=== PATIENT | female | born 1940 | race Caucasian/White ===

== ENCOUNTER → 2016-09-28 07:20 | Outpatient (CLI) | payer MEDICARE, SELFPAY ==
--- NOTE | 2016-09-28 08:20 | RAD_ITS ---
STUDY: X-RAY CHEST REASON FOR EXAM: Female, 76 years old. Cough. TECHNIQUE: PA and lateral views of the chest. COMPARISON: None. FINDINGS: All prominent interstitial markings are present with no evidence of focal airspace disease. There is no demonstrated pleural abnormality. Normal size heart. Normal mediastinum and asia. Normal visualized pulmonary arteries. There is atherosclerotic calcification of the aortic arch with tortuosity. There are diffuse degenerative changes of the visualized thoracic spine. Normal visualized ribs, clavicles, and shoulders. There is no demonstrated abnormality of the visualized soft tissue structures of the upper abdomen. RAD/Chest PA and Lateral IMPRESSION: No prominent interstitial markings with no evidence of focal airspace disease. Electronically Signed: Willy Mandel DO at 20:06 EDT Tel [phone], Service support ,
[2016-09-28 09:47] LABS: Hematocrit 39.2 % (37-47); Hemoglobin 12.4 g/dl (12.0-15.0); Mean Corp Hgb Conc 31.6 g/gl (32-36); Mean Corpuscular Hgb 29.7 pg (27.0-32.0); Mean Platelet Vol. 10.2 fl (6.2-12.0); Platelet Count 232 K/mm3 (150-450); RBC Distribution Width CV 13.6 % (11.6-14.6); RBC Distribution Width SD 46.4 fl (35.1-43.9); Red Blood Count 4.17 M/mm3 (4.2-5.4); White Blood Count 6.4 K/mm3 (4.4-11.0)
[2016-09-28 09:52] LABS: Scan Indicated on CBC? Y/N NO
[2016-09-28 10:00] LABS: Erythrocyte Sedimentation Rate 31 mm/hr (0-30)
[2016-09-28 10:14] LABS: ALB/GLOB Ratio 1.1 RATIO (0.9-2.4); AST(SGOT) 14 U/L (15-37); Alanine Aminotransfer ALT/SGPT 19 U/L (12-78); Albumin, Serum 3.6 g/dL (3.4-5.0); Alkaline Phosphatase 72 U/L (45-117); Anion Gap 7 (5-15); BUN 16 mg/dL (7-18); BUN/Creat Ratio 17.6 RATIO (10-20); Calcium,Total 8.8 mg/dL (8.5-10.1); Chloride 108 mmol/L (98-107); Creatinine, Serum 0.91 mg/dL (0.55-1.02); EST Glomerular Filtration Rate 64 mL/min (>60); Est Glom Filt Rate - Afr Amer 77 mL/min (>60); Globulin 3.4 g/dL (2.3-3.5); Glucose 88 mg/dL (70-110); Sodium Level 143 mmol/L (136-145); Thyroid Stim Hormone (TSH) 4.59 uIU/mL (0.358-3.74)
[2016-09-28 11:56] LABS: Vitamin D,25 Hydroxy 36.8 ng/mL
== END | disposition home or self-care (01) ==
PROVIDERS: Family Provider Family Medicine; PCP Family Medicine; Visit Provider Family Medicine
DX: Z00.00 Encounter for general adult medical examination without abnormal findings (principal); R05 Cough
CPT/HCPCS: 36415; 71020; 80053; 82306; 84443; 85027; 85652

== ENCOUNTER → 2018-02-08 08:07 | Outpatient (CLI) | payer MEDICARE, SELFPAY ==
[2018-02-08 10:33] LABS: Erythrocyte Sedimentation Rate 10 mm/hr (0-30)
[2018-02-08 10:35] LABS: Hematocrit 40.3 % (37-47); Hemoglobin 13.2 g/dl (12.0-15.0); Mean Corp Hgb Conc 32.8 g/gl (32-36); Mean Corpuscular Volume 91.6 fL (81-99); Mean Platelet Vol. 10.2 fl (6.2-12.0); Platelet Count 239 K/mm3 (150-450); RBC Distribution Width SD 43.6 fl (35.1-43.9); White Blood Count 6.5 K/mm3 (4.4-11.0)
[2018-02-08 10:41] LABS: Scan Indicated on CBC? Y/N NO
[2018-02-08 10:59] LABS: ALB/GLOB Ratio 0.9 RATIO (0.9-2.4); AST(SGOT) 15 U/L (15-37); Alanine Aminotransfer ALT/SGPT 21 U/L (13-56); Albumin, Serum 3.5 g/dL (3.2-5.0); Alkaline Phosphatase 72 U/L (45-117); Anion Gap 8 (5-15); BUN 16 mg/dL (7-18); BUN/Creat Ratio 19.7 RATIO (10-20); Calcium,Total 9.2 mg/dL (8.5-10.1); Chloride 107 mmol/L (98-107); Cholesterol 228 mg/dL (200); Creatinine, Serum 0.81 mg/dL (0.55-1.02); EST Glomerular Filtration Rate 72 mL/min (>60); Est Glom Filt Rate - Afr Amer 88 mL/min (>60); Globulin 3.9 g/dL (2.2-4.2); Glucose 82 mg/dL (74-106); High Density Lipoprotein 75 mg/dL; Potassium 4.1 mmol/L (3.5-5.1); Protein, Total 7.4 g/dL (6.4-8.2); Sodium Level 141 mmol/L (136-145); Thyroid Stim Hormone (TSH) 2.08 uIU/mL (0.358-3.74); Triglycerides 56 mg/dL; Very Low Density Lipoprotein 11 mg/dL (5-40)
== END ==
PROVIDERS: Family Provider Family Medicine; PCP Family Medicine; Visit Provider Family Medicine
DX: Z00.00 Encounter for general adult medical examination without abnormal findings (principal); M81.0 Age-related osteoporosis without current pathological fracture; E78.00 Pure hypercholesterolemia, unspecified
CPT/HCPCS: 36415; 80053; 80061; 82306; 84443; 85027; 85652

== ENCOUNTER → 2018-04-23 11:52 | Outpatient (CLI) | payer MEDICARE, SELFPAY ==
--- NOTE | 2018-04-23 12:16 | BI_ITS ---
MAMMOGRAPHY - BILATERAL SCREENING REASON FOR EXAM: Female, 78 years old. Routine annual screening examination. PERTINENT HISTORY: Non-contributory. TECHNIQUE: Digital bilateral breast avis (3D mammographic acquisition) in the CC and MLO projections. 2-D mediolateral oblique (MLO) and craniocaudad (CC) views of both breasts were obtained. CAD: Full Field Digital Mammography with Computer Added Detection was performed. COMPARISON: Comparison is made with prior study dated October 14, 2016 and September 28, 2015. FINDINGS: Breast Composition: The breasts are heterogeneously dense, which may obscure small masses. There are no dominant masses or suspicious calcifications. No other significant abnormalities are identified. There has been no significant change since the prior study. BI/SCREENING MAMM (CAD), BILAT IMPRESSION: Stable bilateral screening mammogram. Yearly follow-up mammogram recommended. (A) ASSESSMENT CATEGORY: BIRADS Category 1: Negative. A letter regarding these results will be sent to the patient by the facility within 30 days. Approximately 10% of breast cancers are not detected by mammography. A normal mammogram should not delay biopsy of a clinically suspicious abnormality. [id number] Electronically Signed: Peterson Aquino MD at 14:57 EST Tel [phone], Service support ,
--- OUTSIDE RECORDS SUMMARY | 2018-06-16 18:11 | XMS RPT_ITS ---
:1940 Author Organization [facility] Care Team Providers Name Role Phone Kendell Granger Attending Unavailable Kendell Granger Referring Unavailable Kendell Granger Primary Care Unavailable Lou Rodriguez Attending Unavailable Lou Rodriguez Referring Unavailable Kendell Granger Primary Care Unavailable PROBLEMS PROBLEMS No Problem Records FoundPROCEDURES PROCEDURES No Procedure Records FoundRESULTS RESULTS SCREENING MAMM (CAD), Observed: 04/23/2018 Status: F Source: [place] 12:16 PM [facility] REPOSITORY [facility] Imaging Services [address] [place] [id number] SCREENING MAMM (CAD), BILAT MR#: [id number] Acct: [id number] Name: ELIDIA DREW Rep #: [id number] : 1940 F 78 From: Peterson Aquino MD PCP: Kendell Granger MD Status: REG CLI Study: SCREENING MAMM (CAD), BILAT Date of Exam: 04/23/18 Exam# [id number] Ordering Dr: Lou Rodriguez MD MAMMOGRAPHY - BILATERAL SCREENING REASON FOR EXAM: Female, 78 years old. Routine annual screening examination. PERTINENT HISTORY: Non-contributory. TECHNIQUE: Digital bilateral breast avis (3D mammographic acquisition) in the CC and MLO projections. 2-D mediolateral oblique (MLO) and craniocaudad (CC) views of both breasts were obtained. CAD: Full Field Digital Mammography with Computer Added Detection was performed. COMPARISON: Comparison is made with prior study dated October 14, 2016 and September 28, 2015. FINDINGS: Breast Composition: The breasts are heterogeneously dense, which may obscure small masses. There are no dominant masses or suspicious calcifications. No other significant abnormalities are identified. There has been no significant change since the prior study. BI/SCREENING MAMM (CAD), BILAT IMPRESSION: Stable bilateral screening mammogram. Yearly follow-up mammogram recommended. (A) ASSESSMENT CATEGORY: BIRADS Category 1: Negative. A letter regarding these results will be sent to the patient by the facility within 30 days. Approximately 10% of breast cancers are not detected by mammography. A normal mammogram should not delay biopsy of a clinically suspicious abnormality. [id number] Electronically Signed: Peterson Aquino MD at 14:57 EST Tel [phone], Service support , CC: Lou Rodriguez MD; Kendell Granger MD Clinical Lab Assistant: Signed ERYTHROCYTE SED RATE Collected: 02/08/2018 Status: F Source: [place] 8:16 AM [facility] REPOSITORY Order Comment: Order Date: 01/08/18 Order Info: [id number] - CBC Order Info: [id number] - SED TYPE CODE TESTS RESULT OUT OF RANGE REFERENCE UNITS LAB L102.0000 0-30 mm/hr Normal SED RATE 10 Performed By: #### L101.9900, L100.0500, L500.4050 #### [facility] [address] [place], [address] CBC-COMPLETE BLOOD CNT Collected: 02/08/2018 Status: F Source: [place] NO DIFF 8:16 AM [facility] REPOSITORY Order Comment: Order Date: 01/08/18 Order Info: [id number] - CBC Order Info: 16274-3 - SED TYPE CODE TESTS RESULT OUT OF RANGE REFERENCE UNITS LAB L100.1000 4.4-11.0 K/mm3 Normal WBC 6.5 LAB L100.1200 4.2-5.4 M/mm3 Normal RBC 4.40 LAB L100.1300 12.0-15.0 g/dl Normal HGB 13.2 LAB L100.1400 37-47 % Normal HCT 40.3 LAB L100.1500 81-99 fL Normal MCV 91.6 LAB L100.1600 27.0-32.0 pg Normal MCH 30.0 LAB L100.1700 32-36 g/gl Normal MCHC 32.8 LAB L100.1810 11.6-14.6 % Normal RDW CV 13.0 LAB L100.1820 35.1-43.9 fl Normal RDW SD 43.6 LAB L100.1900 150-450 K/mm3 Normal PLT 239 LAB L100.2000 6.2-12.0 fl Normal MPV 10.2 Performed By: #### L101.9900, L100.0500, L500.4050 #### [facility] [address] [place], [place], [address] COMPREHENSIVE METABOLIC Collected: 02/08/2018 Status: F Source: [place] PROFIL 8:16 AM [facility] REPOSITORY Order Comment: Order Date: 11/21/17 Order Info: [id number] - BMP Order Date: 01/08/18 Order Info: [id number] - CMP Order Info: [id number] - LIPID Order Info: 3016-3 - TSH TYPE CODE TESTS RESULT OUT OF RANGE REFERENCE UNITS LAB L501.0100 74-106 mg/dL Normal GLU 82 Result Comment: Please note revised GLUCOSE reference range effective 2017. LAB L501.1000 7-18 mg/dL Normal BUN 16 LAB L501.1100 0.55-1.02 mg/dL Normal CREAT,SERUM 0.81 Result Comment: The validity of the calculated GFR AND GFRAA in patients over 70 years has not been determined. Clinical correlation is essential. LAB L501.1110 >60 mL/min Normal EST GFR 72 Result Comment: Non- GFR Calc LAB L501.1115 >60 mL/min Normal EST GFR - AA 88 Result Comment: GFR Calc LAB L501.1300 10-20 RATIO Normal BUN/CRE 19.7 LAB L501.1500 6.4-8.2 g/dL T Normal PROT 7.4 LAB L501.1800 3.2-5.0 g/dL Normal ALB 3.5 LAB L501.1950 2.2-4.2 g/dL Normal GLOB 3.9 LAB L501.2000 0.9-2.4 RATIO Normal A/G 0.9 LAB L501.2200 8.5-10.1 mg/dL CA Normal 9.2 LAB L501.4100 15-37 U/L Normal AST 15 LAB L501.4305 45-117 U/L Normal ALK P 72 LAB L501.4405 13-56 U/L Normal ALT 21 LAB L501.4600 0.20-1.00 mg/dL T Normal BILI 0.50 LAB L501.5300 136-145 mmol/L NA Normal 141 LAB L501.5600 3.5-5.1 mmol/L K Normal 4.1 LAB L501.5900 98-107 mmol/L CL Normal 107 LAB L501.6100 21.0-32.0 mmol/L Normal CO2 26.0 LAB L501.6200 5-15 Normal GAP 8 Performed By: #### L101.9900, L100.0500, L500.4050 #### [facility] [address] [place], [place], [address] VITAMIN D,25 HYDROXY Collected: 02/08/2018 Status: F Source: [place] 8:16 AM [facility] REPOSITORY Order Comment: Order Date: 01/08/18 Order Info: [id number] - VITD25 TYPE CODE TESTS RESULT OUT OF REFERENCE UNITS RANGE LAB L506.1000 29.95-100.01 ng/mL Low Vitamin D 25.0 25-OH Result Comment: Vitamin D 25(OH) Status Range Deficiency <20 ng/mL (50nmol/L) Insuffciency 20 - 30 ng/mL (50 - 75 nmol/L) Sufficiency 30 - 100 ng/mL (75 - 250 nmol/L) Toxicity >100 ng/mL (>250 nmol/L) Performed By: #### L506.1000 #### [facility] [address] [place], [place], [id number] LIPID PROFILE Collected: 02/08/2018 Status: F Source: [place] 8:16 AM [facility] REPOSITORY Order Comment: Order Date: 11/21/17 Order Info: [id number] - BMP Order Date: 01/08/18 Order Info: [id number] - CMP Order Info: [id number] - LIPID Order Info: 3016-3 - TSH TYPE CODE TESTS RESULT OUT OF RANGE REFERENCE UNITS LAB L501.4900 200 mg/dL High CHOL 228 Result Comment: <200 mg/dL Desirable 200-240 mg/dL Borderline >240 mg/dL High Risk LAB L501.5000 mg/dL Normal TRIG 56 Result Comment: The drugs N-Acetylcysteine and Metamizole may falsely depress this assay. Serum Triglycerides Reference Interval Normal <150 mg/dL Borderline high 150 - 199 mg/dL High 200 - 499 mg/dL Very High > or = 500 mg/dL LAB L501.6400 mg/dL Normal HDL 75 Result Comment: The drugs N-Acetylcysteine and Metamizole may falsely depress this assay. Reference Range HDL <40 mg/dL Low HDL Cholesterol HDL >or= 60 mg/dL High HDL Cholesterol LAB L501.6500 0-130 mg/dL High LDL 142 LAB L501.6600 5-40 mg/dL Normal VLDL 11 Performed By: #### L500.4100, L501.9520 #### [facility] [address] [place], [address] THYROID STIM HORMONE Collected: 02/08/2018 Status: F Source: [place] (TSH) 8:16 AM [facility] REPOSITORY Order Comment: Order Date: 11/21/17 Order Info: [id number] - BMP Order Date: 01/08/18 Order Info: [id number] - CMP Order Info: [id number] - LIPID Order Info: 3016-3 - TSH TYPE CODE TESTS RESULT OUT OF RANGE REFERENCE UNITS LAB L501.9520 0.358-3.74 uIU/mL Normal TSH 2.08 Performed By: #### L500.4100, L501.9520 #### [facility] [address] [place], [address] ALLERGIES ALLERGIES DATE TYPE / CODE NAME / CODE REACTION SEVERITY SOURCE 02/15/2017 Drug Penicillins/ Rash Unknown [facility] Allergy/4160 [id number](R Hospital 21327(SNOMED XNORM) Repository CT) 02/15/2017 Drug latex/N80127 Rash Unknown [facility] Allergy/4160 8921(RXNORM) Hospital 40645(SNOMED Repository CT) ENCOUNTERS ENCOUNTERS ADMIT/DISCHARGE ACCOUNT ADMITTING ENCOUNTER LOCATION SOURCE NUMBER CLASS 04/23/2018 [id number] Ambulatory [place] [facility] 5 [facility] ing:OPBI Repository 02/08/2018 [id number] Ambulatory [place] [facility] 3 [facility] ing:MTLAB Repository PAYERS PAYERS ENCOUNTER GUARANTOR PAYER SUBSCRIBER SOURCE 04/23/2018 MJ Mccain Primary ELIDIA Jose SteelMaria Luisa [id number] Insurance:ANTHEM DEFFENBAUGHDOB: Community [employer] [employer] [place]icy [id number]: Repository [address]Xfb: 330 [id number] [phone] () Date:[id number] [address]VP: 04/23/2018 Secondary NOT GIVENUNK Maria [place]isa Insurance:SELF PAY [facility] Number: Effective Repository Date:2018-03-12 02/08/2018 Mj Mccain Primary ELIDIAALBIN Glass [id number] Insurance:ANTHEM DEFFENBAUGHDOB: Community [place]icy [id number] Number: Repository [id number]: 330 [id number] [phone] () Date:[id number] [address]YK: 02/08/2018 Secondary NOT GIVENUNK Maria Luisa Insurance:SELF PAY [facility] Number: Effective Repository Date:2018-02-08
== END ==
PROVIDERS: Family Provider Family Medicine; PCP Family Medicine; Referring Provider Obstetrics & Gynecology; Visit Provider Obstetrics & Gynecology
DX: Z12.31 Encounter for screening mammogram for malignant neoplasm of breast (principal)
CPT/HCPCS: 77063; 77067

== ENCOUNTER → 2018-09-25 10:57 | Outpatient (CLI) | payer MEDICARE, SELFPAY ==
--- NOTE | 2018-09-25 11:02 | BD_ITS ---
STUDY: DUAL ENERGY X-RAY ABSORPTIOMETRY / DXA REASON FOR EXAM: Female, 78 years old. The patient is postmenopausal. Loss of height. TECHNIQUE: Bone Mineral Density (BMD) measurements of lumbar spine and bilateral hips were obtained. COMPARISON: Comparison is made with prior study dated March 09, 2016. FINDINGS: Lumbar Spine (L1-L4): g/cm2 (0.710) / T-score (-3.8) / Z-score (-2.0) Findings are suggestive of osteoporosis with a high fracture risk. Left Femur Total: g/cm2 (0.665) / T-score (-2.7) / Z-score (-0.8) Left Femoral Neck: g/cm2 (0.628) / T-score (-2.9) / Z-score (-0.9) Right Femur Total: g/cm2 (0.714) / T-score (-2.3) / Z-score (-0.4) Right Femoral Neck: g/cm2 (0.673) / T-score (-2.6) / Z-score (-0.5) The T-Scores on the most recent prior examination were: Lumbar Spine (L1-L4): There has been worsening of bone density since the previous examination. Left Femur Total: which represents a worsening of 3.5%. Right Femur Total: which represents a worsening of 2.6%. BD/Dexa Bone Density Study IMPRESSION: The patient is considered osteoporotic as outlined below according to World Real Organization (WHO) criteria with a high fracture risk. There has been worsening of bone density since the previous examination. Reference Information: The T-score is the number of standard deviations above or below the standard which is normal for young adults at their peak bone mineral density. The World Health Organization (WHO) interprets the T-scores as follows: Above -1 Normal bone density Between -1 and -2.5 Osteopenia Equal to / or below -2.5 Osteoporosis As a practical clinical guideline, osteopenia may be graded as follows: Mild -1 through -1.5 Moderate -1.6 through -2.0 Severe -2.1 through -2.4 The Z-score is the number of standard deviations above or below age-matched controls. A Z-score of less than -1.5 would be considered abnormal. References: 1. NIH Osteoporosis and Related Bone Diseases http://www.osteo.org 2. International Society for Clinical Densitometry http://www.iscd.org 3. National Osteoporosis Foundation http://www.nof.org Electronically Signed: Peterson Aquino, at 13:32 EDT , Service support ,
== END ==
PROVIDERS: Family Provider Family Medicine; PCP Family Medicine; Referring Provider Family Medicine; Visit Provider Family Medicine
DX: M81.0 Age-related osteoporosis without current pathological fracture (principal)
CPT/HCPCS: 77080

== ENCOUNTER → 2019-01-23 08:01 | Outpatient (CLI) | payer MEDICARE, SELFPAY ==
[2017-02-21 10:02] VITALS: BMI 26.0
[2019-01-23 10:19] LABS: Absolute Lymphocyte Count 1.77 X10^3/uL (0.83-4.51); Absolute Neutrophil Count 3.2 X10^3/uL (2.0-7.7); Basophil# 0.06 X10^3/uL; Eosinophil# 0.21 X10^3/uL; Eosinophils% 3.7 % (0-5); Hemoglobin 12.9 g/dL (12.0-15.0); Lymphocyte # 1.77 X10^3/ul (4.0); Lymphocyte % 30.8 % (19-41); Mean Corp Hgb Conc 32.3 g/dL (32-36); Mean Corpuscular Hgb 30.2 pg (27.0-32.0); Mean Corpuscular Volume 93.7 fL (81-99); Mean Platelet Vol. 10.5 fl (6.2-12.0); Monocyte% 8.7 % (0-10); NRBC Flagged by Analyzer 0 % (0-5); Neutrophil # 3.19 X10^3/uL (2.7-7.7); Neutrophil % 55.5 % (47-70); Platelet Count 220 K/mm3 (150-450); RBC Distribution Width CV 12.8 % (11.6-14.6); RBC Distribution Width SD 43.8 fl (35.1-43.9); Red Blood Count 4.27 M/mm3 (4.2-5.4); White Blood Count 5.8 K/mm3 (4.4-11.0)
[2019-01-23 10:52] LABS: Vitamin D,25 Hydroxy 47.8 ng/mL (29.95-100.01)
[2019-01-23 10:58] LABS: Anion Gap 7 (5-15); BUN 16 mg/dL (7-18); BUN/Creat Ratio 17.6 RATIO (10-20); Chloride 109 mmol/L (98-107); Cholesterol 198 mg/dL (200); Creatinine, Serum 0.91 mg/dL (0.55-1.02); EST Glomerular Filtration Rate 64 mL/min (>60); Est Glom Filt Rate - Afr Amer 77 mL/min (>60); Glucose 86 mg/dL (74-106); High Density Lipoprotein 77 mg/dL; Potassium 4.1 mmol/L (3.5-5.1); Sodium Level 143 mmol/L (136-145); Thyroid Stim Hormone (TSH) 2.93 uIU/mL (0.358-3.74); Triglycerides 45 mg/dL; Very Low Density Lipoprotein 9 mg/dL (5-40)
== END ==
PROVIDERS: Family Provider Family Medicine; PCP Family Medicine; Referring Provider Family Medicine; Visit Provider Family Medicine
DX: Z00.00 Encounter for general adult medical examination without abnormal findings (principal); E78.00 Pure hypercholesterolemia, unspecified; R79.89 Other specified abnormal findings of blood chemistry; M19.90 Unspecified osteoarthritis, unspecified site
CPT/HCPCS: 36415; 80048; 80061; 82306; 84443; 85025

== ENCOUNTER → 2019-02-27 12:15 | Outpatient (CLI) | payer MEDICARE, SELFPAY ==
[2017-02-21 10:02] VITALS: BMI 26.0
[2019-02-27 14:20] LABS: Magnesium 2.5 mg/dL (1.6-2.6)
== END ==
PROVIDERS: Family Provider Family Medicine; PCP Family Medicine; Referring Provider Family Medicine; Visit Provider Family Medicine
DX: I49.8 Other specified cardiac arrhythmias (principal)
CPT/HCPCS: 36415; 83735

== ENCOUNTER → 2019-03-29 13:13 | Outpatient (CLI) | payer MEDICARE, SELFPAY ==
[2019-03-27 08:43] VITALS: BMI 28.1
--- NOTE | 2019-03-29 13:14 | STE_ITS ---
Reason For Study: Arrhythmia Stress Results Protocol: Tulio Protocol Maximum Predicted HR: 141 bpm Target HR: 120 bpm % Maximum Predicted HR: 94 % DurationHeart Rate Stage (mm:ss) (bpm) BP Comment Baseline 69 134/82No Chest Pain Tulio Protocol Stage I 3:00 122 150/78No Chest Pain Tulio Protocol Stage II 3:00 133 160/74No Chest Pain; Mild Dyspnea Recovery 78 118/80No Chest Pain Stress Duration: 6:00 mm:ss Maximum Stress HR: 133 bpm METS: 7 Baseline Echocardiogram Findings Stress Echo Wall motion Data Resting WM Intermediate WM Stress WM Interpretation Summary Stress protocol: Resting EKG demonstrates normal sinus rhythm with a rate of 72 bpm and occasional premature atrial complexes. The patient exercised according to regular Tulio protocol for total duration of 6 minutes completing stage II of the Tulio protocol the maximum heart rate attained was 139 bpm which was 98% of maximum predicted heart rate the maximum workload was 7.3 metabolic equivalents. Patient maintained sinus rhythm throughout the recording with premature atrial complexes noted. These were asymptomatic. At rest there were no ST or T wave changes noted suggest ischemia at peak exercise upsloping ST changes only were noted with no meet the criteria for ischemia. No clinical angina was noted the test was terminated due to leg fatigue. Resting blood pressure was 134/82 with a peak blood pressure 160/74 mmHg. Stress echocardiogram. Stress echocardiographic results were performed. Resting echocardiogram demonstrated preserved ejection fraction of 55 to 60% with peak ejection fraction estimated to be 65 to 70%. No wall motion abnormalities were noted. Conclusion: Exercise stress echocardiogram with no EKG or echocardiographic findings at a high workload for age. No significant arrhythmias noted except for occasional premature atrial complexes. Excellent functional capacity. Ordering Physician: Castillo Cueva Referring Physician: Kendell Whatley Performed By: Melissa Zhu, ANH
== END ==
PROVIDERS: Family Provider Family Medicine; PCP Family Medicine; Referring Provider Internal Medicine Cardiovascular Disease; Visit Provider Internal Medicine Cardiovascular Disease
DX: I49.1 Atrial premature depolarization (principal); R94.31 Abnormal electrocardiogram [ECG] [EKG]
CPT/HCPCS: 93017; 93350

== ENCOUNTER 2019-04-29 18:03 | Emergency (ER) | payer MEDICARE, SELFPAY ==
[2019-03-27 08:43] VITALS: BMI 28.1
[2019-04-29 18:05] VITALS: BP 168/95; PULSE 75; RESP 16; TEMP 36.2; O2SAT 99; BMI 27.1
--- NOTE | 2019-04-29 18:50 | CT_ITS ---
STUDY: CT ABDOMEN AND PELVIS WITH CONTRAST REASON FOR EXAM: Female, 79 years old. Right-sided abdominal pain RADIATION DOSAGE (If Supplied By Facility): CTDIvol = ( 15.19 ) mGy, DLP = ( 778.83 ) mGycm TECHNIQUE: Transaxial images were obtained from the dome of the diaphragm to the symphysis pubis with oral contrast. 100ml-[id number] / oral was administered. Sagittal and coronal images were reconstructed. Individualized dose optimization techniques were used for this CT. COMPARISON: None. FINDINGS: The visualized lung bases are unremarkable. The visualized portions of the heart are within normal limits. Normal liver. Normal gallbladder and extrahepatic biliary system. Normal spleen. Normal pancreas. Normal bilateral adrenal glands. Right extrarenal pelvis, otherwise unremarkable right kidney. Normal left kidney. Questionable wall thickening of the gastric fundus. Normal small intestine. There are multiple colonic diverticula consistent with diverticulosis. Prominent fecal retention throughout the colon. There is non-visualization of the appendix. There is diffuse atherosclerotic calcification of the abdominal aorta, without a demonstrated aneurysm. Normal inferior vena cava. Normal retroperitoneum. Normal urinary bladder. There is atrophy of the uterus. There is a small umbilical hernia containing fat. There are diffuse degenerative changes of the visualized lumbar spine. CT/Abdomen/Pelvis WITH Contrast IMPRESSION: 1. Prominent fecal retention throughout the colon with diverticulosis. No acute diverticulitis 2. Evidence of small bowel obstruction 3. Nonvisualized appendix have a common no secondary signs of acute appendicitis Electronically Signed: Tesfaye Mcintyre DO at 21:17 EST Tel , Service support ,
[2019-04-29 19:07] LABS: Bacteria 0 SEEN /hpf (None Seen); Mucous, Urine 0 SEEN /hpf (<or=2+); Red Blood Cells-Urine 0 SEEN /hpf (0-5); Squamous Epithelial Cells - UA 0 SEEN /hpf (5-10)
[2019-04-29 19:08] LABS: Color, Urine Yellow (Yellow); Glucose, Dipstick Normal (Normal); Ketone-Dipstick 5 mg/dl (Negative); Leukocyte Esterase-Dipstick Negative /ul (Negative); Nitrite-Dipstick Negative (Negative); Occult Blood-Urine 10 /ul (Negative); Protein-Dipstick Negative (Negative); Urine Bilirubin Dipstick Negative (Negative); Urine Clarity Clear (Clear); Urine Urobilinogen Normal (Normal)
[2019-04-29 19:14] LABS: White Blood Cells 0-5 SEEN /hpf (0-5)
[2019-04-29 19:22] LABS: Absolute Lymphocyte Count 1.99 X10^3/uL (0.83-4.51); Absolute Neutrophil Count 4.3 X10^3/uL (2.0-7.7); Basophil# 0.05 X10^3/uL; Basophil% 0.7 % (0-1); Eosinophil# 0.07 X10^3/uL; Hematocrit 40.5 % (37-47); Hemoglobin 13.1 g/dL (12.0-15.0); Lymphocyte # 1.99 X10^3/ul (4.0); Lymphocyte % 28.4 % (19-41); Mean Corp Hgb Conc 32.3 g/dL (32-36); Mean Corpuscular Hgb 29.9 pg (27.0-32.0); Mean Corpuscular Volume 92.5 fL (81-99); Monocyte# 0.56 X10^3/uL; NRBC Flagged by Analyzer 0 % (0-5); Neutrophil # 4.31 X10^3/uL (2.7-7.7); Neutrophil % 61.5 % (47-70); Platelet Count 234 K/mm3 (150-450); RBC Distribution Width CV 12.7 % (11.6-14.6); RBC Distribution Width SD 43.6 fl (35.1-43.9); Red Blood Count 4.38 M/mm3 (4.2-5.4)
[2019-04-29 19:26] VITALS: BP 158/77; PULSE 77; RESP 16; O2SAT 99
[2019-04-29] MEDS: 0.9% Normal Saline 1,000 ML 1000 ML IV (19:36)
[2019-04-29 19:58] LABS: ALB/GLOB Ratio 1.1 RATIO (0.9-2.4); AST(SGOT) 18 U/L (15-37); Alanine Aminotransfer ALT/SGPT 20 U/L (13-56); Alkaline Phosphatase 72 U/L (45-117); Anion Gap 7 (5-15); BUN 16 mg/dL (7-18); Calcium,Total 9.1 mg/dL (8.5-10.1); Chloride 106 mmol/L (98-107); EST Glomerular Filtration Rate 57 mL/min (>60); Est Glom Filt Rate - Afr Amer 69 mL/min (>60); Estimated Creatinine Clearance 34.42 ml/min; Globulin 3.7 g/dL (2.2-4.2); Glucose 97 mg/dL (74-106); Lipase 381 U/L (73-393); Potassium 3.7 mmol/L (3.5-5.1); Protein, Total 7.7 g/dL (6.4-8.2); Sodium Level 138 mmol/L (136-145)
[2019-04-29 21:10] VITALS: RESP 16
[2019-04-29 21:24] VITALS: BP 142/84; PULSE 100; RESP 16; O2SAT 97
--- NOTE | 2019-04-29 21:27 | ED.DCSUM_ITS ---
- ER Visit Summary Date of Service: 04/29/19 Chief Complaint: Abdominal pain History of Present Illness: The patient is a [address] Barr. She reports that she has right lower abdominal pain that began 2 days ago. Some aching pain is 5 out of 10 when she walks or moves. She has no pain at rest. She denies any associated nausea, vomiting, or diarrhea. Her last bowel was today. No melena hematochezia. No dysuria frequency. Physical Examination: Vitals: Stable. Afebrile. General: Well-nourished and well-developed. Head: Normocephalic atraumatic. Neck: Supple, no lymphadenopathy. No JVD. Nontender. Cardiovascular: Regular rate and rhythm. No murmurs. Respiratory: No respiratory distress. Clear to auscultation bilaterally. Abdominal: Soft, minimal right lower quadrant tenderness to palpation, nondistended, normal bowel sounds. No guarding, rebound, or peritoneal signs. Back: Nontender. Extremities: Nontender, no edema. Skin: Normal color, no rash. Neurologic: Alert and oriented ?3. Cranial nerves II through XII are intact. Normal strength and sensation. Psych: Normal affect. Test Results: CBC is normal. Chem-7 is normal. LFTs and lipase are normal. UA is negative. Appendix was not visualized. There was no secondary signs of appendicitis. There is no bowel obstruction. She does have fecal retention. Emergency Department Course and Treatment: Patient refused pain or nausea medications. She is resting comfortably. Treatment Plan: Patient will be discharged instructions follow-up her primary care physician 1 to 2 days if not improving. Return to the emergency department for any worsening symptoms. Disposition: To home in improved and stable condition. Impression: 1. Abdominal pain, uncertain cause. This note was generated with [employer] software. It may contain incorrect words, spelling, and punctuation that were not noted in review of the chart prior to signing ED Disposition - Plan for ED Patient: Disposition: Home or Assisted Living Instructions: ABDOMINAL PAIN, Unknown Cause, (Female) Referrals: Kendell Whatley MD [Primary Care Provider] - 1-2 Days if not improving
[2019-04-29 21:45] VITALS: BP 131/79; PULSE 78; RESP 16; O2SAT 97
== END 2019-04-29 21:46 | disposition home or self-care (01) ==
LOC: ED 18:57
PROVIDERS: Emergency Provider Emergency Medicine; Family Provider Family Medicine; PCP Family Medicine
DX: R10.31 Right lower quadrant pain (principal)
CPT/HCPCS: 74177; 80053; 81001; 83690; 85025; 96360; 99283; J7030; Q9967; A4216

== ENCOUNTER → 2019-05-21 12:17 | Outpatient (CLI) | payer MEDICARE, SELFPAY ==
[2019-03-27 08:43] VITALS: BMI 28.1
[2019-04-29 18:05] VITALS: BMI 27.1
--- NOTE | 2019-05-21 12:19 | BI_ITS ---
MAMMOGRAPHY - BILATERAL SCREENING 3-D TOMOSYNTHESIS REASON FOR EXAM: Female, 79 years old. no fam hx -- hx of bilat aspirations several yrs ago PERTINENT HISTORY: No significant family history. TECHNIQUE: 2-D mammograms and 3-D Tomosynthesis of the breast (s) were performed. CAD was performed. COMPARISON: April 23, 2018. FINDINGS: The breast composition is composed of scattered fibroglandular density. Scattered benign calcifications are seen. No dense spiculated masses or suspicious microcalcifications are identified. No architectural distortion is identified. There is no skin thickening or retraction. There are typically benign-appearing calcifications bilaterally. There has been no significant change since the prior study. BI/SCREEN MAMM (CAD) W/IZZY BILAT IMPRESSION: No mammographic signs of malignancy. Routine yearly mammograms recommended. ASSESSMENT CATEGORY: BIRADS Category 2: Benign. A letter regarding these results will be sent to the patient by the facility within 30 days. FOLLOW UP RECOMMENDATION: Yearly follow up mammogram recommended. (A) Approximately 10% of breast cancers are not detected by mammography. A normal mammogram should not delay biopsy of a clinically suspicious abnormality. Electronically Signed: Bipin Davis MD at 9:15 EST , Service support ,
== END ==
PROVIDERS: Family Provider Family Medicine; PCP Family Medicine; Referring Provider Family Medicine; Visit Provider Family Medicine
DX: Z12.31 Encounter for screening mammogram for malignant neoplasm of breast (principal)
CPT/HCPCS: 77063; 77067

== ENCOUNTER → 2020-05-21 12:31 | Outpatient (CLI) | payer MEDICARE, SELFPAY ==
[2020-05-21 12:47] LABS: Bacteria 0 SEEN /hpf (None Seen); Mucous, Urine 0 SEEN /hpf (<or=2+); Red Blood Cells-Urine 0 SEEN /hpf (0-5); White Blood Cells 0 SEEN /hpf (0-5)
[2020-05-21 15:11] LABS: Color, Urine Yellow (Yellow); Glucose, Dipstick Normal (Normal); Ketone-Dipstick Negative (Negative); Leukocyte Esterase-Dipstick Negative /ul (Negative); Nitrite-Dipstick Negative (Negative); Occult Blood-Urine Negative /ul (Negative); Protein-Dipstick Negative (Negative); Urine Bilirubin Dipstick Negative (Negative); Urine Clarity Sl. Cloudy (Clear); Urine Urobilinogen Normal (Normal)
[2020-05-21 15:17] LABS: Absolute Lymphocyte Count 1.54 X10^3/uL (0.83-4.51); Absolute Neutrophil Count 4.5 X10^3/uL (2.0-7.7); Basophil# 0.06 X10^3/uL; Basophil% 0.9 % (0-1); Eosinophils% 2.9 % (0-5); Hematocrit 38.2 % (37-47); Hemoglobin 11.9 g/dL (12.0-15.0); Lymphocyte # 1.54 X10^3/ul (4.0); Mean Corp Hgb Conc 31.2 g/dL (32-36); Mean Corpuscular Hgb 30.1 pg (27.0-32.0); Mean Corpuscular Volume 96.5 fL (81-99); Mean Platelet Vol. 9.6 fl (6.2-12.0); Monocyte# 0.68 X10^3/uL; Monocyte% 9.7 % (0-10); NRBC Flagged by Analyzer 0 % (0-5); Neutrophil # 4.49 X10^3/uL (2.7-7.7); Neutrophil % 64.2 % (47-70); Platelet Count 343 K/mm3 (150-450); RBC Distribution Width CV 12.8 % (11.6-14.6); RBC Distribution Width SD 45.3 fl (35.1-43.9); Red Blood Count 3.96 M/mm3 (4.2-5.4)
[2020-05-21 15:22] LABS: Squamous Epithelial Cells - UA 10-25 SEEN /hpf (5-10)
[2020-05-21 15:36] LABS: AST(SGOT) 19 U/L (15-37); Alanine Aminotransfer ALT/SGPT 31 U/L (13-56); Albumin, Serum 3.7 g/dL (3.2-5.0); Alkaline Phosphatase 83 U/L (45-117); Anion Gap 5 (5-15); BUN 22 mg/dL (7-18); BUN/Creat Ratio 25.4 RATIO (10-20); Calcium,Total 9.1 mg/dL (8.5-10.1); Chloride 103 mmol/L (98-107); Creatinine, Serum 0.86 mg/dL (0.55-1.02); EST Glomerular Filtration Rate 67 mL/min (>60); Est Glom Filt Rate - Afr Amer 81 mL/min (>60); Globulin 3.8 g/dL (2.2-4.2); Glucose 74 mg/dL (74-106); Magnesium 2.3 mg/dL (1.6-2.6); Potassium 3.6 mmol/L (3.5-5.1); Protein, Total 7.5 g/dL (6.4-8.2); Sodium Level 138 mmol/L (136-145); Thyroid Stim Hormone (TSH) 1.52 uIU/mL (0.358-3.74)
== END ==
PROVIDERS: PCP Family Medicine; Referring Provider Family Medicine; Visit Provider Family Medicine
DX: R03.0 Elevated blood-pressure reading, without diagnosis of hypertension (principal)
CPT/HCPCS: 36415; 80053; 81001; 83735; 84443; 85025

== ENCOUNTER → 2020-05-28 13:29 | Outpatient (CLI) | payer MEDICARE, SELFPAY ==
--- NOTE | 2020-05-28 13:31 | VDLE_ITS ---
Reason For Study: Edema Procedure LEFT This is a venous duplex using B-mode, color GSV is normal. flow and spectral Doppler. CFV is compressible, spontaneous, phasic, Exam performed in department. competent, and demonstrates normal A preliminary report was called and/or faxed augmentation. to [facility]. FV is compressible, spontaneous, phasic, competent and demonstrates normal augmentation. POP V is compressible, spontaneous, phasic, competent and demonstrates normal augmentation. T/P Trunk is compressible. PTV is compressible. LT PerV is compressible. Interpretation Summary Deep veins of the left lower extremity are patent and compressible segmentally. There is no evidence of left lower extremity deep vein thrombosis. Valvular competence appears intact within the proximal deep venous system on the left . The left great saphenous vein appears patent and compressible segmentally. Ordering Physician: Kendell Whatley Referring Physician: Kendell Whatley Performed By: Farzaneh Jaffe RVT
== END ==
PROVIDERS: PCP Family Medicine; Referring Provider Family Medicine; Visit Provider Family Medicine
DX: R60.0 Localized edema (principal)
CPT/HCPCS: 93971

== ENCOUNTER 2020-06-18 16:19 | Outpatient (RCR) | payer MEDICARE, SELFPAY | END 2020-06-18 23:59 | LOC: IMMUN 16:19 | PROVIDERS: PCP Family Medicine; Visit Provider Family Medicine | DX: Z23 Encounter for immunization (principal) | CPT/HCPCS: 0011A; 0012A; 91301 ==

== ENCOUNTER → 2020-07-23 14:58 | Outpatient (CLI) | payer MEDICARE, SELFPAY ==
[2020-07-23 17:55] LABS: ALB/GLOB Ratio 0.9 RATIO (0.9-2.4); AST(SGOT) 18 U/L (15-37); Alanine Aminotransfer ALT/SGPT 23 U/L (13-56); Albumin, Serum 3.6 g/dL (3.2-5.0); Alkaline Phosphatase 76 U/L (45-117); Anion Gap 6 (5-15); BUN 24 mg/dL (7-18); BUN/Creat Ratio 22.2 RATIO (10-20); Calcium,Total 9.1 mg/dL (8.5-10.1); Chloride 104 mmol/L (98-107); Creatinine, Serum 1.08 mg/dL (0.55-1.02); EST Glomerular Filtration Rate 52 mL/min (>60); Est Glom Filt Rate - Afr Amer 63 mL/min (>60); Ferritin 141 ng/mL (8-252); Globulin 3.8 g/dL (2.2-4.2); Glucose 141 mg/dL (74-106); Magnesium 2.3 mg/dL (1.6-2.6); Potassium 3.9 mmol/L (3.5-5.1); Protein, Total 7.4 g/dL (6.4-8.2); Sodium Level 139 mmol/L (136-145)
[2020-07-24 08:58] LABS: Hemoglobin A1c 5.3 % (3.8-5.6)
== END ==
PROVIDERS: PCP Family Medicine; Referring Provider Family Medicine; Visit Provider Family Medicine
DX: R25.2 Cramp and spasm (principal); R73.09 Other abnormal glucose
CPT/HCPCS: 36415; 80053; 82728; 83036; 83735

== ENCOUNTER → 2020-07-31 13:35 | Outpatient (CLI) | payer MEDICARE, SELFPAY ==
[2020-07-31 15:02] LABS: Anion Gap 6 (5-15); BUN 21 mg/dL (7-18); BUN/Creat Ratio 23.5 RATIO (10-20); Calcium,Total 8.7 mg/dL (8.5-10.1); Chloride 103 mmol/L (98-107); Creatinine, Serum 0.89 mg/dL (0.55-1.02); EST Glomerular Filtration Rate 65 mL/min (>60); Est Glom Filt Rate - Afr Amer 78 mL/min (>60); Glucose 167 mg/dL (74-106); Potassium 3.7 mmol/L (3.5-5.1); Sodium Level 137 mmol/L (136-145)
[2020-07-31 15:10] LABS: Hemoglobin A1c 5.4 % (3.8-5.6)
== END ==
PROVIDERS: PCP Family Medicine; Referring Provider Family Medicine; Visit Provider Family Medicine
DX: R73.09 Other abnormal glucose (principal); N28.9 Disorder of kidney and ureter, unspecified
CPT/HCPCS: 36415; 80048; 83036

== ENCOUNTER → 2020-11-04 10:36 | Outpatient (CLI) | payer MEDICARE, SELFPAY ==
--- NOTE | 2020-11-04 10:57 | BI_ITS ---
MAMMOGRAPHY - BILATERAL SCREENING REASON FOR EXAM: Female, 80 years old. Routine annual screening examination. PERTINENT HISTORY: Non-contributory. History of prior bilateral breast aspirations. TECHNIQUE: Digital bilateral breast izzy (3D mammographic acquisition) in the CC and MLO projections. 2-D mediolateral oblique (MLO) and craniocaudad (CC) views of both breasts were obtained. CAD: Full Field Digital Mammography with Computer Added Detection was performed. COMPARISON: Comparison is made with prior study dated 05/21/2019 and 04/23/2018. FINDINGS: Breast Composition: The breasts are heterogeneously dense, which may obscure small masses. There are no dominant masses or suspicious calcifications. No other significant abnormalities are identified. There has been no significant change since the prior study. BI/SCRN MAMM (CAD)W/IZZY BILAT IMPRESSION: Stable bilateral screening mammogram. Yearly follow-up mammogram recommended. (A) ASSESSMENT CATEGORY: BIRADS Category 1: Negative. A letter regarding these results will be sent to the patient by the facility within 30 days. Approximately 10% of breast cancers are not detected by mammography. A normal mammogram should not delay biopsy of a clinically suspicious abnormality. [id number] Electronically Signed: Peterson Aquino MD at 12:02 EDT , Service support ,
== END ==
PROVIDERS: PCP Family Medicine; Referring Provider Family Medicine; Visit Provider Family Medicine
DX: Z12.31 Encounter for screening mammogram for malignant neoplasm of breast (principal)
CPT/HCPCS: 77063; 77067

== ENCOUNTER → 2020-11-10 15:02 | Outpatient (CLI) | payer MEDICARE, SELFPAY ==
[2020-11-10 18:15] LABS: AST(SGOT) 20 U/L (15-37); Alanine Aminotransfer ALT/SGPT 24 U/L (13-56); Albumin, Serum 3.6 g/dL (3.2-5.0); Alkaline Phosphatase 73 U/L (45-117); Anion Gap 5 (5-15); BUN 20 mg/dL (7-18); BUN/Creat Ratio 18.5 RATIO (10-20); Chloride 106 mmol/L (98-107); Creatinine, Serum 1.08 mg/dL (0.55-1.02); EST Glomerular Filtration Rate 52 mL/min (>60); Est Glom Filt Rate - Afr Amer 63 mL/min (>60); Globulin 3.5 g/dL (2.2-4.2); Glucose 102 mg/dL (74-106); Potassium 4.2 mmol/L (3.5-5.1); Protein, Total 7.1 g/dL (6.4-8.2); Sodium Level 139 mmol/L (136-145)
[2020-11-10 18:16] LABS: Vitamin D,25 Hydroxy 48.2 ng/mL
== END ==
PROVIDERS: PCP Family Medicine; Referring Provider Family Medicine; Visit Provider Family Medicine
DX: M81.0 Age-related osteoporosis without current pathological fracture (principal)
CPT/HCPCS: 36415; 80053; 82306

== ENCOUNTER → 2020-11-24 16:56 | Outpatient (CLI) | payer MEDICARE, SELFPAY ==
--- NOTE | 2020-11-24 17:00 | RAD_ITS ---
STUDY: X-RAY - LEFT KNEE REASON FOR EXAM: Left knee pain. TECHNIQUE: 4 view(s) of the knee. COMPARISON: Radiographs 03/05/2015. FINDINGS: There is osteopenia. Normal visualized distal femur. Normal visualized proximal tibia and fibula. Normal proximal tibiofibular articulation. There is mild joint space narrowing of the medial femorotibial compartment similar to the prior study. There is interval development of [id number] joint space narrowing of the lateral femorotibial compartment. Normal patellofemoral articulation. The soft tissue structures are unremarkable. 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 Electronically Signed: Seb Godoy MD at 14:58 EDT Tel , Service support ,
--- NOTE | 2020-11-24 17:00 | RAD_ITS ---
STUDY: X-RAY - RIGHT KNEE REASON FOR EXAM: Right knee pain. TECHNIQUE: 4 view(s) of the knee. COMPARISON: Radiographs 02/16/2016. FINDINGS: There is osteopenia. Normal visualized distal femur. Normal visualized proximal tibia and fibula. Normal proximal tibiofibular articulation. There is mild joint space narrowing of the medial femorotibial compartment similar to the prior study. Normal lateral femorotibial compartment. Normal patellofemoral articulation. The soft tissue structures are unremarkable. RAD/Knee 4 or More Views IMPRESSION: Mild arthrosis of the medial femorotibial compartment. Electronically Signed: Seb Godoy MD at 15:00 EDT Tel , Service support ,
[2020-11-24 18:27] LABS: Anion Gap 7 (5-15); BUN 18 mg/dL (7-18); BUN/Creat Ratio 22.1 RATIO (10-20); Calcium,Total 9.1 mg/dL (8.5-10.1); Chloride 102 mmol/L (98-107); Creatinine, Serum 0.81 mg/dL (0.55-1.02); EST Glomerular Filtration Rate 72 mL/min (>60); Est Glom Filt Rate - Afr Amer 87 mL/min (>60); Glucose 85 mg/dL (74-106); Potassium 4.1 mmol/L (3.5-5.1); Sodium Level 138 mmol/L (136-145)
== END ==
PROVIDERS: PCP Family Medicine; Referring Provider Family Medicine; Visit Provider Family Medicine
DX: M25.561 Pain in right knee (principal); M25.562 Pain in left knee; R94.4 Abnormal results of kidney function studies
CPT/HCPCS: 36415; 73564; 80048

== ENCOUNTER → 2021-04-05 12:32 | Outpatient (CLI) | payer MEDICARE, SELFPAY ==
--- NOTE | 2021-04-05 12:37 | RAD_ITS ---
EXAM: XR CHEST, 2 VIEWS : 1940 CLINICAL INDICATION: RIGHT SHOULDER PAIN TECHNIQUE: Frontal and lateral views of the chest. This report was created using [employer] report generation technology. COMPARISON: 09/28/2016 FINDINGS: LUNGS AND PLEURAL SPACES: Unremarkable. No consolidation or edema. No pneumothorax. No effusion. HEART: Unremarkable. Cardiac silhouette not enlarged. MEDIASTINUM: Central airways and mediastinal contour are unremarkable. BONES/JOINTS: Unremarkable. SOFT TISSUES: Unremarkable. RAD/Chest PA and Lateral IMPRESSION: No radiographic evidence of acute cardiopulmonary disease. at 0306 Reported and signed by: Milan Oreilly MD Electronically Signed: Milan Oreilly MD at 3:05 EST Tel , Service support ,
[2021-04-05 14:55] LABS: Absolute Lymphocyte Count 2.36 X10^3/uL (0.83-4.51); Absolute Neutrophil Count 4.3 X10^3/uL (2.0-7.7); Basophil# 0.07 X10^3/uL; Basophil% 0.9 % (0-1); Eosinophil# 0.07 X10^3/uL; Eosinophils% 0.9 % (0-5); Hematocrit 39.1 % (37-47); Hemoglobin 12.6 g/dL (12.0-15.0); Lymphocyte # 2.36 X10^3/ul (0.83-4.51); Lymphocyte % 31.8 % (19-41); Mean Corp Hgb Conc 32.2 g/dL (32-36); Mean Corpuscular Hgb 30.3 pg (27.0-32.0); Mean Platelet Vol. 9.7 fl (6.2-12.0); Monocyte# 0.57 X10^3/uL; Monocyte% 7.7 % (0-10); NRBC Flagged by Analyzer 0 % (0-5); Neutrophil # 4.33 X10^3/uL (2.7-7.7); Neutrophil % 58.3 % (47-70); Platelet Count 297 K/mm3 (150-450); RBC Distribution Width CV 12.2 % (11.6-14.6); RBC Distribution Width SD 42.6 fl (35.1-43.9); Red Blood Count 4.16 M/mm3 (4.2-5.4); White Blood Count 7.4 K/mm3 (4.4-11.0)
[2021-04-05 15:12] LABS: Erythrocyte Sedimentation Rate 17 mm/hr (0-30)
[2021-04-05 15:20] LABS: AST(SGOT) 17 U/L (15-37); Alanine Aminotransfer ALT/SGPT 21 U/L (13-56); Albumin, Serum 3.9 g/dL (3.2-5.0); Alkaline Phosphatase 76 U/L (45-117); Anion Gap 8 (5-15); BUN 17 mg/dL (7-18); BUN/Creat Ratio 18.9 RATIO (10-20); CRP < 2.90 mg/L (0.0-3.0); Calcium,Total 9.3 mg/dL (8.5-10.1); Chloride 103 mmol/L (98-107); EST Glomerular Filtration Rate 64 mL/min (>60); Est Glom Filt Rate - Afr Amer 77 mL/min (>60); Globulin 3.8 g/dL (2.2-4.2); Glucose 89 mg/dL (74-106); Potassium 3.3 mmol/L (3.5-5.1); Protein, Total 7.7 g/dL (6.4-8.2); Sodium Level 138 mmol/L (136-145)
== END ==
PROVIDERS: PCP Family Medicine; Referring Provider Family Medicine; Visit Provider Family Medicine
DX: M25.511 Pain in right shoulder (principal)
CPT/HCPCS: 36415; 71046; 80053; 85025; 85652; 86140

== ENCOUNTER → 2021-04-09 10:24 | Outpatient (CLI) | payer MEDICARE, SELFPAY ==
--- NOTE | 2021-04-09 10:26 | US_ITS ---
STUDY: ABDOMINAL ULTRASOUND - RIGHT UPPER QUADRANT REASON FOR VISIT: Female, 81 years old R shoulder pain and abdominal pain, possible biliary dz; RUQ ultr TECHNIQUE: Ultrasound evaluation of the right upper quadrant was performed with real-time and static roland-scale imaging. TECHNICAL QUALITY: Adequate. COMPARISON: None. FINDINGS: Liver: The liver measures 12.4 cm cm. There is normal echogenicity of the liver. The bile ducts are within normal limits. There is hepatic color flow. The direction of portal flow is hepatopetal. There is no demonstrated mass lesion. Gallbladder: Normal distended gallbladder. The gallbladder wall measures 2.0 mm. There is a negative sonographic Lewis''s sign. There is no pericholecystic fluid. There are no gallstones. Common Bile Duct (C.B.D.): The common bile duct measures 2.3 mm. Pancreas: Normal size of the head, body and tail of the pancreas. There is increased echogenicity of the pancreas. There is no demonstrated pancreatic mass or cyst. Right Kidney: Normal size of the right kidney. The right kidney measures 9.5 cm x 4.26 x 3.5 cm. Normal renal cortex. The right cortex measures 1.1 cm. There is no demonstrated renal mass or cyst. There is no right hydronephrosis. US/Abdomen Limited IMPRESSION: Normal right upper quadrant ultrasound examination. Electronically Signed: Peterson Aquino MD at 14:07 EST , Service support ,
== END ==
PROVIDERS: PCP Family Medicine; Referring Provider Family Medicine; Visit Provider Family Medicine
DX: M25.511 Pain in right shoulder (principal)
CPT/HCPCS: 76705

== ENCOUNTER → 2021-04-28 14:25 | Outpatient (CLI) | payer MEDICARE, SELFPAY ==
[2021-04-28 18:17] LABS: AST(SGOT) 19 U/L (15-37); Alanine Aminotransfer ALT/SGPT 23 U/L (13-56); Albumin, Serum 3.6 g/dL (3.2-5.0); Alkaline Phosphatase 73 U/L (45-117); Anion Gap 9 (5-15); BUN 21 mg/dL (7-18); BUN/Creat Ratio 23.6 RATIO (10-20); Chloride 104 mmol/L (98-107); Creatinine, Serum 0.89 mg/dL (0.55-1.02); EST Glomerular Filtration Rate 65 mL/min (>60); Est Glom Filt Rate - Afr Amer 78 mL/min (>60); Globulin 3.6 g/dL (2.2-4.2); Glucose 89 mg/dL (74-106); Protein, Total 7.2 g/dL (6.4-8.2); Sodium Level 139 mmol/L (136-145)
== END ==
PROVIDERS: PCP Family Medicine; Referring Provider Family Medicine; Visit Provider Family Medicine
DX: N28.9 Disorder of kidney and ureter, unspecified (principal)
CPT/HCPCS: 36415; 80053

== ENCOUNTER → 2021-05-04 16:35 | Outpatient (CLI) | payer MEDICARE, SELFPAY ==
[2021-05-04 18:14] LABS: Potassium 3.6 mmol/L (3.5-5.1)
== END ==
PROVIDERS: PCP Family Medicine; Visit Provider Family Medicine
DX: E87.6 Hypokalemia (principal)
CPT/HCPCS: 36415; 84132

== ENCOUNTER 2021-05-13 11:16 | Outpatient (CLI) | payer MEDICARE, SELFPAY ==
[2021-05-13 15:24] LABS: Potassium 4.1 mmol/L (3.5-5.1)
== END 2021-05-13 23:59 | disposition home or self-care (01) ==
LOC: MFPLAB 11:17
PROVIDERS: PCP Family Medicine; Referring Provider Family Medicine; Visit Provider Family Medicine
DX: Z00.00 Encounter for general adult medical examination without abnormal findings (principal)
CPT/HCPCS: 36415; 84132

== ENCOUNTER 2021-07-12 15:08 | Outpatient (CLI) | payer MEDICARE, SELFPAY | END 2021-07-12 23:59 | disposition home or self-care (01) | LOC: LABSPEC 15:11 | PROVIDERS: PCP Family Medicine; Visit Provider Family Medicine | DX: N39.0 Urinary tract infection, site not specified (principal) | CPT/HCPCS: 87086; 87088 ==

== ENCOUNTER → 2021-11-04 | Outpatient (CLI) | payer MEDICARE, SELFPAY ==
--- NOTE | 2021-11-04 10:43 | BI_ITS ---
MAMMOGRAPHY - BILATERAL SCREENING REASON FOR EXAM: Female, 81 years old. Routine annual screening examination. PERTINENT HISTORY: Non-contributory. TECHNIQUE: Digital bilateral breast izzy (3D mammographic acquisition) in the CC and MLO projections. 2-D mediolateral oblique (MLO) and craniocaudad (CC) views of both breasts were obtained. CAD: Full Field Digital Mammography with Computer Added Detection was performed. COMPARISON: Comparison is made with prior study dated 11/04/2020 and 05/21/2008 FINDINGS: Breast Composition: The breasts are heterogeneously dense, which may obscure small masses. There are no dominant masses or suspicious calcifications. Stable bilateral secretory calcification. No other significant abnormalities are identified. There has been no significant change since the prior study. BI/SCRN MAMM (CAD)W/IZZY BILAT IMPRESSION: Stable bilateral screening mammogram. Yearly follow-up mammogram recommended. (A) ASSESSMENT CATEGORY: BIRADS Category 2: Benign. A letter regarding these results will be sent to the patient by the facility within 30 days. Approximately 10% of breast cancers are not detected by mammography. A normal mammogram should not delay biopsy of a clinically suspicious abnormality. [id number] Electronically Signed: Peterson Aquino MD at 12:27 EDT ,
== END | disposition home or self-care (01) ==
LOC: OPBI 10:41
PROVIDERS: PCP Family Medicine; Visit Provider Family Medicine
DX: Z12.31 Encounter for screening mammogram for malignant neoplasm of breast (principal)
CPT/HCPCS: 77063; 77067

== ENCOUNTER → 2021-11-06 | Outpatient (CLI) | payer MEDICARE, SELFPAY ==
[2021-11-06 10:02] LABS: Hemoglobin A1c 5.4 % (3.8-5.6)
[2021-11-06 10:07] LABS: ALB/GLOB Ratio 1.1 RATIO (0.9-2.4); AST(SGOT) 19 U/L (15-37); Alanine Aminotransfer ALT/SGPT 18 U/L (13-56); Albumin, Serum 3.7 g/dL (3.2-5.0); Alkaline Phosphatase 70 U/L (45-117); Anion Gap 6 (5-15); BUN 20 mg/dL (7-18); BUN/Creat Ratio 22.6 RATIO (10-20); Calcium,Total 9.2 mg/dL (8.5-10.1); Chloride 108 mmol/L (98-107); Creatinine, Serum 0.88 mg/dL (0.55-1.02); EST Glomerular Filtration Rate 65 mL/min (>60); Est Glom Filt Rate - Afr Amer 79 mL/min (>60); Globulin 3.4 g/dL (2.2-4.2); Glucose 89 mg/dL (74-106); Potassium 3.6 mmol/L (3.5-5.1); Protein, Total 7.1 g/dL (6.4-8.2); Sodium Level 141 mmol/L (136-145)
[2021-11-08 08:31] LABS: Vitamin B12 674 pg/mL (211-911)
== END | disposition home or self-care (01) ==
LOC: LAB 08:26
PROVIDERS: PCP Family Medicine; Referring Provider Family Medicine; Visit Provider Family Medicine
DX: G62.9 Polyneuropathy, unspecified (principal)
CPT/HCPCS: 36415; 80053; 82607; 83036; 84425

== ENCOUNTER → 2022-01-03 | Outpatient (CLI) | payer MEDICARE, SELFPAY ==
--- NOTE | 2022-01-03 10:48 | NEURO_ITS ---
NCS and/or EMG Patient Report Ordering Doctor: Félix Stevenson DATE OF SERVICE: 01/03/22 Indication: Bilateral toe soreness and intermittent numbness. Evaluate for tarsal tunnel syndrome. Findings: Nerve conduction studies were performed in the right and left lower extremities. The right peroneal motor study recording the extensor digitorum brevis showed a normal amplitude, normal distal latency and normal conduction velocity. No conduction block or focal slowing was present across the fibular neck. The right tibial motor study recording the abductor hallucis brevis showed a normal amplitude, normal distal latency and normal conduction velocity. The right sural sensory response showed a normal amplitude and conduction velocity. The right superficial peroneal sensory response was absent. The right medial planter mixed response was absent. The right lateral planter mixed response was absent. The left peroneal motor study recording the extensor digitorum brevis showed a normal amplitude, normal distal latency and normal conduction velocity. No conduction block or focal slowing was present across the fibular neck. The left tibial motor study recording the abductor hallucis brevis showed a normal amplitude, normal distal latency and normal conduction velocity. The left sural sensory response showed a normal amplitude and conduction velocity. The left superficial peroneal sensory response was absent. The left medial planter mixed response was absent. The left lateral planter mixed respo nse was absent. Needle EMG of the left lower extremity muscles was performed. No denervation was present in any muscle. Motor unit morphology, activation, and recruitment patterns were normal. Impression: This is an indeterminant study. Absent sensory responses, as seen in this case, are not uncommon in the octogenarian population (normal values only go up to age 60). Thus, there is no definitive electrophysiologic evidence of peripheral neuropathy or distal tibial neuropathy across either tarsal tunnel. If tibial nerve entrapment remains strongly suspected, a neuromuscular ultrasound of the medial ankle could be considered. Rodrigue Ch D.O. Multi Select Codes Neurology Neurology Interp Codes: 65685-94 Musc test done w/n test comp (interp) and 34733-89 Nrv cndj test 11-12 studies (interp)
== END | disposition home or self-care (01) ==
LOC: PSN 08:43
PROVIDERS: PCP Family Medicine; Referring Provider Podiatrist; Visit Provider Podiatrist
DX: G57.50 Tarsal tunnel syndrome, unspecified lower limb (principal); R20.0 Anesthesia of skin
CPT/HCPCS: 95886; 95912

== ENCOUNTER → 2022-02-03 | Outpatient (CLI) | payer MEDICARE, SELFPAY ==
--- NOTE | 2022-02-03 10:35 | BD_ITS ---
STUDY: DUAL ENERGY X-RAY ABSORPTIOMETRY / DXA REASON FOR EXAM: Female, 81 years old. Z780. Patient is postmenopausal. TECHNIQUE: Bone Mineral Density (BMD) measurements of lumbar spine and bilateral hips were obtained. COMPARISON: Comparison is made with prior study dated 09/25/2018. FINDINGS: Lumbar Spine (L1-L4): g/cm2 (0.753) / T-score (-3.0) / Z-score (-0.1) Findings are suggestive of osteoporosis with a high fracture risk. Left Femur Total: g/cm2 (0.593) / T-score (-2.9) / Z-score (-0.7) Left Femoral Neck: g/cm2 (0.496) / T-score (-3.2) / Z-score (-0.8) Right Femur Total: g/cm2 (0.593) / T-score (-2.9) / Z-score (-0.7) Right Femoral Neck: g/cm2 (0.508) / T-score (-3.1) / Z-score (-0.7) The T-Scores on the most recent prior examination were: Lumbar Spine (L1-L4): There has been improvement of bone density since the previous examination. Left Femur Total: which represents a worsening of 2.6%. Right Femur Total: which represents a worsening of 9.6%. BD/Dexa Bone Density Study IMPRESSION: The patient is considered osteoporotic as outlined below according to World Real Organization (WHO) criteria with a high fracture risk. There has been worsening of bone density since the previous examination. Reference Information: The T-score is the number of standard deviations above or below the standard which is normal for young adults at their peak bone mineral density. The World Health Organization (WHO) interprets the T-scores as follows: Above -1 Normal bone density Between -1 and -2.5 Osteopenia Equal to / or below -2.5 Osteoporosis As a practical clinical guideline, osteopenia may be graded as follows: Mild -1 through -1.5 Moderate -1.6 through -2.0 Severe -2.1 through -2.4 The Z-score is the number of standard deviations above or below age-matched controls. A Z-score of less than -1.5 would be considered abnormal. References: 1. NIH Osteoporosis and Related Bone Diseases www osteo.org 2. International Society for Clinical Densitometry www iscd.org 3. National Osteoporosis Foundation www nof.org Electronically Signed: Peterson Aquino MD at 9:32 EDT ,
== END | disposition home or self-care (01) ==
LOC: OPBD 10:28
PROVIDERS: PCP Family Medicine; Referring Provider Family Medicine; Visit Provider Family Medicine
DX: M81.0 Age-related osteoporosis without current pathological fracture (principal); M85.80 Other specified disorders of bone density and structure, unspecified site; Z78.0 Asymptomatic menopausal state
CPT/HCPCS: 77080

== ENCOUNTER 2022-03-08 05:35 | Day surgery (SDC) | payer MEDICARE, SELFPAY ==
--- NOTE | 2022-03-08 06:17 | HP.PCM_ITS ---
History and Physical Date of Admission: 03/08/22 Visit Reasons:?COLONOSCOPY Chief Complaint: Colonoscopy Continuous Improvement Director Required: No Is patient in pain?: No Allergies Penicillins [PCN] Allergy (Verified 02/17/22 08:48) Rashadhesive Adverse Reaction (Verified 02/17/22 08:48) unknownalendronate sodium Adverse Reaction (Verified 02/17/22 08:48) GI Upsetciprofloxacin [From Cipro] Adverse Reaction (Verified 02/17/22 08:48) blurred visionlatex Adverse Reaction (Verified 02/17/22 09:15) rashrisedronate sodium [From Actonel] Adverse Reaction (Verified 02/17/22 08:48) GI Upsetsulfamethoxazole [From Septra] Adverse Reaction (Verified 02/17/22 08:48) GI Upsettrimethoprim [From Septra] Adverse Reaction (Verified 02/17/22 08:48) GI Upsetvenlafaxine [From Effexor] Adverse Reaction (Verified 02/17/22 08:48) Unknown Medications amlodipine 2.5 mg tablet 5 mg PO DAILY 02/17/22 [History Confirmed 02/17/22] PFSH Medical History?(Updated 02/17/22 @ 09:[address] Christophe Lees MD) Cataracts, both eyes Hemorrhoids Surgical History?(Updated 02/17/22 @ 08:45 by Britany Monday) History of cataract surgery History of open reduction and internal fixation (ORIF) procedure History of tonsillectomy Family History? Brother CAD (coronary artery disease) ?? ? stents, PPM HypertensionFather Heart diseaseBrother HypertensionMother Colon cancer Social History?(Updated 02/17/22 @ 08:46 by Britany Monday) Smoking Status:? Never smoker alcohol intake:? never substance use type:? does not use caffeine:? Yes Type: coffee HPI HPI HPI: 81-year-old female was being referred by Dr Kendell Whatley for surgical consultation regarding a colonoscopy and written compromise surgical consult recommendations will return to him.? The patient has a family history of colon cancer in her mother who at age 61 from this..? Her previous colonoscopy was done 2017.? That was performed per myself February 21, 2017 and a diminutive sessile polyp of the splenic flexure identified with sigmoid diverticulosis.? Hemorrhoids noted.? Pathology was consistent with a tubular adenoma.? It is of note that Dr. Levar Lewis gastroenterology had performed a previous colonoscopy January 17, 2012.? Moderately tortuous colon identified.? No polyps at that time. She is remained in good health.? She states her mother of colon cancer at age 61 but did not look after herself well.? The patient denies bright red blood per rectum or melena.? No abdominal pain.? No change in weight.? She will soon be 82 years of age.? She does have ongoing concern however about the possible occurrence of colon cancer. ROS General General: No weight change, appetite, fatigue, colon cancer, breast cancer or weakness HEENT HEENT: No difficulty swallowing, eye injury, eye surgery, swollen glands or hoarseness Endo Endocrine: No thyroid disease, diabetes mellitus, thyroid cancer, Hair loss, heat intolerance or cold intolerance Skin Skin: No rash or changing moles Musc Musculoskeletal: Yes arthritis; No back problems, rheumatoid arthritis, gout or joint pain Cardio Cardiovascular: No murmur, pacemaker, heart disease, atrial fibrillation, high blood pressure, heart attack, heart stent, palpitations, shortness of breat with exertion or chest pain Psych Psychiatric: No depression, anxiety or hearing voices Resp Respiratory: No shortness of breath, No sleep apnea, No cough, No COPD, No asthma, No emphysema and No wheezing Gastro Gastrointestinal: No abdominal pain, No nausea or vomiting, No diarrhea, Yes constipation, No blood in stool, No acid reflux, Yes hemorrhoids, No ulcers, No gallbladder problem and No black,tarry stools Perico Hematologic: No blood thinners, No blood disorders, No bleeding, No anemia and No blood clots Neuro Neurologic: No system reviewed and no additional complaints, except as documented, No as per HPI, No abnormal gait, No abnormal hearing, No abnormal movements, No abnormal speech, No behavioral changes, No burning sensations, No confusion, No convulsions, No disequilibrium, No dizziness, No localized weakness, No frequent falls, No headache(s), No lack of coordination, No loss of vision, No memory loss, No numbness, No other visual disturbances, No radicular pain, No restless legs, No sensory deficit, No syncope, Yes tingling (toes), No tremor(s), No weakness and No other Exam Const General: cooperative and healthy appearing [facility] Head: normal to inspection Eyes General: appearance normal, both eyes and all related structures Neck Neck: normal visual inspection Chest Chest palpation & inspection: normal inspection of the chest Resp Effort & Inspection: normal respiratory effort Auscultation: clear to auscultation bilaterally Cardio Rate: regular rate Rhythm: regular rhythm GI Palpation: soft and no hepatosplenomegaly Musc Cervical Spine: normal cervical lordosis Skin General: no rashes or lesions noted Neuro General: patient alert, patient awake and patient oriented x3 Extrem General: no calf tenderness Other: Minimal left lower extremity swelling Psych Appearance: grossly normal Assessment and Plan Assessment and Plan (1) Personal history of colonic polyps: ?Status:?Acute (2) Family history of colon cancer in mother: ?Status:?Acute ? ? ? Orders: Orders Colonoscopy Today ? ? Plan 81-year-old female with a personal history of colon polyps and a family history of colon cancer in her mother who of that at age 61.? The patient presents for surveillance colonoscopy.? Previous exam was February 2017 with a tubular adenoma removed from the splenic flexure at that time.? She has had an opportunity to ask and have questions answered.? Anticipate proceeding with monitored anesthesia care.? We will schedule procedure at her discretion. Copy: Dr Kendell Lees M.D., F.A.C.S. I have re-examined the patient. There are no clinical changes since date of exam. hCristophe Lees M.D., F.A.C.S.
[2022-03-08 06:41] VITALS: BP 150/70; PULSE 76; RESP 16; TEMP 37.1; O2SAT 100; BMI 25.9
[2022-03-08] MEDS: Lactated Ringers 1,000 ML 15 ML IV (06:45)
--- NOTE | 2022-03-08 07:00 | COLBX_PTH ---
PATIENT: ELIDIA DREW LOC: EN U#:[id number] AGE/SX: 82/F ROOM: RE03/08/[address]: Dr. Christophe Lees MD : 1940 BED: DIS: 03/08/2022 SPEC #: [id number] RECD: 03/08/22 10:32 STATUS: TOMASZ HURST #: [id number] ALLAN: 03/08/22 07:[address]: Christophe Lees DEPT: SURGICAL PATHOLOGY RECD BY: Chacha Moore ENTERED: 03/08/22 12:16 SP TYPE: COLON BX OTHR DR: Dr. Kendell Whatley MD Tissues: A - Ascending colon B - Transverse colon Procedures: Surgery Specimen Level IV HEADER OPERATION: Colonoscopy (MAC) PRE-OP DIAGNOSIS: History of colonic polyps TISSUE SUBMITTED: A ? Proximal ascending colon polyp, B ? Mid transverse colon polyp MICROSCOPIC DIAGNOSIS A. Proximal ascending colon polyp, biopsy: Fragments of tubular adenoma. B. Mid transverse colon polyp, biopsy: Tubular adenoma. NITHIN:crystal 03/09/2022 MICROSCOPIC DESCRIPTION Slides are reviewed. GROSS DESCRIPTION A - Received in fixative is one container labeled with the patient's name and designated proximal ascending colon polyp. The specimen consists of multiple irregular fragments of light pate soft tissue that in aggregate measure 1 x 0.4 x 0.1 cm. The specimen is totally submitted in one cassette. B - Received in fixative is one container labeled with the patient's name and designated mid transverse colon polyp. The specimen consists of one irregular fragment of light pate soft tissue that measures 0.5 x 0.5 x 0.1 cm. The specimen is totally submitted in one cassette. / NITHIN:crystal 03/08/2022 TC:1 [facility]: [id number] x2
[2022-03-08 07:27] VITALS: BP 133/76; BP 150/70; PULSE 75; RESP 16; TEMP 36.6; O2SAT 98
--- NOTE | 2022-03-08 07:28 | OP.COLON_ITS ---
Patient Name: Maggie Stephens Procedure Date: 03/08/2022 6:50 AM Date of : 1940 Age: 82 Procedure: Colonoscopy Indications: High risk colon cancer surveillance: Personal history of colonic polyps Providers: Christophe Lees MD Medicines: See the Anesthesia note for documentation of the administered medications Patient Profile: Last Colonoscopy: February 2017. Complications: No immediate complications. Procedure: Pre-Anesthesia Assessment: - Prior to the procedure, a History and Physical was performed, and patient medications and allergies were reviewed. The patient's tolerance of previous anesthesia was also reviewed. The risks and benefits of the procedure and the sedation options and risks were discussed with the patient. All questions were answered, and informed consent was obtained. Prior Anticoagulants: The patient has taken no previous anticoagulant or antiplatelet agents. ASA Grade Assessment: II - A patient with mild systemic disease. After reviewing the risks and benefits, the patient was deemed in satisfactory condition to undergo the procedure. After I obtained informed consent, the scope was passed under direct vision. Throughout the procedure, the patient's blood pressure, pulse, and oxygen saturations were monitored continuously. The Colonoscope was introduced through the anus and advanced to the cecum, identified by appendiceal orifice and ileocecal valve. The colonoscopy was technically difficult and complex due to poor endoscopic visualization and a tortuous colon. Successful completion of the procedure was aided by using manual pressure. The patient tolerated the procedure well. The quality of the bowel preparation was fair. Scope In: 6:56:43 AM Scope Withdrawal Time 0 hours 9 minutes 7 seconds Scope Out: 7:21:05 AM Total Procedure Duration Time 0 hours 24 minutes 22 seconds Findings: The digital rectal exam findings include internal hemorrhoids that prolapse with straining, but require manual replacement into the anal canal (Grade III). A 32 mm polyp was found in the proximal ascending colon. The polyp was sessile. Biopsies were taken with a cold forceps for histology. A 3 mm polyp was found in the mid transverse colon. The polyp was sessile. The polyp was removed with a cold biopsy forceps. Resection and retrieval were complete. A few diverticula were found in the entire colon. Impression: - Preparation of the colon was fair. - Internal hemorrhoids that prolapse with straining, but require manual replacement into the anal canal (Grade III) found on digital rectal exam. - One 32 mm polyp in the proximal ascending colon. Biopsied. - One 3 mm polyp in the mid transverse colon, removed with a cold biopsy forceps. Resected and retrieved. - Diverticulosis in the entire examined colon. Recommendation: - Discharge patient to home. - Resume previous diet. - Continue present medications. - Return to my office in 1 week to discuss possible laparoscopic right colectomy for large polyp. - Repeat colonoscopy in 3 years for surveillance. Procedure Code(s): --- Professional --- 73294, Colonoscopy, flexible; with biopsy, single or multiple Diagnosis Code(s): --- Professional --- Z86.010, Personal history of colonic polyps K64.2, Third degree hemorrhoids D12.2, Benign neoplasm of ascending colon D12.3, Benign neoplasm of transverse colon (hepatic flexure or splenic flexure) K57.30, Diverticulosis of large intestine without perforation or abscess without bleeding CPT copyright 2017 [employer]. All rights reserved. The codes documented in this report are preliminary and upon awning maker review may be revised to meet current compliance requirements. Christophe Lees MD 03/08/2022 7:27:18 AM This report has been signed electronically. Number of Addenda: 0 Note Initiated On: 03/08/2022 6:50 AM
--- NOTE | 2022-03-08 07:29 | OP.CCLET_ITS ---
03/08/2022 Kendell Whatley [address] [place] [address] Re : Colonoscopy procedure for Maggie Stephens Dear Dr. Whatley This procedure was performed on Tuesday, March 08, 2022. My impressions and recommendations are as follows: Impressions : - Preparation of the colon was fair. - Internal hemorrhoids that prolapse with straining, but require manual replacement into the anal canal (Grade III) found on digital rectal exam. - One 32 mm polyp in the proximal ascending colon. Biopsied. - One 3 mm polyp in the mid transverse colon, removed with a cold biopsy forceps. Resected and retrieved. - Diverticulosis in the entire examined colon. Recommendations : - Discharge patient to home. - Resume previous diet. - Continue present medications. - Return to my office in 1 week to discuss possible laparoscopic right colectomy for large polyp. - Repeat colonoscopy in 3 years for surveillance. My findings are described in the full procedure note, which is enclosed. If I can be of further assistance, please feel free to contact me at Doctor phone number(s): Work: . Sincerely, Christophe Lees MD 03/08/2022 7:27:18 AM This report has been signed electronically.
[2022-03-08 07:30] VITALS: BP 136/71; BP 150/70; PULSE 78; RESP 16; O2SAT 99
[2022-03-08 07:35] VITALS: BP 135/72; BP 150/70; PULSE 79; RESP 16; O2SAT 95
[2022-03-08 07:40] VITALS: BP 141/84; BP 150/70; PULSE 86; RESP 16; O2SAT 99
[2022-03-08 07:44] VITALS: BP 133/93; BP 150/70; PULSE 87; RESP 16; TEMP 36.5; O2SAT 98
== END 2022-03-08 08:17 | disposition home or self-care (01) ==
LOC: EN 05:35 → AC 05:37
PROVIDERS: PCP Family Medicine; Referring Provider Family Medicine; Visit Provider Surgery
PROC: 0DJD8ZZ Inspection of Lower Intestinal Tract, Via Natural or Artificial Opening Endoscopic (ICD-10-PCS; CPT 45378; principal; 2022-03-08 06:55)
DX: D12.3 Benign neoplasm of transverse colon (principal); D12.2 Benign neoplasm of ascending colon; K64.2 Third degree hemorrhoids; K57.30 Diverticulosis of large intestine without perforation or abscess without bleeding; I10 Essential (primary) hypertension; F41.9 Anxiety disorder, unspecified; F32.A Depression, unspecified; H26.9 Unspecified cataract; M19.90 Unspecified osteoarthritis, unspecified site; Z78.0 Asymptomatic menopausal state; Z86.010 Personal history of colon polyps; Z80.0 Family history of malignant neoplasm of digestive organs; Z79.899 Other long term (current) drug therapy
CPT/HCPCS: 45380; 88305; J7120; J2405

== ENCOUNTER → 2022-05-24 | Outpatient (CLI) | payer MEDICARE, SELFPAY ==
[2022-05-24 14:10] LABS: Bacteria 0 SEEN /hpf (None Seen); Mucous, Urine 0 SEEN /hpf (<or=2+); Red Blood Cells-Urine 0 SEEN /hpf (0-5)
[2022-05-24 18:03] LABS: Absolute Lymphocyte Count 1.85 X10^3/uL (0.83-4.51); Absolute Neutrophil Count 3.3 X10^3/uL (2.0-7.7); Basophil# 0.07 X10^3/uL; Basophil% 1.2 % (0-1); Eosinophil# 0.12 X10^3/uL; Hematocrit 39.5 % (37-47); Hemoglobin 12.9 g/dL (12.0-15.0); Lymphocyte # 1.85 X10^3/ul (0.83-4.51); Lymphocyte % 31.6 % (19-41); Mean Corp Hgb Conc 32.7 g/dL (32-36); Mean Corpuscular Hgb 31.1 pg (27.0-32.0); Mean Corpuscular Volume 95.2 fL (81-99); Mean Platelet Vol. 10.4 fl (6.2-12.0); Monocyte# 0.55 X10^3/uL; Monocyte% 9.4 % (0-10); NRBC Flagged by Analyzer 0 % (0-5); Neutrophil # 3.26 X10^3/uL (2.7-7.7); Neutrophil % 55.6 % (47-70); Platelet Count 248 K/mm3 (150-450); RBC Distribution Width CV 13.2 % (11.6-14.6); RBC Distribution Width SD 46.1 fl (35.1-43.9); Red Blood Count 4.15 M/mm3 (4.2-5.4); White Blood Count 5.9 K/mm3 (4.4-11.0)
[2022-05-24 18:07] LABS: Color, Urine Yellow (Yellow); Glucose, Dipstick Normal (Normal); Ketone-Dipstick Negative (Negative); Leukocyte Esterase-Dipstick 25 /ul (Negative); Nitrite-Dipstick Negative (Negative); Occult Blood-Urine Negative /ul (Negative); Protein-Dipstick 15 mg/dl (Negative); Specific Gravity, Urine 1.015 (1.002-1.030); Urine Bilirubin Dipstick Negative (Negative); Urine Clarity Sl. Cloudy (Clear); Urine Urobilinogen Normal (Normal)
[2022-05-24 18:33] LABS: ALB/GLOB Ratio 1.2 RATIO (0.9-2.4); AST(SGOT) 20 U/L (15-37); Alanine Aminotransfer ALT/SGPT 24 U/L (13-56); Albumin, Serum 3.8 g/dL (3.2-5.0); Alkaline Phosphatase 72 U/L (45-117); Anion Gap 7 (5-15); BUN 24 mg/dL (7-18); BUN/Creat Ratio 26.3 RATIO (10-20); Chloride 104 mmol/L (98-107); Cholesterol 245 mg/dL (200); Creatinine, Serum 0.91 mg/dL (0.55-1.02); EST Glomerular Filtration Rate 63 mL/min (>60); Est Glom Filt Rate - Afr Amer 76 mL/min (>60); Globulin 3.1 g/dL (2.2-4.2); Glucose 98 mg/dL (74-106); High Density Lipoprotein 93 mg/dL; Potassium 4.1 mmol/L (3.5-5.1); Protein, Total 6.9 g/dL (6.4-8.2); Sodium Level 139 mmol/L (136-145); Thyroid Stim Hormone (TSH) 1.84 uIU/mL (0.358-3.74); Triglycerides 79 mg/dL; Very Low Density Lipoprotein 16 mg/dL (5-40)
[2022-05-24 18:49] LABS: Squamous Epithelial Cells - UA 0-5 SEEN /hpf (5-10); White Blood Cells 0-5 SEEN /hpf (0-5)
== END | disposition home or self-care (01) ==
LOC: MTLAB 14:05
PROVIDERS: PCP Family Medicine; Referring Provider Family Medicine; Visit Provider Family Medicine
DX: I10 Essential (primary) hypertension (principal); M81.0 Age-related osteoporosis without current pathological fracture
CPT/HCPCS: 36415; 80053; 80061; 81001; 82306; 84443; 85025

== ENCOUNTER → 2022-06-24 | Outpatient (CLI) | payer MEDICARE, SELFPAY ==
--- NOTE | 2022-06-24 13:13 | CT_ITS ---
STUDY: CT ABDOMEN AND PELVIS WITH CONTRAST REASON FOR EXAM: Female, 82 years old. Intermittent right lower quadrant pain since February 2022. RADIATION DOSAGE (If Supplied By Facility): CTDIvol = ( 15.81 ) mGy, DLP = ( 630.23 ) mGycm TECHNIQUE: Transaxial images were obtained from the dome of the diaphragm to the symphysis pubis with oral contrast. Oral and amp; IV Readi-CAT and amp; 100mL Isovue-300 was administered. Sagittal and coronal images were reconstructed. Individualized dose optimization techniques were used for this CT. COMPARISON: Comparison is made with prior examination dated 04/29/2019. FINDINGS: The visualized lung bases are unremarkable. Coronary artery calcification. Normal liver. Normal gallbladder and extrahepatic biliary system. Normal spleen. Normal pancreas. Normal bilateral adrenal glands. Normal right kidney. Normal left kidney. Normal visualized stomach. Normal small intestine. A moderate amount of fecal material is seen in the colon. Scattered sigmoid diverticula. There is non-visualization of the appendix. There is diffuse atherosclerotic calcification of the abdominal aorta, without a demonstrated aneurysm. Normal inferior vena cava. Normal retroperitoneum. Normal urinary bladder. Normal abdominal wall. There are degenerative changes of the visualized lumbar spine. Grade 1 anterolisthesis of L3 on L4 and L4. CT/Abdomen/Pelvis WITH Contrast IMPRESSION: Moderate amount of fecal material is seen in the colon. Scattered sigmoid diverticula. Electronically Signed: Peterson Aquino MD at 14:59 EST ,
== END | disposition home or self-care (01) ==
PROVIDERS: PCP Family Medicine; Referring Provider Surgery; Visit Provider Surgery
DX: R10.31 Right lower quadrant pain (principal)
CPT/HCPCS: 74177; Q9967

== ENCOUNTER → 2022-08-15 | Outpatient (CLI) | payer MEDICARE, SELFPAY ==
[2022-08-15 13:06] VITALS: BP 147/69; PULSE 65; RESP 15; TEMP 36.1; O2SAT 100; BMI 26.2
[2022-08-15] MEDS: DENOSUMAB 60 MG/ML SC (13:09)
== END | disposition home or self-care (01) ==
LOC: MEDOUTP 12:23
PROVIDERS: PCP Family Medicine; Referring Provider Internal Medicine Endocrinology, Diabetes & Metabolism; Visit Provider Internal Medicine Endocrinology, Diabetes & Metabolism
DX: M81.0 Age-related osteoporosis without current pathological fracture (principal)
CPT/HCPCS: 96372; J0897

== ENCOUNTER → 2022-08-26 | Outpatient (CLI) | payer MEDICARE, SELFPAY ==
[2022-08-26 14:28] LABS: Bacteria 0 SEEN /hpf (None Seen); Mucous, Urine 0 SEEN /hpf (<or=2+); Red Blood Cells-Urine 0 SEEN /hpf (0-5); Squamous Epithelial Cells - UA 0 SEEN /hpf (5-10); White Blood Cells 0 SEEN /hpf (0-5)
[2022-08-26 16:37] LABS: Absolute Neutrophil Count 4.3 X10^3/uL (2.0-7.7); Basophil# 0.02 X10^3/uL; Basophil% 0.3 % (0-1); Eosinophil# 0.11 X10^3/uL; Eosinophils% 1.7 % (0-5); Hematocrit 39.8 % (37-47); Hemoglobin 12.8 g/dL (12.0-15.0); Lymphocyte % 23.3 % (19-41); Mean Corp Hgb Conc 32.2 g/dL (32-36); Mean Corpuscular Hgb 30.6 pg (27.0-32.0); Mean Corpuscular Volume 95.2 fL (81-99); Mean Platelet Vol. 10.5 fl (6.2-12.0); Monocyte# 0.52 X10^3/uL; Monocyte% 8.1 % (0-10); NRBC Flagged by Analyzer 0 % (0-5); Neutrophil # 4.27 X10^3/uL (2.7-7.7); Neutrophil % 66.4 % (47-70); Platelet Count 223 K/mm3 (150-450); RBC Distribution Width CV 13.4 % (11.6-14.6); RBC Distribution Width SD 47.3 fl (35.1-43.9); Red Blood Count 4.18 M/mm3 (4.2-5.4); White Blood Count 6.4 K/mm3 (4.4-11.0)
[2022-08-26 17:01] LABS: ALB/GLOB Ratio 1.2 RATIO (0.9-2.4); AST(SGOT) 19 U/L (15-37); Alanine Aminotransfer ALT/SGPT 20 U/L (13-56); Albumin, Serum 3.8 g/dL (3.2-5.0); Alkaline Phosphatase 75 U/L (45-117); Anion Gap 5 (5-15); BUN 23 mg/dL (7-18); BUN/Creat Ratio 30.2 RATIO (10-20); Calcium,Total 8.8 mg/dL (8.5-10.1); Chloride 107 mmol/L (98-107); Cholesterol 228 mg/dL (200); Creatinine, Serum 0.76 mg/dL (0.55-1.02); EST Glomerular Filtration Rate 77 mL/min (>60); Est Glom Filt Rate - Afr Amer 93 mL/min (>60); Globulin 3.2 g/dL (2.2-4.2); Glucose 85 mg/dL (74-106); High Density Lipoprotein 82 mg/dL; Potassium 4.2 mmol/L (3.5-5.1); Sodium Level 139 mmol/L (136-145); Triglycerides 66 mg/dL; Very Low Density Lipoprotein 13 mg/dL (5-40)
[2022-08-26 17:03] LABS: Vitamin D,25 Hydroxy 57.6 ng/mL
[2022-08-26 17:58] LABS: Color, Urine Yellow (Yellow); Glucose, Dipstick Normal (Normal); Ketone-Dipstick Negative (Negative); Leukocyte Esterase-Dipstick Negative /ul (Negative); Nitrite-Dipstick Negative (Negative); Occult Blood-Urine Negative /ul (Negative); Protein-Dipstick Negative (Negative); Urine Bilirubin Dipstick Negative (Negative); Urine Clarity Clear (Clear); Urine Urobilinogen Normal (Normal)
== END | disposition home or self-care (01) ==
LOC: MFPLAB 14:22
PROVIDERS: PCP Family Medicine; Referring Provider Family Medicine; Visit Provider Family Medicine
DX: I10 Essential (primary) hypertension (principal); M81.0 Age-related osteoporosis without current pathological fracture
CPT/HCPCS: 36415; 80053; 80061; 81001; 82306; 85025

== ENCOUNTER → 2022-09-01 | Outpatient (CLI) | payer MEDICARE, SELFPAY | END | disposition home or self-care (01) | LOC: LABSPEC 15:16 | PROVIDERS: PCP Family Medicine; Visit Provider Family Medicine | DX: N39.0 Urinary tract infection, site not specified (principal) | CPT/HCPCS: 87086; 87088 ==

== ENCOUNTER → 2022-11-01 | Outpatient (CLI) | payer MEDICARE, SELFPAY ==
[2022-11-01 09:37] LABS: Bacteria 0 SEEN /hpf (None Seen); Mucous, Urine 0 SEEN /hpf (<or=2+); Red Blood Cells-Urine 0 SEEN /hpf (0-5); Squamous Epithelial Cells - UA 0 SEEN /hpf (5-10); White Blood Cells 0 SEEN /hpf (0-5)
[2022-11-01 12:20] LABS: Absolute Lymphocyte Count 1.62 X10^3/uL (0.83-4.51); Basophil# 0.08 X10^3/uL; Basophil% 1.5 % (0-1); Color, Urine Yellow (Yellow); Eosinophil# 0.13 X10^3/uL; Eosinophils% 2.4 % (0-5); Glucose, Dipstick Normal (Normal); Hematocrit 39.6 % (37-47); Hemoglobin 12.4 g/dL (12.0-15.0); Ketone-Dipstick Negative (Negative); Leukocyte Esterase-Dipstick Negative /ul (Negative); Lymphocyte # 1.62 X10^3/ul (0.83-4.51); Lymphocyte % 30.1 % (19-41); Mean Corp Hgb Conc 31.3 g/dL (32-36); Mean Corpuscular Hgb 30.1 pg (27.0-32.0); Mean Corpuscular Volume 96.1 fL (81-99); Mean Platelet Vol. 10.4 fl (6.2-12.0); Monocyte# 0.54 X10^3/uL; NRBC Flagged by Analyzer 0 % (0-5); Neutrophil % 55.8 % (47-70); Nitrite-Dipstick Negative (Negative); Occult Blood-Urine 10 /ul (Negative); Platelet Count 278 K/mm3 (150-450); Protein-Dipstick Negative (Negative); RBC Distribution Width CV 13.2 % (11.6-14.6); RBC Distribution Width SD 47.5 fl (35.1-43.9); Red Blood Count 4.12 M/mm3 (4.2-5.4); Urine Bilirubin Dipstick Negative (Negative); Urine Clarity Clear (Clear); Urine Urobilinogen Normal (Normal); White Blood Count 5.4 K/mm3 (4.4-11.0)
[2022-11-01 12:46] LABS: Vitamin D,25 Hydroxy 58.6 ng/mL
[2022-11-01 12:49] LABS: ALB/GLOB Ratio 1.2 RATIO (0.9-2.4); AST(SGOT) 22 U/L (15-37); Alanine Aminotransfer ALT/SGPT 18 U/L (13-56); Albumin, Serum 3.7 g/dL (3.2-5.0); Alkaline Phosphatase 44 U/L (45-117); Anion Gap 6 (5-15); BUN 21 mg/dL (7-18); BUN/Creat Ratio 25.2 RATIO (10-20); Calcium,Total 8.9 mg/dL (8.5-10.1); Chloride 110 mmol/L (98-107); Creatinine, Serum 0.83 mg/dL (0.55-1.02); EST Glomerular Filtration Rate 69 mL/min (>60); Est Glom Filt Rate - Afr Amer 84 mL/min (>60); Globulin 3.2 g/dL (2.2-4.2); Glucose 70 mg/dL (74-106); Potassium 4.1 mmol/L (3.5-5.1); Protein, Total 6.9 g/dL (6.4-8.2); Sodium Level 141 mmol/L (136-145); Thyroid Stim Hormone (TSH) 1.96 uIU/mL (0.358-3.74)
== END | disposition home or self-care (01) ==
LOC: MFPLAB 09:31
PROVIDERS: PCP Family Medicine; Visit Provider Family Medicine
DX: I10 Essential (primary) hypertension (principal); M81.0 Age-related osteoporosis without current pathological fracture
CPT/HCPCS: 36415; 80053; 81001; 82306; 84443; 85025

== ENCOUNTER → 2022-11-08 | Outpatient (CLI) | payer MEDICARE, SELFPAY ==
--- NOTE | 2022-11-08 13:34 | BI_ITS ---
MAMMOGRAPHY - BILATERAL SCREENING REASON FOR EXAM: Female, 82 years old. Routine annual screening examination. PERTINENT HISTORY: Non-contributory. TECHNIQUE: Digital bilateral breast izzy (3D mammographic acquisition) in the CC and MLO projections. 2-D mediolateral oblique (MLO) and craniocaudad (CC) views of both breasts were obtained. CAD: Full Field Digital Mammography with Computer Added Detection was performed. COMPARISON: Mammogram from 11/04/2021, 11/04/2020. FINDINGS: Breast Composition: The breasts are heterogeneously dense, which may obscure small masses. There are no dominant masses or suspicious calcifications. No other significant abnormalities are identified. There has been no significant change since the prior study. BI/SCRN MAMM (CAD)W/IZZY BILAT IMPRESSION: Stable bilateral screening mammogram. Yearly follow-up mammogram recommended. (A) ASSESSMENT CATEGORY: BIRADS Category 1: Negative. A letter regarding these results will be sent to the patient by the facility within 30 days. Approximately 10% of breast cancers are not detected by mammography. A normal mammogram should not delay biopsy of a clinically suspicious abnormality. Electronically Signed: Carlton Rivera DO at 10:49 EDT ,
== END | disposition home or self-care (01) ==
PROVIDERS: PCP Family Medicine; Referring Provider Family Medicine; Visit Provider Family Medicine
DX: Z12.31 Encounter for screening mammogram for malignant neoplasm of breast (principal)
CPT/HCPCS: 77063; 77067

== ENCOUNTER 2023-02-13 12:20 | Outpatient (CLI) | payer MEDICARE, SELFPAY ==
[2023-02-13 12:37] VITALS: BP 173/59; PULSE 65; RESP 16; TEMP 36.3
[2023-02-13] MEDS: DENOSUMAB 60 MG/ML SC (12:41)
== END 2023-02-13 12:21 | disposition home or self-care (01) ==
LOC: MEDOUTP 12:21
PROVIDERS: PCP Family Medicine; Referring Provider Internal Medicine Endocrinology, Diabetes & Metabolism; Visit Provider Internal Medicine Endocrinology, Diabetes & Metabolism
DX: M81.0 Age-related osteoporosis without current pathological fracture (principal)
CPT/HCPCS: 96372; J0897

== ENCOUNTER 2023-05-30 05:23 | Day surgery (SDC) | payer MEDICARE, SELFPAY ==
--- OUTSIDE RECORDS SUMMARY | 2023-05-30 05:25 | XMS RPT_ITS | CCD ---
Author Name Unknown Address [id number] [place] [address] Organization [facility] Care Team Providers Care Flatware Maker Name Role Phone Bev Lees MD Unavailable Barbra Martin Unavailable Unavailable Ivelisse CID, Louie Marks Unavailable Emi Jo Primary Care Provider [phone] JAMAAL PIRES Attending Unavailable EMI JO Primary Care EMI Samaniego Referring Unavailable EMI JO Primary Care JOSE Ward Attending Unavailable EMI JO Primary [facility] EMI Rob Primary [facility] BEV Campa Referring Unavailable MEI CONSTANTINO Attending Unavailable Emi Jo MD Primary Care Provider Allergies Allergy Classification Reported Allergen(s) Allergy Type Date of Onset Reaction(s) Facility (8 sources) Latex; Translations: [LATEX] drug allergy 0 rash [facility] Work Phone: (2 sources) Penicillins (Antibiotic) drug allergy 7 rash [facility] Work Phone: (1 source) Adhesive Tape; Translations: [TAPE] allergy to substance 0 [facility] Work Phone: (1 source) Penicillin G Drug Allergy 0 [facility] Work Phone: (6 sources) Penicillins; Translations: [PENICILLINS] Propensity to adverse reactions 7 [facility] Work Phone: Medications Completed/Discontinued Medications Medication Drug Class(es) Dates Sig (Normalized) Sig (Original) ACETAMINOPHEN TABS (1 source) Start: 05-11-2020 TYLENOL TABS as directed as needed ACETAMINOPHEN TABS [id number] Sasha Russo CAR INSPECTOR amLODIPine 5 mg oral tablet (5 sources) Dihydropyridine Calcium Channel [place] Start: 03-28-2022 take 1 tablet by mouth once daily at bedtime amLODIPine (NORVASC) 5 mg tablet Take 5 mg by mouth daily at bedtime. 0 03/28/2022 Active Problems Active Problems Problem Classification Problem Date Documented Date Episodic/Chronic Diverticulosis and diverticulitis (2 sources) Diverticulitis of colon; Translations: [Diverticulitis of intestine, part unspecified, without perforation or abscess without bleeding] Onset: 01-30-2017 01-30-2017 Chronic Essential hypertension (1 source) Hypertensive disorder; Translations: [Essential (primary) hypertension] Onset: 10-13-2022 10-13-2022 Chronic Fracture of upper limb (1 source) Closed fracture of upper end of humerus; Translations: [Unspecified fracture of upper end of left humerus, initial encounter for closed fracture] Onset: 05-11-2020 05-11-2020 Episodic Hemorrhoids (10 sources) Internal hemorrhoids; Translations: [Other hemorrhoids] Onset: 10-20-2009 10-20-2009 Episodic Other and unspecified benign neoplasm (8 sources) History of polyp of colon; Translations: [Personal history of colonic polyps] Episodic Other and unspecified benign neoplasm (1 source) Adenomatous polyp of colon ; Translations: [Benign neoplasm of ascending colon] Episodic Residual codes; unclassified (6 sources) Family history of malignant neoplasm of gastrointestinal tract; Translations: [Family history of malignant neoplasm of digestive organs] Episodic Past or Other Problems Problem Classification Problem Date Documented Da te Episodic/Chronic Gastrointestinal hemorrhage (5 sources) Hemorrhage of rectum and anus; Translations: [Hemorrhage of anus and rectum] Onset: 10-20-2009 10-20-2009 Episodic Other and unspecified benign neoplasm (7 sources) Benign neoplasm of colon; Translations: [Benign neoplasm of colon, unspecified] Onset: 12-20-2006 01-30-2017 Episodic Other and unspecified benign neoplasm (1 source) Benign neoplasm of ascending colon; Translations: [Benign neoplasm of ascending colon] Onset: 12-20-2006 Episodic Other and unspecified benign neoplasm (1 source) Personal history of colonic polyps; Translations: [Personal history of colonic polyps] Onset: 10-20-2009 Episodic Other gastrointestinal disorders (2 sources) Constipation; Translations: [Constipation, unspecified] Onset: 01-30-2017 01-30-2017 Episodic Unclassified (2 sources) Family history of cancer of colon; Translations: [Family history of malignant neoplasm of digestive organs] Onset: 01-30-2017 01-30-2017 Episodic Unclassified (1 source) Problem Results Test Name Value Interpretation Reference Range Facil ity Vital Signs Date Time Vital Sign Value Performing Clinician Facility 04-26-2022 16:44-0500 Body height 152.4 cm Jamaal Pires MD Work Phone: [facility] 04-26-2022 16:44-0500 Body temperature 97.59 [degF] Jamaal Pires MD Work Phone: [facility] 04-26-2022 16:44-0500 Body weight 60.78 kg Jamaal Pires MD Work Phone: [facility] 04-26-2022 16:44-0500 Diastolic blood pressure 70 mm[Hg] Jamaal Pires MD Work Phone: [facility] 04-26-2022 16:44-0500 Heart rate 78 /min Jamaal Pires MD Work Phone: [facility] 04-26-2022 16:44-0500 SaO2% (BldA) [Mass fraction] 98 % Jamaal Pires MD Work Phone: [facility] 04-26-2022 16:44-0500 Systolic blood pressure 130 mm[Hg] Jamaal Pires MD Work Phone: [facility] 01-30-2017 09:42-0400 BMI (Body Mass Index) 26.3 kg/m2 Bev Lees MD [facility] Work Phone: 01-30-2017 09:42-0400 Body Temperature 97.9 [degF] Bev Lees MD [facility] Work Phone: 01-30-2017 09:42-0400 BP Diastolic 85 mm[Hg] Bev Lees MD [facility] Work Phone: 01-30-2017 09:42-0400 BP Systolic 157 mm[Hg] Bev Lees MD [facility] Work Phone: 01-30-2017 09:42-0400 Height 157.48 cm Bev Lees MD [facility] Work Phone: 01-30-2017 09:42-0400 Pulse (Heart Rate) 61 /min Bev Lees MD [facility] Work Phone: 01-30-2017 09:42-0400 Respiratory Rate 20 /min Bev Lees MD [facility] Work Phone: 01-30-2017 09:42-0400 Weight 65.23 kg Bev Lees MD [facility] Work Phone: NEGATED: Highlighted [id number] 11:30-0500 BMI (Body Mass Index) 26.55 kg/m2 Kobi Dove CAR INSPECTOR [facility] Work Phone: NEGATED: Highlighted [id number] 11:30-0500 Body weight 63.5 kg Kobi oDve CAR INSPECTOR [facility] Work Phone: NEGATED: Highlighted [id number] 11:30-0500 Body weight 64 kg Kobi Dove CAR INSPECTOR [facility] [place] [facility] Work Phone: NEGATED: Highlighted [id number] 11:30-0500 Height 154.94 cm Kobi Dove CAR INSPECTOR [facility] Work Phone: NEGATED: Highlighted [id number] 11:30-0500 Height 155 cm Kobi Dove CAR INSPECTOR [facility] Work Phone: Encounters Encounter Date Encounter Type Care Provider Facility Start: 11-12-2022 End: 11-12-2022 ambulatory EMI JO Facility:[facility] Start: 10-13-2022 End: 10-13-2022 ambulatory EMI CONSTANTINO Facility:[facility] Start: 10-10-2022 Telephone encounter Emi Constantino MD Work Phone: Gastroenterology Procedures Date Procedure Procedure Detail Performing Clinician Start: 05-11-2020 End: 05-11-2020 Blood pressure screening not performed - reason not given Louie Oviedo MD Work Phone: Start: 05-11-2020 End: 05-11-2020 BMI outside of normal parameters - no follow-up plan/reason not given Louie Oviedo MD Work Phone: Start: 05-11-2020 End: 05-11-2020 Doc fx & test/txmnt for op Louie Oviedo MD Work Phone: Start: 05-11-2020 End: 05-11-2020 Documentation of current medications Louie Oviedo MD Work Phone: Start: 05-11-2020 End: 05-11-2020 Pain assessment documented as positive - follow-up documented Louie Oviedo MD Work Phone: Start: 05-11-2020 End: 05-11-2020 Tobacco non-user Louie Mcnamara Work Phone: NEGATED: Highlighted rowStart: 05-11-2020 End: 05-11-2020 Documentation of current medications Kobi Dove LPN Plan of Treatment Date Care Activity Detail Author Start: 01-20-2023 Influenza vaccination Influenza Vaccine (#1) [facility] Start: 07-19-2022 Covid-19 Vaccine (7 - Moderna series) Covid-19 Vaccine (7 - Moderna series) [facility] Start: 05-22-2022 ADVANCE DIRECTIVE DISCUSSION ADVANCE DIRECTIVE DISCUSSION [facility] Start: 05-22-2022 DEPRESSION ASSESSMENT DEPRESSION ASSESSMENT [facility] Start: 05-22-2021 ADVANCE DIRECTIVE DISCUSSION ADVANCE DIRECTIVE DISCUSSION [facility] Start: 05-22-2021 DEPRESSION ASSESSMENT DEPRESSION ASSESSMENT [facility] Start: 05-11-2020 End: 05-11-2020 Appointment Appointment [facility] Work Phone: Start: 01-30-2017 End: 01-30-2017 Colonoscopy flx dx w/collj spec when pfrmd Colonoscopy [facility] Work Phone: Start: 01-30-2017 End: 01-30-2017 Appointment Appointment [facility] Work Phone: Start: 01-30-2017 End: 01-30-2017 Diagnostic colonoscopy Colonoscopy [facility] Work Phone: Start: 2005 BONE DENSITY BONE DENSITY [facility] Start: 2005 Bone Density Screening Bone Density Screening [facility] Start: 2005 Pneumococcal Vaccine: 65+ (1 - PCV) Pneumococcal Vaccine: 65+ (1 - PCV) [facility] Start: 2005 PNEUMOCOCCAL: 65+ (1 - PCV) PNEUMOCOCCAL: 65+ (1 - PCV) [facility] Start: 1990 SHINGRIX VACCINE (1 of 2) SHINGRIX VACCINE (1 of 2) [facility] Start: 1985 DIABETES SCREEN DIABETES SCREEN [facility] Start: 1985 Diabetes Screening Diabetes Screening [facility] Start: 1959 Urine microalbumin profile [facility] End: 08-09-2023 Colonoscopy COLONOSCOPY (THERAPEUTIC) Endoscopy Routine Personal history of colonic polyps 1 Occurrences starting 08/08/2022 until 08/09/2023 [facility] Work Phone: Immunizations Immunization Date Immunization Notes Care Provider Nirav cisneros 03-16-2022 influenza virus vacc ine, unspecified formulation Emi Constantino MD Work Phone: [facility] Payers Date Payer Category Payer Unknown [employer]M [employer] S AND BLUE SHIELD [employer] HMO [id number] 2018-Present [phone] [address] [place] [address] HMO [id number] 2018 Unknown [id number] Social History Date Type Detail Facility Start: 05-11-2020 End: 05-11-2020 Assertion Unknown if ever smoked [facility] Work Phone: Tobacco smoking stat us NHIS Never smoked tobacco [facility] Work Phone: Start: 04-26-2022 End: 08-08-2022 Alcohol intake Current drinker of alcohol (finding) [facility] Start: 1940 Sex Assigned At Not on file C [facility] Start: 06-04-2022 End: 10-13-2022 History of Social function [facility] Start: 06-04-2022 End: 10-13-2022 Tobacco use panel [facility] National Score (1-10 0), lower number is lower risk 67 [facility] Clinical Notes 04-26-2022 to 11-12-2022 Patient InstructionsTelephone Encounter - Emi Constantino MD - 10/11/2022 4:17 PM EDTTelephone Encounter - Margarita Bro - 10/10/2022 9:59 AM EDTPatient Instructions Note Date & Type Note Facility 11-12-2022 Note HNO ID: [id number] Author: SKYLAR Gorman Service: ? Author Type: Physician Research Advisor Type: Progress Notes Filed: 11/12/2022 1:02 PM Note Text: This note was created using NoteWriter. Subjective Maggie Stephens is a 82 year old female. HPI 82-year-old female presents for UTI symptoms. Patient has had dysuria, frequency for the past few days. She last had a UTI several months ago. No vomiting. No back pain or abdominal pain. No fevers. She recently had blood work completed that was normal. No history of CKD. No other complaints. PAST MEDICAL HISTORY Diagnosis Date Benign neoplasm of colon Constipation Diverticulosis of colon (without mention of hemorrhage) Family history of malignant neoplasm of gastrointestinal tract Internal hemorrhoids without mention of complication PAST SURGICAL HISTORY Procedure Laterality Date COLONOSCOPY FLX DX W/COLLJ SPEC WHEN PFRMD 04/05/2000 Colonoscopy COLONOSCOPY FLX DX W/COLLJ SPEC WHEN PFRMD 01/09/2007 Colonoscopy COLONOSCOPY FLX DX W/COLLJ SPEC WHEN PFRMD 01/17/2012 repeat 5 years COLONOSCOPY SCREENING 03/08/2022 PAST SURGICAL HISTORY OF broken wrist SIGMOIDOSCOPY FLX DX W/COLLJ SPEC BR/WA IF PFRMD 11/02/2009 Sigmoidoscopy, flexible TONSILLECTOMY PRIMARY/SECONDARY Tonsillectomy ALLERGIES Latex and Penicillins MEDICATIONS vit C,P-Tg-oiyge-lutein-zeaxan (PRESERVISION AREDS-2) 250-90-40-1 mg amLODIPine (NORVASC) 5 mg tablet Take 5 mg by mouth daily at bedtime. Cholecalciferol, Vitamin D3, 1,000 unit cap Take 1 capsule by mouth once daily. therapeutic multivitamin ORAL Tab Take one(1) tablet daily. nitrofurantoin monohydrate and macrocrystal (MACROBID) 100 mg capsule Take 1 capsule by mouth twice daily for 5 days. aspirin, enteric coated (ECOTRIN LOW STRENGTH) 81 mg EC tablet Take 1 tablet by mouth once daily. as needed (Patient not taking: Reported on 04/26/2022) Ascorbic Acid (VITAMIN C) 1,000 mg ORAL Tab Take one(1) tablet daily. FAMILY HISTORY Problem Relation Age of Onset Colon Cancer Mother Heart Father Social History Tobacco Use Smoking status: Never Vaping Use Vaping Use: Never used Substance Use Topics Alcohol use: Yes Comment: OCC Drug use: Never Review of Systems Constitutional: Negative for chills and fever. HENT: Negative for congestion, ear pain and sore throat. Respiratory: Negative for cough and shortness of breath. Cardiovascular: Negative for chest pain. Gastrointestinal: Negative for diarrhea and vomiting. Genitourinary: Positive for dysuria, frequency and urgency. Negative for flank pain, hematuria and vaginal discharge. Objective BP 130/80 Pulse 66 Temp 36.4 ?C (97.5 ?F) Resp 16 Wt 59.4 kg (131 lb) SpO2 98% BMI 25.58 kg/m? Physical Exam Vitals and nursing note reviewed. Constitutional: General: She is not in acute distress. Appearance: Normal appearance. She is not toxic-appearing. Cardiovascular: Rate and Rhythm: Normal rate and regular rhythm. Pulmonary: Effort: Pulmonary effort is normal. Breath sounds: Normal breath sounds. Abdominal: General: Abdomen is flat. Palpations: Abdomen is soft. Tenderness: There is no abdominal tenderness. There is no right CVA tenderness or left CVA tenderness. Skin: General: Skin is warm and dry. Neurological: Mental Status: She is alert. Assessment and Plan ASSESSMENT/PLAN: 1. Painful urination - ICD9: 788.1, ICD10: R30.9 - UA positive for olvin esterase and hematuria - Send urine for culture - Begin treatment with Macrobid 100 mg BID for 5 days-tolerated this in August. -Labs from 11/01/2022 revealed GFR 84, normal creatinine. - Patient education for prevention given - UA DIP, URINE (POC) - URINE CULTURE Diagnosis and treatment plan were discussed and questions were answered to the patient's satisfaction. Pt acknowledged understanding of concepts and follow up plan. Specific signs and symptoms that would indicate the need for higher level of care were discussed in detail warranting prompt ER evaluation. SKYLAR Gorman [facility] 10-11-2022 Instructions mEi Constantino MD - 10/11/2022 4:17 PM EDT Images from the original note were not included. Bowel Preparation Instructions for: Golytely, Nulytely, Trilyte or Colyte (polyethylene glycol 3350 and electrolytes) IF YOU DO NOT FOLLOW THESE DIRECTIONS, YOUR COLONOSCOPY WILL BE CANCELLED. Hawkins Instructions: Your bowel must be empty so that your doctor can clearly view your colon. Follow all of the instructions in this handout EXACTLY as they are written. Do NOT eat any solid food the ENTIRE day before your colonoscopy. Drink only clear liquids. Buy your bowel preparation at least 5 days before your colonoscopy. TRANSPORTATION on the Day of Your Exam A responsible person MUST be present with you at Check In prior to your colonoscopy and REMAIN in the endoscopy area until you are discharged. You are NOT ALLOWED to drive, take a taxi or bus, or leave the Endoscopy Center ALONE. If you do not have a responsible refrigerated company driver (family member or friend) with you to take you home, your exam cannot be done with sedation and will be cancelled. Please bring a list of all of your current medications, including any Over-the Counter medications with you. Medications If you take insulin, diabetic medications or blood thinners such as Coumadin (warfarin), Plavix (clopidogrel), Ticlid (ticlopidine hydrochloride), Agrylin (anagrelide), Xarelto (Rivaroxaban), Pradaxa (Dabigatran), Eliquis (Apixaban), and Effient (Prasugrel). You MUST call the doctors who orders those medicines for instructions on altering the dosage before your colonoscopy. All other medications should be taken the day of the exam with a sip of water including ASPIRIN. Five (5) Days Before Your Colonoscopy Do NOT take medicines that stop diarrhea - such as Imodium, Kaopectate, or Pepto Bismol. Do NOT take fiber supplements - such as Metamucil, Citrucel, or Perdiem. Do NOT take products that contain iron - such as multi-vitamins (the label lists what is in the products). Do NOT take Vitamin E. Buy the prescription bowel preparation solution at your local pharmacy or drugstore pharmacy. 1 04/2019 Bowel Preparation Instructions for: Golytely, Nulytely, Trilyte or Colyte (polyethylene glycol 3350 and electrolytes) Three (3) Days Before Your Colonoscopy Do NOT eat high-fiber foods - such as popcorn, beans, seeds (flax, sunflower, quinoa), multigrain bread, nuts, salad/vegetables, or fresh and dried fruit. One (1) Day Before Your Colonoscopy Only drink clear liquids the ENTIRE DAY before your colonoscopy. Do NOT eat any solid foods. Drink at least 8 ounces of clear liquids every hour after waking up. The clear liquids you can drink include: Clear Liquid (NO RED LIQUIDS) DO NOT DRINK Gatorade, Pedialyte or Powerade Clear broth or bouillon Coffee or tea (no milk or non-dairy creamer) Carbonated and non-carbonated soft drinks Montrell-Aid or other fruit flavored drinks Strained fruit juices (no pulp) Jell-O, popsicles, hard candy Water Alcohol Milk or non-dairy creamers Noodles or vegetables in soup Juice with pulp Liquid you cannot see through Do not use tobacco/vaping products The bowel preparation solution will be consumed in two parts. Mix the solution the evening before your colonoscopy and refrigerate before drinking. You may add the flavor pack that came with the bowel preparation. Do NOT add ice, sugar or any other flavorings to the solution. Part 1 At 6:00 PM - Evening before your colonoscopy Drink an 8-oz glass of bowel preparation every 10 minutes for a total of 8 glasses. You may continue to drink clear liquids until midnight. Part 2 On the day of your colonoscopy you may drink clear liquids up to (three) 3 hours before your procedure. 4 1/2 hours before your colonoscopy Drink an 8-oz glass of bowel preparation every 10 minutes for a total of 8 glasses. Fifteen (15) minutes later, drink an 8-oz glass of clear liquids every 15 minutes for a total of 2 glasses. You may continue to drink clear liquids up to (three) 3 hours before your exam. 2 04/2019 Bowel Preparation Instructions for: Miralax-Gatorade Preparations IF YOU DO NOT FOLLOW THESE DIRECTIONS, YOUR COLONOSCOPY WILL BE CANCELLED. [place] Instructions: Your bowel must be empty so that your doctor can clearly view your colon. Follow all of the instructions in this handout EXACTLY as they are written. Do NOT eat any solid food the ENTIRE day before your colonoscopy. Buy your bowel preparation at least 5 days before your colonoscopy. Four (4) Dulcolax laxative tablets containing 5mg of bisacodyl each (NOT Dulcolax stool softener) One (1) 8.3oz. bottle Miralax (238 grams) or generic equivalent 2 x 32oz. Bottles of Gatorade (NOT RED) Diabetic Patients: Use G2 (Gatorade 2) TRANSPORTATION on the Day of Your Exam A responsible adult MUST be present with you at Check In prior to your colonoscopy and REMAIN in the endoscopy area until you are discharged. You are NOT ALLOWED to drive, take a taxi or bus, or leave the Endoscopy Center ALONE. If you do not have a responsible refrigerated company driver (family member or friend) with you to take you home, your exam cannot be done with sedation and will be cancelled. Please bring a list of all of your current medications, including any Aocc-ymz-Qunopzw medications with you. Medications If you take insulin, diabetic medications or blood thinners such as Coumadin (warfarin), Plavix (clopidogrel), Ticlid (ticlopidine hydrochloride), Agrylin (anagrelide), Xarelto (Rivaroxaban), Pradaxa (Dabigatran), Eliquis (Apixaban), and Effient (Prasugrel). You MUST call the doctors who orders those medicines for instructions on altering the dosage before your colonoscopy. All other medications should be taken the day of the exam with a sip of water including ASPIRIN. Five (5) Days Before Your Colonoscopy Do NOT take medicines that stop diarrhea - such as Imodium, Kaopectate, or Pepto Bismol. Do NOT take fiber supplements - such as Metamucil, Citrucel, or Perdiem. Do NOT take products that contain iron - such as multi-vitamins (the label lists what is in the products). Three (3) Days Before Your Colonoscopy Do NOT eat high-fiber foods - such as popcorn, beans, seeds (flax, sunflower, quinoa), multigrain bread, nuts, salad/vegetables, or fresh and dried fruit. 1 Bowel Preparation Instructions for: Miralax-Gatorade Preparations One (1) Day Before Your Colonoscopy Only drink clear liquids the ENTIRE DAY before your colonoscopy. Do NOT eat any solid foods. Drink at least 8 ounces of clear liquids every hour after waking up. The clear liquids you can drink include: Clear Liquid (NO RED LIQUIDS) DO NOT DRINK Gatorade, Pedialyte or Powerade Clear broth or bouillon Coffee or tea (no milk or non-dairy creamer) Carbonated and non-carbonated soft drinks Montrell-Aid or other fruit flavored drinks Strained fruit juices (no pulp) Jell-O, popsicles, hard candy Water Alcohol Milk or non-dairy creamers Noodles or vegetables in soup Juice with pulp Liquid you cannot see through Do not use tobacco/vaping products Mix 1/2 of Miralax bottle (119 grams) in each 32 ounces of Gatorade bottle until dissolved. Keep cool in the refrigerator. DO NOT ADD ICE. The bowel preparation solution will be consumed in two parts. Part 1 5:00 PM - Evening before your colonoscopy Take 4 Dulcolax tablets. 6 PM - Evening before your colonoscopy Drink 32 oz. of the mixed solution. Drink an 8 oz. glass of bowel preparation every 15 minutes for a total of 4 glasses. Fifteen (15) minutes later, drink an 8 oz. glass of of clear liquids every 15 minutes for a total of 2 glasses. You may continue to drink clear liquids till midnight. Part 2 On the day of your colonoscopy you may drink clear liquids up to (three) 3 hours prior to procedure. 4 1/2 hours before your colonoscopy Take another 32 oz. bottle of mixed solution. Drink an 8 oz. glass of bowel prep every 15 minutes for a total of 4 glasses. Fifteen (15) minutes later, drink an 8 oz. glass of clear liquids every 15 minutes for a total of 2 glasses. You may continue to drink clear liquids up to (three) 3 hours before your exam. 2 04/2019 documented in this encounter [facility] 10-11-2022 Miscellaneous Notes called in prescription for Golytely prep Pt called in for her prep I see that nothing was ordered and gave her instructions for the over the counter prep. She mentioned that she was sick afterwards on her last procedure and Dr. Constantino said she can do a different prep. She would like a call to discuss. Please review and advise Margarita Bro Salvager Helper documented in this encounter [facility] 09-11-2022 Note HNO ID: [id number] Author: Dara Yarbrough APRN.EGG PROCESSOR Service: ? Author Type: Nurse Practitioner Type: Progress Notes Filed: 09/11/2022 2:46 PM Note Text: CC: Patient presents with: Rash: Bilateral legs, ankle region, redness, burning and itching, edema HPI Maggie Stephens is a 82 year old female who presents today for above. Patient reports edema and rash to bilateral lower legs x 3 days, L > R. Rash is red and itchy, uncomfortable but no pain. Ever had a rash like this before: No. Changes in soaps or detergents: No. New medications or foods: No. Exposure to others with rash: No. Environmental exposures: No Environmental/seasonal allergies: No Fever, chills, fatigue, joint pain/swelling: No. Treatments: nothing so far History of skin problems such as psoriasis, eczema, hives: YES, eczema. Edema is chronic however it is a little worse than usual. Denies calf pain or swelling. Denies chest pain, SOB, palpitations, weight gain, orthopnea, PND. Denies history of CHF. REVIEW OF SYSTEMS See HPI PAST MEDICAL HISTORY Diagnosis Date Benign neoplasm of colon Constipation Diverticulosis of colon (without mention of hemorrhage) Family history of malignant neoplasm of gastrointestinal tract Internal hemorrhoids without mention of complication PAST SURGICAL HISTORY Procedure Laterality Date COLONOSCOPY FLX DX W/COLLJ SPEC WHEN PFRMD 04/05/2000 Colonoscopy COLONOSCOPY FLX DX W/COLLJ SPEC WHEN PFRMD 01/09/2007 Colonoscopy COLONOSCOPY FLX DX W/COLLJ SPEC WHEN PFRMD 01/17/2012 repeat 5 years COLONOSCOPY SCREENING 03/08/2022 PAST SURGICAL HISTORY OF broken wrist SIGMOIDOSCOPY FLX DX W/COLLJ SPEC BR/WA IF PFRMD 11/02/2009 Sigmoidoscopy, flexible TONSILLECTOMY PRIMARY/SECONDARY Tonsillectomy ALLERGIES Latex and Penicillins MEDICATIONS amLODIPine (NORVASC) 5 mg tablet Take 5 mg by mouth daily at bedtime. Cholecalciferol, Vitamin D3, 1,000 unit cap Take 1 capsule by mouth once daily. therapeutic multivitamin ORAL Tab Take one(1) tablet daily. aspirin, enteric coated (ECOTRIN LOW STRENGTH) 81 mg EC tablet Take 1 tablet by mouth once daily. as needed (Patient not taking: Reported on 04/26/2022) Ascorbic Acid (VITAMIN C) 1,000 mg ORAL Tab Take one(1) tablet daily. FAMILY HISTORY Problem Relation Age of Onset Colon Cancer Mother Heart Father Social History Tobacco Use Smoking status: Never Vaping Use Vaping Use: Never used Substance Use Topics Alcohol use: Yes Comment: OCC Drug use: Never PHYSICAL EXAM BP 132/84 Pulse 70 Temp 36.7 ?C (98 ?F) Resp 16 SpO2 96% General Appearance: well appearing, in no acute distress, alert Lungs: Lungs clear to auscultation. No wheezing, rhonchi, rales. Heart: RRR without murmur, gallop, or rubs. No ectopy Lower Extremities: Good capillary refill. , Pulses: 2+, No cords. No calf tenderness. Trace pitting edema bilateral lower legs, L > R ASSESSMENT/PLAN: 1. Rash and nonspecific skin eruption - ICD9: 782.1, ICD10: R21 (primary diagnosis) Differentials include contact/irritant dermatitis, venous stasis dermatitis, cellulitis - start treatment with triamcinolone, see orders - given prescription for Doxycycline, to start on Monday if rash is not improving - notify PCP on Monday if rash is persisting or worsening - skin care discussed, see patient instructions 2. Bilateral lower extremity edema - ICD9: 782.3, ICD10: R60.0 Chronic edema, slightly worse. No alarm symptoms or exam findings. Plan as above Prescription instructions reviewed with patient as applicable. Potential red flag symptoms discussed with the patient. Reviewed appropriate action plan to take if red flag symptoms occur. Patient agreeable to treatment plan. Dara Yarbrough, CORIN.EGG PROCESSOR [facility] 08-08-2022 Note HNO ID: [id number] Author: Emi Constantino MD Service: ? Author Type: Physician Type: Progress Notes Filed: 08/15/2022 4:48 PM Note Text: VIRTUAL VISIT PROGRESS NOTE This is a virtual visit using Smart Device Media video visit. It required patient-provider interaction for the medical decision making as documented below. I have communicated my name and active licensure. The patient's identity and physical location were verified at the time of this visit. Either the patient or their legal patient care representative has been informed of the risks and benefits of -- and alternatives to -- treatment through a remote evaluation and consents to proceed with the evaluation remotely. Maggie Stephens is a 82-year-old female who is being seen for evaluation of a colonic polyp. Underwent a colonoscopy on March 08 2022 This revealed a granular lateral spreading polyp in the ascending colon. This measured 32 mm in size. 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 Past medical history: Premature atrial contractions, diverticulitis, hypertension, osteoporosis, constipation, tarsal tunnel syndrome, Past surgical history: History of cataract surgery, history open reduction and internal fixation procedure, history tonsillectomy, Medications: Norvasc, vitamin D3, aspirin 81 mg, multivitamin, vitamin C Allergies: Latex, penicillin, tape adhesives, alendronate, ciprofloxacin, sulfamethoxazole, venlafaxine Family medical history: Hypertension, heart disease, colon cancer in mother, Social history no history of alcohol tobacco or substance abuse Presently Doing well. Discussion of colon polyp removal Did not do well on Golytely bowel preparation, vomiting afterwards. Tolerated anesthesia well with previous colonoscopy HISTORY REVIEWED (electronic chart updated): PAST MEDICAL HISTORY Diagnosis Date Benign neoplasm of colon Constipation Diverticulosis of colon (without mention of hemorrhage) Family history of malignant neoplasm of gastrointestinal tract Internal hemorrhoids without mention of complication PAST SURGICAL HISTORY Procedure Laterality Date COLONOSCOPY FLX DX W/COLLJ SPEC WHEN PFRMD 04/05/2000 Colonoscopy COLONOSCOPY FLX DX W/COLLJ SPEC WHEN PFRMD 01/09/2007 Colonoscopy COLONOSCOPY FLX DX W/COLLJ SPEC WHEN PFRMD 01/17/2012 repeat 5 years COLONOSCOPY SCREENING 03/08/2022 PAST SURGICAL HISTORY OF broken wrist SIGMOIDOSCOPY FLX DX W/COLLJ SPEC BR/WA IF PFRMD 11/02/2009 Sigmoidoscopy, flexible TONSILLECTOMY PRIMARY/SECONDARY Tonsillectomy FAMILY HISTORY Problem Relation Age of Onset Colon Cancer Mother Heart Father Social History Tobacco Use Smoking status: Never Vaping Use Vaping Use: Never used Substance Use Topics Alcohol use: Yes Comment: OCC Drug use: Never Current Outpatient Medications Medication Sig amLODIPine (NORVASC) 5 mg tablet Take 5 mg by mouth daily at bedtime. Cholecalciferol, Vitamin D3, 1,000 unit cap Take 1 capsule by mouth once daily. aspirin, enteric coated (ECOTRIN LOW STRENGTH) 81 mg EC tablet Take 1 tablet by mouth once daily. as needed (Patient not taking: Reported on 04/26/2022) therapeutic multivitamin ORAL Tab Take one(1) tablet daily. Ascorbic Acid (VITAMIN C) 1,000 mg ORAL Tab Take one(1) tablet daily. No current facility-administered medications for this visit. ALLERGIES Allergen Reactions Latex Penicillins REVIEW OF SYSTEMS: GENERAL: feeling well without fatigue, no recent change in weight ASSESSMENT: No diagnosis found. PLAN: 82-year-old female with a history of a granular lateral spreading polyp in the ascending colon. Colonoscopic photographs consistent with an LST. Exact margins are not clear on the photographs but it is described as being 32 mm in size. We have discussed the various options for approaching this. Given the photographs I do not see any high risk features such as ulceration or depression in the polyp. I would consider a piecemeal EMR approach. The patient was carefully counseled however that there may be high risk findings seen during an upcoming colonoscopy which may relegate this for another type of therapy such as ESD or surgery. There are no Patient Instructions on file for this visit. I spent a total of 27 minutes on the date of the service which included preparing to see the patient and [id number] patient care Answers submitted by the patient for this visit: Review of Systems Gastroenterology (Submitted on 08/03/2022) Fever: No Chills: No Night Sweats: No Unitentional Weight Change: No A Cough: No Difficulty Breathing: No Chest Pain: No Belly pain: No A feeling of fullness or have belly pain after eating: No Food getting stuck in your throat or chest after eating: No Nausea - that is, a feeling like you could vomit: No Regurgitation - that is, food or liquid coming back up into your throat or mouth without vomiting, or feel burning behind your breast bone: (more content not included)... [facility] 08-08-2022 Instructions Shireen Chandler LPN - 08/08/2022 3:54 PM EDT Images from the original note were not included. Bowel Preparation Instructions for: Miralax-Gatorade Preparations IF YOU DO NOT FOLLOW THESE DIRECTIONS, YOUR COLONOSCOPY WILL BE CANCELLED. [place] Instructions: Your bowel must be empty so that your doctor can clearly view your colon. Follow all of the instructions in this handout EXACTLY as they are written. Do NOT eat any solid food the ENTIRE day before your colonoscopy. Buy your bowel preparation at least 5 days before your colonoscopy. Four (4) Dulcolax laxative tablets containing 5mg of bisacodyl each (NOT Dulcolax stool softener) One (1) 8.3oz. bottle Miralax (238 grams) or generic equivalent 2 x 32oz. Bottles of Gatorade (NOT RED) Diabetic Patients: Use G2 (Gatorade 2) TRANSPORTATION on the Day of Your Exam A responsible adult MUST be present with you at Check In prior to your colonoscopy and REMAIN in the endoscopy area until you are discharged. You are NOT ALLOWED to drive, take a taxi or bus, or leave the Endoscopy Center ALONE. If you do not have a responsible refrigerated company driver (family member or friend) with you to take you home, your exam cannot be done with sedation and will be cancelled. Please bring a list of all of your current medications, including any [id number] medications with you. Medications If you take insulin, diabetic medications or blood thinners such as Coumadin (warfarin), Plavix (clopidogrel), Ticlid (ticlopidine hydrochloride), Agrylin (anagrelide), Xarelto (Rivaroxaban), Pradaxa (Dabigatran), Eliquis (Apixaban), and Effient (Prasugrel). You MUST call the doctors who orders those medicines for instructions on altering the dosage before your colonoscopy. All other medications should be taken the day of the exam with a sip of water including ASPIRIN. Five (5) Days Before Your Colonoscopy Do NOT take medicines that stop diarrhea - such as Imodium, Kaopectate, or Pepto Bismol. Do NOT take fiber supplements - such as Metamucil, Citrucel, or Perdiem. Do NOT take products that contain iron - such as multi-vitamins (the label lists what is in the products). Three (3) Days Before Your Colonoscopy Do NOT eat high-fiber foods - such as popcorn, beans, seeds (flax, sunflower, quinoa), multigrain bread, nuts, salad/vegetables, or fresh and dried fruit. 1 Bowel Preparation Instructions for: Miralax-Gatorade Preparations One (1) Day Before Your Colonoscopy Only drink clear liquids the ENTIRE DAY before your colonoscopy. Do NOT eat any solid foods. Drink at least 8 ounces of clear liquids every hour after waking up. The clear liquids you can drink include: Clear Liquid (NO RED LIQUIDS) DO NOT DRINK Gatorade, Pedialyte or Powerade Clear broth or bouillon Coffee or tea (no milk or non-dairy creamer) Carbonated and non-carbonated soft drinks Montrell-Aid or other fruit flavored drinks Strained fruit juices (no pulp) Jell-O, popsicles, hard candy Water Alcohol Milk or non-dairy creamers Noodles or vegetables in soup Juice with pulp Liquid you cannot see through Do not use tobacco/vaping products Mix 1/2 of Miralax bottle (119 grams) in each 32 ounces of Gatorade bottle until dissolved. Keep cool in the refrigerator. DO NOT ADD ICE. The bowel preparation solution will be consumed in two parts. Part 1 5:00 PM - Evening before your colonoscopy Take 4 Dulcolax tablets. 6 PM - Evening before your colonoscopy Drink 32 oz. of the mixed solution. Drink an 8 oz. glass of bowel preparation every 15 minutes for a total of 4 glasses. Fifteen (15) minutes later, drink an 8 oz. glass of of clear liquids every 15 minutes for a total of 2 glasses. You may continue to drink clear liquids till midnight. Part 2 On the day of your colonoscopy you may drink clear liquids up to (three) 3 hours prior to procedure. 4 1/2 hours before your colonoscopy Take another 32 oz. bottle of mixed solution. Drink an 8 oz. glass of bowel prep every 15 minutes for a total of 4 glasses. Fifteen (15) minutes later, drink an 8 oz. glass of clear liquids every 15 minutes for a total of 2 glasses. You may continue to drink clear liquids up to (three) 3 hours before your exam. 2 04/2019 documented in this encounter [facility] 08-08-2022 History of Presen t illness Narrative VIRTUAL VISIT PROGRESS NOTE This is a virtual visit using Smart Device Media video visit. It required patient-provider interaction for the medical decision making as documented below. Maggie Stephens is a 82-year-old female who is being seen for evaluation of a colonic polyp. Underwent a colonoscopy on March 08 2022 This revealed a granular lateral spreading polyp in the ascending colon. This measured 32 mm in size. 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 Past medical history: Premature atrial contractions, diverticulitis, hypertension, osteoporosis, constipation, tarsal tunnel syndrome, Past surgical history: History of cataract surgery, history open reduction and internal fixation procedure, history tonsillectomy, Medications: Norvasc, vitamin D3, aspirin 81 mg, multivitamin, vitamin C Allergies: Latex, penicillin, tape adhesives, alendronate, ciprofloxacin, sulfamethoxazole, venlafaxine Family medical history: Hypertension, heart disease, colon cancer in mother, Social history no history of alcohol tobacco or substance abuse Presently Doing well. Discussion of colon polyp removal Did not do well on Golytely bowel preparation, vomiting afterwards. Tolerated anesthesia well with previous colonoscopy HISTORY REVIEWED (electronic chart updated): PAST MEDICAL HISTORY Diagnosis Date Benign neoplasm of colon Constipation Diverticulosis of colon (without mention of hemorrhage) Family history of malignant neoplasm of gastrointestinal tract Internal hemorrhoids without mention of complication PAST SURGICAL HISTORY Procedure Laterality Date COLONOSCOPY FLX DX W/COLLJ SPEC WHEN PFRMD 04/05/2000 Colonoscopy COLONOSCOPY FLX DX W/COLLJ SPEC WHEN PFRMD 01/09/2007 Colonoscopy COLONOSCOPY FLX DX W/COLLJ SPEC WHEN PFRMD 01/17/2012 repeat 5 years COLONOSCOPY SCREENING 03/08/2022 PAST SURGICAL HISTORY OF broken wrist SIGMOIDOSCOPY FLX DX W/COLLJ SPEC BR/WA IF PFRMD 11/02/2009 Sigmoidoscopy, flexible TONSILLECTOMY PRIMARY/SECONDARY <AGE 12 Tonsillectomy FAMILY HISTORY Problem Relation Age of Onset Colon Cancer Mother Heart Father Social History Tobacco Use Smoking status: Never Vaping Use Vaping Use: Never used Substance Use Topics Alcohol use: Yes Comment: OCC Drug use: Never Current Outpatient Medications Medication Sig amLODIPine (NORVASC) 5 mg tablet Take 5 mg by mouth daily at bedtime. Cholecalciferol, Vitamin D3, 1,000 unit cap Take 1 capsule by mouth once daily. aspirin, enteric coated (ECOTRIN LOW STRENGTH) 81 mg EC tablet Take 1 tablet by mouth once daily. as needed (Patient not taking: Reported on 04/26/2022) therapeutic multivitamin ORAL Tab Take one(1) tablet daily. Ascorbic Acid (VITAMIN C) 1,000 mg ORAL Tab Take one(1) tablet daily. No current facility-administered medications for this visit. ALLERGIES Allergen Reactions Latex Penicillins REVIEW OF SYSTEMS: GENERAL: feeling well without fatigue, no recent change in weight ASSESSMENT: No diagnosis found. PLAN: 82-year-old female with a history of a granular lateral spreading polyp in the ascending colon. Colonoscopic photographs consistent with an LST. Exact margins are not clear on the photographs but it is described as being 32 mm in size. We have discussed the various options for approaching this. Given the photographs I do not see any high risk features such as ulceration or depression in the polyp. I would consider a piecemeal EMR approach. The patient was carefully counseled however that there may be high risk findings seen during an upcoming colonoscopy which may relegate this for another type of therapy such as ESD or surgery. There are no Patient Instructions on file for this visit. I spent a total of 27 minutes on the date of the service which included preparing to see the patient and [id number] patient care Answers submitted by the patient for this visit: Review of Systems Gastroenterology (Submitted on 08/03/2022) Fever: No Chills: No Night Sweats: No Unitentional Weight Change: No A Cough: No Difficulty Breathing: No Chest Pain: No Belly pain: No A feeling of fullness or have belly pain after eating: No Food getting stuck in your throat or chest after eating: No Nausea - that is, a feeling like you could vomit: No Regurgitation - that is, food or liquid coming back up into your throat or mouth without vomiting, or feel burning behind your breast bone: No Loss of appetite: No To throw up or vomit: No Blood in your stools: No Black tarry stools: No Loose or watery stools: No The feeling like you need to empty your bowels right away - that is, feel as if you would have an accident: No Bowel incontinence - that is, have an accident because you cannot make it to the bathroom in time: No Problems with straining while having bowel movements , hard or lumpy stools, or feel unfinished (that you have not passed all your stool): Yes Pain in rectum or anus during bowel movements: No Problems with jaundice - that is, yellow discoloration of your skin or eyes, now or in the past: No Problems with having to flush the toilet more than two times due to oily stool, or see stool floating with oil: No documented in this encounter [facility] 07-26-2022 Miscellaneous Notes Received a referral for polyps requesting an appointment LIZBETH. Uploaded under scanned doc with today's date. Please review and advise Margarita Bro Salvager Helper documented in this encounter [facility] 05-06-2022 Miscellaneous Notes Spoke with Lou. We have not heard from Dr. Gomez's office, but I do see where Dr. Pires forwarded her chart to Dr. Gomez for review. Liudmila Burnett RN Patient called requesting addition information if someone from general surgery called. Please advise. Daphnie Desir LPN documented in this encounter [facility] 04-26-2022 Note HNO ID: [id number] Author: Jamaal Pires MD Service: ? Author Type: Physician Type: Progress Notes Filed: 04/26/2022 7:13 PM Note Text: HISTORY AND PHYSICAL Maggie Stephens 1940 REFERRING PHYSICIAN: CHIEF COMPLAINT: Consult (2nd opinion on colonic polyps) HPI: The patient is a 82 year old female with a a finding of colon polyps. Patient had a family history of colon cancer with her mother. She was referred to Dr. Bev Lees for colonoscopy due to a family history and personal history of colon polyps on April 08, 2022. At that time he needed the colon prep was somewhat fair. He noted a 32 mm sessile polyp in the ascending colon that he felt he could not resect and a smaller 3 mm polyp in the mid transverse colon. Both sites returned as tubular adenomas. Patient followed up with Dr. Lees on March 15, 2022. He recommended laparoscopic right hemicolectomy. The patient was uncertain whether she wanted to undergo surgical resection. She was somewhat uncertain how the surgical procedure would progress. She presented for a second opinion for other options. PAST MEDICAL HISTORY Diagnosis Date Benign neoplasm of colon Constipation Diverticulosis of colon (without mention of hemorrhage) Family history of malignant neoplasm of gastrointestinal tract Internal hemorrhoids without mention of complication PAST SURGICAL HISTORY Procedure Laterality Date COLONOSCOPY FLX DX W/COLLJ SPEC WHEN PFRMD 04/05/2000 Colonoscopy COLONOSCOPY FLX DX W/COLLJ SPEC WHEN PFRMD 01/09/2007 Colonoscopy COLONOSCOPY FLX DX W/COLLJ SPEC WHEN PFRMD 01/17/2012 repeat 5 years COLONOSCOPY SCREENING 03/08/2022 PAST SURGICAL HISTORY OF broken wrist SIGMOIDOSCOPY FLX DX W/COLLJ SPEC BR/WA IF PFRMD 11/02/2009 Sigmoidoscopy, flexible TONSILLECTOMY PRIMARY/SECONDARY Tonsillectomy Current Outpatient Medications Medication Sig amLODIPine (NORVASC) 5 mg tablet Take 5 mg by mouth daily at bedtime. Cholecalciferol, Vitamin D3, 1,000 unit cap Take 1 capsule by mouth once daily. therapeutic multivitamin ORAL Tab Take one(1) tablet daily. Ascorbic Acid (VITAMIN C) 1,000 mg ORAL Tab Take one(1) tablet daily. aspirin, enteric coated (ECOTRIN LOW STRENGTH) 81 mg EC tablet Take 1 tablet by mouth once daily. as needed (Patient not taking: Reported on 04/26/2022) No current facility-administered medications for this visit. ALLERGIES: Latex and Penicillins PERSONAL HISTORY: Social History Tobacco Use Smoking status: Never Vaping Use Vaping Use: Never used Substance Use Topics Alcohol use: Yes Comment: OCC Drug use: Never FAMILY HISTORY: FAMILY HISTORY Problem Relation Age of Onset Colon Cancer Mother Heart Father REVIEW OF SYMPTOMS: The review of systems data was entered by the nurse and reviewed by ak Nursing Notes: Ivory Reese RN 04/26/2022 4:47 PM Signed REVIEW OF SYSTEMS: General: The patient denies fatigue, denies weight loss, denies weight gain, denies feeling hot, and denies feelings of cold. Eyes: The patient denies glaucoma, denies eye injury/surgery, does not wear glasses or contacts. Ear/Nose/Throat: The patient denies allergies, denies hayfever, denies ear infections, and denies bloody noses. Cardiovascular: The patient denies chest pain, denies heart disease, NOTES high blood pressure,denies cardiac stent, denies prior heart attack, denies irregular heart beat, denies high cholesterol, denies poor circulation, denies heart failure, other cardiac issues, denies claudication, denies cold feet, denies peripheral arterial stent. Respiratory: The patient denies tuberculosis, denies pneumonia, denies frequent cough, denies pulmonary embolism, denies shortness of breath, and denies coughing up blood. Gastrointestinal: The patient denies difficulty swallowing, denies acid reflux, denies ulcers, denies vomiting, denies jaundice/hepatitis, denies gallbladder problems, denies black or tarry stools, NOTES hemorrhoids, denies bleeding from rectum, denies diverticulitis, NOTES constipation, denies diarrhea, denies loss of stool control, and denies hernias. Kidney/Bladder: The patient denies kidney stones, denies urine infections, and denies bloody urine. Skin: The patient denies a history of skin cancer, denies bleeding/changing moles, and denies a history of skin rash. Neurologic: The patient denies a history of epilepsy/convulsions, denies headaches, denies head/spinal injuries, and denies stroke/TIA. Psychiatric: The patient denies psychiatric medications, denies depression, and denies voices, denies substance abuse. Endocrine: The patient denies thyroid disorders, denies diabetes, and denies hormonal problems. Hematologic: The patient denies a history of bruising, denies bleeding, and denies anemia, denies blood clots. Infections: The patient denies a history of measles and mumps, denies rheumatic fever, and denies sexually (more content not included)... [facility] 04-26-2022 History of Presen t illness Narrative HISTORY AND PHYSICAL Maggie Stephens 1940 REFERRING PHYSICIAN: CHIEF COMPLAINT: Consult (2nd opinion on colonic polyps) HPI: The patient is a 82 year old female with a a finding of colon polyps. Patient had a family history of colon cancer with her mother. She was referred to Dr. Bev Lees for colonoscopy due to a family history and personal history of colon polyps on April 08, 2022. At that time he needed the colon prep was somewhat fair. He noted a 32 mm sessile polyp in the ascending colon that he felt he could not resect and a smaller 3 mm polyp in the mid transverse colon. Both sites returned as tubular adenomas. Patient followed up with Dr. Lees on March 15, 2022. He recommended laparoscopic right hemicolectomy. The patient was uncertain whether she wanted to undergo surgical resection. She was somewhat uncertain how the surgical procedure would progress. She presented for a second opinion for other options. PAST MEDICAL HISTORY Diagnosis Date Benign neoplasm of colon Constipation Diverticulosis of colon (without mention of hemorrhage) Family history of malignant neoplasm of gastrointestinal tract Internal hemorrhoids without mention of complication PAST SURGICAL HISTORY Procedure Laterality Date COLONOSCOPY FLX DX W/COLLJ SPEC WHEN PFRMD 04/05/2000 Colonoscopy COLONOSCOPY FLX DX W/COLLJ SPEC WHEN PFRMD 01/09/2007 Colonoscopy COLONOSCOPY FLX DX W/COLLJ SPEC WHEN PFRMD 01/17/2012 repeat 5 years COLONOSCOPY SCREENING 03/08/2022 PAST SURGICAL HISTORY OF broken wrist SIGMOIDOSCOPY FLX DX W/COLLJ SPEC BR/WA IF PFRMD 11/02/2009 Sigmoidoscopy, flexible TONSILLECTOMY PRIMARY/SECONDARY <AGE 12 Tonsillectomy Current Outpatient Medications Medication Sig amLODIPine (NORVASC) 5 mg tablet Take 5 mg by mouth daily at bedtime. Cholecalciferol, Vitamin D3, 1,000 unit cap Take 1 capsule by mouth once daily. therapeutic multivitamin ORAL Tab Take one(1) tablet daily. Ascorbic Acid (VITAMIN C) 1,000 mg ORAL Tab Take one(1) tablet daily. aspirin, enteric coated (ECOTRIN LOW STRENGTH) 81 mg EC tablet Take 1 tablet by mouth once daily. as needed (Patient not taking: Reported on 04/26/2022) No current facility-administered medications for this visit. ALLERGIES: Latex and Penicillins PERSONAL HISTORY: Social History Tobacco Use Smoking status: Never Vaping Use Vaping Use: Never used Substance Use Topics Alcohol use: Yes Comment: OCC Drug use: Never FAMILY HISTORY: FAMILY HISTORY Problem Relation Age of Onset Colon Cancer Mother Heart Father REVIEW OF SYMPTOMS: The review of systems data was entered by the nurse and reviewed by ak Nursing Notes: Ivory Reese RN 04/26/2022 4:47 PM Signed REVIEW OF SYSTEMS: General: The patient denies fatigue, denies weight loss, denies weight gain, denies feeling hot, and denies feelings of cold. Eyes: The patient denies glaucoma, denies eye injury/surgery, does not wear glasses or contacts. Ear/Nose/Throat: The patient denies allergies, denies hayfever, denies ear infections, and denies bloody noses. Cardiovascular: The patient denies chest pain, denies heart disease, NOTES high blood pressure,denies cardiac stent, denies prior heart attack, denies irregular heart beat, denies high cholesterol, denies poor circulation, denies heart failure, other cardiac issues, denies claudication, denies cold feet, denies peripheral arterial stent. Respiratory: The patient denies tuberculosis, denies pneumonia, denies frequent cough, denies pulmonary embolism, denies shortness of breath, and denies coughing up blood. Gastrointestinal: The patient denies difficulty swallowing, denies acid reflux, denies ulcers, denies vomiting, denies jaundice/hepatitis, denies gallbladder problems, denies black or tarry stools, NOTES hemorrhoids, denies bleeding from rectum, denies diverticulitis, NOTES constipation, denies diarrhea, denies loss of stool control, and denies hernias. Kidney/Bladder: The patient denies kidney stones, denies urine infections, and denies bloody urine. Skin: The patient denies a history of skin cancer, denies bleeding/changing moles, and denies a history of skin rash. Neurologic: The patient denies a history of epilepsy/convulsions, denies headaches, denies head/spinal injuries, and denies stroke/TIA. Psychiatric: The patient denies psychiatric medications, denies depression, and denies voices, denies substance abuse. Endocrine: The patient denies thyroid disorders, denies diabetes, and denies hormonal problems. Hematologic: The patient denies a history of bruising, denies bleeding, and denies anemia, denies blood clots. Infections: The patient denies a history of measles and mumps, denies rheumatic fever, and denies sexually transmitted diseases. Musculoskeletal: The patient denies back pain/injury, denies back problems, denies sciatica, denies knee/foot trouble, denies arthritis, or denies gout. When was patient's last Mammogram screening? 2021 Last Colonoscopy: 03/08/2022 Ivory Reese RN PHYSICAL EXAMINATION: General: The patient is 82 year old female, well nourished, well hydrated in no acute distress. The patient is oriented to time, place, and person. VITALS: Blood pressure 130/70, pulse 78, temperature 36.4 C (97.6 F), height 152.4 cm (5'), weight 60.8 kg (134 lb), SpO2 98 %. HEENT: Normal cephalic, ataumatic, pupils are equally round, sclera are anicteric, mucous membranes are moist, oropharynx is clear. Neck has no masses, asymmetry or lymphadenopathy. Thyroid is unremarkable. Respiratory: Clear to auscultation and percussion. Normal respiratory excursion and pattern. Cardiac: Examination is regular rate and rhythm. Abdominal exam: Soft, nontender, with no palpable masses. No hepatosplenomegaly. No palpable hernias. Rectal exam: exam deferred Extremities: no clubbing, cyanosis or edema. No adenopathy. Other: LABORATORY VALUES: As Noted RADIOLOGIC STUDIES: As Noted Just from the ultrasound were reviewed. There appears to be a sessile polyp in the cecum as noted from Dr. Lees's report. Assessment IMPRESSION: Cecal sessile adenomatous polyp PLAN: Discussed with the patient that I know Dr. Lees and felt he had standing clinical judgment and surgical skills. The patient was reluctant to consider laparoscopic resection I felt endoscopic mucosal resection was an option for this patient. I have asked that the images be scanned into the [facility] system and will forward this note to Dr. Gomez see if he feels endoscopic mucosal resection would be an option. Diagnoses: (Z86.010) Personal history of colonic polyps (primary encounter diagnosis) (Z80.0) Family history of malignant neoplasm of gastrointestinal tract Return to Clinic: The patient is instructed to follow-up with me after review of images by Dr. Gomez. Jamaal Pires MD documented in this encounter [facility] 04-26-2022 Nurse Note REVIEW OF SYSTEMS: General: The patient denies fatigue, denies weight loss, denies weight gain, denies feeling hot, and denies feelings of cold. Eyes: The patient denies glaucoma, denies eye injury/surgery, does not wear glasses or contacts. Ear/Nose/Throat: The patient denies allergies, denies hayfever, denies ear infections, and denies bloody noses. Cardiovascular: The patient denies chest pain, denies heart disease, NOTES high blood pressure,denies cardiac stent, denies prior heart attack, denies irregular heart beat, denies high cholesterol, denies poor circulation, denies heart failure, other cardiac issues, denies claudication, denies cold feet, denies peripheral arterial stent. Respiratory: The patient denies tuberculosis, denies pneumonia, denies frequent cough, denies pulmonary embolism, denies shortness of breath, and denies coughing up blood. Gastrointestinal: The patient denies difficulty swallowing, denies acid reflux, denies ulcers, denies vomiting, denies jaundice/hepatitis, denies gallbladder problems, denies black or tarry stools, NOTES hemorrhoids, denies bleeding from rectum, denies diverticulitis, NOTES constipation, denies diarrhea, denies loss of stool control, and denies hernias. Kidney/Bladder: The patient denies kidney stones, denies urine infections, and denies bloody urine. Skin: The patient denies a history of skin cancer, denies bleeding/changing moles, and denies a history of skin rash. Neurologic: The patient denies a history of epilepsy/convulsions, denies headaches, denies head/spinal injuries, and denies stroke/TIA. Psychiatric: The patient denies psychiatric medications, denies depression, and denies voices, denies substance abuse. Endocrine: The patient denies thyroid disorders, denies diabetes, and denies hormonal problems. Hematologic: The patient denies a history of bruising, denies bleeding, and denies anemia, denies blood clots. Infections: The patient denies a history of measles and mumps, denies rheumatic fever, and denies sexually transmitted diseases. Musculoskeletal: The patient denies back pain/injury, denies back problems, denies sciatica, denies knee/foot trouble, denies arthritis, or denies gout. When was patient's last Mammogram screening? 2021 Last Colonoscopy: 03/08/2022 Ivory Reese RN documented in this encounter [facility] Personal history of colonic polyps- Primary Adenomatous polyp of ascending colon [facility]* Diagnosis History of colon polyps- Primary Personal history of colonic polyps [facility] Outpatient Procedure (Routine) - Pending Review Specialty Diagnoses / Procedures Referred By Ava carbajal Referred To Contact [facility] Diagnoses Personal history of colonic polyps Procedures COLONOSCOPY (THERAPEUTIC) COLSC FLX W/RMVL OF TUMOR POLYP [facility] T[facility] Emi Constantino MD [address] [place] [address] [facility] [address] [place] [id number] Referral ID Status Reason Start Date Expiration Date Visits Requested Visits Authorized [id number] Pending Review Auto-Generat ed Referral 08/08/2022 08/09/2023 1 1 [facility] Chief Complaint Chief Complaint Description Start Date left shoulder pain Preliminary chief co mplaint data, not yet signed by the author as of Advance Directives There may be information available, but it has not been provided by the sender. No Advanced Directives Records Found Assessments There may be information available, but it has not been provided by the sender. Review of System There may be information available, but it has not been provided by the sender. Family History There may be information available, but it has not been provided by the sender.No Family History Records Found History of Present Illness There may be information available, but it has not been provided by the sender. Summary Purpose Additional Source Comments Reason for Visit (unrecogniz ed section and content) Reason Comments Consult 2nd opinion on colon ic polyps Reason Comments Patient Question Reason Comments Consult Reason Comments Colon Polyps Reason Comments Patient Question Prep Medication Problem Source Comments (unrecognize d section and content) In the event this informatio n is protected by the Federal Confidentiality of Alcohol and Drug Abuse Patient Records regulations: The Federal rules restrict any use of the information to criminally investigate or prosecute any alcohol or drug abuse patient.[facility] event this information is protected by the Federal Confidentiality of Alcohol and Drug Abuse Patient Records regulations: The Federal rules restrict any use of the information to criminally investigate or prosecute any alcohol or drug abuse patient.[facility] the event this information is protected by the Federal Confidentiality of Alcohol and Drug Abuse Patient Records regulations: The Federal rules restrict any use of the information to criminally investigate or prosecute any alcohol or drug abuse patient.[facility] the event this information is protected by the Federal Confidentiality of Alcohol and Drug Abuse Patient Records regulations: The Federal rules restrict any use of the information to criminally investigate or prosecute any alcohol or drug abuse patient.[facility] the event this information is protected by the Federal Confidentiality of Alcohol and Drug Abuse Patient Records regulations: The Federal rules restrict any use of the information to criminally investigate or prosecute any alcohol or drug abuse patient.[facility] Care Teams (unrecognized sec tion and content) Flatware Maker Relationship Specialty Start Date End Date Emi Jo [address] [facility] [address] [place] [address] PCP - General Family Medicine 04/26/22 Flatware Maker Relationship Specialty Start Date End Date Emi Jo [address] [facility] [address] [place], [place] [id number] PCP - General Family Medicine 04/26/22 Flatware Maker Relationship Specialty Start Date End Date Emi Jo [address] [facility] [address] [place], [place] [id number] PCP - General Family Medicine 04/26/22 Flatware Maker Relationship Specialty Start Date End Date Emi Jo MD [address] [facility] [address] [place] [address] PCP - General Family Medicine 04/26/22 INFORMATION SOURCE (unrecogn ized section and content) FOR RECORDS PERTAINING TO PATIENTS WHO ARE OR HAVE BEEN ENROLLED IN A CHEMICAL DEPENDENCY/SUBSTANCEABUSE PROGRAM, SOME INFORMATION MAY BE OMITTED. This clinical summary was aggregated from multiple sources. Caution should be exercised in using it in the provision of clinical care. This summary normalizes information from multiple sources, and as a consequence, information in this document may materially change the coding, format and clinical context of patient data. In addition, data may be omitted in some cases. CLINICAL DECISIONS SHOULD BE BASED ON THE PRIMARY CLINICAL RECORDS. [facility]. provides no warranty or guarantee of the accuracy or completeness of information in this document.
--- NOTE | 2023-05-30 05:36 | PCM.HP.BLA ---
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 Is patient in pain?: No Allergies Penicillins [PCN] Allergy (Verified 04/20/23 13:09) Rashadhesive Adverse Reaction (Verified 04/20/23 13:09) unknownalendronate sodium Adverse Reaction (Verified 04/20/23 13:09) GI Upsetciprofloxacin [From Cipro] Adverse Reaction (Verified 04/20/23 13:09) blurred visionlatex Adverse Reaction (Verified 04/20/23 13:09) rashrisedronate sodium [From Actonel] Adverse Reaction (Verified 04/20/23 13:09) GI Upsetsulfamethoxazole [From Septra] Adverse Reaction (Verified 04/20/23 13:09) GI Upsettrimethoprim [From Septra] Adverse Reaction (Verified 04/20/23 13:09) GI Upsetvenlafaxine [From Effexor] Adverse Reaction (Verified 04/20/23 13:09) Unknown Medications cholecalciferol (vitamin D3) 50 mcg (2,000 unit) capsule (Vitamin D3) 50 mcg PO DAILY 03/07/22 [History Confirmed 04/20/23] vit C 250 mg-vit E 90 mg-zinc 40 mg-copper 1 [id number] capsule (PreserVision AREDS-2) 1 tab PO BID 03/07/22 [History Confirmed 04/20/23] Prolia 60 mg/mL subcutaneous syringe (denosumab) 60 mg subcut [id number] #1 mL 06/07/22 [Rx Confirmed 04/20/23] multivitamin (Daily Multi-Vitamin tablet) 1 tab PO DAILY 06/07/22 [History Confirmed 04/20/23] PFSH Medical History Alcohol use Anxiety Arthritis Back pain Cardiology follow-up encounter Cataracts, both eyes Depression Hemorrhoids History of edema History of stress test Hypertension Leg cramps Non-smoker Post-menopausal Shortness of breath on exertion Wears glasses Wears hearing aid Surgical History History of cataract surgery History of open reduction and internal fixation (ORIF) procedure History of tonsillectomy Hx of colonoscopy Family History Brother CAD (coronary artery disease) stents, PPM HypertensionFather Heart diseaseBrother HypertensionMother Colon cancer Social History Smoking Status: Never smoker alcohol intake: current alcohol intake frequency: a few times a week Alcohol type: wine substance use type: does not use caffeine: Yes Type: coffee what type of physical activity do you participate in: bicycling HPI HPI HPI: 83-year-old female. I have most recently seen her in November 10, 2022. This is in regards to an adenomatous polyp of the ascending colon. Previous colonoscopy was March 08, 2022. My extensive previous notes reflect the following. 82-year-old female. I have sent had several office appointments with her. This has been in regards to a adenomatous polyp of the ascending colon. I have spent a significant mount of office time in consultation and discussion. I had performed a colonoscopy for not March 08, 2022. She had a proximal ascending colon polyp that was sessile and broad at greater than 3 cm and I could not remove it. I sampled it. I did remove a mid transverse colon tubular adenoma. After several discussion she did allow me to refer her to Dr. Kendell Constantino at [facility] gastroenterology. I received a very kind note from him on October 18, 2022. He performed a colonoscopy on her and assessed and identified the polyp in the ascending colon. An attempt was made to remove the polyp but it exhibited a nonlifting sign and despite multiple attempts and various techniques of the center the polyp could not be removed. The resected specimens revealed tubular adenoma with no evidence of dysplasia. At this point he does not feel that it is malignant. He does not feel that it can be endoscopically resected. He feels the definitive treatment will require surgical resection. It is of note however that neither upon my biopsies nor upon his partial piecemeal resection was any dysplasia or malignancy identified Since her previous visit she says she has not had any acute health changes. No bright red blood per rectum or melena. No abdominal pain. She does present again today with her . No history of DVT My previous notes reflect the following 82-year-old female returns status post colonoscopy that I performed for her on March 08, 2022 because of a personal history of colon polyps and a family history of colon cancer in her mother.? At the time of the colonoscopy preparation the colon was felt to be only fair.? There were internal hemorrhoids noted.? There was felt to be at least a 32 mm diameter sessile polyp in the ascending colon.? I could not colonoscopically resect this.? Biopsies were obtained.? There was a 3 mm polyp in the mid transverse colon that was removed.? Diverticulosis noted of the sigmoid colon.? Fortunately pathology of both polyps were tubular adenomas.? The patient however has a family history of colon cancer in her mother. The patient has a family history of colon cancer in her mother who at age 61 from this..? Her previous colonoscopy was done 2016.? That was performed per myself February 21, 2017 and a diminutive sessile polyp of the splenic flexure identified with sigmoid diverticulosis.? Hemorrhoids noted.? Pathology was consistent with a tubular adenoma.? It is of note that Dr. Levar Lewis gastroenterology had performed a previous colonoscopy January 17, 2012.? Moderately tortuous colon identified.? No polyps at that time At her previous appointment of March 15, 2022 we discussed the following ?We discussed the findings of the resected tubular adenoma of the transverse colon and the large flat seemingly benign polyp of the proximal ascending colon.? The patient enjoys good health for an 82-year-old.? Because of her good health and family history I propose for her a laparoscopic right hemicolectomy with a bilateral transverses abdominis plane block.? In detail I discussed the technique, benefit, risk, alternatives.? We would utilize an enhanced recovery protocol.? I would anticipate that she should have a good course with this.? She has significant bowel laxity which would facilitate the surgical procedure Today was a 30-minute [id number] consultation with the patient and her and her daughter.? The patient states that she did seek a second opinion with Dr. Jamaal Katz.? According to the patient he suggested an option at [facility].? She does not want to go to [place]. She admits that she is also struggling with osteopenia and recommendations to start medication which she is now not in favor of To complicate her presentation she recently has had worsening constipation and right lower quadrant flank pain..? She has been placed on one half capful of MiraLAX daily in hopes that this might represent constipation It is of additional note that the patient had laboratory on May 24, 2022.? White blood cell count 5.9 with a hemoglobin 12.9 and hematocrit 39.5 the plate count 248,000.? BUN was 24 and creatinine 0.91.? Liver function test normal.? Cholesterol elevated to 245 with triglyceride of 79.? LDL was elevated at 136.? TSH normal at 1.84 82-year-old female who is enjoying a good quality of life presents to discuss the findings of her colonoscopy identifying a adenomatous polyp of the ascending colon that could not be completely resected endoscopically by Dr. Constantino at [facility]. Today's discussion was regarding treatment options. From Dr. Moran's note he made the impression that she would be recommended to have a laparoscopic right colectomy for complete removal. The patient however has been struggling over all of these interviews with the concept of really not wanting to have the surgical intervention if at all possible. We then discussed other treatment options. There is no laboratory or convenient screening intact Trey that will allow me to decipher whether this area is or becomes malignant. We could offer the patient a follow-up colonoscopy at 1 year but I have asked her to consider how that would change her thought process. I am assuming that if the polyp remained benign at that time that she would not proceed with resection which would be in line with her current thinking. If however that the polyp were to demonstrate malignancy at 1 year then she offered that she might consider resection. I did caution the patient and family members that that type of approach is not what we usually take because in the interim of converting to a malignancy this area could then additionally spread to lymph nodes or further therefore compromising potential surgical options and treatment. I explained that I did not want to be at the bottom of benign thinning with 2 outs and be asked to hit a grand slam homerun. We further discussed the fact that her health currently is stable and that we could manage her conditions and keep the operative risk as low as possible. We discussed that if she were to present emergently that our ability to control risk factors becomes limited. She is aware that this standard of care would suggest that we proceed with a right colectomy. I am aware however that she is a G2 and is not desiring surgery at this time. Then 1 would question do we repeat a colonoscopy at 1 year for surveillance or do we cease any further colonoscopies knowing that the lesion cannot be removed endoscopically and that the patient would be preferring no surgical intervention for removal. These are additional thoughts that the patient will need to consider. We did discuss that I would want her to consider hypothetical situations in the future if the polyp was benign at 1 year versus if the polyp was malignant at 1 year how she would want to proceed. If she would then want to proceed with resection perhaps it would be wiser to do that sooner and electively. She has had an opportunity ask and have questions answered. At this point we have tentatively set up a return visit at 1 year for a colonoscopy. ROS General General: No weight change, appetite, fatigue, colon cancer, breast cancer or weakness HEENT HEENT: No difficulty swallowing, eye injury, eye surgery, swollen glands or hoarseness Endo Endocrine: No thyroid disease, diabetes mellitus, thyroid cancer, Hair loss, heat intolerance or cold intolerance Skin Skin: No rash or changing moles Breast Breast: No left breast lump, right breast lump, nipple discharge, breast pain, abnormal mammogram, abnormal US or breast enlargement Musc Musculoskeletal: No back problems, arthritis, rheumatoid arthritis, gout or joint pain Cardio Cardiovascular: Yes high blood pressure; No murmur, pacemaker, heart disease, atrial fibrillation, heart attack, heart stent, palpitations, shortness of breat with exertion or chest pain Psych Psychiatric: No depression, anxiety or hearing voices Resp Respiratory: No shortness of breath, No sleep apnea, No cough, No COPD, No asthma, No emphysema and No wheezing Gastro Gastrointestinal: No abdominal pain, No nausea or vomiting, No diarrhea, No constipation, No blood in stool, No acid reflux, No hemorrhoids, No ulcers, No gallbladder problem and No black,tarry stools Perico Hematologic: No blood thinners, No blood disorders, No bleeding, No anemia and No blood clots Neuro Neurologic: No system reviewed and no additional complaints, except as documented, No as per HPI, No abnormal gait, No abnormal hearing, No abnormal movements, No abnormal speech, No behavioral changes, No burning sensations, No confusion, No convulsions, No disequilibrium, No dizziness, No localized weakness, No frequent falls, No headache(s), No lack of coordination, No loss of vision, No memory loss, No numbness, No other visual disturbances, No radicular pain, No restless legs, No sensory deficit, No syncope, No tingling, No tremor(s), No weakness and No other Exam Const General: cooperative, healthy appearing, comfortable and no acute distress Nutritional Appearance: average body habitus Other: Mildly hard of hearing. Patient forgot her hearing aids today. HENNV Head: normal to inspection Eyes General: appearance normal, both eyes and all related structures Resp Effort & Inspection: normal respiratory effort Auscultation: clear to auscultation bilaterally Cardio Rate: regular rate Rhythm: regular rhythm GI Palpation: soft and no hepatosplenomegaly Musc Cervical Spine: normal cervical lordosis Skin General: no rashes or lesions noted Neuro General: patient alert and patient awake Extrem Other: Mild nonpitting swelling bilateral extremities Psych Appearance: grossly normal Assessment and Plan Assessment and Plan (1) Adenomatous colon polyp: Status: Acute Qualifiers: Colon location: ascending Qualified Code(s): D12.2 - Benign neoplasm of ascending colon Plan: As noted in my review above I recommended the patient a surveillance colonoscopy for the ascending colon polyp that could not be resected. She is aware that generous sampling of this in an attempt to help decipher whether there is been any conversion to malignancy will be pursued. She is aware that it is not anticipated that a resection will be possible as this could not be performed at [facility]. She has had an opportunity to ask and have questions answered. We will schedule procedure at her discretion. I appreciate the ongoing opportunity of assisting with her surgical care. Copy: Dr Kendell Lees M.D., F.A.C.S I have examined the patient and the H&P has been reviewed. There are no clinical changes since date of exam. Christophe Lees M.D., F.A.C.S.
[2023-05-30] MEDS: Lactated Ringers 1,000 ML 15 ML IV (05:55)
[2023-05-30 05:56] VITALS: BP 95/68; PULSE 82; RESP 18; TEMP 36.6; O2SAT 100; BMI 25.4
--- NOTE | 2023-05-30 06:30 | COLBX_PTH ---
PATHOLOGY RESULTS PATIENT: ELIDIA DREW LOC: EN U#:[id number] AGE/SX: 83/F ROOM: RE05/30/[address]: Dr. Christophe Lees MD : 1940 BED: DIS: 05/30/2023 SPEC #: [id number] RECD: 05/30/23 11:43 STATUS: TOMASZ HURST #: [id number] ALLAN: 05/30/23 06:[address]: Christophe Lees DEPT: SURGICAL PATHOLOGY RECD BY: Shireen Smith ENTERED: 05/30/23 11:43 SP TYPE: COLON BX OTHR DR: Dr. Kendell Whatley MD Tissues: Cecum, NOS Ascending colon Sigmoid colon biopsy Procedures: Surgery Specimen Level IV HEADER OPERATION: Colonoscopy with polypectomy and biopsy PRE-OP DIAGNOSIS: Adenomatous colon polyp TISSUE SUBMITTED: A - Cecal polyp, B - Proximal ascending polyp biopsy, C - Proximal sigmoid polyp MICROSCOPIC DIAGNOSIS A. Cecal polyp, polypectomy: Fragments of tubular adenoma. B. Proximal ascending colon polyp, biopsy: Fragments of tubular adenoma. C. Proximal sigmoid polyp, polypectomy: Tubular adenoma. NITHIN:crystal 05/31/2023 MICROSCOPIC DESCRIPTION Slides are reviewed. GROSS DESCRIPTION A - Received in fixative is one container labeled with the patient's name and designated cecal polyp. The specimen consists of multiple irregular fragments of light pate soft tissue that in aggregate measure 0.5 x 0.5 x 0.1 cm. The specimen is totally submitted in one cassette. B - Received in fixative is one container labeled with the patient's name and designated proximal ascending polyp biopsy. The specimen consists of multiple irregular fragments of light pate soft tissue that in aggregate measure 2.0 x 0.5 x 0.1 cm. The specimen is totally submitted in one cassette. C - Received in fixative is one container labeled with the patient's name and designated proximal sigmoid polyp. The specimen consists of one irregular fragment of light pate soft tissue that measures 0.4 x 0.4 x 0.1 cm. The specimen is totally submitted in one cassette. / NITHIN:crystal 05/30/2023 TC:1 CPT: 54986 x3
[2023-05-30] MEDS: 0.9% Saline Lock 10 ML Syringe IV ×2 (07:01→07:07)
[2023-05-30 07:16] VITALS: BP 120/99; BP 95/68; PULSE 77; RESP 16; O2SAT 100
--- NOTE | 2023-05-30 07:18 | OP.CCLET_ITS ---
05/30/2023 Kendell Whatley [address] [place] [address] Re : Colonoscopy procedure for Maggie Stephens Dear Dr. Whatley This procedure was performed on Tuesday, May 30, 2023. My impressions and recommendations are as follows: Impressions : - Hemorrhoids found on perianal exam. - One 6 mm polyp in the cecum, removed using injection-lift and a hot snare. Resected and retrieved. - One 20 mm polyp in the proximal ascending colon. Biopsied. - One 7 mm polyp in the proximal sigmoid colon, removed with a hot snare. Resected and retrieved. - Diverticulosis in the sigmoid colon. Recommendations : - Discharge patient to home. - Resume previous diet. - Continue present medications. - Repeat colonoscopy date to be determined after pending pathology results are reviewed for surveillance. - Telephone my office for pathology results in 1 week. A new cecal polyp and proximal sigmoid polyp were fully resected The proximal ascending colon polyp was biopsied with cold forceps and remains in place. Multiple recommendations been made to the patient recommending a laparoscopic right colectomy for which she declines Very very difficult colonoscopy secondary to tortuosity My findings are described in the full procedure note, which is enclosed. If I can be of further assistance, please feel free to contact me at Doctor phone number(s): Work: . Sincerely, Christophe Lees MD 05/30/2023 7:17:33 AM This report has been signed electronically.
--- NOTE | 2023-05-30 07:18 | OP.COLON_ITS ---
Patient Name: Maggie Stephens Procedure Date: 05/30/2023 6:17 AM Date of : 1940 Age: 83 Procedure: Colonoscopy Indications: High risk colon cancer surveillance: Personal history of colonic polyps Providers: Christophe Lees MD Medicines: See the Anesthesia note for documentation of the administered medications Patient Profile: Last Colonoscopy: 1 year ago. Complications: No immediate complications. Procedure: Pre-Anesthesia Assessment: - Prior to the procedure, a History and Physical was performed, and patient medications and allergies were reviewed. The patient's tolerance of previous anesthesia was also reviewed. The risks and benefits of the procedure and the sedation options and risks were discussed with the patient. All questions were answered, and informed consent was obtained. Prior Anticoagulants: The patient has taken no anticoagulant or antiplatelet agents. ASA Grade Assessment: II - A patient with mild systemic disease. After reviewing the risks and benefits, the patient was deemed in satisfactory condition to undergo the procedure. After I obtained informed consent, the scope was passed under direct vision. Throughout the procedure, the patient's blood pressure, pulse, and oxygen saturations were monitored continuously. The adult colonoscope was introduced through the anus and advanced to the terminal ileum. The colonoscopy was technically difficult and complex due to a tortuous colon. Successful completion of the procedure was aided by changing the patient to a supine position and using manual pressure. The patient tolerated the procedure well. The quality of the bowel preparation was good. The terminal ileum, the ileocecal valve and the appendiceal orifice were photographed. Scope In: 6:33:05 AM Scope Withdrawal Time 0 hours 16 minutes 0 seconds Scope Out: 7:11:04 AM Total Procedure Duration Time 0 hours 37 minutes 59 seconds Findings: Hemorrhoids were found on perianal exam. A 6 mm polyp was found in the cecum. The polyp was sessile. The polyp was removed with a saline injection-lift technique using a hot snare. Resection and retrieval were complete. A 20 mm polyp was found in the proximal ascending colon. The polyp was sessile. Biopsies were taken with a cold forceps for histology. A 7 mm polyp was found in the proximal sigmoid colon. The polyp was sessile. The polyp was removed with a hot snare. Resection and retrieval were complete. Multiple diverticula were found in the sigmoid colon. Impression: - Hemorrhoids found on perianal exam. - One 6 mm polyp in the cecum, removed using injection-lift and a hot snare. Resected and retrieved. - One 20 mm polyp in the proximal ascending colon. Biopsied. - One 7 mm polyp in the proximal sigmoid colon, removed with a hot snare. Resected and retrieved. - Diverticulosis in the sigmoid colon. Recommendation: - Discharge patient to home. - Resume previous diet. - Continue present medications. - Repeat colonoscopy date to be determined after pending pathology results are reviewed for surveillance. - Telephone my office for pathology results in 1 week. A new cecal polyp and proximal sigmoid polyp were fully resected The proximal ascending colon polyp was biopsied with cold forceps and remains in place. Multiple recommendations been made to the patient recommending a laparoscopic right colectomy for which she declines Very very difficult colonoscopy secondary to tortuosity Procedure Code(s): --- Professional --- 52803, Colonoscopy, flexible; with removal of tumor(s), polyp(s), or other lesion(s) by snare technique 50698, 59, Colonoscopy, flexible; with biopsy, single or multiple 68222, Colonoscopy, flexible; with directed submucosal injection(s), any substance Diagnosis Code(s): --- Professional --- Z86.010, Personal history of colonic polyps K64.9, Unspecified hemorrhoids D12.0, Benign neoplasm of cecum D12.2, Benign neoplasm of ascending colon D12.5, Benign neoplasm of sigmoid colon K57.30, Diverticulosis of large intestine without perforation or abscess without bleeding CPT copyright 2021 [employer]. All rights reserved. The codes documented in this report are preliminary and upon rivet hammer machine operator review may be revised to meet current compliance requirements. Christophe Lees MD 05/30/2023 7:17:33 AM This report has been signed electronically. Number of Addenda: 0 Note Initiated On: 05/30/2023 6:17 AM
[2023-05-30 07:20] VITALS: BP 144/69; BP 95/68; PULSE 72; RESP 16; O2SAT 100
[2023-05-30 07:27] VITALS: BP 145/69; BP 95/68; PULSE 74; RESP 16; TEMP 36.8; O2SAT 100
[2023-05-30 09:21] VITALS: BP 128/72; BP 133/58; BP 136/73; PULSE 79; PULSE 80; PULSE 84
[2023-05-30 09:30] VITALS: BP 95/68
== END 2023-05-30 09:57 | disposition home or self-care (01) ==
LOC: EN 05:23 → AC 05:25
PROVIDERS: PCP Family Medicine; Referring Provider Family Medicine; Visit Provider Surgery
PROC: 0DJD8ZZ Inspection of Lower Intestinal Tract, Via Natural or Artificial Opening Endoscopic (ICD-10-PCS; CPT 45378; principal; 2023-05-30 06:25)
DX: D12.2 Benign neoplasm of ascending colon (principal); K57.30 Diverticulosis of large intestine without perforation or abscess without bleeding; I10 Essential (primary) hypertension; Z86.010 Personal history of colon polyps; Z80.0 Family history of malignant neoplasm of digestive organs; K64.4 Residual hemorrhoidal skin tags; D12.0 Benign neoplasm of cecum; D12.5 Benign neoplasm of sigmoid colon
CPT/HCPCS: 45385; 45380; 45381; 88305; J7120; A4216; J2405

== ENCOUNTER → 2023-05-31 | Outpatient (CLI) | payer MEDICARE, SELFPAY ==
--- OUTSIDE RECORDS SUMMARY | 2023-05-31 16:19 | XMS RPT_ITS | CCD ---
Author Name Unknown Address [address] [place] [address] Organization [facility] Care Team Providers Care Causticiser Name Role Phone Bev Lees MD Unavailable Barbra Martin Unavailable Unavailable Ivelisse CID, Louie Marks Unavailable [phone] Emi Jo Primary Care Provider JAMAAL PIRES Attending Unavailable EMI JO Primary Care EMI Samaniego Referring Unavailable EMI JO Primary Care JOSE Ward Attending Unavailable EMI JO Primary [facility] EMI Rob Primary [facility] BEV Campa Referring Unavailable EMI CONSTANTINO Attending Unavailable Emi Jo MD Primary Care Provider Allergies Allergy Classification Reported Allergen(s) Allergy Type Date of Onset Reaction(s) Facility (8 sources) Latex; Translations: [LATEX] drug allergy 0 rash [facility] Work Phone: (2 sources) Penicillins (Antibiotic) drug allergy 7 rash [facility] Work Phone: (1 source) Adhesive Tape; Translations: [TAPE] allergy to substance 0 [facility] Work Phone: (1 source) Penicillin G Drug Allergy 0 [facility] Work Phone: (6 sources) Penicillins; Translations: [PENICILLINS] Propensity to adverse reactions 7 [facility] Work Phone: Medications Completed/Discontinued Medications Medication Drug Class(es) Dates Sig (Normalized) Sig (Original) ACETAMINOPHEN TABS (1 source) Start: 05-11-2020 TYLENOL TABS as directed as needed ACETAMINOPHEN TABS [id number] Sasha Russo SENIOR ACCOUNT EXECUTIVE amLODIPine 5 mg oral tablet (5 sources) [...] 152.4 cm Jamaal Pires MD Work Phone: [facility] 04-26-2022 16:44-0500 Body temperature 97.59 [degF] Jamaal Pires MD Work Phone: [facility] 04-26-2022 16:44-0500 Body weight 60.78 kg Jamaal Pires MD Work Phone: [facility] 04-26-2022 16:44-0500 Diastolic blood pressure 70 mm[Hg] Jamaal Pires MD Work Phone: [facility] 04-26-2022 16:44-0500 Heart rate 78 /min Jamaal Pires MD Work Phone: [facility] 04-26-2022 16:44-0500 SaO2% (BldA) [Mass fraction] 98 % Jamaal Pires MD Work Phone: [facility] 04-26-2022 16:44-0500 Systolic blood pressure 130 mm[Hg] Jamaal Pires MD Work Phone: [facility] 01-30-2017 09:42-0400 BMI (Body Mass Index) 26.3 kg/m2 Bev Lees MD [facility] Work Phone: 01-30-2017 09:42-0400 Body Temperature 97.9 [degF] Bev Lees MD [facility] Work Phone: 01-30-2017 09:42-0400 BP Diastolic 85 mm[Hg] Bev Lees MD [facility] Work Phone: 01-30-2017 09:42-0400 BP Systolic 157 mm[Hg] Bev Lees MD [facility] Work Phone: 01-30-2017 09:42-0400 Height 157.48 cm Bev Lees MD [facility] Work Phone: 01-30-2017 09:42-0400 Pulse (Heart Rate) 61 /min Bev Lees MD [facility] Work Phone: 01-30-2017 09:42-0400 Respiratory Rate 20 /min Bev Lees MD [facility] Work Phone: 01-30-2017 09:42-0400 Weight 65.23 kg Bev Lees MD [facility] Work Phone: NEGATED: Highlighted [id number] 11:30-0500 BMI (Body Mass Index) 26.55 kg/m2 Kobi Dove SENIOR ACCOUNT EXECUTIVE [facility] Work Phone: NEGATED: Highlighted [id number] 11:30-0500 Body weight 63.5 kg Kobi Dove SENIOR ACCOUNT EXECUTIVE [facility] Work Phone: NEGATED: Highlighted [id number] 11:30-0500 Body weight 64 kg Kobi Dove SENIOR ACCOUNT EXECUTIVE [facility] Work Phone: NEGATED: Highlighted [id number] 11:30-0500 Height 154.94 cm Kobi Dove SENIOR ACCOUNT EXECUTIVE [facility] Work Phone: NEGATED: Highlighted [id number] 11:30-0500 Height 155 cm Kobi Dove SENIOR ACCOUNT EXECUTIVE [facility] Work Phone: Encounters Encounter Date Encounter Type Care Provider Facility Start: 11-12-2022 End: 11-12-2022 ambulatory EMI JO Facility:[facility] Start: 10-13-2022 End: 10-13-2022 ambulatory EMI CONSTANTINO Facility:[facility] Start: 10-10-2022 Telephone encounter Emi Constantino [...] Start: 01-20-2023 Influenza vaccination Influenza Vaccine (#1) [facility] Start: 07-19-2022 Covid-19 Vaccine (7 - Moderna series) Covid-19 Vaccine (7 - Moderna series) [facility] Start: 05-22-2022 ADVANCE DIRECTIVE DISCUSSION ADVANCE DIRECTIVE DISCUSSION [facility] Start: 05-22-2022 DEPRESSION ASSESSMENT DEPRESSION ASSESSMENT [facility] Start: 05-22-2021 ADVANCE DIRECTIVE DISCUSSION ADVANCE DIRECTIVE DISCUSSION [facility] Start: 05-22-2021 DEPRESSION ASSESSMENT DEPRESSION ASSESSMENT [facility] Start: 05-11-2020 End: 05-11-2020 Appointment Appointment [facility] Work Phone: Start: 01-30-2017 End: 01-30-2017 Colonoscopy flx dx w/collj spec when pfrmd Colonoscopy [facility] Work Phone: Start: 01-30-2017 End: 01-30-2017 Appointment Appointment [facility] Work Phone: Start: 01-30-2017 End: 01-30-2017 Diagnostic colonoscopy Colonoscopy [facility] [employer] Work Phone: Start: [address] BONE D[address] [facility] Start: 2005 Bone Density Screening Bone Density Screening [facility] Start: 2005 Pneumococcal Vaccine: 65+ (1 - PCV) Pneumococcal Vaccine: 65+ (1 - PCV) [facility] Start: 2005 PNEUMOCOCCAL: 65+ (1 - PCV) PNEUMOCOCCAL: 65+ (1 - PCV) [facility] Start: 1990 SHINGRIX VACCINE (1 of 2) SHINGRIX VACCINE (1 of 2) [facility] Start: 1985 DIABETES SCREEN DIABETES SCREEN [facility] Start: 1985 Diabetes Screening Diabetes Screening [facility] Start: [address] [facility] End: 08-09-2023 Colonoscopy COLONOSCOPY (THERAPEUTIC) Endoscopy Routine Personal history of colonic polyps 1 Occurrences starting 08/08/2022 until 08/09/2023 [facility] Work Phone: Immunizations Immunization Date Immunization Notes Care Provider Nirav cisneros 03-16-2022 influenza virus vacc ine, unspecified formulation Emi Constantino MD Work Phone: [facility] Payers Date Payer Category Payer Unknown ANTHEM BLUE CROS S AND BLUE SHIELD ANTHEM MEDIBLUE HMO [id number] 2018-Present [phone] [address] [place] [address] HMO [id number] 2018 Unknown [id number] Social History Date Type Detail Facility Start: 05-11-2020 End: 05-11-2020 Assertion Unknown if ever smoked [facility] Work Phone: Tobacco smoking stat us NHIS Never smoked tobacco [facility] Work Phone: Start: 04-26-2022 End: 08-08-2022 Alcohol intake Current drinker of alcohol (finding) [facility] Start: 1940 Sex Assigned At Not on file [facility] Start: 06-04-2022 End: 10-13-2022 History of Social function [facility] Start: 06-04-2022 End: 10-13-[address] [facility] National Score (1-10 0), lower number is lower risk [address] [facility] Clinical Notes 04-26-2022 to 11-12-2022 Patient InstructionsTelephone Encounter - Emi Constantino MD - 10/11/2022 4:17 PM EDTTelephone Encounter - Margarita Bro - 10/10/2022 9:59 AM EDTPatient Instructions Note Date & Type Note Facility 11-12-2022 Note HNO ID: [id number] Author: SKYLAR Gorman Service: ? Author Type: Physician Trial Attorney Type: Progress Notes Filed: 11/12/2022 1:02 PM [...] Tonsillectomy ALLERGIES Latex and Penicillins MEDICATIONS vit C,W-Gi-lkbts-lutein-zeaxan (PRESERVISION AREDS-2) 250-90-40-1 mg amLODIPine (NORVASC) 5 [...] detail warranting prompt ER evaluation. SKYLAR Gorman [facility] 10-11-2022 Instructions Emi Constantino MD - 10/11/2022 4:17 PM EDT [...] If you do not have a responsible bulk tank driver (family member or friend) with you [...] If you do not have a responsible bulk tank driver (family member or friend) with you to take you home, your exam cannot be done with sedation and will be cancelled. Please bring a list of all of your current medications, including any Iwag-ktf-Omjbfvp medications with you. Medications If you take [...] exam. 2 04/2019 documented in this encounter [facility] 10-11-2022 Miscellaneous Notes called in prescription for [...] discuss. Please review and advise Margarita Bro Audiometric Technician documented in this encounter [facility] 09-11-2022 Note HNO ID: [id number] Author: Dara Yarbrough APRN.LEARNING SUPPORT SPECIALIST Service: ? Author Type: Nurse Practitioner Type: [...] Patient agreeable to treatment plan. Dara Yarbrough, CORIN.LEARNING SUPPORT SPECIALIST [facility] 08-08-2022 Note HNO ID: [id number] Author: Emi Constantino MD Service: ? Author Type: Physician Type: Progress Notes Filed: 08/15/2022 4:48 PM Note Text: VIRTUAL VISIT PROGRESS NOTE This is a virtual visit using [employer] video visit. It required patient-provider interaction for the medical decision making as documented below. I have communicated my name and active licensure. The patient's identity and physical location were verified at the time of this visit. Either the patient or their legal tax representative has been informed of the risks [...] included preparing to see the patient and nfrr-bo-ufmj patient care Answers submitted by the patient [...] your breast bone: (more content not included)... [facility] 08-08-2022 Instructions Shireen Chandler LPN - 08/08/2022 [...] If you do not have a responsible bulk tank driver (family member or friend) with you to take you home, your exam cannot be done with sedation and will be cancelled. Please bring a list of all of your current medications, including any Lefg-uyc-Mzzjiup medications with you. Medications If you take [...] exam. 2 04/2019 documented in this encounter [facility] 08-08-2022 History of Presen t illness Narrative VIRTUAL VISIT PROGRESS NOTE This is a virtual visit using [employer] video visit. It required patient-provider interaction for [...] included preparing to see the patient and mevs-pw-uaol patient care Answers submitted by the patient [...] with oil: No documented in this encounter [facility] 07-26-2022 Miscellaneous Notes Received a referral for polyps requesting an appointment LIZBETH. Uploaded under scanned doc with today's date. Please review and advise Margarita Bro Audiometric Technician documented in this encounter [facility] 05-06-2022 Miscellaneous Notes Spoke with Lou. We have not heard from Dr. Gomez's office, but I do see where Dr. Pires forwarded her chart to Dr. Gomez for review. Liudmila Burnett RN Patient called requesting addition information if someone from general surgery called. Please advise. Daphnie Desir LPN documented in this encounter [facility] 04-26-2022 Note HNO ID: [id number] Author: Jamaal Pires MD Service: ? Author [...] entered by the nurse and reviewed by co Nursing Notes: Ivory Reese RN 04/26/2022 4:47 [...] and denies sexually (more content not included)... [facility] 04-26-2022 History of Presen t illness Narrative [...] entered by the nurse and reviewed by co Nursing Notes: Ivory Reese RN 04/26/2022 4:47 [...] that the images be scanned into the [facility] system and will forward this note [...] Jamaal Pires MD documented in this encounter [facility] 04-26-2022 Nurse Note REVIEW OF SYSTEMS: General: [...] Ivory Reese RN documented in this encounter [facility] documented in [facility]* Diagnosis Personal history of colonic polyps- Primary Adenomatous polyp of ascending colon [facility] Diagnosis History of colon polyps- Primary Personal history of colonic polyps [facility] for [facility] (narrative)* Outpatient Procedure (Routine) - Pending Review Specialty Diagnoses / Procedures Referred By Ava carbajal Referred To Contact [facility] Diagnoses Personal history of colonic polyps Procedures COLONOSCOPY (THERAPEUTIC) COLSC FLX W/RMVL OF TUMOR POLYP LESION SNARE TQ Emi Constantino MD [address] [place] [address] [facility] [address] [place] [id number] Referral ID Status Reason Start Date Expiration Date Visits Requested Visits Authorized [id number] Pending Review Auto-Generat ed Referral 08/08/2022 08/09/[address] [facility] Chief Complaint Chief Complaint Description Start Date [...] or prosecute any alcohol or drug abuse patient.[facility] the event this information is protected by the Federal Confidentiality of Alcohol and Drug Abuse Patient Records regulations: The Federal rules restrict any use of the information to criminally investigate or prosecute any alcohol or drug abuse patient.[facility] the event this information is protected by the Federal Confidentiality of Alcohol and Drug Abuse Patient Records regulations: The Federal rules restrict any use of the information to criminally investigate or prosecute any alcohol or drug abuse patient.[facility] the event this information is protected by the Federal Confidentiality of Alcohol and Drug Abuse Patient Records regulations: The Federal rules restrict any use of the information to criminally investigate or prosecute any alcohol or drug abuse patient.[facility] the event this information is protected by the Federal Confidentiality of Alcohol and Drug Abuse Patient Records regulations: The Federal rules restrict any use of the information to criminally investigate or prosecute any alcohol or drug abuse patient.[facility] Care Teams (unrecognized sec tion and content) Causticiser Relationship Specialty Start Date End Date Emi Jo [address] [facility] [address] [place] [address] PCP - General Family Medicine 04/26/22 Causticiser Relationship Specialty Start Date End Date Emi Jo [address] [facility] [address] [place], [place] [address] PCP - General Family Medicine 04/26/22 Causticiser Relationship Specialty Start Date End Date Emi Jo [address] [facility] [address] [place], [place] [id number] PCP - General Family Medicine 04/26/22 Causticiser Relationship Specialty Start Date End Date Emi Jo MD [address] [facility] [address] [place] [address] PCP - General Family Medicine 04/26/22 INFORMATION [...] BE BASED ON THE PRIMARY CLINICAL RECORDS. [facility]. provides no warranty or guarantee of the accuracy or completeness of information in this document.
[2023-05-31 17:41] LABS: Absolute Lymphocyte Count 2.14 X10^3/uL (0.83-4.51); Absolute Neutrophil Count 5.5 X10^3/uL (2.0-7.7); Basophil# 0.04 X10^3/uL; Basophil% 0.5 % (0-1); Eosinophils% 1.2 % (0-5); Hematocrit 37.5 % (37-47); Hemoglobin 11.8 g/dL (12.0-15.0); Lymphocyte # 2.14 X10^3/ul (0.83-4.51); Lymphocyte % 25.5 % (19-41); Mean Corp Hgb Conc 31.5 g/dL (32-36); Mean Corpuscular Hgb 30.1 pg (27.0-32.0); Mean Corpuscular Volume 95.7 fL (81-99); Mean Platelet Vol. 10.5 fl (6.2-12.0); Monocyte# 0.56 X10^3/uL; Monocyte% 6.7 % (0-10); NRBC Flagged by Analyzer 0 % (0-5); Neutrophil # 5.54 X10^3/uL (2.7-7.7); Neutrophil % 65.9 % (47-70); Platelet Count 223 K/mm3 (150-450); RBC Distribution Width CV 13.2 % (11.6-14.6); RBC Distribution Width SD 46.1 fl (35.1-43.9); Red Blood Count 3.92 M/mm3 (4.2-5.4); White Blood Count 8.4 K/mm3 (4.4-11.0)
[2023-05-31 18:01] LABS: Vitamin D,25 Hydroxy 63.4 ng/mL
[2023-05-31 18:37] LABS: ALB/GLOB Ratio 1.1 RATIO (0.9-2.4); AST(SGOT) 28 U/L (15-37); Alanine Aminotransfer ALT/SGPT 24 U/L (13-56); Albumin, Serum 3.5 g/dL (3.2-5.0); Alkaline Phosphatase 42 U/L (45-117); Anion Gap 8 (5-15); BUN 28 mg/dL (7-18); BUN/Creat Ratio 27.5 RATIO (10-20); Calcium,Total 8.3 mg/dL (8.5-10.1); Chloride 108 mmol/L (98-107); Cholesterol 199 mg/dL (200); Creatinine, Serum 1.02 mg/dL (0.55-1.02); EST Glomerular Filtration Rate 55 mL/min (>60); Est Glom Filt Rate - Afr Amer 67 mL/min (>60); Globulin 3.2 g/dL (2.2-4.2); Glucose 169 mg/dL (74-106); High Density Lipoprotein 80 mg/dL; Magnesium 2.3 mg/dL (1.6-2.6); Potassium 3.7 mmol/L (3.5-5.1); Protein, Total 6.7 g/dL (6.4-8.2); Sodium Level 140 mmol/L (136-145); Thyroid Stim Hormone (TSH) 1.25 uIU/mL (0.358-3.74); Triglycerides 79 mg/dL; Very Low Density Lipoprotein 16 mg/dL (5-40)
[2023-06-06 12:48] LABS: Hemoglobin A1c 5.2 % (3.8-5.6)
== END | disposition home or self-care (01) ==
LOC: MFPLAB 15:59
PROVIDERS: PCP Family Medicine; Visit Provider Family Medicine
DX: I10 Essential (primary) hypertension (principal); M81.0 Age-related osteoporosis without current pathological fracture
CPT/HCPCS: 36415; 80053; 80061; 81001; 82306; 83036; 83735; 84443; 85025

== ENCOUNTER → 2023-07-26 | Outpatient (CLI) | payer MEDICARE, SELFPAY ==
--- NOTE | 2023-07-26 14:54 | RAD_ITS ---
INDICATION: cervicalgia EXAMINATION/TECHNIQUE: X-RAY - XR Spine Cervical 2 or 3 Views COMPARISON: Prior study dated: 10/04/2004 FINDINGS: VERTEBRAE: Preserved vertebral body height. No fracture. There appears to be 3 mm anterolisthesis of C7 over T1. Straightening of the cervical lordosis. No significant facet arthropathy. DISCS: Severe disc space narrowing of C4-C5, C5-C6 and C6-C7. Endplate spondylosis at multiple levels. NECK SOFT TISSUES: No prevertebral soft tissue widening. LUNG APICES: Clear. RAD/Cerv Spine 2 or 3 Views IMPRESSION: Advanced multilevel degenerative changes of the cervical spine.. Electronically Signed: Wei Shaw MD at 12:09 EST ,
[2023-07-26 18:42] LABS: Vitamin B12 564 pg/mL (211-911)
== END | disposition home or self-care (01) ==
PROVIDERS: PCP Family Medicine; Referring Provider Family Medicine; Visit Provider Family Medicine
DX: R41.3 Other amnesia (principal); M54.2 Cervicalgia
CPT/HCPCS: 36415; 72040; 82607

== ENCOUNTER → 2023-11-30 | Outpatient (CLI) | payer MEDICARE, SELFPAY ==
--- NOTE | 2023-11-30 12:43 | BI_ITS ---
MAMMOGRAPHY - BILATERAL SCREENING REASON FOR EXAM: Female, 83 years old. Routine annual screening examination. PERTINENT HISTORY: Non-contributory. History of prior bilateral breast aspirations. TECHNIQUE: Digital bilateral breast izzy (3D mammographic acquisition) in the CC and MLO projections. 2-D mediolateral oblique (MLO) and craniocaudad (CC) views of both breasts were obtained. CAD: Full Field Digital Mammography with Computer Added Detection was performed. COMPARISON: Comparison is made with prior study dated November 08, 2022 and November 04, 2021. FINDINGS: Breast Composition: The breasts are heterogeneously dense, which may obscure small masses. There are no dominant masses or suspicious calcifications. Stable bilateral secretory calcifications. No other significant abnormalities are identified. There has been no significant change since the prior study. BI/SCRN MAMM (CAD)W/IZZY BILAT IMPRESSION: Stable bilateral screening mammogram. Yearly follow-up mammogram recommended. (A) ASSESSMENT CATEGORY: BIRADS Category 2: Benign. A letter regarding these results will be sent to the patient by the facility within 30 days. Approximately 10% of breast cancers are not detected by mammography. A normal mammogram should not delay biopsy of a clinically suspicious abnormality. [id number] Electronically Signed: Peterson Aquino MD at 8:24 EDT ,
[2023-11-30 14:07] LABS: Bacteria 0 SEEN /hpf (None Seen); Mucous, Urine 0 SEEN /hpf (<or=2+); Red Blood Cells-Urine 0 SEEN /hpf (0-5); Squamous Epithelial Cells - UA 0 SEEN /hpf (5-10); White Blood Cells 0 SEEN /hpf (0-5)
[2023-11-30 17:47] LABS: Absolute Lymphocyte Count 1.91 X10^3/uL (0.83-4.51); Absolute Neutrophil Count 4.3 X10^3/uL (2.0-7.7); Basophil# 0.06 X10^3/uL; Basophil% 0.9 % (0-1); Eosinophil# 0.11 X10^3/uL; Eosinophils% 1.6 % (0-5); Hematocrit 37.4 % (37-47); Hemoglobin 11.9 g/dL (12.0-15.0); Lymphocyte # 1.91 X10^3/ul (0.83-4.51); Lymphocyte % 27.8 % (19-41); Mean Corp Hgb Conc 31.8 g/dL (32-36); Mean Corpuscular Hgb 30.5 pg (27.0-32.0); Mean Corpuscular Volume 95.9 fL (81-99); Mean Platelet Vol. 10.5 fl (6.2-12.0); Monocyte# 0.52 X10^3/uL; Monocyte% 7.6 % (0-10); NRBC Flagged by Analyzer 0 % (0-5); Neutrophil # 4.25 X10^3/uL (2.7-7.7); Neutrophil % 61.8 % (47-70); Platelet Count 226 K/mm3 (150-450); RBC Distribution Width CV 13.2 % (11.6-14.6); RBC Distribution Width SD 46.7 fl (35.1-43.9); White Blood Count 6.9 K/mm3 (4.4-11.0)
[2023-11-30 17:50] LABS: Color, Urine Yellow (Yellow); Glucose, Dipstick Normal (Normal); Ketone-Dipstick Negative (Negative); Leukocyte Esterase-Dipstick Negative /ul (Negative); Nitrite-Dipstick Negative (Negative); Occult Blood-Urine 10 /ul (Negative); Protein-Dipstick Negative (Negative); Specific Gravity, Urine 1.015 (1.002-1.030); Urine Bilirubin Dipstick Negative (Negative); Urine Clarity Clear (Clear); Urine Urobilinogen Normal (Normal)
[2023-11-30 17:59] LABS: ALB/GLOB Ratio 1.1 RATIO (0.9-2.4); AST(SGOT) 20 U/L (15-37); Alanine Aminotransfer ALT/SGPT 17 U/L (13-56); Albumin, Serum 3.7 g/dL (3.2-5.0); Alkaline Phosphatase 44 U/L (45-117); Anion Gap 5 (5-15); BUN 24 mg/dL (7-18); BUN/Creat Ratio 26.8 RATIO (10-20); Calcium,Total 9.4 mg/dL (8.5-10.1); Chloride 107 mmol/L (98-107); Cholesterol 214 mg/dL (200); EST Glomerular Filtration Rate 64 mL/min (>60); Est Glom Filt Rate - Afr Amer 77 mL/min (>60); Globulin 3.3 g/dL (2.2-4.2); Glucose 95 mg/dL (74-106); High Density Lipoprotein 83 mg/dL; Magnesium 2.4 mg/dL (1.6-2.6); Potassium 4.3 mmol/L (3.5-5.1); Sodium Level 139 mmol/L (136-145); Thyroid Stim Hormone (TSH) 1.51 uIU/mL (0.358-3.74); Triglycerides 82 mg/dL; Very Low Density Lipoprotein 16 mg/dL (5-40)
== END | disposition home or self-care (01) ==
LOC: OPBI 12:42
PROVIDERS: PCP Family Medicine; Referring Provider Family Medicine; Visit Provider Family Medicine
DX: Z12.31 Encounter for screening mammogram for malignant neoplasm of breast (principal); I10 Essential (primary) hypertension
CPT/HCPCS: 36415; 77063; 77067; 80053; 80061; 81001; 83735; 84443; 85025

== ENCOUNTER 2024-02-02 10:11 | Emergency (ER) | payer MEDICARE, SELFPAY ==
[2024-02-02 10:12] VITALS: BP 140/99; PULSE 88; RESP 18; TEMP 36.6; O2SAT 99; BMI 26.6
[2024-02-02] MEDS: Ondansetron 4 MG/2 ML Vial IV (10:33)
[2024-02-02] MEDS: Morphine 4 MG/ML Syringe 3 MG IV (10:33)
--- NOTE | 2024-02-02 10:50 | RAD_ITS ---
STUDY: X-RAY - LEFT WRIST REASON FOR EXAM: Female, 83 years old. Injury/Pain TECHNIQUE: 3 view(s) of the wrist were obtained. COMPARISON: None. FINDINGS: There is a comminuted fracture of the distal radial metaphysis with extension to the articular surface. Avulsion fracture of the ulnar styloid. Normal radiocarpal articulation. Normal distal radioulnar articulation. Normal carpal bones. Normal carpal articulations. There is degenerative arthrosis of the carpometacarpal articulation of the thumb. Normal second through fifth carpometacarpal articulations. Normal visualized metacarpal bones. Soft tissue swelling. RAD/Wrist min 3 Views IMPRESSION: There is a nondisplaced comminuted fracture of the distal radial metaphysis with extension to the articular surface. Soft tissue swelling. Electronically Signed: Peterson Aquino MD at 11:02 EDT ,
[2024-02-02] MEDS: morphine 8 MG/ML Syringe 4 MG IV (11:29)
[2024-02-02 12:11] VITALS: BP 166/87; PULSE 90; RESP 16; O2SAT 98
[2024-02-02] MEDS: Lidocaine 1% (20 ml mdv) 20 ML Vial 10 ML INFILT (12:47)
[2024-02-02 14:09] VITALS: BP 156/84; TEMP 36.7
--- NOTE | 2024-02-02 14:36 | RAD_ITS ---
STUDY: X-RAY - LEFT WRIST REASON FOR EXAM: Female, 83 years old. REDUCTION TECHNIQUE: 4 fluoroscopic guided view(s) of the wrist were obtained during reduction of radial fracture COMPARISON: None. FINDINGS: Fluoroscopic guided reduction of distal radial fracture is noted with fracture fragments in near-anatomic alignment and position. 0.04 seconds of fluoroscopic time were utilized during the study RAD/Wrist 2 Views IMPRESSION: Fluoroscopic guided reduction of distal radial fracture. Electronically Signed: Ariel Gurrola MD at 18:44 EDT ,
[2024-02-02 16:00] VITALS: BP 166/82; PULSE 90; RESP 18; O2SAT 98
--- NOTE | 2024-02-02 16:51 | ED.VIS.FALL ---
HPI HPI - Fall History of Present Illness Chief Complaint: Fall Detail of Chief Complaint: Patient tripped at a . She landed onto her outstretched left upper Informant: patient Occured/Mechanism Occurred: Hours Mechanism/Context: Yes same level fall and Yes trip Narrative: Patient walking into [employer] tripped on a crack. She sustained injury to her wrist and nose. She denies loss of conscious. She does not believe she hit her head. She is on no antithrombotic or anticoagulant. Usually ambulates: Without assistance Pain/Injury Location: Nose and left wrist Worsened by: Movement Relieved by: Nothing Associated Symptoms Associated Symptoms: Negative for Parasthesias, Weakness, Loss of function, Inability to ambulate, Loss of consciousness or Amnesia Narrative Narrative: Patient walking into [employer] for a . Tripped. She landed on outstretched arm. She did hit her nose. She denies difficulty breathing from her nose. She denies blood from inside of the nose. Denies dental trauma. Denies neck pain. She denies paresthesia, anesthesia medics. She denies cardiac respiratory symptoms. She denies GI symptoms. Nuys black or maroon stool. Prior similar symptoms: No Recent Illness/Hospitalization: No PFSH PFSH Medical History Osteoporosis Wears hearing aid Wears glasses Post-menopausal Depression Anxiety Alcohol use Arthritis Back pain Non-smoker Shortness of breath on exertion Leg cramps History of edema History of stress test Cardiology follow-up encounter Hypertension Hemorrhoids Cataracts, both eyes Home Medications ?Medication ?Instructions ?Recorded ?Last Taken ?Type cholecalciferol (vitamin D3) 50 50 mcg PO DAILY 03/07/22 03/07/22 History mcg (2,000 unit) capsule (Vitamin D3) vit C 250 mg-vit E 90 mg-zinc 40 1 tab PO BID 03/07/22 03/07/22 History mg-copper 1 [id number] capsule (PreserVision AREDS-2) multivitamin (Daily Multi-Vitamin 1 tab PO DAILY 06/07/22 Unknown History tablet) Prolia 60 mg/mL subcutaneous 60 mg subcut [id number] #1 mL 07/28/23 Unknown Rx syringe (denosumab) oxycodone-acetaminophen 5 mg-325 1 tab PO Q6H PRN PRN pain 5 days 02/02/24 Unknown Rx mg tablet #20 TABLETS Allergy/AdvReac Type Severity Reaction Status Date / Time Penicillins (PCN) Allergy Rash Verified 02/02/24 10:12 adhesive AdvReac unknown Verified 02/02/24 10:12 alendronate sodium AdvReac GI Upset Verified 02/02/24 10:12 ciprofloxacin (From Cipro) AdvReac blurred Verified 02/02/24 10:12 vision latex AdvReac rash Verified 02/02/24 10:12 risedronate sodium (From AdvReac GI Upset Verified 02/02/24 10:12 Actonel) sulfamethoxazole (From AdvReac GI Upset Verified 02/02/24 10:12 Septra) trimethoprim (From Septra) AdvReac GI Upset Verified 02/02/24 10:12 venlafaxine (From Effexor) AdvReac Unknown Verified 02/02/24 10:12 Family History Brother CAD (coronary artery disease) stents, PPM Hypertension Father Heart disease Brother Hypertension Mother Colon cancer Surgical History Hx of colonoscopy History of tonsillectomy History of open reduction and internal fixation (ORIF) procedure History of cataract surgery Social History Smoking Status: Never smoker alcohol intake: current alcohol intake frequency: a few times a week Alcohol type: wine substance use type: does not use caffeine: Yes Type: coffee what type of physical activity do you participate in: bicycling ROS ROS ED Constitutional Constitutional ED: Denies chills, fever(s) or subjective Eyes Eyes: Denies blurry vision, change in vision or diplopia ENT ENT ED: Denies ear pain, rhinorrhea or sore throat Cardiovascular Cardiovascular: Denies chest pain, palpitations or racing heartbeat Respiratory/Chest Respiratory/Chest: Denies cough, dyspnea or dyspnea on exertion Gastrointestinal Gastrointestinal: Denies abdominal pain, nausea or vomiting Genitourinary Genitourinary ED: Denies dysuria, hematuria or urinary frequency Musculoskeletal Musculoskeletal: Denies arthralgias, back pain, myalgias or neck pain Integumentary Reports Abrasions; Denies abscess or rash Neurologic Neurologic: Denies headache(s) or paresthesias Hematologic/Lymphatic Hematologic/Lymphatic: Denies easy bleeding or easy bruising EXAM Physical Exam Const Vital Signs: 02/02/24 10:12 02/02/24 10:42 02/02/24 12:11 Temperature 97.8 F Temperature Source Temporal Pulse Rate 88 90 Respiratory Rate 18 16 Respiratory Effort Normal Blood Pressure 140/99 H 166/87 H Blood Pressure Mean 112 113 Pulse Ox 99 98 Oxygen Delivery Method Room Air Room Air 02/02/24 14:09 02/02/24 16:00 02/02/24 18:00 Temperature 98.0 F Temperature Source Oral Pulse Rate 90 82 Respiratory Rate 18 18 Respiratory Effort Blood Pressure 156/84 H 166/82 H 135/74 H Blood Pressure Mean 108 110 94 Pulse Ox 98 99 Oxygen Delivery Method Room Air Room Air Positive well nourished and well developed General Appearance ED: well developed and NAD HEENT Reports normocephalic, TM's clear and TM's normal bilaterally HEENT Narrative: There is no septal deviation or hematoma. There is no epistaxis noted. There is an abrasion on the dorsal surface of the nose. There is no tenderness to palpation of the nose. trauma and contusion Contusion Size: Above the left brow. No palp depression. There is no clinical findings of Tympanic Membrane ED: Yes TM's clear Eyes PERRL and EOMs intact bilaterally Eyes Narrative: There is no subconjunctival hemorrhage. There is no nystagmus. Neck full ROM, no lymphadenopathy and supple Neck Narrative: There is no posterior midline pain. She has full active range of motion. Chest Wall inspection of chest normal and palpation of chest normal Resp normal respiratory effort, no retractions and clear to auscultation bilaterally Cardio regular rate, regular rhythm, S1 normal heart sound, S2 normal heart sound and no murmurs GI non-tender, non-distended and no masses Palpation: soft Back/Spine no CVA tenderness Extremity Extremity Narrative: Obvious deformity to the left wrist. Neuro oriented x3 and CN's II-XII intact bilaterally Neuro Narrative: There is no clonus or Babinski sign noted. Bibiana Coma Scale: document GCS findings Spontaneous Obeys Commands Oriented 15 Sensorium / Orientation: other Motor Exam: strength 5/5 throughout Psych mental status grossly normal and thought process normal Skin Skin Narrative: Documented under the HEENT portion of the medical record. MDM MDM MDM Narrative Medical decision making narrative: Per the [place] CT head rule imaging of the head is not indicated or warranted. Per Nexus criteria C-spine was cleared. Will obtain x-ray to delineate the extent of injury to her left wrist. Since there is no pain ovation of the nose, septal deviation hematoma imaging of the nose was not obtained. Postreduction films reveal anatomical reduction. There is loss of volar tilt. 3 views were obtained. Our hand surgeon Dr. Mendes recommended transfer for/follow-up with [facility] hand. Will speak to the [facility] hand physician. Will have images transfer to their facility for review. Radiography Chest X-Ray - ED: Read by ED Physician (Three-view x-ray of the left wrist reveals a distal transverse comminuted intra-articular fracture with shortening and volar apex angulation.) Diagnostic Testing: Clinical Impression(s) from Imaging Studies Wrist X-Ray 02/02/24 10:50 IMPRESSION: There is a nondisplaced comminuted fracture of the distal radial metaphysis with extension to the articular surface. Soft tissue swelling. Electronically Signed: Peterson Aquino MD at 11:02 EDT , Wrist X-Ray 02/02/24 14:36 IMPRESSION: Fluoroscopic guided reduction of distal radial fracture. Electronically Signed: Ariel Gurrola MD at 18:44 EDT , Wrist X-Ray 02/02/24 18:58 IMPRESSION: Status post reduction and casting of distal radial fracture. Electronically Signed: Ariel Gurrola MD at 19:20 EDT , Management Discussion w/another healthcare provider: Director Of Retail Analytics (Spoke to Dr. Leland Sarabia [place] hand surgeon. He asked for the patient to call on Monday and will be seen first part of next week.) Procedures Other Procedures Procedure(s): 1. Use of C arm to determine where the fracture was to perform a hematoma block. 2. Patient was placed in finger traps and weights were added every 10 minutes. 3. Film was taken after manipulation while still in finger traps. Patient has good length. Alignment appears anatomical. Patient was placed in sugar-tong plaster splint that was fabricated and molded by hi. Will obtain formal post-reduction films. Since Dr. Mendes recommended referral to [facility] hand will contact them once the post-reduction films have been obtained. Discharge Plan Triage Chief Complaint: Fall ED Provider: Yogesh Loza Dx/Rx/DC Orders Clinical Impression: Intra-articular fracture of distal end of left radius with volar angulation, Essential hypertension, Closed nondisplaced fracture of ulnar styloid with routine healing, Contusion of nose, subsequent encounter, Facial contusion, Injury due to fall Instructions: ED Forearm Fracture with Reduction Prescriptions: New oxycodone-acetaminophen 5-325 mg tablet 1 tab PO Q6H PRN PRN (Reason: pain) 5 Days Qty: 20 0RF No Action multivitamin [Daily Multi-Vitamin] Tablet 1 tab PO DAILY cholecalciferol (vitamin D3) [Vitamin D3] 50 mcg (2,000 unit) Capsule 50 mcg PO DAILY PreserVision AREDS-2 250-90-40-1 mg Capsule 1 tab PO BID Prolia 60 mg/mL syringe 60 mg subcut [id number] Qty: 1 1RF Primary Care Provider: Kendell Whatley Referrals: Kendell Whatley MD [Primary Care Provider] - Juwan Sarabia MD [Non-Staff] - 3-5 Days Activity Restrictions/Additional Instructions: 1. Apply ice 6-10 times a day 2. Elevate wrist above your nose 3. Take pain medicine as prescribed 4. If you develop numbness or loss of sensation in your fingers return Print Language: Niuean Disposition Disposition: Home, Self Care
[2024-02-02 18:00] VITALS: BP 135/74; PULSE 82; RESP 18; O2SAT 99
--- NOTE | 2024-02-02 18:58 | RAD_ITS ---
STUDY: X-RAY - LEFT WRIST REASON FOR EXAM: Female, 83 years old. Postreduction TECHNIQUE: 3 view(s) of the wrist were obtained. COMPARISON: None. FINDINGS: Status post reduction and casting of distal radial fracture with fracture fragments in anatomic alignment and position RAD/Wrist min 3 Views IMPRESSION: Status post reduction and casting of distal radial fracture. Electronically Signed: Ariel Gurrola MD at 19:20 EDT ,
[2024-02-02 20:00] VITALS: BP 124/75; PULSE 87; RESP 16; TEMP 36.9; O2SAT 97
== END 2024-02-02 20:32 | disposition home or self-care (01) ==
PROVIDERS: Emergency Provider Emergency Medicine; PCP Family Medicine; Visit Provider Emergency Medicine
DX: S00.83XA Contusion of other part of head, initial encounter (principal); I10 Essential (primary) hypertension; S00.33XA Contusion of nose, initial encounter; S00.31XA Abrasion of nose, initial encounter; S52.355A Nondisplaced comminuted fracture of shaft of radius, left arm, initial encounter for closed fracture; S52.572A Other intraarticular fracture of lower end of left radius, initial encounter for closed fracture; S52.615A Nondisplaced fracture of left ulna styloid process, initial encounter for closed fracture; W01.0XXA Fall on same level from slipping, tripping and stumbling without subsequent striking against object, initial encounter
CPT/HCPCS: 25605; 73100; 73110; 76000; 96374; 96375; 96376; 99283; A4216; J2405

== ENCOUNTER 2024-04-29 15:00 | Outpatient (RCR) | payer MEDICARE, SELFPAY ==
--- NOTE | 2024-03-25 17:42 | HP.OTEVAL ---
Patient's Visit Information Visit Information Visit Information: ELIDIA DREW is a 84 year old F, referred to Occupational Therapy by Dr. Juwan Sarabia MD, with a diagnosis of left distal radius untra-articular fx. Date of Evaluation: 03/25/24 Occupational Therapist: Gretchen Pena, VIPUL/[place], CHT Subjective Subjective: This 84 year old female was seen for OT eval with dx of a left wrist fx- intra-articular fx of left distal radius. pt suffered fall on 02/02/24. Had ORIF on 02/07/24 pt arrives 6 weeks and 5 days s/p. pt has a comfort cool wrist and thumb brace on- states she is in it when she is out of her home. pt states she likes to cook and would like to return to it as soon as possible. pt is frustrated as not being able to use her left hand has sig. limited her with ADLs and IADL tasks. Pt would like to return to a PLOF. ADLs Comments: pt lives with who is helping her with all tasks. pt enjoys cooking and baking - would like to return to doing before the holidays Pain left wrist: Current Pain Intensity: 1 Pain Intensity Range: 1 and 2 ROM Forearm: right WFL left supination 55 pronation 65 Wrist: right 55/35 past hx of fx with ORIF 30/20 ROM Comments: pt demo with slight limited left composite fist 1.5 away Strength Aircraft Stress Analyst: right 40# left NT Lateral Pinch: right 10# left NT Tripod Pinch: right 10# left NT Sensation Sensation Comments: slight tingling at times Quick DASH-Disab of Arm,Shoulder& Hand Quick DASH Score: 65.9075 Goals Goal:Daily scar massage when approriate: Yes Goal:ROM equal to unaffected hand: Yes Goal:Aircraft Stress Analyst/Pinch strength at least 75% of unaffected hand: Yes Comment: will not initiate until dr. carney or 8 weeks s/p Goal:Full use of affected hand in daily activities including work: Yes Rehabilitation General Assessment: pt arrives 6 weeks and 5 days s/p from a ORIF left distal radius intra- articular fx. pt demo with a decrease in left wrist ROM and limited tight composite fist increasing need of assistance with ADLS. Pt would benefit from further skilled OT services 1-2x week for 6-8 weeks to return pt to her PLOF. Today therapist ed. pt on scar mobilization, edema control, active ROM of elbow, forearm and wrist- therapist ed. pt on slow soft motion and holding end range for 3-5 sec. with each ec. pt demo understanding and agree to POC. Rehabilitation Potential: Good Anticipated Interventions Anticipated Interventions: A/AAROM/PROM, Strengthening, Edema Control, Scar Care, Triggerpoint Release, Modalities, Orthoses, Joint Protection/Energy Conservation, Ergonomic Education, Education re assistive Equipment, Education re Diagnosis, Caregiver Training and Home Program Visit Plan Frequency: 1-2x /Week Duration: 4-6 Weeks General Plan: AROM of digits to get composite fist edema cont. minerva. MEM wrist AROM forearm AROM will work on ROM for next two weeks as she is just getting started with her ROM - once pts swelling and ROM improve will initiate light estimator printing plate making strength unless otherwise instructed by Dr. ARNOLD Passive forced ROM to wrist or forearm TEXT: Thank you for the opportunity to evaluate your patient. For Medicare and Medicare HMO plans, please review the plan of care and approve it. It will need to be FAXED BACK to us at [phone] for Medicare purposes. Please let me know if there are questions or concerns regarding this plan of care. Physician Signature: Date:
--- NOTE | 2024-04-29 15:23 | OTREVAL_ITS ---
Re-Evaluation Intro: Dr. Juwan Sarabia MD, It has been my pleasure to treat ELIDIA DREW over the last 8 visits for left distal radius untra-articular fx. Please see the progress note below for an update on the occupational therapy plan of care! Subjective Subjective: pt arrives to session: pt arrives 11 weeks and 4 days out from ORIF of left distal radius fx. pt states she is doing more and will tell if she does a little to much. pt states she his having tingling in the tips of her thumb- IF- MF and RF. Objective Objective/Function: left RD 15* left UD 30* left wrist ROM 55/45* left thumb MP 50* left thumb IP 40* pt demo the ability to form a composite fist- some OA deformities causing some more stiffness at times but pt consistently getting PIP flexion of 90* pt can perform opposition to LF DPC pt demo with a increase in left speech language pathology assistant strength to 15# right is 40# left lateral pinch strength 6# pt demo with MP hyper ext due to OA deformity of left CMC pt is making great gains with her ROM and strength - pt is performing her ADLs and IADLs at VAMSHI level. Plan Plan Visits in this POC: pt to return to dr for re-eval Plan: pt to work on her strength and use with ADLs - nerve glide for median nerve. Goals Goals Patient Goals: Regain Mobility, Regain Strength, Decrease Pain, Use Hand/Wrist/Arm Normally Again and Resume Former Household Responsibilities (Cooking,Cleaning,Yard, etc.) Goal:Daily scar massage when approriate: Yes Goal:ROM equal to unaffected hand: Yes Goal:Videographer/Pinch strength at least 75% of unaffected hand: Yes Goal:Full use of affected hand in daily activities including work: Yes Anticipated Interventions Anticipated Interventions Anticipated Interventions: A/AAROM/PROM, Strengthening, Edema Control, Scar Care, Triggerpoint Release, Modalities, Orthoses, Joint Protection/Energy Conservation, Ergonomic Education, Education re assistive Equipment, Education re Diagnosis, Caregiver Training and Home Program Re-Evaluation Ending Re-evaluation ending: Please do not hesitate to contact me at [phone] by phone or if you have questions or concerns regarding this new plan of care! Sincerely, Gretchen Pena, OTR/L, CHT
--- NOTE | 2024-07-30 08:51 | HP.OT.NRP ---
Patient Information Patient Information: ELIDIA DREW was seen in my office for initial evaluation on 03/25/24. The following Plan of Care was established for this patient: POC Established Initial Frequency: 1-2x /Week Initial Duration: 4-6 Weeks Plan: pt to work on her strength and use with ADLs - nerve glide for median nerve. Anticipated Interventions Anticipated Interventions: A/AAROM/PROM, Strengthening, Edema Control, Scar Care, Triggerpoint Release, Modalities, Orthoses, Joint Protection/Energy Conservation, Ergonomic Education, Education re assistive Equipment, Education re Diagnosis, Caregiver Training and Home Program Last Seen Last Seen: This patient was last seen in our office 04/29/24. Pertinent comments regarding their Occupational therapy will appear below: pt progressed well in OT. She has been cleared by and at this time is D/C. At this point I will be discontinuing this patient from occupational therapy. I would be happy to see this patient again in the future if found appropriate by the physician. Thank you! Gretchen Pena, OTR/L, CHT
== END 2024-04-29 19:00 | disposition home or self-care (01) ==
LOC: OT 15:00
PROVIDERS: PCP Family Medicine; Referring Provider Orthopaedic Surgery; Visit Provider Orthopaedic Surgery
DX: S52.572D Other intraarticular fracture of lower end of left radius, subsequent encounter for closed fracture with routine healing (principal)
CPT/HCPCS: 97110; 97140; 97166; 97530

== ENCOUNTER → 2024-05-16 | Outpatient (CLI) | payer MEDICARE, SELFPAY | END | disposition home or self-care (01) | LOC: LABSPEC 11:26 | PROVIDERS: PCP Family Medicine; Referring Provider Family Medicine; Visit Provider Family Medicine | DX: N39.0 Urinary tract infection, site not specified (principal) | CPT/HCPCS: 87086; 87088 ==

== ENCOUNTER → 2024-06-25 | Outpatient (CLI) | payer MEDICARE, SELFPAY ==
[2024-06-25 17:51] LABS: Absolute Lymphocyte Count 2.03 X10^3/uL (0.83-4.51); Absolute Neutrophil Count 3.8 X10^3/uL (2.0-7.7); Basophil# 0.05 X10^3/uL; Basophil% 0.8 % (0-1); Eosinophil# 0.15 X10^3/uL; Eosinophils% 2.3 % (0-5); Hemoglobin 12.4 g/dL (12.0-15.0); Lymphocyte # 2.03 X10^3/ul (0.83-4.51); Lymphocyte % 30.7 % (19-41); Mean Corp Hgb Conc 31.8 g/dL (32-36); Mean Corpuscular Hgb 29.7 pg (27.0-32.0); Mean Corpuscular Volume 93.5 fL (81-99); Mean Platelet Vol. 10.6 fl (6.2-12.0); Monocyte# 0.57 X10^3/uL; Monocyte% 8.6 % (0-10); NRBC Flagged by Analyzer 0 % (0-5); Neutrophil # 3.79 X10^3/uL (2.7-7.7); Neutrophil % 57.3 % (47-70); Platelet Count 218 K/mm3 (150-450); RBC Distribution Width CV 13.3 % (11.6-14.6); RBC Distribution Width SD 45.1 fl (35.1-43.9); Red Blood Count 4.17 M/mm3 (4.2-5.4); White Blood Count 6.6 K/mm3 (4.4-11.0)
[2024-06-25 18:00] LABS: AST(SGOT) 18 U/L (15-37); Alanine Aminotransfer ALT/SGPT 17 U/L (13-56); Albumin, Serum 3.7 g/dL (3.2-5.0); Alkaline Phosphatase 46 U/L (45-117); Anion Gap 8 (5-15); BUN 21 mg/dL (7-18); BUN/Creat Ratio 23.8 RATIO (10-20); Calcium,Total 9.3 mg/dL (8.5-10.1); Chloride 105 mmol/L (98-107); Creatinine, Serum 0.88 mg/dL (0.55-1.02); EST Glomerular Filtration Rate 65 mL/min (>60); Est Glom Filt Rate - Afr Amer 78 mL/min (>60); Globulin 3.6 g/dL (2.2-4.2); Glucose 84 mg/dL (74-106); Protein, Total 7.3 g/dL (6.4-8.2); Sodium Level 138 mmol/L (136-145)
[2024-06-25 18:07] LABS: Vitamin D,25 Hydroxy 43.1 ng/mL
[2024-06-25 18:09] LABS: Microalbumin,Random Urine 25.2 mg/L (NO RANGE EST.)
== END | disposition home or self-care (01) ==
LOC: MFPLAB 13:58
PROVIDERS: PCP Family Medicine; Referring Provider Family Medicine; Visit Provider Family Medicine
DX: I10 Essential (primary) hypertension (principal); E55.9 Vitamin D deficiency, unspecified
CPT/HCPCS: 36415; 80053; 82043; 82306; 85025

== ENCOUNTER → 2024-08-06 | Outpatient (CLI) | payer MEDICARE, SELFPAY | END | disposition home or self-care (01) | PROVIDERS: PCP Family Medicine; Referring Provider Family Medicine; Visit Provider Family Medicine | DX: N39.0 Urinary tract infection, site not specified (principal) | CPT/HCPCS: 87086 ==

== ENCOUNTER 2024-08-21 07:26 | Day surgery (SDC) | payer MEDICARE, SELFPAY ==
--- NOTE | 2024-08-16 10:21 | PAT.ANE_ITS ---
Pre-Assessment Diagnosis/Proposed Procedure Planned Operative Procedure(s): CSCOPE Anesthesia History Anesthesia History - [employer]: Anesthesia History - [employer] Hx Hospitalization No 08/16/24 09:41 Any Problems With Anesthesia No 08/16/24 09:41 Cholinesterase deficiency No 08/16/24 09:41 You/Your Family Experience No 08/16/24 09:41 fever (hyperthermia) with Relationship Recent Exposure to Contagious No 02/28/24 10:56 Disease Does patient have nerve No 08/16/24 09:41 stimulator Patient instructed to have device shut off --Does patient have Pacemaker or ICD? When Was Last Pacemaker Check QUESTION #4 FULL TEXT: You/Your Family Experience fever (hyperthermia) with Anesthesia Last Oral Intake Last Oral intake: Last Oral Intake NPO since Meds taken in AM with sips of water? Meds patient instructed to take am of surgery PONV PONV - [employer]: PONV - [employer] Female Yes 08/16/24 09:41 HX of Motion Sickness No 08/16/24 09:41 HX of N/V After Surgery No 08/16/24 09:41 Non-Smoker Yes 08/16/24 09:41 Duration of Surgery greater No 08/16/24 09:41 than 60 minutes Number of Risk Factors 2 08/16/24 09:41 PONV Score Moderate Risk 08/16/24 09:41 Height & Weight Height & Weight: Anesthesia: Height & Weight Height 5 ft 06/12/24 14:17 Respiratory Assessment Respiratory Assessment - [employer]: Respiratory Tract Infection Hx - [employer] Hx Respiratory Tract Infection No 08/16/24 09:41 STOP Sleep Apnea STOP Sleep Apnea - [employer]: STOP Sleep Apnea - [employer] Hx Hypertension Yes: CONTROLLED WITH MED 08/16/24 09:41 Hx Sleep Apnea No 08/16/24 09:41 CPAP BIPAP Do you snore loudly (louder No 08/16/24 09:41 than talking or can be heard Do you often feel tired/ No 08/16/24 09:41 fatigued/ sleepy during daytime? Has anyone observed you stop No 08/16/24 09:41 breathing during sleep? STOP Results Negative 08/16/24 09:41 QUESTION #5 FULL TEXT : Do you snore loudly (louder than talking or can be heard through closed doors)? 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 Specify any problems Hx of Preganancy in last 3 No 08/16/24 09:41 Months Nurse Filling Out Transfusion DSCHRIBER 08/16/24 09:41 & Questions: Date: 08/16/24 08/16/24 09:41 Time: 09:43 08/16/24 09:41 Patient unable to answer at this time (ie. confused, unrespo /Reproduction History /Reproductive History - [employer]: /Reproductive Hx- [employer] Hx Now No 08/16/24 09:41 Gestational Age (in weeks): EDC: Hx Hx Para Hx Section SAB No 08/16/24 09:41 [facility] Medical History (Updated 08/16/24 @ 09:49 by Elba Brumfield) Hx of fracture of wrist Osteoporosis Wears hearing aid Wears glasses Post-menopausal Depression Anxiety Arthritis Non-smoker Shortness of breath on exertion History of edema History of stress test Cardiology follow-up encounter Hypertension Hemorrhoids Home Medications ?Medication ?Instructions ?Recorded ?Last Taken ?Type cholecalciferol (vitamin D3) 50 50 mcg PO DAILY 03/07/22 History mcg (2,000 unit) capsule (Vitamin D3) vit C 250 mg-vit E 90 mg-zinc 40 1 tab PO BID 03/07/22 03/07/22 History mg-copper 1 [id number] capsule (PreserVision AREDS-2) Prolia 60 mg/mL subcutaneous 60 mg subcut [id number] #1 mL 07/28/23 Unknown Rx syringe (denosumab) amlodipine 2.5 mg tablet 2.5 mg PO QHS 06/12/24 Unkno wn History Allergy/AdvReac Type Severity Reaction Status Date / Time Penicillins (PCN) Allergy Rash Verified 08/16/24 09:39 adhesive AdvReac unknown Verified 08/16/24 09:39 alendronate sodium AdvReac GI Upset Verified 08/16/24 09:39 ciprofloxacin (From Cipro) AdvReac blurred Verified 08/16/24 09:39 vision latex AdvReac rash Verified 08/16/24 09:39 risedronate sodium (From AdvReac GI Upset Verified 08/16/24 09:39 Actonel) sulfamethoxazole (From AdvReac GI Upset Verified 08/16/24 09:39 Septra) trimethoprim (From Septra) AdvReac GI Upset Verified 08/16/24 09:39 venlafaxine (From Effexor) AdvReac Unknown Verified 08/16/24 09:39 Family History Brother CAD (coronary artery disease) stents, PPM Hypertension Father Heart disease Brother Hypertension Mother Colon cancer Surgical History (Updated 08/16/24 @ 09:49 by Elba Brumfield) Hx of colonoscopy History of tonsillectomy History of open reduction and internal fixation (ORIF) procedure History of cataract surgery Social History Smoking Status: Never smoker alcohol intake: current alcohol intake frequency: a few times a week Alcohol type: wine substance use type: does not use caffeine: Yes Type: coffee what type of physical activity do you participate in: bicycling Audit: Pertinent Findings Pertinent Findings Stress test pertinent findings: 03/29/2019 EF 65 to 70%. Negative. Consult pertinent findings: Cardiology 03/17/2021. Premature atrial contractions. Stable we will continue to monitor. Hypertension. Blood pressure currently well-controlled. Recommendation Anesthesia Recommendation Anesthesia recommendation: OPTIMIZED for anesthesia
[2024-08-21] VITALS (9 sets, daily range): BP systolic 103–134; BP diastolic 54–81; PULSE 67–79; RESP 16; TEMP 36.1–37; O2SAT 98–100; BMI 25.4
--- NOTE | 2024-08-21 07:44 | PCM.HP.STD ---
HPI - General General Date of Admission: 08/21/24 Date of Service: 08/21/24 Chief Complaint: surveillance colonoscopy HPI Narrative ELIDIA DREW, is a 84 F who presents for a colonoscopy Colon 05/30/2023 ([facility]) tubular adenomas Hemorrhoids were found on perianal exam. A 6 mm polyp was found in the cecum. The polyp was sessile. The polyp was removed with a saline injection-lift technique using a hot snare. Resection and retrieval were complete. A 20 mm polyp was found in the proximal ascending colon. The polyp was sessile. Biopsies were taken with a cold forceps for histology. A 7 mm polyp was found in the proximal sigmoid colon. The polyp was sessile. The polyp was removed with a hot snare. Resection and retrieval were complete. Multiple diverticula were found in the sigmoid colon. COLON 10/13/2022 (Dr. Kendell Constantino @ [facility])- - Tubular adenoma. - One 30 mm polyp in the mid ascending colon, removed piecemeal using a hot snare. Incomplete resection. Nonlifting sign. Re - Moderate diverticulosis in the sigmoid colon and in the descending colon. - The entire examined colon is normal on direct and retroflexion views. - she denies any weight loss - denies any pain or bleeding - denies any change in bowel habits - Miralax and prune juice almost daily - denies any heart or lung disease - denies any N/V - denies any GERD - remains active - still drives - fell and broke her wrist this past January - tripped over the curb [facility] Medical History Hx of fracture of wrist Osteoporosis Wears hearing aid Wears glasses Post-menopausal Depression Anxiety Arthritis Non-smoker Shortness of breath on exertion History of edema History of stress test Cardiology follow-up encounter Hypertension Hemorrhoids Home Medications ?Medication ?Instructions ?Recorded ?Last Taken ?Type cholecalciferol (vitamin D3) 50 50 mcg PO DAILY 03/07/22 03/07/22 History mcg (2,000 unit) capsule (Vitamin D3) vit C 250 mg-vit E 90 mg-zinc 40 1 tab PO BID 03/07/22 03/07/22 History mg-copper 1 [id number] capsule (PreserVision AREDS-2) Prolia 60 mg/mL subcutaneous 60 mg subcut [id number] #1 mL 07/28/23 Unknown Rx syringe (denosumab) amlodipine 2.5 mg tablet 2.5 mg PO QHS 06/12/24 Unknown History Allergy/AdvReac Type Severity Reaction Status Date / Time Penicillins (PCN) Allergy Rash Verified 08/16/24 09:39 adhesive AdvReac unknown Verified 08/16/24 09:39 alendronate sodium AdvReac GI Upset Verified 08/16/24 09:39 ciprofloxacin (From Cipro) AdvReac blurred Verified 08/16/24 09:39 vision latex AdvReac rash Verified 08/16/24 09:39 risedronate sodium (From AdvReac GI Upset Verified 08/16/24 09:39 Actonel) sulfamethoxazole (From AdvReac GI Upset Verified 08/16/24 09:39 Septra) trimethoprim (From Septra) AdvReac GI Upset Verified 08/16/24 09:39 venlafaxine (From Effexor) AdvReac Unknown Verified 08/16/24 09:39 Family History Brother CAD (coronary artery disease) stents, PPM Hypertension Father Heart disease Brother Hypertension Mother Colon cancer Surgical History Hx of colonoscopy History of tonsillectomy History of open reduction and internal fixation (ORIF) procedure History of cataract surgery Social History Smoking Status: Never smoker alcohol intake: current alcohol intake frequency: a few times a week Alcohol type: wine substance use type: does not use caffeine: Yes Type: coffee what type of physical activity do you participate in: bicycling ROS Constitutional Constitutional: Denies fatigue, fever(s), poor appetite, weight gain or weight loss Gastrointestinal Gastrointestinal: Denies belching, bloating, change in bowel habits, change in stool character, chewing difficulty, coffee ground emesis, constipation, cramping, diarrhea, dyspepsia, dysphagia, early satiety, excessive flatus, fecal incontinence, heartburn, hematemesis, hematochezia, hemorrhoids, loose stools, melena, nausea, odynophagia, rectal bleeding, tenesmus, vomiting or weight changes Physical Exam Const alert, oriented x3, no apparent distress and healthy appearing General Appearance: cooperative GI normal to inspection, nondistended, normoactive bowel sounds, soft to palpation, non-tender and non-distended Percussion: normal to percussion Rectal Exam: deferred Assessment & Plan Assessment/Plan (1) Personal history of colonic polyps: PLAN: Assessment and Plan Assessment and Plan (1) Personal history of colonic polyps: Status: Acute (2) Family history of colon cancer in mother: Status: Acute Medications: New peg 3350-electrolytes 236-22.74-6.74 -5.86 gram (Golytely) take as directed for split dose bowel prep 240 mL PO Q10M 4,000 mL 0RF Plan 84y/o female presents for consultation with a personal history of colon polyps. Colonoscopy was last performed by Dr. Lees May 2023 and revealed adenomas (20mm). She also has a history of adenomas in 2022 (30mm), 2021, and 2016. Her family history is significant for mother with colon cancer at 61y/o. She remains in good health and active. I have scheduled her for a colonoscopy.
--- NOTE | 2024-08-21 08:11 | PRE.ANES_ITS ---
ASA Classification* ASA Classification ASA Classification: 2 Assessment & Plan Anesthesia* Anesthesia Assessment Anesthesia Assessment: Discussed sedation and/or anesthesia options, risks, benefits, and alternatives with patient/parents/legal guardian/POA. Questions invited. The patient/parents/legal guardian/POA seems to understand and agrees to proceed with anesthesia plan. Reviewed the physical assessment, medical history, allergy history and patient home medications list prior to surgery/procedure/anesthetic and documented any changes. Performed airway and anesthesia risk assessments. Anesthesia Type Anesthesia Type: MAC Anesthesia Focused Assessment* Temperature: 97.7 F Pulse Rate: 79 Blood Pressure: 120/54 Respiratory Rate: 16 Pulse Ox: 100 Airway Assessment Mouth opens: >3 cm Mallampati Score: II Focused Labs Anesthesia Preop lab: CBC WBC 6.6 K/mm3 (4.4-11.0) 06/25/24 14:06/25/24 RBC 4.17 M/mm3 (4.2-5.4) L 06/25/24 14:06/25/24 Hgb 12.4 g/dL (12.0-15.0) 06/25/24 14:06/25/24 Hct 39.0 % (37-47) 06/25/24 14:06/25/24 Plt Count 218 K/mm3 (150-450) 06/25/24 14:06/25/24 CHEMISTRY Potassium 4.0 mmol/L (3.5-5.1) 06/25/24 14:06/25/24 Sodium 138 mmol/L (136-145) 06/25/24 14:06/25/24 Magnesium 2.4 mg/dL (1.6-2.6) 11/30/23 14:11/30/23 BUN 21 mg/dL (7-18) H 06/25/24 14:06/25/24 Creatinine 0.88 mg/dL (0.55-1.02) 06/25/24 14:06/25/24 Glucose 84 mg/dL (74-106) 06/25/24 14:06/25/24 TSH 1.51 uIU/mL (0.358-3.74) 11/30/23 14: COAG Pre-Assessment Diagnosis/Proposed Procedure Planned Operative Procedure(s): CSCOPE Anesthesia History Anesthesia History - activities coordinator: Anesthesia History - activities coordinator Hx Hospitalization No 08/16/24 09:41 Any Problems With Anesthesia No 08/16/24 09:41 Cholinesterase deficiency No 08/16/24 09:41 You/Your Family Experience No 08/16/24 09:41 fever (hyperthermia) with Relationship Recent Exposure to Contagious No 08/21/24 07:50 Disease Does patient have nerve No 08/16/24 09:41 stimulator Patient instructed to have device shut off --Does patient have Pacemaker No 08/21/24 07:50 or ICD? When Was Last Pacemaker Check QUESTION #4 FULL TEXT: You/Your Family Experience fever (hyperthermia) with Anesthesia Last Oral Intake Last Oral intake: Last Oral Intake NPO since 00:00 08/21/24 07:50 Meds taken in AM with sips of No 08/21/24 07:50 water? Meds patient instructed to take am of surgery PONV PONV - activities coordinator: PONV - activities coordinator Female Yes 08/16/24 09:41 HX of Motion Sickness No 08/16/24 09:41 HX of N/V After Surgery No 08/16/24 09:41 Non-Smoker Yes 08/16/24 09:41 Duration of Surgery greater No 08/16/24 09:41 than 60 minutes Number of Risk Factors 2 08/16/24 09:41 PONV Score Moderate Risk 08/16/24 09:41 Height & Weight Height & Weight: Anesthesia: Height & Weight Height 5 ft 08/21/24 07:50 Weight: 59 kg 08/21/24 07:50 Body Mass Index (BMI) 25.4 08/21/24 07:50 Respiratory Assessment Respiratory Assessment - activities coordinator: Respiratory Tract Infection Hx - activities coordinator Hx Respiratory Tract Infection No 08/16/24 09:41 STOP Sleep Apnea STOP Sleep Apnea - activities coordinator: STOP Sleep Apnea - activities coordinator Hx Hypertension Yes: CONTROLLED WITH MED 08/16/24 09:41 Hx Sleep Apnea No 08/16/24 09:41 CPAP BIPAP Do you snore loudly (louder No 08/16/24 09:41 than talking or can be heard Do you often feel tired/ No 08/16/24 09:41 fatigued/ sleepy during daytime? Has anyone observed you stop No 08/16/24 09:41 breathing during sleep? STOP Results Negative 08/16/24 09:41 QUESTION #5 FULL TEXT : Do you snore loudly (louder than talking or can be heard through closed doors)? 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 Specify any problems Hx of Preganancy in last 3 No 08/16/24 09:41 Months Nurse Filling Out Transfusion DSCHRIBER 08/16/24 09:41 & Questions: Date: 08/16/24 08/16/24 09:41 Time: 09:43 08/16/24 09:41 Patient unable to answer at this time (ie. confused, unrespo /Reproduction History /Reproductive History - activities coordinator: /Reproductive Hx- activities coordinator Hx Now No 08/16/24 09:41 Gestational Age (in weeks): EDC: Hx Hx Para Hx Section SAB No 08/16/24 09:41 PFSH Medical History Hx of fracture of wrist Osteoporosis Wears hearing aid Wears glasses Post-menopausal Depression Anxiety Arthritis Non-smoker Shortness of breath on exertion History of edema History of stress test Cardiology follow-up encounter Hypertension Hemorrhoids Home Medications ?Medication ?Instructions ?Recorded ?Last Taken ?Type cholecalciferol (vitamin D3) 50 50 mcg PO DAILY 03/07/22 History mcg (2,000 unit) capsule (Vitamin D3) vit C 250 mg-vit E 90 mg-zinc 40 1 tab PO BID 03/07/22 03/07/22 History mg-copper 1 [id number] capsule (PreserVision AREDS-2) Prolia 60 mg/mL subcutaneous 60 mg subcut [id number] #1 mL 07/28/23 Unknown Rx syringe (denosumab) amlodipine 2.5 mg tablet 2.5 mg PO QHS 06/12/24 Unkno wn History Allergy/AdvReac Type Severity Reaction Status Date / Time Penicillins (PCN) Allergy Rash Verified 08/16/24 09:39 adhesive AdvReac unknown Verified 08/16/24 09:39 alendronate sodium AdvReac GI Upset Verified 08/16/24 09:39 ciprofloxacin (From Cipro) AdvReac blurred Verified 08/16/24 09:39 vision latex AdvReac rash Verified 08/16/24 09:39 risedronate sodium (From AdvReac GI Upset Verified 08/16/24 09:39 Actonel) sulfamethoxazole (From AdvReac GI Upset Verified 08/16/24 09:39 Septra) trimethoprim (From Septra) AdvReac GI Upset Verified 08/16/24 09:39 venlafaxine (From Effexor) AdvReac Unknown Verified 08/16/24 09:39 Family History Brother CAD (coronary artery disease) stents, PPM Hypertension Father Heart disease Brother Hypertension Mother Colon cancer Surgical History Hx of colonoscopy History of tonsillectomy History of open reduction and internal fixation (ORIF) procedure History of cataract surgery Social History Smoking Status: Never smoker alcohol intake: current alcohol intake frequency: a few times a week Alcohol type: wine substance use type: does not use caffeine: Yes Type: coffee what type of physical activity do you participate in: bicycling Review of Systems (Anesthesia) ROS Narrative System reviewed and no additional complaints, except as documented.
--- NOTE | 2024-08-21 08:30 | COLBX_PTH ---
PATIENT: ELIDIA DREW LOC: EN U#:[id number] AGE/SX: 84/F ROOM: RE08/21/[address]: Dr. Hussein Dawson DO : 1940 BED: DIS: 08/21/2024 SPEC #: [id number] RECD: 08/21/24 09:42 STATUS: TOMASZ REJoseluis #: [id number] ALLAN: 08/21/24 08:[address]: Hussein Dawson DEPT: SURGICAL PATHOLOGY RECD BY: Chacha Moore ENTERED: 08/21/24 10:33 SP TYPE: COLON BX OTHR DR: Dr. Kendell Whatley MD Tissues: A - Sigmoid colon biopsy B - COLON BIOPSY C - Cecum, NOS Procedures: Surgery Specimen Level IV HEADER OPERATION: Colonoscopy with polypectomy, biopsy PRE-OP DIAGNOSIS: Personal history of colonic polyps, family history of colon cancer in mother TISSUE SUBMITTED: A- Sigmoid polyp, B- Hepatic flexure polyp biopsy, C- Cecum polyp MICROSCOPIC DIAGNOSIS A. Sigmoid Colon, Polyp, Biopsy: - Tubular adenoma. B. Colon, Hepatic Flexure, Polyp, Biopsy: - Superficial hyperplastic change. C. Colon, Cecum, Polyp, Biopsy: - Tubulovillous adenoma, multiple fragments. MICROSCOPIC DESCRIPTION Slides are reviewed. GROSS DESCRIPTION A. Received in formalin in a container labeled with the patient's name, date of , and sigmoid polyp is a 0.3 x 0.3 x 0.3 cm fragment of pate-pink mucosal tissue. Submitted in toto in A1. B. Received in formalin in a container labeled with the patient's name, date of , and Hepatic flexure polyp biopsy is a 0.3 x 0.3 x 0.3 cm fragment of pate-pink mucosal tissue. Submitted in toto in B1. C. Received in formalin in a container labeled with the patient's name, date of , and cecum polyp are multiple pate-pink fragments of disrupted mucosal tissue measuring 2.6 x 1.7 x 0.3 cm in aggregate. Submitted in toto in C1. SB 08/21/2024 CPT:30152a9
--- NOTE | 2024-08-21 09:29 | OP.COLON_ITS ---
Patient Name: Maggie Stephens Procedure Date: 08/21/2024 8:37 AM Date of : 1940 Age: 84 Procedure: Colonoscopy Indications: High risk colon cancer surveillance: Personal history of colonic polyps Providers: Hussein Dawson DO Referring MD: Kendell Whatley Medicines: Monitored Anesthesia Care Patient Profile: This is an 84 year old female. Refer to note in patient chart for documentation of history and physical. Last Colonoscopy: 1 year ago. Complications: No immediate complications. Procedure: Pre-Anesthesia Assessment: - Prior to the procedure, a History and Physical was performed, and patient medications and allergies were reviewed. The patient is competent. The risks and benefits of the procedure and the sedation options and risks were discussed with the patient. All questions were answered and informed consent was obtained. Patient identification and proposed procedure were verified by the physician in the pre-procedure area. Mental Status Examination: alert and oriented. Airway Examination: normal oropharyngeal airway and neck mobility. Respiratory Examination: clear to auscultation. CV Examination: normal. ASA Grade Assessment: II - A patient with mild systemic disease. After reviewing the risks and benefits, the patient was deemed in satisfactory condition to undergo the procedure. The anesthesia plan was to use monitored anesthesia care (MAC). Immediately prior to administration of medications, the patient was re-assessed for adequacy to receive sedatives. The heart rate, respiratory rate, oxygen saturations, blood pressure, adequacy of pulmonary ventilation, and response to care were monitored throughout the procedure. The physical status of the patient was re-assessed after the procedure. After I obtained informed consent, the scope was passed under direct vision. Throughout the procedure, the patient's blood pressure, pulse, and oxygen saturations were monitored continuously. The Colonoscope was introduced through the anus and advanced to the cecum, identified by appendiceal orifice and ileocecal valve. The colonoscopy was performed without difficulty. The patient tolerated the procedure well. The quality of the bowel preparation was adequate. The ileocecal valve, appendiceal orifice, and rectum were photographed. Scope In: 8:48:50 AM Scope Withdrawal Time 0 hours 15 minutes 10 seconds Scope Out: 9:22:46 AM Total Procedure Duration Time 0 hours 33 minutes 56 seconds Findings: The perianal and digital rectal examinations were normal. Multiple small and large-mouthed diverticula were found in the recto-sigmoid colon, sigmoid colon, descending colon and hepatic flexure. Two sessile polyps were found in the sigmoid colon and hepatic flexure. The polyps were 6 mm in size. These polyps were removed with a jumbo cold forceps. Resection and retrieval were complete. Verification of patient identification for the specimen was done. Estimated blood loss was minimal. Three sessile polyps were found in the ascending colon and cecum. The polyps were 1 to 2 mm in size. These polyps were removed with a hot snare. Resection and retrieval were complete. Verification of patient identification for the specimen was done. Estimated blood loss was minimal. The exam was otherwise without abnormality on direct and retroflexion views. Impression: - Diverticulosis in the recto-sigmoid colon, in the sigmoid colon, in the descending colon and at the hepatic flexure. - Two 6 mm polyps in the sigmoid colon and at the hepatic flexure, removed with a jumbo cold forceps. Resected and retrieved. - Three 1 to 2 mm polyps in the ascending colon and in the cecum, removed with a hot snare. Resected and retrieved. - The examination was otherwise normal on direct and retroflexion views. Recommendation: - Discharge patient to home. - Resume previous diet. - Continue present medications. - Await pathology results. - Repeat colonoscopy. Procedure Code(s): --- Professional --- 35043, Colonoscopy, flexible; with removal of tumor(s), polyp(s), or other lesion(s) by snare technique 80430, 59, Colonoscopy, flexible; with biopsy, single or multiple CPT copyright 2021 [employer]. All rights reserved. The codes documented in this report are preliminary and upon slabber light review may be revised to meet current compliance requirements. Hussein Dawson DO 08/21/2024 9:28:49 AM This report has been signed electronically. Number of Addenda: 0 Note Initiated On: 08/21/2024 8:37 AM
--- NOTE | 2024-08-21 09:29 | OP.CCLET_ITS ---
08/21/2024 Kendell Whatley [address] [place] [address] Re : Colonoscopy procedure for Maggie Stephens Dear Dr. Whatley This procedure was performed on Wednesday, August 21, 2024. My impressions and recommendations are as follows: Impressions : - Diverticulosis in the recto-sigmoid colon, in the sigmoid colon, in the descending colon and at the hepatic flexure. - Two 6 mm polyps in the sigmoid colon and at the hepatic flexure, removed with a jumbo cold forceps. Resected and retrieved. - Three 1 to 2 mm polyps in the ascending colon and in the cecum, removed with a hot snare. Resected and retrieved. - The examination was otherwise normal on direct and retroflexion views. Recommendations : - Discharge patient to home. - Resume previous diet. - Continue present medications. - Await pathology results. - Repeat colonoscopy. My findings are described in the full procedure note, which is enclosed. If I can be of further assistance, please feel free to contact me at . Sincerely, Hussein Dawson DO 08/21/2024 9:28:49 AM This report has been signed electronically.
--- NOTE | 2024-08-21 09:33 | PCM.POST.ANE ---
Anesthesia: Postop Eval I Current Vital Signs Temperature: 97 F Pulse Rate: 67 Blood Pressure: 103/62 Respiratory Rate: 16 Pulse Ox: 100 Oxygen Delivery Method: Room Air Assessment Airway patent: Yes Spontaneous unlabored respirations: Yes Mental status: Awake and Calm nausea: No Vomiting: No Anesthesia Complication: No Fluid Hydration Crystalloid volume administer (ml): 60 Total IV fluid infused: 60 Progress Note Anesthesia document: Postop Eval 1 completed: Yes
--- NOTE | 2024-08-21 09:42 | PCM.POSTANE2 ---
Anesthesia Postop Eval I Sum Postop Eval Completion status Anesthesia document: Postop Eval 1 completed: Yes Anesthesia Postop Eval I Summary Anesthesia Postop Eval I Summary: Anesthesia Postop Eval I: Assessment Summary Airway patent Yes 08/21/24 09:34 [email or web address] Spontaneous unlabored Yes 08/21/24 09:34 [email or web address] respirations Mental status Awake,Calm 08/21/24 09:34 [email or web address] nausea No 08/21/24 09:34 [email or web address] Vomiting No 08/21/24 09:34 [email or web address] Anesthesia Postop Eval I: Fluid Summary Crystalloid volume administer 60 08/21/24 09:34 [email or web address] (ml) Colloids volume administered ( ml) Blood Product volume administered (ml) Total IV fluid infused 60 08/21/24 09:34 [email or web address] Anesthesia Postop Eval I: Summary Notes Anesthesia Complication No 08/21/24 09:34 [email or web address] Anesthesia Complication Comment: Post-operative progress note Anesthesia: Postop Eval II Evaluation Mental status: Awake Pain Level: 0 nausea: No Vomiting: No
== END 2024-08-21 10:40 | disposition home or self-care (01) ==
LOC: EN 07:27 → AC 07:28
PROVIDERS: PCP Family Medicine; Referring Provider Family Medicine; Visit Provider Internal Medicine Gastroenterology
PROC: 0DJD8ZZ Inspection of Lower Intestinal Tract, Via Natural or Artificial Opening Endoscopic (ICD-10-PCS; CPT 45378; principal; 2024-08-21 08:25)
DX: Z12.11 Encounter for screening for malignant neoplasm of colon (principal); K63.5 Polyp of colon; K57.30 Diverticulosis of large intestine without perforation or abscess without bleeding; Z86.0100 Personal history of colon polyps, unspecified; I10 Essential (primary) hypertension; Z79.899 Other long term (current) drug therapy; Z83.719 Family history of colon polyps, unspecified; D12.0 Benign neoplasm of cecum
CPT/HCPCS: 45385; 45380; 88305; C1889; A4216; J2405

== ENCOUNTER → 2024-10-02 | Outpatient (CLI) | payer MEDICARE, SELFPAY ==
--- NOTE | 2024-10-02 16:27 | RAD_ITS ---
PROCEDURE: CERV SPINE 4 OR 5 VIEWS 10/02/2024 REASON FOR EXAM: CERVICALGIA TECHNIQUE: 5 views of the cervical spine. COMPARISON: Cervical spine radiograph from 07/26/2023. FINDINGS: There is mild chronic loss of the cervical vertebral body heights. There is straightening of the cervical lordosis. There is levoscoliosis of the cervical spine. Advanced multilevel degenerative changes are present with disc space narrowing and endplate spurring. No acute fracture or subluxation is present. There is mild anterolisthesis of C7-T1 on a chronic basis. Prevertebral soft tissues are unremarkable. Multilevel facet arthropathy is present. Multilevel neural foraminal narrowing is identified. Odontoid process is intact. Lateral masses align. There is diminished bone mineralization. RAD/Cerv Spine 4 or 5 Views IMPRESSION: 1. No acute osseous abnormality. 2. Multilevel advanced degenerative changes with neural foraminal narrowing. I f clinical concern for radiculopathy, MRI is a more sensitive exam. 3. Levoscoliosis. Disclaimer: Reading Location: [facility]
== END | disposition home or self-care (01) ==
LOC: MTRAD 16:23
PROVIDERS: PCP Family Medicine
DX: M54.2 Cervicalgia (principal)
CPT/HCPCS: 72050

== ENCOUNTER → 2025-01-09 | Outpatient (CLI) | payer MEDICARE, SELFPAY ==
--- NOTE | 2025-01-09 11:06 | MRI_ITS ---
PROCEDURE: SPINE CERVICAL (ROUTINE) 01/09/2025 REASON FOR EXAM: CERVICAL SPONDYLOSIS TECHNIQUE: SPINE CERVICAL (ROUTINE) Multiplanar and multisequence images were obtained without IV contrast administration. FINDINGS: There is diffuse cervical spondylosis with grade 1 subluxation of C7 upon T1 but there is no compression fracture. There is no Chiari deformity. At C2-3, central protrusion results in moderate spinal stenosis without abnormal cord signal. There is moderate flattening of the spinal cord without myelomalacia. At C3-4, moderate spinal stenosis with cord flattening but no myelomalacia. Severe left C4 foraminal stenosis from uncinate spur. At C4-5, mild canal narrowing with severe kjlaq-nyrorbe-yuxa-left C5 foraminal narrowing from bony uncinate spurs. At C5-6 moderate to severe spinal stenosis with cord flattening and subtle myelomalacia. Severe right C6 foraminal stenosis. At C6-7 mild canal narrowing and mild bilateral foraminal narrowing from disc bulge and osteophytic spur At C7-T1 a central protrusion abuts the ventral cord. There is asymmetric moderate to severe narrowing of the right C8 neural foramen. MRI/Spine Cervical (Routine) IMPRESSION: 1. Moderate to severe spinal stenosis at C5-6 with subtle myelomalacia. 2. Moderate spinal stenosis at C2-3 and C3-4 with cord flattening but no defini te myelomalacia. 3. Multilevel significant foraminal stenosis which is outlined above Reading Location[facility]
== END | disposition home or self-care (01) ==
PROVIDERS: PCP Family Medicine; Referring Provider Anesthesiology; Visit Provider Anesthesiology
DX: M47.812 Spondylosis without myelopathy or radiculopathy, cervical region (principal)
CPT/HCPCS: 72141

== ENCOUNTER → 2025-04-16 | Outpatient (CLI) | payer MEDICARE, SELFPAY ==
--- NOTE | 2025-04-16 12:32 | BD_ITS ---
PROCEDURE: DEXA BONE DENSITY STUDY 04/16/2025 REASON FOR EXAM: F, age 85 y/o . Postmenopausal. TECHNIQUE: Procedure Code: BDDBD Modality: DX Procedure: DEXA BONE DENSITY STUDY COMPARISON: DEXA examination dated 02/03/2022 FINDINGS: BMD and T-SCORES Lumbar spine: 0.729 g/cm2, T-score -2.6 Levels: L1 through L4 Left femoral neck: 0.557 g/cm2, T-score -2.6 Left total hip: 0.630 g/cm2, T-score -2.6 There has been a significant increase in the bone mineral density of the left hip by 6.2% since the prior study dated 02/03/2022. Right femoral neck: 0.544 g/cm2, T-score -2.7 Right total hip: 0.645 g/cm2, T-score -2.4 There has been a significant increase in the bone mineral density of the right hip by 8.8% since the prior study dated 02/03/2022 The World Health Organization has defined the following categories based on bone density: Normal bone density: T-score equal to or greater than -1.0 Osteopenia: T-score between -1.0 and -2.5 Osteoporosis: T-score equal to or less than -2.5 FRAX (or Comparable) Fracture Risk Assessment: 10 Year Probability of Fracture: Major Osteoporotic Fracture: 28% Hip Fracture: 9.6% (Note: FRAX is not to be reported in setting of normal range bone density, osteoporosis on DEXA, known history of osteoporosis, prior osteoporotic hip or vertebral fracture, or for any patient undergoing pharmacological treatment for bone loss.) The National Osteoporosis Foundation (NOF) recommends pharmacological treatment for patients with a FRAX 10-year risk of 3% or higher for a hip fracture, or 20% or higher for a major osteoporotic fracture, to prevent osteoporosis and reduce fracture risk. The patient does meet the pharmacological treatment recommendations for prevention of osteoporosis. BD/Dexa Bone Density Study IMPRESSION: OSTEOPOROSIS. Recommend follow-up as clinically warranted. Reading Location: [id number]
--- OUTSIDE RECORDS SUMMARY | 2025-04-16 12:51 | XMS RPT_ITS | CCD ---
Author Organization [facility] Care Team Providers Care Bush Regenerator Name Role Phone Christophe Lees MD Unavailable Barbra Martin Unavailable Unavailable Ivelisse CID, Louie Marks Unavailable Dr. Emi Whatley Primary Care Provider Dr. Félix Stevenson Referring Provider Dr. Félix Stevenson Other Provider Dr. Cesar Ch Attending Provider Dr. Emi Whatley Referring Provider Nabeel, Dr. Christophe Mcnamara Attending Provider Nabeel, Dr. Christophe Mcnamara Other Provider Emi Whatley Primary Care Provider Dr. Emi Whatley Primary Care Provider Dr. Emi Whatley Referring Provider Dr. Christophe Lees Attending Provider Dr. Christophe Lees Other Provider Dr. Elfego Davila Attending Provider Dr. Emi Whatley Primary Care Provider Dr. Emi Whatley Referring Provider Nabeel, Dr. Christophe Mcnamara Attending Provider Dr. Christophe Lees Referring Provider Dr. Emi Whatley Primary Care Provider Dr. Emi Whatley Referring Provider Dr. Elfego Davila Attending Provider Cebul, Dr. Christophe Mcnamara Attending Provider Cebul, Dr. Christophe Mcnamara Referring Provider Dr. Emi Whatley Primary Care Provider Dr. Emi Whatley Referring Provider Cebul, Dr. Christophe Mcnamara Attending Provider Emi Whatley MD Primary Care Provider Dr. Emi Whatley Primary Care Provider Cebul, Dr. Christophe Mcnamara Attending Provider Cebul, Dr. Christophe Mcnamara Referring Provider Dr. Emi Whatley Referring Provider Cebul, Dr. Christophe Mcnamara Other Provider Dr. Emi Whatley Primary Care Provider Cebul, Dr. Christophe Mcnamara Attending Provider Cebul, Dr. Christophe Mcnamara Referring Provider Dr. Emi Whatley Referring Provider Cebul, Dr. Christophe Mcnamara Other Provider Emi Whatley MD Primary Care Provider Dr. Emi Whatley MD Primary Care Provider Dr. Juwan Sarabia MD Attending Provider Dr. Juwan Sarabia MD Referring Provider Phylicia CID, Dr. Emi Urbina Attending Provider Dr. Emi Whatley MD Referring Provider Gema Pro Attending Provider Anabel CID, Dr. Milagros Fisher Attending Provider [phone] Anabel CID, Dr. Milagros Fisher Referring Provider Eunice VILLEGAS, Dr. Savage Attending Provider Eunice VILLEGAS, Dr. Savage Other Provider Phylicia CID, Dr. Emi Urbina Primary Care Provider Phylicia CID, Dr. Emi Urbina Referring Provider Phylicia CID, Dr. Emi Urbina Attending Provider King PALAK, Dr. Telles Attending Provider [facility] METALLOGRAPHY TEACHER-C, Cain Attending Provider [facility] METALLOGRAPHY TEACHER-C, Cain Referring Provider [phone] PHYLICIA, EMI E Referring Unavailable SCHINNER, EMI E Primary Care Unavailable GOLIAS, YUNG Attending Unavailable SCHINNER, EMI E Referring Unavailable SCHINNER, EMI E Primary Care Unavailable GOLIAS, YUNG Attending Unavailable SCHINNER, EMI E Referring Unavailable SCHINNER, EMI E Primary Care Unavailable GOLIAS, YUNG Attending Unavailable SCHINNER, EMI E Referring Unavailable SCHINNER, EMI E Primary Care Unavailable GOLIAS, YUNG Attending Unavailable SCHINNER, EMI E Referring Unavailable SCHINNER, EMI E Primary Care Unavailable GOLIAS, YUNG Attending Unavailable SCHINNER, EMI E Referring Unavailable SCHINNER, EMI E Primary Care Unavailable GOLIAS, YUNG Attending Unavailable SCHINNER, EMI E Referring Unavailable SCHINNER, EMI E Primary Care Unavailable GOLIAS, YUNG Attending Unavailable SCHINNER, EMI E Referring Unavailable SCHINNER, EMI E Primary Care Unavailable SCHINNER, EMI E Referring Unavailable SCHINNER, EMI E Primary Care Unavailable Phylicia CID, Dr. Emi Urbina Primary Care Provider Phylicia CID, Dr. Emi Urbina Referring Provider Geremias METALLOGRAPHY TEACHER-CGema Attending Provider Wiliam CID, Dr. Up Attending Provider Dr. Jeovanny Swain MD Referring Provider Phylicia CID, Dr. Emi Urbina Primary Care Physician Wiliam CID, Dr. Up Attending Physician Phylicia CID, Dr. Emi Urbina Referring Provider Elmer CID, Dr. Wiley Attending Physician Hammad CID, Dr. Chong Attending Physician King PALAK, Dr. Telles Attending Physician Schinner, Emi E Referring Unavailable Schinner, Emi E Attending Unavailable Schinner, Emi E Primary Care Unavailable Schinner, Emi E Primary Care Unavailable McMorrow METALLOGRAPHY TEACHER, Cain Referring Unavailable McMorrow METALLOGRAPHY TEACHER, Cain Attending Unavailable Schinner, Emi E Primary Care Unavailable Schinner, Emi E Referring Unavailable Elfego Davila Attending Unavailable Schinner, Emi Ciara Primary Care Unavailable Schinner, Emi Urbina Referring Unavailable Gema Archuleta Attending Unavailable Schinner, Emi E Primary Care Unavailable Schinner, Emi E Referring Unavailable Hussein Dawson Attending Unavailable Hussein Dawson Consulting Unavailable Schinner, Emi E Primary Care Unavailable Saurabh Payne Attending Unavailable Schinner, Emi Urbina Referring Unavailable Schinner, Emi E Primary Care Unavailable Castillo Cueva Attending Unavailable Elfego Davila Attending Unavailable Schinner, Emi E Primary Care Unavailable Schinner, Emi E Referring Unavailable Schinner, Emi E Primary Care Unavailable Schinner, Emi E Referring Unavailable Gema Archuleta Attending Unavailable Jeovanny Swain Referring Unavailable Jeovanny Swain Attending Unavailable Schinner, Emi E Primary Care Unavailable Schinner, Emi E Primary Care Unavailable CornellJuwan Referring Unavailable CornellJuwan Attending Unavailable Schinner Emi E Attending Unavailable Schinner, Emi E Primary Care Unavailable Schinner, Emi E Referring Unavailable SchinnerEmi E Attending Unavailable Schinner, Emi E Primary Care Unavailable Schinner, Emi E Referring Unavailable Schinner, Emi E Primary Care Unavailable Milagros Little S Referring Unavailable Milagros Little Attending Unavailable Schinner, Emi E Primary Care Unavailable Schinner, Emi E Referring Unavailable Hussein Dawson Attending Unavailable Schinner, Emi E Attending Unavailable Schinner, Emi E Primary Care Unavailable Schinner, Emi E Referring Unavailable Allergies Allergy Classification Reported Allergen(s) Allergy Type Date of Onset Reaction(s) Facility (20 sources) Latex; Translations: [LATEX] drug allergy 10-21-19 10 rash [facility] Work Phone: (2 sources) Penicillins (Antibiotic) drug allergy 01-31-20 17 rash [facility] Work Phone: (1 source) Adhesive Tape; Translations: [TAPE] allergy to substance 05-11-20 [facility] Work Phone: (1 source) Penicillin G Drug Allergy 05-11-20 [facility] Work Phone: (20 sources) Adhesive agent; Translations: [adhesive] Propensity to adverse reactions 03-17-20 21 unknown [facility] (20 sources) Alendronate Drug Allergy 03-17-20 21 GI Upset [facility] (20 sources) Ciprofloxacin Drug Allergy 03-17-20 21 blurred vision [facility] (20 sources) Penicillins; Translations: [PENICILLINS] Allergy to substance 11-16-19 07 [facility] Work Phone: (20 sources) Risedronate Drug Allergy 03-17-20 21 GI Upset [facility] (20 sources) Sulfamethoxazole Drug Allergy 03-17-20 21 GI Upset [facility] (20 sources) Trimethoprim Drug Allergy 03-17-20 21 GI Upset [facility] (20 sources) venlafaxine Drug Allergy 03-17-20 21 Unknown [facility] (1 source) Alendronate Drug Allergy 02-29-20 25 [facility] Repository (1 source) Ciprofloxacin Drug Allergy 02-29-20 25 [facility] Rep[facility] (1 source) Risedronate Drug Allergy 02-29-20 25 [facility] Repository (1 source) Sulfamethoxazole Drug Allergy 02-29-20 25 [facility] Repository (1 source) Trimethoprim Drug Allergy 02-29-20 25 [facility] Repository (1 source) venlafaxine Drug Allergy 02-29-20 25 [facility] Repository Medications Current Medications Medication Drug Class(es) Dates Sig (Normalized) Sig (Original) amLODIPine 2.5 mg oral tablet (20 sources) Dihydropyridine Calcium Channel Alma Start: 06-12-2024 take 1 tablet by mouth at bedtime Start: 03-28-2022 take 1 tablet by lazara once daily at bedtime amLODIPine (NORVASC) 5 mg tablet Take 5 mg by mouth daily at bedtime. 03/28/2022 Active Start: 02-17-2022 End: 04-20-2023 take 2 tablets by mouth at bedtime Amlodipine 2.5 mg tablet Discontinued 5 mg PO AT BEDTIME February 17, 2022 8:49am April 20, 2023 2:10pm Start: 02-17-2022 End: 04-20-2023 take 5 mg by mouth at bedtime Amlodipine Discontinued 5 MG PO AT BEDTIME February 17, 2022 8:49am April 20, 2023 2:10pm Start: 03-17-2021 End: 02-17-2022 take 1 tablet by mouth once daily Amlodipine 2.5 mg tablet Discontinued 2.5 mg PO DAILY March 17, 2021 12:00am February 17, 2022 8:49am Comment on above: Take 5 mg by mouth d aily at bedtime. cholecalciferol 0.05 mg oral capsule (20 sources) Vitamin D Start: 03-07-2022 take 1 capsule by mouth once daily Start: 05-11-2020 VITAMIN D3 TAB S 1 tablet daily CHOLECALCIFEROL TABS [id number] Sasha Russo LPN Start: 04-29-2019 End: 02-17-2022 take 1 capsule by mouth once daily Cholecalciferol (Vitamin D3) 2,000 UNIT capsule Discontinued 2000 U PO DAILY April 29, 2019 1:00am February 17, 2022 8:49am supplement Start: 12-20-2011 take 1 capsule by [facility] once daily Cholecalciferol, Vitamin D3, 1,000 unit cap Take 1 capsule by mouth once daily. 0 12/20/2011 Active Comment on above: Take 1 capsule by [facility] once daily. 1 ml denosumab 60 mg/ml prefilled syringe (20 sources) RANK Ligand Inhibitor Start: 3 End: 4 therapeutic multivitamin ORAL Tab (17 sources) Start: 7 take 1 tablet by mouth once daily therapeutic multivitamin ORAL Tab Take one(1) tablet daily. 0 11/15/2006 Active Comment on above: Take one(1) tablet d aily. vit C,F-Nf-dxcxk-lutein-ze axan (PRESERVISION AREDS-2) 250-90-40-1 mg (12 sources) Start: vit C,C-Bs-jfita-lutein-z eaxan (PRESERVISION AREDS-2) 250-90-40-1 mg 08/03/2018 Active Start: 08-03-2018 vit C,E-Zn-atomic spectroscopist ij-kdhcst-insqrz (PRESERVISION AREDS-2) 250-90-40-1 mg Vit C,Z-Nf-Sxgql-Lutein-Zeax an (Preservision Areds-2) 250-90-40-1 mg Capsule (17 sources) Start: 03-07-2022 take 2 capsules by mouth twice daily Start: 03-07-2022 take 2 capsules by m outh twice daily Vit C,U-Zb-Teqpd-Lutein-Zeaxan (Preservision Areds-2) 250-90-40-1 mg Capsule Active 1 {tbl} PO TWICE A DAY March 07, 2022 12:00am Start: 03-07-2022 Vit C,E-Zn-Adoption Coordinator ca-Khvykx-Txfnmj (Preservision Areds-2) 250-90-40-1 mg Capsule Active 1 TABLET PO TWICE A DAY March 06, 2022 11:00pm Start: 03-07-2022 Vit C,E-Zn-Adoption Coordinator nb-Yixkss-Ixgpna (Preservision Areds-2) 250-90-40-1 mg Capsule Active 1 TABLET PO TWICE A DAY March 07, 2022 12:00am Completed/Discontinued Medications Medication Drug Class(es) Dates Sig (Normalized) Sig (Original) ACETAMINOPHEN TABS (1 source) Start: 05-11-2020 TYLENOL TABS as directed as needed ACETAMINOPHEN TABS [id number] Sasha Russo LPN acetaminophen 325 mg / oxyCODONE hydrochloride 5 mg oral tablet (7 sources) Opioid Agonist Start: 02-02-2024 End: 06-12-2024 Oxycodone-Acetamino phen 5-325 mg tablet Discontinued 1 {tbl} PO EVERY 6 HOURS NEEDED as needed for pain 5 February 02, 2024 June 12, 2024 3:13pm Closed nondisplaced fracture of ulnar styloid with routine healing ascorbic acid 1000 mg oral tablet (20 sources) Start: 01-30-2017 take 1 tablet by mouth once daily VITAMIN C CAPS One tablet by mouth daily ASCORBIC ACID CAPS [id number] Christophe Lees MD Start: 01-30-2017 take 1 tablet by lazara th once daily VITAMIN C CAPS One tablet by mouth daily ASCORBIC ACID CAPS [id number] Christophe Lees MD Start: 11-15-2006 End: 03-26-2019 take 1 tablet by mouth once daily Ascorbic Acid (Vitamin C) 1,000 MG tablet Discontinued 1000 mg PO DAILY February 15, 2017 12:00am March 26, 2019 6:47pm Comment on above: Take one(1) tablet d aily. ascorbic acid 113 mg / copper gluconate 0.4 mg / docosahexaenoic acid 87.5 mg / eicosapentaenoic acid 163 mg / lutein 2.5 mg / tocopherol acetate 100 unt / zeaxanthin 0.5 mg / zinc oxide 17.4 mg oral capsule (1 source) Vitamin C Start: 05-11-20 20 PRESERVISION AREDS 2 CAPS 1 capsule daily MULTIPLE VITAMINS-MINERALS [id number] Sasha Russo LPN aspirin 81 mg delayed release oral tablet (20 sources) Platelet Aggregation Inhibitor, Nonsteroidal Anti-inflammatory Drug Start: 02-16-20 17 End: 03-26-20 19 take 1 tablet by mouth every week Aspirin 81 MG tablet,delayed release (DR/EC) Discontinued 81 mg PO EVERY WEEK February 15, 2017 12:00am March 26, 2019 6:47pm Start: 12-20-2011 take 1 tablet by lazara once daily as needed aspirin, enteric coated (ECOTRIN LOW STRENGTH) 81 mg EC tablet Take 1 tablet by mouth once daily. as needed 0 12/20/2011 Active Comment on above: Take 1 tablet by lazara once daily. as needed clobetasol propionate 0.5 mg/ml topical cream (20 sources) Corticosteroid Start: 03-26-2019 End: 03-27-2019 Clobetasol 0.05 % cream Discontinued 1 NMA TOPICAL DAILY March 26, 2019 1:00am March 27, 2019 11:22am L.Acidoph, Paracasei,B. Lactis (13 sources) Start: 02-15-2017 End: 03-26-2019 L.Acidoph, Paracasei,B. Lactis Discontinued 1 EACH PO DAILY February 14, 2017 11:00pm March 26, 2019 5:47pm Start: 02-15-2017 End: 03-26-2019 L.Acidoph, Paracasei,B. Lact is Discontinued 1 EACH PO DAILY February 15, 2017 12:00am March 26, 2019 6:47pm L.Acidoph,Paracasei,B.Animal is 1 EACH capsule (7 sources) Start: 02-15-2017 End: 03-26-2019 take 1 capsule by mouth once daily L.Acidoph,Paracasei,B.Animalis 1 EACH capsule Discontinued 1 NMA PO DAILY February 15, 2017 12:00am March 26, 2019 6:47pm MULTIPLE VITAMINS-MINERALS (2 sources) Start: 01-30-2017 take 1 tablet by mouth once daily DAILY MULTIVITAMIN CAPS One tablet by mouth daily MULTIPLE VITAMINS-MINERALS [id number] Christophe Lees MD Start: 01-30-2017 take 1 tablet by lazara th once daily PRESERVISION AREDS 2 CAPS One tablet by mouth daily MULTIPLE VITAMINS-MINERALS [id number] Christophe Lees MD MULTIPLE VITAMINS-MINERALS (1 source) Start: 01-30-2017 take 1 tablet by mouth once daily DAILY MULTIVITAMIN CAPS One tablet by mouth daily MULTIPLE VITAMINS-MINERALS [id number] Christophe Lees MD MULTIPLE VITAMINS-MINERALS (1 source) Start: 01-30-2017 take 1 tablet by mouth once daily PRESERVISION AREDS 2 CAPS One tablet by mouth daily MULTIPLE VITAMINS-MINERALS [id number] Christophe Lees MD Jqgrwshj-Dap-Kh-Herbal No.245 (13 sources) Start: 04-29-2019 End: 02-17-2022 take 1 tablet by mouth once daily Egsmkpcl-Zig-Iq-Herbal No.245 Discontinued 1 TABLET PO DAILY April 29, 2019 12:00am February 17, 2022 7:49am Start: 04-29-2019 End: 02-17-2022 take 1 tablet by mouth once daily Snnocifl-Zuz-Oz-Herbal No.245 Discontinued 1 TABLET PO DAILY April 29, 2019 1:00am February 17, 2022 8:49am Start: 04-29-2019 take 1 tablet by lazara th once daily Qwairpoo-Imk-Kb-Herbal No.245 Active 1 TABLET PO DAILY April 29, 2019 1:00am Llqgresv-Yrs-Hy-Herbal No.245 1 EACH tablet,chewable (7 sources) Start: 04-29-2019 End: 02-17-2022 take 1 tablet by mouth once daily Khofqnzo-Feg-Ov-Herbal No.245 1 EACH tablet,chewable Discontinued 1 {tbl} PO DAILY April 29, 2019 1:00am February 17, 2022 8:49am supplement Start: 04-29-2019 End: 02-17-2022 take 1 tablet by mouth once daily Klmdrwtz-Ofp-Ge-Herbal No.245 1 EACH tablet,chewable Discontinued 1 {tbl} PO DAILY April 29, 2019 1:00am February 17, 2022 8:49am Multivitamin (Daily Multi-Vitamin) tablet (16 sources) Start: 06-07-2022 End: 08-16-2024 Multivitamin (Daily Multi-Vitamin) tablet Discontinued 1 {tbl} PO DAILY June 07, 2022 1:00am August 16, 2024 9:40am Start: 06-07-2022 Multivitamin ( Daily Multi-Vitamin) tablet Active 1 {tbl} PO DAILY June 07, 2022 1:00am Start: 06-07-2022 take 1 tablet by lazara th once daily Multivitamin (Daily Multi-Vitamin) tablet Active 1 TABLET PO DAILY June 07, 2022 1:00am Start: 06-07-2022 take 1 tablet by lazara th once daily Multivitamin (Daily Multi-Vitamin) tablet Active 1 TABLET PO DAILY June 07, 2022 12:00am naproxen sodium 220 mg oral tablet (1 source) Nonsteroidal Anti-inflammatory Drug Start: 05-11-2020 ALEVE 220 MG TABS as directed as needed NAPROXEN SODIUM [id number] Sasha Russo LPN polyethylene glycol 3350 740775 mg / potassium chloride 2970 mg / sodium bicarbonate 6740 mg / sodium chloride 5860 mg / sodium sulfate 05997 mg powder for oral solution (8 sources) Osmotic Laxative Start: 06-12-2024 End: 08-16-2024 Peg 3350-Electrolytes (Golytely) 236-22.74-6.74 -5.86 gram recon soln Discontinued 240 mL PO Q10M 4000 0 June 12, 2024 1:00am August 16, 2024 9:40am take as directed for split dose bowel prep Start: 10-11-2022 End: 10-11-2022 peg 3350-Electrolytes (GOLYT DAVID) 236-22.74-6.74 -5.86 gram suspension Indications: History of colon polyps Take 4,000 mL by mouth one time only for 1 dose. Refer to printed prep instructions from your provider. 4000 mL 0 10/11/2022 10/11/2022 Comment on above: Take 4,000 mL by lazara th one time only for 1 dose. Refer to printed prep instructions from your provider. saccharomyces boulardii (2 sources) Start: 01-31-20 take 1 tablet by mouth once daily PROBIOTIC 250 MG CAPS One tablet by mouth daily SACCHAROMYCES BOULARDII [id number] Christophe Lees MD Start: 01-30-2017 take 1 tablet by lazara th once daily PROBIOTIC 250 MG CAPS One tablet by mouth daily SACCHAROMYCES BOPAULETTEDII [id number] Christophe Lees MD selenium sulfide 22.5 mg/ml topical foam (20 sources) Start: 03-26-2019 End: 03-27-2019 Selenium Sulfide 2.25 % foam Discontinued 1 NMA TOPICAL TWICE A DAY March 26, 2019 1:00am March 27, 2019 11:22am Vit C,S-Ej-Fpyfv-Lutein-Z eaxan (13 sources) Start: 02-15-2017 End: 02-17-2022 take 1 capsule by mouth twice daily Vit C,F-Ag-Ywmes-Lutein-Zeax an Discontinued 1 CAP PO TWICE A DAY February 14, 2017 11:00pm February 17, 2022 7:49am Start: 02-15-2017 End: 02-17-2022 take 1 capsule by mouth twice daily Vit C,R-Bk-Tnnvg-Lutein-Zeaxan Discontin ued 1 CAP PO TWICE A DAY February 15, 2017 12:00am February 17, 2022 8:49am Start: 02-15-2017 take 1 capsule by mo uth twice daily Vit C,P-Qv-Uxyus-Lutein-Zeaxan Active 1 CAP PO TWICE A DAY February 15, 2017 12:00am Vit C,J-Me-Higxz-Lutein-Zeax an 1 EACH capsule (7 sources) Start: 02-15-2017 End: 02-17-2022 take 1 capsule by mouth twice daily Vit C,W-Mp-Qrlws-Lutein-Zeaxan 1 EACH capsule Discontinued 1 NMA PO TWICE A DAY February 15, 2017 12:00am February 17, 2022 8:49am Problems Active Problems Problem Classification Problem Date Documented Da te Episodic/Chronic Cardiac dysrhythmias (20 sources) Premature atrial contraction; Translations: [Atrial premature depolarization] 03-26-2019 Chronic Diverticulosis and diverticulitis (2 sources) Diverticulitis of colon; Translations: [Diverticulitis of intestine, part unspecified, without perforation or abscess without bleeding] Onset: 7 01-30-2017 Chronic E Codes: Fall (7 sources) Falling injury; Translations: [Unspecified fall, initial encounter] 02-10-2024 Episodic Essential hypertension (20 sources) Essential hypertension; Translations: [Essential (primary) hypertension] Onset: 3 03-17-2021 Chronic Hemorrhoids (20 sources) Internal hemorrhoids; Translations: [Other hemorrhoids] Onset: 0 10-20-2009 Episodic Nutritional deficiencies (1 source) Vitamin D deficiency, unspecified; Translations: [Vitamin D deficiency, unspecified] Onset: 5 Chronic Osteoporosis (17 sources) Age-related osteoporosis without current pathological fracture; Translations: [Osteoporosis, unspecified] Onset: 5 06-07-2022 Chronic Other and unspecified benign neoplasm (20 sources) History of polyp of colon; Translations: [Personal history of colonic polyps] Episodic Other and unspecified benign neoplasm (17 sources) Adenomatous polyp of colon ; Translations: [Benign neoplasm of colon, unspecified] 03-15-2022 Episodic Other and unspecified benign neoplasm (13 sources) Benign neoplasm of colon, unspecified; Translations: [Benign neoplasm of colon] 03-15-2022 Episodic Other bone disease and musculoskeletal deformities (4 sources) Bone density below reference range; Translations: [Disorder of bone density and structure, unspecified] 02-28-2025 Episodic Other gastrointestinal disorders (19 sources) Constipation; Translations: [Constipation, unspecified] Onset: 7 01-30-2017 Episodic Other nervous system disorders (4 sources) Unspecified cord compression; 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] 02-28-2025 Chronic Residual codes; unclassified (18 sources) Family history of malignant neoplasm of gastrointestinal tract; Translations: [Family history of malignant neoplasm of digestive organs] Episodic Spondylosis; intervertebral disc disorders; other back problems (5 sources) Degeneration of cervical intervertebral disc; Translations: [Other cervical disc degeneration, unspecified cervical region] Onset: 5 02-28-2025 Chronic Spondylosis; intervertebral disc disorders; other back problems (20 sources) Neck pain; Translations: [Cervicalgia] Onset: 5 10-29-2024 Episodic Superficial injury; contusion (14 sources) Contusion of face; Translations: [Contusion of other part of head, initial encounter] 02-10-2024 Episodic Unclassified (20 sources) Family history of cancer of colon; Translations: [Family history of malignant neoplasm of digestive organs] Onset: 7 01-30-2017 Episodic Viral infection (1 source) Viral disease; Translations: [Viral infection, unspecified] 09-24-2023 Episodic Past or Other Problems Problem Classification Problem Date Documented Da te Episodic/Chronic Fracture of upper limb (16 sources) Closed fracture of upper end of humerus; Translations: [Fracture of lower end of radius with volar tilt] Onset: 0 05-11-2020 Episodic Gastrointestinal hemorrhage (17 sources) Hemorrhage of rectum and anus; Translations: [Hemorrhage of anus and rectum] Onset: 0 10-20-2009 Episodic Other and unspecified benign neoplasm (19 sources) Benign neoplasm of colon; Translations: [Benign neoplasm of colon, unspecified] Onset: 7 01-30-2017 Episodic Other and unspecified benign neoplasm (10 sources) Personal history of colonic polyps; Translations: [Personal history of colonic polyps] Onset: 5 Episodic Other screening for suspected conditions (not mental disorders or infectious disease) (1 source) Encounter for screening for malignant neoplasm of colon; Translations: [Encounter for screening for malignant neoplasm of colon] Onset: 5 Episodic Residual codes; unclassified (7 sources) Family history of malignant neoplasm of digestive organs; Translations: [Family history of malignant neoplasm of gastrointestinal tract] Onset: 5 Episodic Unclassified (1 source) Problem Urinary tract infections (1 source) Urinary tract infection, site not specified; Translations: [Urinary tract infection, site not specified] Onset: 5 Episodic Results Test Name Value Interpretation Reference Range Facility Office Visit Reporton 2024 Office Visit Report [facility] [address] [place] [address] OFFICE VISIT Date of Service: 03/13/25 MR#: [id number] Acct: [id number] Patient: ELIDIA STEPHENS Rep #: [id number] : 1940 Provider: Jose Hobson Age/Sex: 85/F Location: [facility] [place] Status: Signed Intake Vital Signs 02/28/25 11:03 Height 5 ft Weight: 133 lb BMI 25.9 Intake Visit Reasons: Prolia - B B Chief Complaint: Cervicla spine pain Allergies Penicillins (PCN) Allergy (Verified 02/28/25 11:07) Rash adhesive Adverse Reaction (Verified 02/28/25 11:07) unknown alendronate sodium Adverse Reaction (Verified 02/28/25 11:07) GI Upset ciprofloxacin (From Cipro) Adverse Reaction (Verified 02/28/25 11:07) blurred vision latex Adverse Reaction (Verified 02/28/25 11:07) rash risedronate sodium (From Actonel) Adverse Reaction (Verified 02/28/25 11:07) GI Upset sulfamethoxazole (From Septra) Adverse Reaction (Verified 02/28/25 11:07) GI Upset trimethoprim (From Septra) Adverse Reaction (Verified 02/28/25 11:07) GI Upset venlafaxine (From Effexor) Adverse Reaction (Verified 02/28/25 11:07) Unknown Have you fallen in the past year?: No Office Procedures Injections Procedure performed by: Dash Alicea Lot number: [id number] Cooking Appliance Repair Technician: Provus Lab date: 05/21/27 Dose of injection: 1 mL Site of injection: Sub-Q Medication Given: Yes Is this a patient provided medication?: No Office Meds Prolia 60 mg/mL subcutaneous syringe Performing Provider: Elfego Davila MD Performing Location: [facility] Administered by: Dash Alicea RN on 03/13/25 11:22 Dose Route Admin Location Dispensed Lot Number Expiration Date Package NDC NDC [employer] Technician 60 mg subcut Right Arm 1 mL [id number] 05/21/27 80896-038-58 [id number] AMGEN Assessment and Plan Assessment and Plan (1) Osteoporosis: Status: Chronic Qualifiers: Osteoporosis type: age-related Presence of current pathological fracture: without current pathological fracture Qualified Code(s): M81.0 - Age-related osteoporosis without current pathological fracture Orders: Orders Prolia Injection Today M81.0 - Age-related osteoporosis without current pathological fracture Clinical Quality Measures Falls Risk Screening/Assistive Devices Have you fallen in the past year?: No 03/13/25 1531 Date Elfego Davila MD Cosign Signature: Date (if applicable) CC: Normal [facility] Cerv Spine 2 or 3 Viewson Cerv Spine 2 or 3 Views [facility] Services [address] [place] [address] [id number] Cerv Spine 2 or 3 Views MR#: [id number] Acct: [id number] Name: ELIDIA STEPHENS Rep #: [id number] : 1940 F 84 From: Kristofer Garrett MD PCP: Dr. Emi Whatley MD Status: DEP AMB Study: Cerv Spine 2 or 3 Views Date of Exam: 02/28/25 Exam# [id number] Ordering Dr: Debra Sy EXAM: XR Cervical Spine, 2 or 3 Views CLINICAL INDICATION: NECK PAIN TECHNIQUE: Frontal and lateral views of the cervical spine. COMPARISON: No relevant prior studies available. FINDINGS: VERTEBRAE: Mild reversal of cervical spine lordosis. Degenerative facet arthropathy throughout the cervical spine. Normal alignment. No acute fracture. No acute fracture or significant dynamic instability. DISC SPACES: Degenerative disc disease throughout the cervical spine. SOFT TISSUES: Unremarkable. RAD/Cerv Spine 2 or 3 Views IMPRESSION: 1. No acute fracture. 2. No acute fracture or significant dynamic instability. 3. Degenerative changes of the cervical spine as described. Reading Location: [facility] CC: SKYLAR Cruz; Dr. Emi Whatley MD Radiology Special Procedure Tech: Signed Normal [facility] Orthopedic Visit Reporton Orthopedic Visit Report [facility] [address] [place] [address] OFFICE VISIT Date of Service: 02/28/25 MR#: [id number] Acct: [id number] Name: ELIDIA STEPHENS Rep #: [id number] : 1940 Provider: Dr. Saurabh Payne MD Age/Sex: 84/F Location: [facility] [place].MALICK Status: Signed Intake Vital Signs 09/17/24 10:52 02/28/25 11:03 Height 5 ft 5 ft Weight: 133 lb BMI 25.9 Intake Visit Reasons: CERVICAL SPINE Chief Complaint: Cervicla spine pain Accompanied by: Is patient in pain?: Yes Pain scale (1-10): 7 Allergies Penicillins (PCN) Allergy (Verified 02/28/25 11:07) Rash adhesive Adverse Reaction (Verified 02/28/25 11:07) unknown alendronate sodium Adverse Reaction (Verified 02/28/25 11:07) GI Upset ciprofloxacin (From Cipro) Adverse Reaction (Verified 02/28/25 11:07) blurred vision latex Adverse Reaction (Verified 02/28/25 11:07) rash risedronate sodium (From Actonel) Adverse Reaction (Verified 02/28/25 11:07) GI Upset sulfamethoxazole (From Septra) Adverse Reaction (Verified 02/28/25 11:07) GI Upset trimethoprim (From Septra) Adverse Reaction (Verified 02/28/25 11:07) GI Upset venlafaxine (From Effexor) Adverse Reaction (Verified 02/28/25 11:07) Unknown Medications ???Medication ???Instructions ???Recorded ???Confirmed ???Type cholecalciferol (vitamin D3) 50 50 mcg PO DAILY 03/07/22 02/28/25 History mcg (2,000 unit) capsule (Vitamin D3) vit C 250 mg-vit E 90 mg-zinc 40 1 tab PO BID 03/07/22 02/28/25 His tory mg-copper 1 [id number] capsule (PreserVision AREDS-2) Prolia 60 mg/mL subcutaneous 60 mg subcut [id number] #1 mL 02/28/25 Rx syringe (denosumab) amlodipine 2.5 mg tablet 2.5 mg PO QHS 06/12/24 02/28/25 Hi story Have you fallen in the past year?: Yes PFSH Medical History (Updated 02/28/25 @ 11:43 by Norma Davila RN) Low bone density Degenerative disc disease, cervical Cervical spinal cord compression Hx of fracture of wrist Osteoporosis Wears hearing aid Wears glasses Post-menopausal Depression Anxiety Arthritis Non-smoker Shortness of breath on exertion History of edema History of stress test Cardiology follow-up encounter Hypertension Hemorrhoids Surgical History Hx of colonoscopy History of tonsillectomy History of open reduction and internal fixation (ORIF) procedure History of cataract surgery Family History Brother CAD (coronary artery disease) stents, PPM Hypertension Father Heart disease Brother Hypertension Mother Colon cancer Social History Smoking Status: Never smoker alcohol intake: current alcohol intake frequency: a few times a week Alcohol type: wine substance use type: does not use caffeine: Yes Type: coffee what type of physical activity do you participate in: bicycling HPI CERVICAL SPINE Details: This documentation accurately reflects the service provided and the decisions made by me, Dr. Saurabh Payne MD 02/28/25 1103. Part of today???s visit was documented by Angelo Ocampo MA and Norma Davila RN, acting as scribe. ELIDIA STEPHENS is a 84 year old F here today for cervical spine. Patient states that her pain is a 7 today. She states that the pain is going in the back of the neck. Patient states that she has pain in the left side of the neck. She reports limited ROM in her neck. Turning her head side to side is painful the left being the worse. She states that the pain come and goes. The pain is sharp, and throbbing. Patient states that this has been going on since October 2024. She states that the pain just came on one day insidious onset. Patient states that she didn't injure anything. 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 Patient states that she had an MRI done of her neck. She states that she saw Dr. Swain to go over the MRI results. Dr. Swain stated that she had spinal stenosis in her spine. Patient states that she hasn't had any surgeries on her neck. She states that she hasn't injured anything. Patient states that when she is bending over, the pain gets worse. When she is reaching, the pain gets worse. Patient states that she has had an injection in her neck. She states that the injections that Dr. Swain gave her didn't help at all. Patient states that she did physical therapy at the [facility] in [place]. She states that she did 18 session of physical therapy. Patient states that the physical therapy didn't help. She states that the pain in her neck wasn't really that bad when she did the physical therapy. Patient states that she doesn't have any diabetes, or blood thinners. P (more content not included)... Normal [facility] Magnetic resonance imaging r eportOrdered By: Justyn Nelson on 01-11-2025 Study report [facility] Imaging Services [address] [place] [address] Spine Cervical (Routine) MR#: [id number] Acct: [id number] Name: ELIDIA STEPHENS Rep #: [id number] : 1940 F 84 From: Zhen Nelson MD PCP: Dr. Emi Whatley MD Status: RE G CLI Study:Spine Cervical (Routine) Date of Exam: 01/09/25 Exam# [id number] Ordering Dr: Jeovanny Swain MD PROCEDURE: SPINE CERVICAL (ROUTINE) 01/09/2025 REASON FOR EXAM: CERVICAL SPONDYLOSIS TECHNIQUE: SPINE CERVICAL (ROUTINE) Multiplanar and multisequence images were obtained without IV contrast administration. FINDINGS: There is diffuse cervical spondylosis with grade 1 subluxation of C7 upon T1 butthere is no compression fracture. There is no Chiari deformity. At C2-3, central protrusion results in moderate spinal stenosis without abnormalcord signal. There is moderate flattening of the spinal cord without myelomalacia. At C3-4, moderate spinal stenosis with cord flattening but no myelomalacia. Severe left C4 foraminal stenosis from uncinate spur. At C4-5, mild canal narrowing with severe qvcbv-xdyfuwo-vyrj- left C5 foraminal narrowing from bony uncinate spurs. At C5-6 moderate to severe spinal stenosis with cord flattening and subtle myelomalacia. Severe right C6 foraminal stenosis. At C6-7 mild canal narrowing and mild bilateral foraminal narrowing from disc bulge and osteophytic spur At C7-T1 a central protrusion abuts the ventral cord. There is asymmetric moderate to severe narrowing of the right C8 neural foramen. MRI/Spine Cervical (Routine) IMPRESSION: 1. Moderate to severe spinal stenosis at C5-6 with subtle myelomalacia. 2. Moderate spinal stenosis at C2-3 and C3-4 with cord flattening but no definite myelomalacia. 3. Multilevel significant foraminal stenosis which is outlined above Reading Location: [facility] CC: Dr. Emi Whatley MD; Dr. Jeovanny Swain MD ~ Radiology Special Procedure Tech: Signed [facility] Spine Cervical (Routine)on 0 01-09-2025 Spine Cervical (Routine) [facility] Imaging Services [address] [place] [address] Spine Cervical (Routine) MR#: [id number] Acct: [id number] Name: ELIDIA STEPHENS Rep #: [id number] : 1940 F 84 From: Justyn Nelson MD PCP: Dr. Emi Whatley MD Status: REG CLI Study: Spine Cervical (Routine) Date of Exam: Exam# [id number] Ordering Dr: Jeovanny Swain MD PROCEDURE: SPINE CERVICAL (ROUTINE) 01/09/2025 REASON FOR EXAM: CERVICAL SPONDYLOSIS TECHNIQUE: SPINE CERVICAL (ROUTINE) Multiplanar and multisequence images were obtained without IV contrast administration. FINDINGS: There is diffuse cervical spondylosis with grade 1 subluxation of C7 upon T1 but there is no compression fracture. There is no Chiari deformity. At C2-3, central protrusion results in moderate spinal stenosis without abnormal cord signal. There is moderate flattening of the spinal cord without myelomalacia. At C3-4, moderate spinal stenosis with cord flattening but no myelomalacia. Severe left C4 foraminal stenosis from uncinate spur. At C4-5, mild canal narrowing with severe gwgsp-emaxxph-ndbi- left C5 foraminal narrowing from bony uncinate spurs. At C5-6 moderate to severe spinal stenosis with cord flattening and subtle myelomalacia. Severe right C6 foraminal stenosis. At C6-7 mild canal narrowing and mild bilateral foraminal narrowing from disc bulge and osteophytic spur At C7-T1 a central protrusion abuts the ventral cord. There is asymmetric moderate to severe narrowing of the right C8 neural foramen. MRI/Spine Cervical (Routine) IMPRESSION: 1. Moderate to severe spinal stenosis at C5-6 with subtle myelomalacia. 2. Moderate spinal stenosis at C2-3 and C3-4 with cord flattening but no definite myelomalacia. 3. Multilevel significant foraminal stenosis which is outlined above Reading [facility] CC: Dr. Emi Whatley MD; Dr. Jeovanny Swain MD Radiology Special Procedure Tech: Signed [facility] CNTHERAPYon 12-05-2024 CNTHERAPY OT/PT/Speech Visit (PTWS) ---- ELIDIA STEPHENS ([id number]) 1940 F Date Time Provider Department 12/05/24 10:45 AM YUNG ROACH PTWS Date Time Provider Department [place] 12/05/2024 10:45 AM [id number], BRENT PTWS Maria Luisa Montilla Reason for Visit: Physical Therapy [503] PT Discharge [752] Primary Visit Diagnosis:Cervicalg ia [M54.2] Allergies As of Date: 12/05/2024 Noted Allergy Reaction LATEX 10/20/2009 PENICILLINS 11/15/2006 Date Reviewed: 09/24/2023 Reviewed by: Lynn Rios MA - Fully Assessed Prescriptions as of 12/05/2024 - vit C,I-Fn-tmzva-lutein -zeaxan (PRESERVISION AREDS-2) 250-90-40-1 mg - amLODIPine (NORVASC) 5 mg tablet Take 5 mg by mouth daily at bedtime. - Cholecalciferol, Vitamin D3, 1,000 unit cap Take 1 capsule by mouth once daily. - aspirin, enteric coated (ECOTRIN LOW STRENGTH) 81 mg EC tablet Take 1 tablet by mouth once daily. as needed - therapeutic multivitamin ORAL Tab Take one(1) tablet daily. - Ascorbic Acid (VITAMIN C) 1,000 mg ORAL Tab Take one(1) tablet daily. Normal [facility] CNTHERAPYon 11-26-2024 CNTHERAPY OT/PT/Speech Visit (PTWS) ---- ELIDIA STEPHENS ([id number]) 1940 F Date Time Provider Department 11/26/24 3:30 PM GINA GURROLA PTWS Date Time Provider Department Center 11/26/2024 3:30 PM [id number], MARIAH PTWS Maria Luisa Montilla Reason for Visit: Physical Therapy [503] Primary Visit Diagnosis:Cervicalg ia [M54.2] Allergies As of Date: 11/26/2024 Noted Allergy Reaction LATEX 10/20/2009 PENICILLINS 11/15/2006 Date Reviewed: 09/24/2023 Reviewed by: Lynn Rios MA - Fully Assessed Prescriptions as of 11/26/2024 - vit C,E-Jc-pkjfq-lutein -zeaxan (PRESERVISION AREDS-2) 250-90-40-1 mg - amLODIPine (NORVASC) 5 mg tablet Take 5 mg by mouth daily at bedtime. - Cholecalciferol, Vitamin D3, 1,000 unit cap Take 1 capsule by mouth once daily. - aspirin, enteric coated (ECOTRIN LOW STRENGTH) 81 mg EC tablet Take 1 tablet by mouth once daily. as needed - therapeutic multivitamin ORAL Tab Take one(1) tablet daily. - Ascorbic Acid (VITAMIN C) 1,000 mg ORAL Tab Take one(1) tablet daily. Work Order Detailer: Therapy (PT/OT/Speech/Resp) ID: [id number] 11/26/2024 3:55 PM Author: GINA GURROLA Signed by GINA GURROLA NUCLEAR CONTROL ROOM OPERATOR on 11/26/2024 at 3:55 PM Document text: Program_ID:[id number] Access Code: [email or web address] URL: [email or web address] Date: 11-26-2024 Prepared By: Yung Roach Program Notes Exercises - Seated Cervical Rotation AROM - 2 x daily - 7 x weekly - 2 sets - 10 reps - Seated Cervical Extension AROM - 2 x daily - 7 x weekly - 2 sets - 10 reps - Seated Cervical Flexion AROM - 2 x daily - 7 x weekly - 2 sets - 10 reps - Seated Cervical Sidebending AROM - 2 x daily - 7 x weekly - 2 sets - 10 reps - Seated Upper Trapezius Stretch - 3 x daily - 7 x weekly - sets - 3 reps - Gentle Levator Scapulae Stretch - 3 x daily - 7 x weekly - sets - 3 reps - Seated Scapular Retraction - 3 x daily - 7 x weekly - 2 sets - 10 reps - Seated Assisted Cervical Rotation with Towel - 2 x daily - 7 x weekly - 2 sets - 5-10 reps - Seated Assisted Cervical Rotation with Towel - 2 x daily - 7 x weekly - 2 sets - 5-10 reps Normal [facility] THERAPY NTon 11-26-2024 THERAPY NT HNO ID: [id number] Author: GINA GURROLA PTA Service: ? Author Type: Fitter Mechanic Type: Therapy (PT/OT/Speech/Resp) Filed: 11/26/2024 15:55 Note Text: Program_ID:[id number] Access Code: [email or web address] URL: [email or web address] Date: 11-26-2024 Prepared By: Yung Roach Program Notes Exercises - Seated Cervical Rotation AROM - 2 x daily - 7 x weekly - 2 sets - 10 reps - Seated Cervical Extension AROM - 2 x daily - 7 x weekly - 2 sets - 10 reps - Seated Cervical Flexion AROM - 2 x daily - 7 x weekly - 2 sets - 10 reps - Seated Cervical Sidebending AROM - 2 x daily - 7 x weekly - 2 sets - 10 reps - Seated Upper Trapezius Stretch - 3 x daily - 7 x weekly - sets - 3 reps - Gentle Levator Scapulae Stretch - 3 x daily - 7 x weekly - sets - 3 reps - Seated Scapular Retraction - 3 x daily - 7 x weekly - 2 sets - 10 reps - Seated Assisted Cervical Rotation with Towel - 2 x daily - 7 x weekly - 2 sets - 5-10 reps - Seated Assisted Cervical Rotation with Towel - 2 x daily - 7 x weekly - 2 sets - 5-10 reps Normal [facility] CNTHERAPYon 11-21-2024 CNTHERAPY OT/PT/Speech Visit (PTWS) ---- ELIDIA STEPHENS ([id number]) 1940 F Date Time Provider Department 11/21/24 10:15 AM GINA GURROLA Date Time Provider Department [place] 11/21/2024 10:15 AM [id number] Reason for Visit: Physical Therapy [503] Primary Visit Diagnosis:Cervicalg ia [M54.2] Allergies As of Date: 11/21/2024 Noted Allergy Reaction LATEX 10/20/2009 PENICILLINS 11/15/2006 Date Reviewed: 09/24/2023 Reviewed by: Lynn Rios MA - Fully Assessed Prescriptions as of 11/21/2024 - vit C,X-Gx-ypkrf-lutein -zeaxan (PRESERVISION AREDS-2) 250-90-40-1 mg - amLODIPine (NORVASC) 5 mg tablet Take 5 mg by mouth daily at bedtime. - Cholecalciferol, Vitamin D3, 1,000 unit cap Take 1 capsule by mouth once daily. - aspirin, enteric coated (ECOTRIN LOW STRENGTH) 81 mg EC tablet Take 1 tablet by mouth once daily. as needed - therapeutic multivitamin ORAL Tab Take one(1) tablet daily. - Ascorbic Acid (VITAMIN C) 1,000 mg ORAL Tab Take one(1) tablet daily. Normal [facility] CNTHERAPYon 11-19-2024 CNTHERAPY OT/PT/Speech Visit (PTWS) ---- ELIDIA STEPHENS ([id number]) 1940 F Date Time Provider Department 11/19/24 3:30 PM YUNG ROACH PTKARIN Date Time Provider Department Center 11/19/2024 3:30 PM YUNG CIFUENTES PTKARIN Montilla Reason for Visit: Physical Therapy [503] Primary Visit Diagnosis:Cervicalg ia [M54.2] Allergies As of Date: 11/19/2024 Noted Allergy Reaction LATEX 10/20/2009 PENICILLINS 11/15/2006 Date Reviewed: 09/24/2023 Reviewed by: Lynn Rios MA - Fully Assessed Prescriptions as of 11/19/2024 - vit C,K-Us-jozli-lutein -zeaxan (PRESERVISION AREDS-2) 250-90-40-1 mg - amLODIPine (NORVASC) 5 mg tablet Take 5 mg by mouth daily at bedtime. - Cholecalciferol, Vitamin D3, 1,000 unit cap Take 1 capsule by mouth once daily. - aspirin, enteric coated (ECOTRIN LOW STRENGTH) 81 mg EC tablet Take 1 tablet by mouth once daily. as needed - therapeutic multivitamin ORAL Tab Take one(1) tablet daily. - Ascorbic Acid (VITAMIN C) 1,000 mg ORAL Tab Take one(1) tablet daily. Normal [facility] CNTHERAPYon 11-15-2024 CNTHERAPY OT/PT/Speech Visit (PTWS) ---- ELIDIA STEPHENS ([id number]) 1940 F Date Time Provider Department 11/15/24 1:00 PM YUNG ROACH PTKARIN Date Time Provider Department Center 11/15/2024 1:00 PM YUNG CIFUENTES Reason for Visit: Physical Therapy [503] Primary Visit Diagnosis:Cervicalg ia [M54.2] Allergies As of Date: 11/15/2024 Noted Allergy Reaction LATEX 10/20/2009 PENICILLINS 11/15/2006 Date Reviewed: 09/24/2023 Reviewed by: Lynn Rios MA - Fully Assessed Prescriptions as of 11/15/2024 - vit C,P-Dw-oswwn-lutein -zeaxan (PRESERVISION AREDS-2) 250-90-40-1 mg - amLODIPine (NORVASC) 5 mg tablet Take 5 mg by mouth daily at bedtime. - Cholecalciferol, Vitamin D3, 1,000 unit cap Take 1 capsule by mouth once daily. - aspirin, enteric coated (ECOTRIN LOW STRENGTH) 81 mg EC tablet Take 1 tablet by mouth once daily. as needed - therapeutic multivitamin ORAL Tab Take one(1) tablet daily. - Ascorbic Acid (VITAMIN C) 1,000 mg ORAL Tab Take one(1) tablet daily. Normal [facility] CNTHERAPYon 11-12-2024 CNTHERAPY OT/PT/Speech Visit (PTWS) ---- ELIDIA STEPHENS ([id number]) 1940 F Date Time Provider Department 11/12/24 3:30 PM YUNG ROACH PTKARIN Date Time Provider Department [place] 11/12/2024 3:30 PM [id number], BRENT PTKARIN Montilla Reason for Visit: Physical Therapy [503] Primary Visit Diagnosis:Cervicalg ia [M54.2] Allergies As of Date: 11/12/2024 Noted Allergy Reaction LATEX 10/20/2009 PENICILLINS 11/15/2006 Date Reviewed: 09/24/2023 Reviewed by: Lynn Rios MA - Fully Assessed Prescriptions as of 11/12/2024 - vit C,M-Ml-dtdzf-lutein -zeaxan (PRESERVISION AREDS-2) 250-90-40-1 mg - amLODIPine (NORVASC) 5 mg tablet Take 5 mg by mouth daily at bedtime. - Cholecalciferol, Vitamin D3, 1,000 unit cap Take 1 capsule by mouth once daily. - aspirin, enteric coated (ECOTRIN LOW STRENGTH) 81 mg EC tablet Take 1 tablet by mouth once daily. as needed - therapeutic multivitamin ORAL Tab Take one(1) tablet daily. - Ascorbic Acid (VITAMIN C) 1,000 mg ORAL Tab Take one(1) tablet daily. Normal [facility] 11-08-2024 CNPN Telephone (PTWS) ---- ELIDIA STEPHENS ([id number]) 1940 F Date Time Provider Department 11/08/24 YUNG ROACH PTWS During your visit today, we recorded the following information about you: Aj Bedolla 11/08/2024 3:03 PM Signed Patient calling in wanting to let you know she was very appreciative of her session today and appreciative of you and the work you do. She felt she did not express her gratitude enough at her appointment today. Aj Bedolla November 08, 2024 3:02 PM Allergies As of Date: 11/08/2024 Noted Allergy Reaction LATEX 10/20/2009 PENICILLINS 11/15/2006 Date Reviewed: 09/24/2023 Reviewed by: Lynn Rios MA - Fully Assessed Reason for Visit: Patient Update [1234] Prescriptions as of 11/11/2024 - vit C,R-At-nznmd-lutein -zeaxan (PRESERVISION AREDS-2) 250-90-40-1 mg - amLODIPine (NORVASC) 5 mg tablet Take 5 mg by mouth daily at bedtime. - Cholecalciferol, Vitamin D3, 1,000 unit cap Take 1 capsule by mouth once daily. - aspirin, enteric coated (ECOTRIN LOW STRENGTH) 81 mg EC tablet Take 1 tablet by mouth once daily. as needed - therapeutic multivitamin ORAL Tab Take one(1) tablet daily. - Ascorbic Acid (VITAMIN C) 1,000 mg ORAL Tab Take one(1) tablet daily. Problem List As Of Date 11/08/2024 Noted Resolved BENIGN NEOPLASM LG BOWEL [D12.6] 12/20/2006 Personal History of Colonic Polyps [Z86.0100] Family History of Malignant Neoplasm of Gastroi* Internal Hemorrhoids without Mention of Complic* Hemorrhage of Rectum and Anus [K62.5] 10/20/2009 External Hemorrhoids without Mention of Complic*10/20/2009 Hypertension [I10] 10/13/2022 Cervicalgia [M54.2] 10/29/2024 Encounter Status:Closed by AJ BEDOLLA on 11/11/24 Normal [facility] CNTHERAPYon 11-08-2024 CNTHERAPY OT/PT/Speech Visit (PTWS) ---- ELIDIA STEPHENS ([id number]) 1940 F Date Time Provider Department 11/08/24 1:00 PM YUNG ROACH PTWS Date Time Provider Department Center 11/08/2024 1:00 PM [id number], BRENT PTWS [place] Reason for Visit: Physical Therapy [503] Primary Visit Diagnosis:Cervicalg ia [M54.2] Allergies As of Date: 11/08/2024 Noted Allergy Reaction LATEX 10/20/2009 PENICILLINS 11/15/2006 Date Reviewed: 09/24/2023 Reviewed by: Lynn Rios MA - Fully Assessed Prescriptions as of 11/08/2024 - vit C,R-Xv-tkbkr-lutein -zeaxan (PRESERVISION AREDS-2) 250-90-40-1 mg - amLODIPine (NORVASC) 5 mg tablet Take 5 mg by mouth daily at bedtime. - Cholecalciferol, Vitamin D3, 1,000 unit cap Take 1 capsule by mouth once daily. - aspirin, enteric coated (ECOTRIN LOW STRENGTH) 81 mg EC tablet Take 1 tablet by mouth once daily. as needed - therapeutic multivitamin ORAL Tab Take one(1) tablet daily. - Ascorbic Acid (VITAMIN C) 1,000 mg ORAL Tab Take one(1) tablet daily. [facility] CNTHERAPYon 11-06-2024 CNTHERAPY OT/PT/Speech Visit (PTWS) ---- ELIDIA STEPHENS ([id number]) 1940 F Date Time Provider Department 11/06/24 10:00 AM YUNG ROACH PTWS Date Time Provider Department Center 11/06/2024 10:00 AM [id number], BRENT PTWS Maria Luisa Montilla Reason for Visit: Physical Therapy [503] Primary Visit Diagnosis:Cervicalg ia [M54.2] Allergies As of Date: 11/06/2024 Noted Allergy Reaction LATEX 10/20/2009 PENICILLINS 11/15/2006 Date Reviewed: 09/24/2023 Reviewed by: Lynn Rios MA - Fully Assessed Prescriptions as of 11/06/2024 - vit C,O-Hw-wmpfw-lutein -zeaxan (PRESERVISION AREDS-2) 250-90-40-1 mg - amLODIPine (NORVASC) 5 mg tablet Take 5 mg by mouth daily at bedtime. - Cholecalciferol, Vitamin D3, 1,000 unit cap Take 1 capsule by mouth once daily. - aspirin, enteric coated (ECOTRIN LOW STRENGTH) 81 mg EC tablet Take 1 tablet by mouth once daily. as needed - therapeutic multivitamin ORAL Tab Take one(1) tablet daily. - Ascorbic Acid (VITAMIN C) 1,000 mg ORAL Tab Take one(1) tablet daily. Work Order Detailer: Addendum Therapy (PT/OT/Speech/Resp) ID: [id number] 11/06/2024 10:32 AM Author: YUNG ROACH Signed by YUNG ROACH PT on 11/06/2024 at 10:32 AM * * * This document replaces document [id number] * * * Document text: Program_ID:[id number] Access Code: [email or web address] URL: [email or web address] m/ Date: 11-06-2024 Prepared By: Yung Roach Program Notes Exercises - Seated Cervical Rotation AROM - 2 x daily - 7 x weekly - 2 sets - 10 reps - Seated Cervical Extension AROM - 2 x daily - 7 x weekly - 2 sets - 10 reps - Seated Cervical Flexion AROM - 2 x daily - 7 x weekly - 2 sets - 10 reps - Seated Cervical Sidebending AROM - 2 x daily - 7 x weekly - 2 sets - 10 reps - Seated Upper Trapezius Stretch - 3 x daily - 7 x weekly - sets - 3 reps - Gentle Levator Scapulae Stretch - 3 x daily - 7 x weekly - sets - 3 reps - Seated Scapular Retraction - 3 x daily - 7 x weekly - 2 sets - 10 reps [facility] THERAPY NTon 11-06-2024 THERAPY NT HNO ID: [id number] Author: YUNG ROACH, PT Service: ? Author Type: Physical Therapist Type: Therapy (PT/OT/Speech/Resp) Filed: 11/06/2024 10:32 Note Text: Program_ID:[id number] Access Code: [email or web address] URL: [email or web address] m/ Date: 11-06-2024 Prepared By: Yung Roach Program Notes Exercises - Seated Cervical Rotation AROM - 2 x daily - 7 x weekly - 2 sets - 10 reps - Seated Cervical Extension AROM - 2 x daily - 7 x weekly - 2 sets - 10 reps - Seated Cervical Flexion AROM - 2 x daily - 7 x weekly - 2 sets - 10 reps - Seated Cervical Sidebending AROM - 2 x daily - 7 x weekly - 2 sets - 10 reps - Seated Upper Trapezius Stretch - 3 x daily - 7 x weekly - sets - 3 reps - Gentle Levator Scapulae Stretch - 3 x daily - 7 x weekly - sets - 3 reps - Seated Scapular Retraction - 3 x daily - 7 x weekly - 2 sets - 10 reps [facility] [id number] 10-29-2024 [id number] HNO ID: [id number] Author: YUNG ROACH PT Service: ? Author Type: Physical Therapist Type: [id number] Filed: 10/29/2024 23:56 Note Text: [facility] Physical Therapy Plan of Care Certification Patient Name: Elidia Stephens : 1940 CC #: [id number] Date: 10/29/2024 To: Emi Whatley MD From Therapist: Yung Roach PT RE: Patient Certification/ Recertification Your review, approval and electronic signature are required in order to comply with Payor: [email or web address] AND Paired Health / Plan: [employer]ARE [employer]VANTAGE HMO / Product Type: HMO / regulations. The identified Physical Therapy PLAN OF CARE for the patient is as follows: M54.2 Cervicalgia (primary encounter diagnosis) PLAN OF CARE: Assessment: Elidia Stephens presents with chief complaint of left sided neck pain that interferes with bending, twisting, sleeping (doing laundry, turning her head) . The patient presents with impairments in ADL's, independence in exercise, overall function, posture, range of motion, strength, and tissue tenderness. PROMIS? (Patient-Reported Outcomes Measurement Information System) scores were reviewed and identified as a rehabilitation concern. Prognosis for therapy is Good due to: current objective clinical presentation, good support system/ coping skills, good overall health status. The patient will benefit from skilled therapy services to meet the goals established for this plan of care as noted below. Goals for Episode of Care: established 10/29/24 Patient reported outcome of pain Interference will decrease T -score by a minimum of 5 points. Independent in a Home Exercise Program. Patient will decrease pain rating by 2 points to meet minimal clinical important difference for numeric pain rating scale. Restore pain free cervical ROM to WFL to allow for improved turning of her head and sleeping. Sleep throughout the night without pain/symptoms. Patient will be able to tolerate bending and laundry chores without increased symptoms. 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 Focus on pain-free ROM, soft tissue mobilization and eventually postural strengthening as tolerated. Include postural correction and gentle manual therapy prn. Patient demonstrates good understanding of plan of care and treatment. The above goals and plan of care were discussed and agreed upon by patient/family. For further details regarding this patient refer to the Physical Therapy electronically documented visit dated 10/29/2024. Provider Attestation I have reviewed the treatment plan for Elidia Stephens, [facility]# [id number] for the period of 10/29/24 -- 12/10/24, established on 10/29/2024. Signature certifies the need for therapy services. [facility] CNTHERAPYon 10-29-2024 CNTHERAPY OT/PT/Speech Visit (PTWS) ---- GUERDAELIDIA TEIXEIRA ([id number]) 1940 F Date Time Provider Department 10/29/24 1:15 PM YUNG ROACH PTWS Date Time Provider Department Center 10/29/2024 1:15 PM [id number], BRENT PTWS Maria Luisa Montilla Reason for Visit: PT Eval [747] Physical Therapy [503] Primary Visit Diagnosis:Cervicalg ia [M54.2] Allergies As of Date: 10/29/2024 Noted Allergy Reaction LATEX 10/20/2009 PENICILLINS 11/15/2006 Date Reviewed: 09/24/2023 Reviewed by: Lynn Rios MA - Fully Assessed Prescriptions as of 10/30/2024 - vit C,L-Rp-fdanr-lutein -zeaxan (PRESERVISION AREDS-2) 250-90-40-1 mg - amLODIPine (NORVASC) 5 mg tablet Take 5 mg by mouth daily at bedtime. - Cholecalciferol, Vitamin D3, 1,000 unit cap Take 1 capsule by mouth once daily. - aspirin, enteric coated (ECOTRIN LOW STRENGTH) 81 mg EC tablet Take 1 tablet by mouth once daily. as needed - therapeutic multivitamin ORAL Tab Take one(1) tablet daily. - Ascorbic Acid (VITAMIN C) 1,000 mg ORAL Tab Take one(1) tablet daily. Work Order Detailer: Addendum Therapy (PT/OT/Speech/Resp) ID: [id number] 10/29/2024 1:52 PM Author: YUNG ROACH Signed by YUNG ROACH PT on 10/29/2024 at 1:52 PM * * * This document replaces document [id number] * * * Document text: Program_ID:[id number] Access Code: [email or web address] URL: [email or web address] m/ Date: 10-29-2024 Prepared By: Yung Roach Program Notes Exercises - Seated Cervical Rotation AROM - 2 x daily - 7 x weekly - 2 sets - 10 reps - Seated Cervical Extension AROM - 2 x daily - 7 x weekly - 2 sets - 10 reps - Seated Cervical Flexion AROM - 2 x daily - 7 x weekly - 2 sets - 10 reps - Seated Cervical Sidebending AROM - 2 x daily - 7 x weekly - 2 sets - 10 reps - Seated Upper Trapezius Stretch - 3 x daily - 7 x weekly - sets - 3 reps Letter Text [facility] THERAPY NTon 10-29-2024 THERAPY NT HNO ID: [id number] Author: YUNG ROACH PT Service: ? Author Type: Physical Therapist Type: Therapy (PT/OT/Speech/Resp) Filed: 10/29/2024 13:52 Note Text: Program_ID:[id number] Access Code: [email or web address] URL: [email or web address] m/ Date: 10-29-2024 Prepared By: Yung Roach Program Notes Exercises - Seated Cervical Rotation AROM - 2 x daily - 7 x weekly - 2 sets - 10 reps - Seated Cervical Extension AROM - 2 x daily - 7 x weekly - 2 sets - 10 reps - Seated Cervical Flexion AROM - 2 x daily - 7 x weekly - 2 sets - 10 reps - Seated Cervical Sidebending AROM - 2 x daily - 7 x weekly - 2 sets - 10 reps - Seated Upper Trapezius Stretch - 3 x daily - 7 x weekly - sets - 3 reps [facility] Cerv Spine 4 or 5 Viewson Cerv Spine 4 or 5 Views [facility] [address], [place] [address] Cerv Spine 4 or 5 Views MR#: [id number] Acct: [id number] Name: ELIDIA STEPHENS Rep #: [id number] : 1940 F 84 From: [facility] DO PCP: Dr. 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 COMPARISON: Cervical spine radiograph from 07/26/2023. FINDINGS: There is mild chronic loss of the cervical vertebral body heights. There is straightening of the cervical lordosis. There is levoscoliosis of the cervical spine. Advanced multilevel degenerative changes are present with disc space narrowing and endplate spurring. No acute fracture or subluxation is present. There is mild anterolisthesis of C7-T1 on a chronic basis. Prevertebral soft tissues are unremarkable. Multilevel facet arthropathy is present. Multilevel neural foraminal narrowing is identified. Odontoid process is intact. Lateral masses align. There is diminished bone mineralization. RAD/Cerv Spine 4 or 5 Views IMPRESSION: 1. No acute osseous abnormality. 2. Multilevel advanced degenerative changes with neural foraminal narrowing. If clinical concern for radiculopathy, MRI is a more sensitive exam. 3. Levoscoliosis. Disclaimer: Reading Location: [facility] CC: Cain MARTIN McMorrow; Dr. Emi Whatley MD Radiology Special Procedure Tech: Signed [facility] Gastroenterology Visit Repor ton 09-17-2024 Gastroenterology Visit Report [facility] [address] [place] [address] OFFICE VISIT Date of Service: 09/17/24 MR#: [id number] Acct: [id number] Name: ELIDIA STEPHENS Rep #: [id number] : 1940 Provider: VERONICA watson Age/Sex: 84/F Location: [facility] [place] Status: Signed Intake Vital Signs 06/12/24 14:17 08/21/24 07:50 09/10/24 13:23 09/17/24 10:52 Height 5 ft 5 ft 5 ft 5 ft Weight: 133 lb 134 lb 2 oz BMI 25.9 26.2 BP 139/72 H 145/75 H Blood Pressure Location Rt brachial Position Sitting Respiration 16 Pulse 78 73 Pulse Source Monitor Pulse Oximetry (%) 99 97 Oxygen Delivery Method room air room air Intake Visit Reasons: Test Result Chief Complaint: follow-up Technician Automated Equipment Required: No Accompanied by: Is patient in pain?: No Allergies Penicillins (PCN) Allergy (Verified 09/17/24 10:52) Rash adhesive Adverse Reaction (Verified 09/17/24 10:52) unknown alendronate sodium Adverse Reaction (Verified 09/17/24 10:52) GI Upset ciprofloxacin (From Cipro) Adverse Reaction (Verified 09/17/24 10:52) blurred vision latex Adverse Reaction (Verified 09/17/24 10:52) rash risedronate sodium (From Actonel) Adverse Reaction (Verified 09/17/24 10:52) GI Upset sulfamethoxazole (From Septra) Adverse Reaction (Verified 09/17/24 10:52) GI Upset trimethoprim (From Septra) Adverse Reaction (Verified 09/17/24 10:52) GI Upset venlafaxine (From Effexor) Adverse Reaction (Verified 09/17/24 10:52) Unknown Medications ???Medication ???Instructions ???Recorded ???Confirmed ???Type cholecalciferol (vitamin D3) 50 50 mcg PO DAILY 03/07/22 09/17/24 History mcg (2,000 unit) capsule (Vitamin D3) vit C 250 mg-vit E 90 mg-zinc 40 1 tab PO BID 03/07/22 09/17/24 His tory mg-copper 1 hh-npfjdc-wgaonb capsule (PreserVision AREDS-2) Prolia 60 mg/mL subcutaneous 60 mg subcut [id number] #1 mL 09/17/24 Rx syringe (denosumab) amlodipine 2.5 mg tablet 2.5 mg PO QHS 06/12/24 09/17/24 Hi story Have you fallen in the past year?: Yes PFSH Medical History Hx of fracture of wrist Osteoporosis Wears hearing aid Wears glasses Post-menopausal Depression Anxiety Arthritis Non-smoker Shortness of breath on exertion History of edema History of stress test Cardiology follow-up encounter Hypertension Hemorrhoids Surgical History Hx of colonoscopy History of tonsillectomy History of open reduction and internal fixation (ORIF) procedure History of cataract surgery Family History Brother CAD (coronary artery disease) stents, PPM Hypertension Father Heart disease Brother Hypertension Mother Colon cancer Social History (Reviewed 09/17/24 @ 11:36 by VESTA Rausch Smoking Status: Never smoker alcohol intake: current alcohol intake frequency: a few times a week Alcohol type: wine substance use type: does not use caffeine: Yes Type: coffee what type of physical activity do you participate in: bicycling HPI HPI Chief Complaint: follow-up Details: ELIDIA STEPHENS, is a 84 F who presents to the office today for OV 06/26/2024 84y/o female presents for consultation with a personal history of colon polyps. Colonoscopy was last performed by Dr. Lees May 2023 and revealed adenomas (20mm). She also has a history of adenomas in 2022 (30mm), 2021, and 2016. Her family history is significant for mother with colon cancer at 61y/o. She remains in good health and active. I have scheduled her for a colonoscopy. COLONOSCOPY HISTORY: Colon 05/30/2023 ([facility]) tubular adenomas Hemorrhoids were found on perianal exam. A 6 mm polyp was found in the cecum. The polyp was sessile. The polyp was removed with a saline injection-lift technique using a hot snare. Resection and retrieval were complete. A 20 mm polyp was found in the proximal ascending colon. The polyp was sessile. Biopsies were taken with a cold forceps for histology. A 7 mm polyp was found in the proximal sigmoid colon. The polyp was sessile. The polyp was removed with a hot snare. Resection and retrieval were complete. Multiple diverticula were found in the sigmoid colon. COLON 10/13/2022 (Dr. Emi Constantino @ [facility])- - Tubular adenoma. - One 30 mm polyp in the mid ascending colon, removed piecemeal using a hot snare. Incomplete resection. Nonlifting sign. Re - Moderate diverticulosis in the sigmoid colon and in the descending colon. - The entire examined colon is normal on direct and retroflexion views. COLON 08/21/2024 - TVA and TA - Diverticulosis in the recto-sigmoid colon, in the sigmoid colon, in the descending colon and at th (more content not included)... [facility] Endocrinology Visit Reporton 09-10-2024 Endocrinology Visit Report [facility] [address] [place] [address]. [address] [place] [address] OFFICE VISIT Date of Service: 09/10/24 MR#: [id number] Acct: [id number] Name: ELIDIA STEPHENS Rep #: [id number] : 1940 Provider: Jose Hobson Age/Sex: 84/F Location: [facility] Status: Signed Intake Vital Signs 02/02/24 10:12 02/28/24 10:56 08/21/24 07:50 09/10/24 13:23 Height 5 ft 5 ft 5 ft 5 ft Weight: 133 lb BMI 25.9 BP 139/72 H Blood Pressure Location Rt brachial Position Sitting Pulse 78 Pulse Source Monitor Pulse Oximetry (%) 99 Oxygen Delivery Method room air Intake Visit Reasons: 2 Y FU - Prolia B B Chief Complaint: Bone Is patient in pain?: No Allergies Penicillins (PCN) Allergy (Verified 09/10/24 13:27) Rash adhesive Adverse Reaction (Verified 09/10/24 13:27) unknown alendronate sodium Adverse Reaction (Verified 09/10/24 13:27) GI Upset ciprofloxacin (From Cipro) Adverse Reaction (Verified 09/10/24 13:27) blurred vision latex Adverse Reaction (Verified 09/10/24 13:27) rash risedronate sodium (From Actonel) Adverse Reaction (Verified 09/10/24 13:27) GI Upset sulfamethoxazole (From Septra) Adverse Reaction (Verified 09/10/24 13:27) GI Upset trimethoprim (From Septra) Adverse Reaction (Verified 09/10/24 13:27) GI Upset venlafaxine (From Effexor) Adverse Reaction (Verified 09/10/24 13:27) Unknown Medications ???Medication ???Instructions ???Recorded ???Confirmed ???Type cholecalciferol (vitamin D3) 50 50 mcg PO DAILY 03/07/22 09/10/24 History mcg (2,000 unit) capsule (Vitamin D3) vit C 250 mg-vit E 90 mg-zinc 40 1 tab PO BID 03/07/22 09/10/24 His tory mg-copper 1 bz-ywskjb-bcjaav capsule (PreserVision AREDS-2) Prolia 60 mg/mL subcutaneous 60 mg subcut [id number] #1 mL 09/10/24 Rx syringe (denosumab) amlodipine 2.5 mg tablet 2.5 mg PO QHS 06/12/24 09/10/24 Hi story Have you fallen in the past year?: Yes PFSH Medical History Hx of fracture of wrist Osteoporosis Wears hearing aid Wears glasses Post-menopausal Depression Anxiety Arthritis Non-smoker Shortness of breath on exertion History of edema History of stress test Cardiology follow-up encounter Hypertension Hemorrhoids Surgical History Hx of colonoscopy History of tonsillectomy History of open reduction and internal fixation (ORIF) procedure History of cataract surgery Family History Brother CAD (coronary artery disease) stents, PPM Hypertension Father Heart disease Brother Hypertension Mother Colon cancer Social History Smoking Status: Never smoker alcohol intake: current alcohol intake frequency: a few times a week Alcohol type: wine substance use type: does not use caffeine: Yes Type: coffee what type of physical activity do you participate in: bicycling HPI HPI Chief Complaint: Bone Details: ELIDIA STEPHENS, is a 84 F who presents to the office today for follow up Lumbar Spine (L1-L4):??? g/cm2 (0.753)??? /??? T-score (-3.0)??? /??? Z-score (-0.1) Findings are suggestive of osteoporosis with a high fracture risk. Left Femur Total:??? g/cm2 (0.593)??? /??? T-score (-2.9)??? /??? Z-score (-0.7) Left Femoral Neck:??? g/cm2 (0.496)??? /??? T-score (-3.2)??? /??? Z-score (-0.8) Right Femur Total:??? g/cm2 (0.593)??? /??? T-score (-2.9)??? /??? Z-score (-0.7) Right Femoral Neck:??? g/cm2 (0.508)??? /??? T-score (-3.1)??? /??? Z-score (-0.7) The T-Scores on the most recent prior examination were: Lumbar Spine (L1-L4):??? There has been improvement of bone density since the previous examination. Left Femur Total: which represents a worsening of 2.6%. Right Femur Total: which represents a worsening of 9.6%. She has had a fractured wrist in 2008 due to a fall. She fractured her left upper arm when she fell out of bed due to a nightmare approx 2018. She has taken both Fosamax and Boniva in the remote past. She thinks for 3-4 years. She has been on Prolia since July,. ROS Const Constitutional: No fatigue or weight change ENT ENT: No dizziness/vertigo Cardio Cardiology: No chest pain at rest, chest pain with exertion, shortness of breath or palpitations Skin Skin: No wounds Endo Endocrine: No fatigue or weight change Exam Const General: cooperative, comfortable, no acute distress, well developed, not cushingoid and frail appearing Nutritional Appearance: well nourished Orientation: alert, awake and oriented x3 HENMT Head: normal to inspection Ears: hearing grossly normal bilaterally Nose: external n (more content not included)... [facility] Colonoscopy Reporton 025 Colonoscopy Report [facility] Medical Records Department [address] [place] [address] Colonoscopy Report MR#: [id number] Acct: [id number] Name: ELIDIA STEPHENS Rep #: [id number] : 1940 84 From: Hussein Dawson DO PCP: Dr. Emi Whatley MD Status:[facility] Patient Name: Elidia Stephens Procedure Date: 08/21/2024 8:37 AM Date of : 1940 Age: 84 Procedure: Colonoscopy Indications: High risk colon cancer surveillance: Personal history of colonic polyps Providers: Hussein Dawson DO Referring MD: Emi Whatley Medicines: Monitored Anesthesia Care Patient Profile: This is an 84 year old female. Refer to note in patient chart for documentation of history and physical. Last Colonoscopy: 1 year ago. Complications: No immediate complications. Procedure: Pre-Anesthesia Assessment: - Prior to the procedure, a History and Physical was performed, and patient medications and allergies were reviewed. The patient is competent. The risks and benefits of the procedure and the sedation options and risks were discussed with the patient. All questions were answered and informed consent was obtained. Patient identification and proposed procedure were verified by the physician in the pre-procedure area. Mental Status Examination: alert and oriented. Airway Examination: normal oropharyngeal airway and neck mobility. Respiratory Examination: clear to auscultation. CV Examination: normal. ASA Grade Assessment: II - A patient with mild systemic disease. After reviewing the risks and benefits, the patient was deemed in satisfactory condition to undergo the procedure. The anesthesia plan was to use monitored anesthesia care (MAC). Immediately prior to administration of medications, the patient was re-assessed for adequacy to receive sedatives. The heart rate, respiratory rate, oxygen saturations, blood pressure, adequacy of pulmonary ventilation, and response to care were monitored throughout the procedure. The physical status of the patient was re-assessed after the procedure. After I obtained informed consent, the scope was passed under direct vision. Throughout the procedure, the patient's blood pressure, pulse, and oxygen saturations were monitored continuously. The Colonoscope was introduced through the anus and advanced to the cecum, identified by appendiceal orifice and ileocecal valve. The colonoscopy was performed without difficulty. The patient tolerated the procedure well. The quality of the bowel preparation was adequate. The ileocecal valve, appendiceal orifice, and rectum were photographed. Scope In: 8:48:50 AM Scope Withdrawal Time 0 hours 15 minutes 10 seconds Scope Out: 9:22:46 AM Total Procedure Duration Time 0 hours 33 minutes 56 seconds Findings: The perianal and digital rectal examinations were normal. Multiple small and large-mouthed diverticula were found in the recto-sigmoid colon, sigmoid colon, descending colon and hepatic flexure. Two sessile polyps were found in the sigmoid colon and hepatic flexure. The polyps were 6 mm in size. These polyps were removed with a jumbo cold forceps. Resection and retrieval were complete. Verification of patient identification for the specimen was done. Estimated blood loss was minimal. Three sessile polyps were found in the ascending colon and cecum. The polyps were 1 to 2 mm in size. These polyps were removed with a hot snare. Resection and retrieval were complete. Verification of patient identification for the specimen was done. Estimated blood loss was minimal. The exam was otherwise without abnormality on direct and retroflexion views. Impression: - Diverticulosis in the recto-sigmoid colon, in the sigmoid colon, in the descending colon and at the hepatic flexure. - Two 6 mm polyps in the sigmoid colon and at the hepatic flexure, removed with a jumbo cold forceps. Resected and retrieved. - Three 1 to 2 mm polyps in the ascending colon and in the cecum, removed with a hot snare. Resected and retrieved. - The examination was otherwise normal on direct and retroflexion views. Recommendation: - Discharge patient to home. - Resume previous diet. - Continue present medications. - Await pathology results. - Repeat colonoscopy. Procedure Code(s): --- Professional --- 78493, Colonoscopy, flexible; with removal of tumor(s), polyp(s), or other lesion(s) by snare technique 36666, 59, Colonoscopy, flexible; with biopsy, single or multiple CPT copyright 2021 [employer]. All rights reserved. The codes documented in this report are preliminary and upon trimmer buffing wheel review may be revised to meet current compliance requirements. Hussein Dawson DO 08/21/2024 9:28:49 AM This report has been signed electronically. Number of Addenda: 0 Note Initiated On: 08/21/2024 8:37 AM 0 (more content not included)... [facility] MR/POSTOP.ANEon 08-21-2024 MR/POSTOP.[facility] Medical Records Department [address] [place] [address] Anesthesia Postop Eval I 08/21/24 0933 MR#: [id number] Acct: [id number] Name: ELIDIA STEPHENS Rep #: [id number] : 1940 84 From: Ronnell Brown PCP: Dr. Emi Whatley MD Status:REG SDC Y Race: C Location: [place] [address] Anesthesia: Postop Eval I Current Vital Signs Temperature: 97 F Pulse Rate: 67 Blood Pressure: 103/62 Respiratory Rate: 16 Pulse Ox: 100 Oxygen Delivery Method: Room Air Assessment Airway patent: Yes Spontaneous unlabored respirations: Yes Mental status: Awake and Calm nausea: No Vomiting: No Anesthesia Complication: No Fluid Hydration Crystalloid volume administer (ml): 60 Total IV fluid infused: 60 Progress Note Anesthesia document: Postop Eval 1 completed: Yes 08/21/24 09 Date Ronnell Calhounignmisael Signature: Date CC: Signed [facility] MR/[id number] [facility]-21-2024 [facility] Medical Records Department [address] [place] [address] Anesthesia Postop Eval II 08/21/2442 MR#: [id number] Acct: [id number] Name: ELIDIA STEPHENS Rep #: [id number] : 1940 84 From: Calvin Aviles MD PCP: Dr. Emi Whatley MD Status:[facility] Y Race: C Location: [place] [address] Anesthesia Postop Eval I Sum Postop Eval Completion status Anesthesia document: Postop Eval 1 completed: Yes Anesthesia Postop Eval I Summary Anesthesia Postop Eval I Summary: Anesthesia Postop Eval I: Assessment Summary Airway patent Yes 08/21/24 09:34 [email or web address] Spontaneous unlabored Yes 08/21/24 09:34 [email or web address] respirations Mental status Awake,Calm 08/21/24 09:34 [email or web address] nausea No 08/21/24 09:34 [email or web address] Vomiting No 08/21/24 09:34 [email or web address] Anesthesia Postop Eval I: Fluid Summary Crystalloid volume administer 60 08/21/24 09:34 [email or web address] (ml) Colloids volume administered ( ml) Blood Product volume administered (ml) Total IV fluid infused 60 08/21/24 09:34 [email or web address] Anesthesia Postop Eval I: Summary Notes Anesthesia Complication No 08/21/24 09:34 [email or web address] Anesthesia Complication Comment: Post-operative progress note Anesthesia: Postop Eval II Evaluation Mental status: Awake Pain Level: 0 nausea: No Vomiting: No 08/21/24 0942 Date Calvin Vora Signature: Date CC: Signed Normal [facility] Surgery Specimen Level Pat 08-21-2024 Surgery Specimen Level IV Patient Age/Sex Location Account Attending Physician ELIDIA STEPHENS 84/F EN [id number] Hussein Dawson DO Specimen: [id number] Received: 08/21/24 Status: TOMASZ Dey Num: [id number] Spec Type: COLON BX Subm Dr: Hussein Dawson, HEADER OPERATION: Colonoscopy with polypectomy, biopsy PRE-OP DIAGNOSIS: Personal history of colonic polyps, family history of colon cancer in mother TISSUE SUBMITTED: A- Sigmoid polyp, B- Hepatic flexure polyp biopsy, C- Cecum polyp MICROSCOPIC DIAGNOSIS A. Sigmoid Colon, Polyp, Biopsy: - Tubular adenoma. B. Colon, Hepatic Flexure, Polyp, Biopsy: - Superficial hyperplastic change. C. Colon, Cecum, Polyp, Biopsy: - Tubulovillous adenoma, multiple fragments. MICROSCOPIC DESCRIPTION Slides are reviewed. GROSS DESCRIPTION A. Received in formalin in a container labeled with the patient's name, date of , and sigmoid polyp is a 0.3 x 0.3 x 0.3 cm fragment of pate-pink mucosal tissue. Submitted in toto in A1. B. Received in formalin in a container labeled with the patient's name, date of , and Hepatic flexure polyp biopsy is a 0.3 x 0.3 x 0.3 cm fragment of pate-pink mucosal tissue. Submitted in toto in B1. C. Received in formalin in a container labeled with the patient's name, date of , and cecum polyp are multiple pate-pink fragments of disrupted mucosal tissue measuring 2.6 x 1.7 x 0.3 cm in aggregate. Submitted in toto in C1. SB 08/21/2024 CPT:51693p6 Patient Age/Sex Location Account Attending Physician ELIDIA STEPHENS 84/F EN [id number] Hussein Dawson DO Signed (signatur e on file) Dr. Kavitha Mcbride MD 08/27/24 1333 Normal [facility] Comment on above: Performed By: #### P SUIV ####[facility] [address] [facility] [place], [place], [id number] MR/Cristine 08-16-2024 MR/[facility] Medical Records Department [address] [place] [address] PAT - Anesthesia 08/16/24 1021 MR#: [id number] Acct: [id number] Name: ELIDIA STEPHENS Rep #: [id number] : 1940 84 From: Calvin Aviles MD PCP: Dr. 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 When Was Last Pacemaker Check QUESTION #4 FULL TEXT: You/Your Family Experience fever (hyperthermia) with Anesthesia Last Oral Intake Last Oral intake: Last Oral Intake NPO since Meds taken in AM with sips of water? 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 Female Yes 08/16/24 09:41 HX of Motion Sickness No 08/16/24 09:41 HX of N/V After Surgery No 08/16/24 09:41 Non-Smoker Yes 08/16/24 09:41 Duration of Surgery greater No 08/16/24 09:41 than 60 minutes Number of Risk Factors 2 08/16/24 09:41 PONV Score Moderate Risk 08/16/24 09:41 Height Weight Height Weight: Anesthesia: Height Weight Height 5 ft 06/12/24 14:17 Respiratory Assessment Respiratory Assessment - aircraft engine mechanic supervisor: Respiratory Tract Infection Hx - aircraft engine mechanic supervisor Hx Respiratory Tract Infection No 08/16/24 09:41 STOP Sleep Apnea STOP Sleep Apnea - aircraft engine mechanic supervisor: STOP Sleep Apnea - aircraft engine mechanic supervisor Hx Hypertension Yes: CONTROLLED WITH MED 08/16/24 09:41 Hx Sleep Apnea No 08/16/24 09:41 CPAP BIPAP Do you snore loudly (louder No 08/16/24 09:41 than talking or can be heard Do you often feel tired/ No 08/16/24 09:41 fatigued/ sleepy during daytime? Has anyone observed you stop No 08/16/24 09:41 breathing during sleep? STOP Results Negative 08/16/24 09:41 QUESTION #5 FULL TEXT : Do you snore loudly (louder than talking or can be heard through closed doors)? 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 Specify any problems Hx of Preganancy in last 3 No 08/16/24 09:41 Months Nurse Filling Out Transfusion DSCHRIBER 08/16/24 09:41 Questions: Date: 08/16/24 08/16/24 09:41 Time: 09:43 08/16/24 09:41 Patient unable to answer at this time (ie. confused, unrespo /Reproduct ion History /Reproduct yosi History - aircraft engine mechanic supervisor: /Reproduct yosi Hx- aircraft engine mechanic supervisor Hx Now No 08/16/24 09:41 Gestational Age (in weeks): EDC: Hx Hx Para Hx Section SAB No 08/16/24 09:41 PFS Medical History (Updated 08/16/24 @ 09:49 by Elba Brumfield) Hx of fracture of wrist Osteoporosis Wears hearing aid Wears glasses Post-menopausal Depression Anxiety Arthritis Non-smoker Shortness of breath on exertion History of edema History of stress test Cardiology follow-up encounter Hypertension Hemorrhoids Home Medications ???Medication ???Instructions ???Recorded ???Last Taken ???Type cholecalciferol (vitamin D3) 50 50 mcg PO DAILY 03/07/22 03/07/22 History mcg (2,000 unit) capsule (Vitamin D3) vit C 250 mg-vit E 90 mg-zinc 40 1 tab PO BID 03/07/22 03/07/22 His tory mg-copper 1 xm-vphswy-xixqjp capsule (PreserVision AREDS-2) Prolia 60 mg/mL subcutaneous 60 mg subcut W0YHEROD #1 mL Unknown Rx syringe (denosumab) amlodipine 2.5 mg tablet 2.5 mg PO QHS 06/12/24 Unknown His tory Allergy/AdvReac Type Severity Reaction Status Date / Time Penicillins (PCN) Allergy Rash Ve (more content not included)... Normal [facility] Urine Cultureon 08-08-2024 URC Culture exhibits no growth. Normal [facility] Comment on above: Performed By: #### M 100.2200 #### [facility] [address] [place], [place], [id number] Urine cultureOrdered By: Milagros Little on 08-06-2024 Bacteria identified Cx Nom (U) Culture exhibits no growth. [facility] OT D/C of Non Returning Pton 07-30-2024 OT D/C of Non Returning Pt [facility] Occupational Therapy [facility] [address] [place] [address] / REHABILITATION SERVICES DISCHARGE SUMMARY MR#: [id number] Acct: [id number] Name: ELIDIA STEPHENS Rep #: [id number] : 1940 84 From: Gretchen Pena OTR/[place], CHT Referring Dr.: Dr. Juwan Sarabia MD Status: RE G RCR Eval Date: Discharge Date: Patient Information Patient Information: ELIDIA STEPHENS was seen in my office for initial evaluation on 03/25/24. The following Plan of Care was established for this patient: POC Established Initial Frequency: 1-2x /Week Initial Duration: 4-6 Weeks Plan: pt to work on her strength and use with ADLs - nerve glide for median nerve. Anticipated Interventions Anticipated Interventions: A/AAROM/PROM, Strengthening, Edema Control, Scar Care, Triggerpoint Release, Modalities, Orthoses, Joint Protection/Energy Conservation, Ergonomic Education, Education re assistive Equipment, Education re Diagnosis, Caregiver Training and Home Program Last Seen Last Seen: This patient was last seen in our office 04/29/24. Pertinent comments regarding their Occupational therapy will appear below: pt progressed well in OT. She has been cleared by and at this time is D/C. At this point I will be discontinuing this patient from occupational therapy. I would be happy to see this patient again in the future if found appropriate by the physician. Thank you! Gretchen Pena, OTR/L, CHT 07/30/24 0851 CC: Dr. Emi Whatley MD; Dr. Juwan Sarabia MD MK Signed Normal [facility] 45-GM-Zuppzwq DOrdered By: Derrek Whatley on 06-25-2024 Vitamin D 25-Hydroxy 43.1 ng/mL [facility] Comment on above: Vitamin D 25(OH) Sta tus Range Deficiency <20 ng/mL (50nmol/L) Insufficiency 20 - 30 ng/mL (50 - 75 nmol/L) Sufficiency 30 - 100 ng/mL (75 - 250 nmol/L) Toxicity >100 ng/mL (>250 nmol/L) Absolute lymphocyte countOrd ered By: Emi Whatley on 06-25-2024 Lymphocytes Auto (Unsp spec) [#/Vol] 2.03 10*3/uL 0.83-4.51 [facility] Absolute neutrophil countOrd ered By: Emi Whatley on 06-25-2024 Neutrophils (Bld) [#/Vol] 3.8 10*3/uL 2.0-7.7 [facility] Albumin to globulin ratioOrd ered By: Emi Whatley on 06-25-2024 Albumin/Globulin [Mass ratio] 1.0 {ratio} Normal 0.9-2.4 [facility] Comment on above: Order Comment: Order Date: 06/25/24Order Info: 0786-1 - CMP Performed By: #### L 500.4050, L100.0100, L506.1000 ####[facility] [address] [place], [address] Automated blood erythrocyte countOrdered By: Emi Whatley on 06-25-2024 RBC (Bld) [#/Vol] 4.17 10*6/uL Low 4.2-5.4 [facility] Comment on above: Order Comment: Order Date: 06/25/24Order Info: 0184-1 - CBCD Performed By: #### L 500.4050, L100.0100, L506.1000 ####[facility] [address] [facility] [place], [address] Automated blood hematocrit ( percentage)Ordered By: Emi Whatley on 06-25-2024 Hematocrit (Bld) [Volume fraction] 39.0 % Normal 37-47 [facility] Comment on above: Order Comment: Order Date: 06/25/24Order Info: 0184-1 - CBCD Performed By: #### L 500.4050, L100.0100, L506.1000 ####[facility] [address] [facility] [place], [address] Automated lymphocyte count a s percentage of total leukocytesOrdered By: Emi Whatley on 06-25-2024 Lymphocytes/100 WBC (Bld) 30.7 % Normal 19-41 [facility] Comment on above: Order Comment: Order Date: 06/25/24Order Info: 0184-1 - CBCD Performed By: #### L 500.4050, L100.0100, L506.1000 ####[facility] [address] [facility] [place], [address] Lymphocytes/100 WBC Auto (Unsp spec) 30.7 % 19-41 [facility] Basophil percentageOrdered B y: Emi Whatley on 06-25-2024 Basophils/100 WBC (Bld) 0.8 % Normal 0-1 [facility] Comment on above: Order Comment: Order Date: 06/25/24Order Info: 0184-1 - CBCD Performed By: #### L 500.4050, L100.0100, L506.1000 ####[facility] [address] [facility] [place], [address] Bilirubin, totalOrdered By: Emi Whatley on 06-25-2024 Bilirubin [Mass/Vol] 0.40 mg/dL Normal 0.20-1.00 [facility] Comment on above: For patients on eltr ombopag therapy, use of Dimension [place] TBIL is not recommended. Order Comment: Order Date: 06/25/24Order Info: 0786-1 - CMP Result Comment: For patients on eltrombopag therapy, use of Dimension [place] TBIL is not recommended. Performed By: #### L 500.4050, L100.0100, L506.1000 ####[facility] [address] [place], [address] Blood urea nitrogen (BUN)/cr eatinine ratioOrdered By: Emi Whatley on 06-25-2024 Urea nitrogen/Creatinine [Mass ratio] 23.8 mg/mg High 10-20 [facility] CBC W/Diff, Automatedon Absolute Lymph 2.03 X10 3/uL Normal 0.83-4.51 [facility] Comment on above: Order Comment: Order Date: 06/25/24Order Info: 0184-1 - CBCD Performed By: #### L 500.4050, L100.0100, L506.1000 ####[facility] [address] [place], [address] Absolute Neut 3.8 X10 3/uL Normal 2.0-7.7 [facility] Comment on above: Order Comment: Order Date: 06/25/24Order Info: 0184-1 - CBCD Performed By: #### L 500.4050, L100.0100, L506.1000 ####[facility] [address] [place], [address] IG% 0.300 Normal 0.0-0.9 [facility] Comment on above: Order Comment: Order Date: 06/25/24Order Info: 0184-1 - CBCD Result Comment: IG% - Immature Granulocytes (promyelocytes, myelocytes and metamyelocytes) > 1% indicates that a LEFT SHIFT is Present. Performed By: #### L 500.4050, L100.0100, L506.1000 ####[facility] [address] [place], [address] Nucleated RBC (Bld) [#/Vol] 0 10*3/uL Normal 0-5 [facility] Comment on above: Order Comment: Order Date: 06/25/24Order Info: 0184-1 - CBCD Performed By: #### L 500.4050, L100.0100, L506.1000 ####[facility] [address] [place], [address] RDW SD 45.1 fl High 35.1-43.9 [facility] Comment on above: Order Comment: Order Date: 06/25/24Order Info: 0184-1 - CBCD Performed By: #### L 500.4050, L100.0100, L506.1000 ####[facility] [address] [place], [address] Carbon dioxide measurementOr dered By: Emi Whatley on 06-25-2024 CO2 [Moles/Vol] 25.0 mmol/L Normal 21.0-32.0 [facility] Comment on above: Order Comment: Order Date: 06/25/24Order Info: 0786-1 - CMP Performed By: #### L 500.4050, L100.0100, L506.1000 ####[facility] [address] [place], [address] Chloride measurementOrdered By: Emi Whatley on 06-25-2024 Chloride [Moles/Vol] 105 mmol/L Normal 98-107 [facility] Comment on above: Order Comment: Order Date: 06/25/24Order Info: 0786-1 - CMP Performed By: #### L 500.4050, L100.0100, L506.1000 ####[facility] [address] [place], [address] Comprehensive Metabolic Prof ilon 06-25-2024 ALK P 46 U/L Normal 45-117 [facility] Comment on above: Order Comment: Order Date: 06/25/24Order Info: 0786-1 - CMP Performed By: #### L 500.4050, L100.0100, L506.1000 ####[facility] [address] [place], [address] BUN/CRE 23.8 RATIO High 10-20 [facility] Comment on above: Order Comment: Order Date: 06/25/24Order Info: 0786-1 - CMP Performed By: #### L 500.4050, L100.0100, L506.1000 ####[facility] [address] [place], [address] CA,Total 9.3 mg/dL Normal 8.5-10.1 [facility] Comment on above: Order Comment: Order Date: 06/25/24Order Info: 0786-1 - CMP Performed By: #### L 500.4050, L100.0100, L506.1000 ####[facility] [address] [place], [address] EST GFR - AA 78 mL/min Normal >60 [facility] Comment on above: Order Comment: Order Date: 06/25/24Order Info: 0786-1 - CMP Result Comment: Afri can [place] GFR Calc Performed By: #### L 500.4050, L100.0100, L506.1000 ####[facility] [address] [place], [address] GAP 8 Normal 5-15 [facility] Comment on above: Order Comment: Order Date: 06/25/24Order Info: 0786-1 - CMP Performed By: #### L 500.4050, L100.0100, L506.1000 ####[facility] [address] [place], [address] T PROT 7.3 g/dL Normal 6.4-8.2 [facility] Comment on above: Order Comment: Order Date: 06/25/24Order Info: 0786-1 - CMP Performed By: #### L 500.4050, L100.0100, L506.1000 ####[facility] [address] [place], [address] Comprehensive Metabolic Prof ilOrdered By: Emi Whatley on 06-25-2024 AST [Catalytic activity/Vol] 18 U/L Normal 15-37 [facility] Comment on above: Order Comment: Order Date: 06/25/24Order Info: 0786-1 - CMP Performed By: #### L 500.4050, L100.0100, L506.1000 ####[facility] [address] [place], [address] Eosinophil percentageOrdered By: Emi Whatley on 06-25-2024 Eosinophils/100 WBC (Bld) 2.3 % Normal 0-5 [facility] Comment on above: Order Comment: Order Date: 06/25/24Order Info: 0184-1 - CBCD Performed By: #### L 500.4050, L100.0100, L506.1000 ####[facility] [address] [place], [address] Erythrocyte distribution wid th ratioOrdered By: Emi Whatley on 06-25-2024 Erythrocyte distribution width (RBC) [Ratio] 13.3 % Normal 11.6-14.6 [facility] Comment on above: Order Comment: Order Date: 06/25/24Order Info: 0184-1 - CBCD Performed By: #### L 500.4050, L100.0100, L506.1000 ####[facility] [address] [place], [address] Erythrocyte distribution wid th standard deviationOrdered By: Emi Whatley on 06-25-2024 Erythrocyte distribution width (RBC) [Entitic vol] 45.1 fL High 35.1-43.9 [facility] Erythrocyte distribution width (RBC) [Ratio] 45.1 fl High 35.1-43.9 [facility] Estimated glomerular filtrat ion rate (GFR) AmericanOrdered By: Emi Whatley on 06-25-2024 Estimated GFR (MDRD) Amer 78 mL/min >60 [facility] Comment on above: GFR Calc Glomerular filtration rate ( GFR) estimationOrdered By: Emi Whatley on 06-25-2024 Estimated GFR (MDRD) Non-Af Amer 65 mL/min >60 [facility] Comment on above: Non- GFR Calc GFR/1.73 sq M.predicted among non-blacks MDRD (S/P/Bld) [Vol rate/Area] 65 mL/min/{1.73_m2} Normal >60 [facility] Comment on above: Non- GFR Calc Order Comment: Order Date: 06/25/24Order Info: 0786-1 - CMP Result Comment: Non- GFR Calc Performed By: #### L 500.4050, L100.0100, L506.1000 ####[facility] [address] [facility] [place], [address] Glucose measurementOrdered B y: Emi Whatley on 06-25-2024 Glucose [Mass/Vol] 84 mg/dL Normal 74-106 [facility] Comment on above: Order Comment: Order Date: 06/25/24Order Info: 0786-1 - CMP Performed By: #### L 500.4050, L100.0100, L506.1000 ####[facility] [address] [place], [address] Hemoglobin measurementOrdere d By: Emi Whatley on 06-25-2024 Hemoglobin (Bld) [Mass/Vol] 12.4 g/dL Normal 12.0-15.0 [facility] Comment on above: Order Comment: Order Date: 06/25/24Order Info: 0184-1 - CBCD Performed By: #### L 500.4050, L100.0100, L506.1000 ####[facility] [address] [place], [address] Immature granulocytes/100 WB C Auto (Bld)Ordered By: Emi Whatley on 06-25-2024 Immature granulocytes/100 WBC (Bld) 0.300 % 0.0-0.9 [facility] Comment on above: IG% - Immature Granu locytes (promyelocytes, myelocytes and metamyelocytes) > 1% indicates that a LEFT SHIFT is Present. Lymphocytes Auto (Unsp spec) [#/Vol]Ordered By: Emi Whatley on 06-25-2024 Lymphocytes (Bld) [#/Vol] 2.03 10*3/uL 0.83-4.51 [facility] MCV (mean corpuscular volume ) determinationOrdered By: Emi Whatley on 06-25-2024 MCV (RBC) [Entitic vol] 93.5 fL Normal 81-99 [facility] Comment on above: Order Comment: Order Date: 06/25/24Order Info: 0184-1 - CBCD Performed By: #### L 500.4050, L100.0100, L506.1000 ####[facility] [address] [place], [address] Mean corpuscular hemoglobin (MCH) determinationOrdered By: Emi Whatley on 06-25-2024 MCH (RBC) [Entitic mass] 29.7 pg Normal 27.0-32.0 [facility] Comment on above: Order Comment: Order Date: 06/25/24Order Info: 0184-1 - CBCD Performed By: #### L 500.4050, L100.0100, L506.1000 ####[facility] [address] [place], [address] Mean corpuscular hemoglobin concentration (MCHC) determinationOrdered By: Emi Whatley on 06-25-2024 MCHC (RBC) [Mass/Vol] 31.8 g/dL Low 32-36 [facility] Comment on above: Order Comment: Order Date: 06/25/24Order Info: 0184-1 - CBCD Performed By: #### L 500.4050, L100.0100, L506.1000 ####[facility] [address] [place], [address] Mean platelet volume determi nationOrdered By: Emi Whatley on 06-25-2024 Platelet mean volume (Bld) [Entitic vol] 10.6 fL Normal 6.2-12.0 [facility] Comment on above: Order Comment: Order Date: 06/25/24Order Info: 0184-1 - CBCD Performed By: #### L 500.4050, L100.0100, L506.1000 ####[facility] [address] [place], [address] Microalbumin,Random Urineon 06-25-2024 MICROALBUMIN,UR 25.2 mg/L Normal NO RANGE EST. [facility] Comment on above: Performed By: #### L 502.0500 #### [facility] [address] [place], [address] Monocyte percentageOrdered B y: Emi Whatley on 06-25-2024 Monocytes/100 WBC (Bld) 8.6 % Normal 0-10 [facility] Comment on above: Order Comment: Order Date: 06/25/24Order Info: 0184-1 - CBCD Performed By: #### L 500.4050, L100.0100, L506.1000 ####[facility] [address] [place], [address] Neutrophil percentageOrdered By: Emi Whatley on 06-25-2024 Neutrophils/100 WBC (Bld) 57.3 % Normal 47-70 [facility] Comment on above: Order Comment: Order Date: 06/25/24Order Info: 0184-1 - CBCD Performed By: #### L 500.4050, L100.0100, L506.1000 ####[facility] [address] [place], [address] Nucleated red blood cell per centageOrdered By: Emi Whatley on 06-25-2024 Nucleated RBC/100 WBC (Bld) [Ratio] 0 % 0-5 [facility] Platelet countOrdered By: Yazmin Whatley on 06-25-2024 Platelets (Bld) [#/Vol] 218 10*3/uL Normal 150-450 [facility] Comment on above: Order Comment: Order Date: 06/25/24Order Info: 0184-1 - CBCD Performed By: #### L 500.4050, L100.0100, L506.1000 ####[facility] [address] [place], [address] Potassium measurementOrdered By: Emi Whatley on 06-25-2024 Potassium [Moles/Vol] 4.0 mmol/L Normal 3.5-5.1 [facility] Comment on above: Order Comment: Order Date: 06/25/24Order Info: 0786-1 - CMP Performed By: #### L 500.4050, L100.0100, L506.1000 ####[facility] [address] [place], [address] Random urine microalbumin me asurementOrdered By: Emi Whatley on 06-25-2024 Urine Random Microalbumin 25.2 mg/L NO RANGE EST. [facility] Serum anion gap measurementO rdered By: Emi Whatley on 06-25-2024 Anion gap [Moles/Vol] 8 mmol/L 5-15 [facility] Serum globulin measurementOr dered By: Emi Whatley on 06-25-2024 Globulin (S) [Mass/Vol] 3.6 g/dL Normal 2.2-4.2 [facility] Comment on above: Order Comment: Order Date: 06/25/24Order Info: 0786-1 - CMP Performed By: #### L 500.4050, L100.0100, L506.1000 ####[facility] [address] [place], [address] Serum or plasma alanine faustin otransferase (ALT) measurementOrdered By: Emi Whatley on 06-25-2024 ALT [Catalytic activity/Vol] 17 U/L Normal 13-56 [facility] Comment on above: Order Comment: Order Date: 06/25/24Order Info: 0786-1 - CMP Performed By: #### L 500.4050, L100.0100, L506.1000 ####[facility] [address] [place], [address] Serum or plasma albumin katherine urement (mass/volume)Ordered By: Emi Whatley on 06-25-2024 Albumin [Mass/Vol] 3.7 g/dL Normal 3.2-5.0 [facility] Comment on above: Order Comment: Order Date: 06/25/24Order Info: 0786-1 - CMP Performed By: #### L 500.4050, L100.0100, L506.1000 ####[facility] [facility] [id number] [place], [address] Serum or plasma alkaline chris sphatase measurementOrdered By: Emi Whatley on 06-25-2024 ALP [Catalytic activity/Vol] 46 U/L 45-117 [facility] Serum or plasma calcium katherine urement (mass/volume)Ordered By: Emi Whatley on 06-25-2024 Calcium [Mass/Vol] 9.3 mg/dL 8.5-10.1 [facility] Serum or plasma creatinine m easurement (mass/volume)Ordered By: Emi Whatley on 06-25-2024 Creatinine [Mass/Vol] 0.88 mg/dL Normal 0.55-1.02 [facility] Comment on above: The validity of the calculated GFR & GFRAA in patients over 70 years has not been determined. Clinical correlation is essential. Order Comment: Order Date: 06/25/24Order Info: [id number] - CMP Result Comment: The validity of the calculated GFR GFRAA in patients over 70 years has not been determined. Clinical correlation is essential. Performed By: #### L 500.4050, L100.0100, L506.1000 ####[facility] [id number] [place], [address] Serum or plasma urea nitroge n measurement (mass/volume)Ordered By: Emi Whatley on 06-25-2024 Urea nitrogen [Mass/Vol] 21 mg/dL High 7-18 [facility] Comment on above: Order Comment: Order Date: 06/25/24Order Info: [id number] - CMP Performed By: #### L 500.4050, L100.0100, L506.1000 ####[facility] [id number] [place], [address] Sodium levelOrdered By: Emi Whatley on 06-25-2024 Sodium [Moles/Vol] 138 mmol/L Normal 136-145 [facility] Comment on above: Order Comment: Order Date: 06/25/24Order Info: [id number] - CMP Performed By: #### L 500.4050, L100.0100, L506.1000 ####[facility] [id number] [place], [address] Total proteinOrdered By: Mathew Whatley on 06-25-2024 Protein [Mass/Vol] 7.3 g/dL 6.4-8.2 [facility] Vitamin D,25 Hydroxyon 06-25 Vitamin D 25-OH 43.1 ng/mL Normal [facility] Comment on above: Order Comment: Order Date: 06/25/24Order Info: [id number] - VITD25 Result Comment: Katty min D 25(OH) Status Range Deficiency <20 ng/mL (50nmol/L) Insufficiency 20 - 30 ng/mL (50 - 75 nmol/L) Sufficiency 30 - 100 ng/mL (75 - 250 nmol/L) Toxicity >100 ng/mL (>250 nmol/L) Performed By: #### L 500.4050, L100.0100, L506.1000 ####[facility] [id number] [place], [address] White blood cell (WBC) count Ordered By: Emi Whatley on 06-25-2024 WBC (Bld) [#/Vol] 6.6 10*3/uL Normal 4.4-11.0 [facility] Comment on above: Order Comment: Order Date: 06/25/24Order Info: [id number] - CBCD Performed By: #### L 500.4050, L100.0100, L506.1000 ####[facility] [id number] [place], [address] Gastroenterology Visit Repor ton 06-12-2024 Gastroenterology Visit Report [facility] [address] [place] [address] OFFICE VISIT Date of Service: 06/12/24 MR#: [id number] Acct: [id number] Name: ELIDIA STEPHENS Rep #: [id number] : 1940 Provider: VERONICA watson Age/Sex: 84/F Location: [facility] [place].[facility] Status: Signed with Addenda ADDENDUM by Anupama Shah on 06/12/24 at 1625 HPI Details: ELIDIA STEPHENS, is a 84 F who presents to the office today for 06/26/24 1434 Date Gema Archuleta cc: * Signed Intake Vital Signs 02/28/24 10:56 06/12/24 14:17 Height 5 ft 5 ft Weight: 135 lb BMI 26.4 BP 169/81 H Respiration 16 Pulse 68 Pulse Oximetry (%) 98 Oxygen Delivery Method room air Intake Visit Reasons: Pre Colon, Annual check Chief Complaint: discuss c-scope Technician Automated Equipment Required: No Accompanied by: Is patient in pain?: No Allergies Penicillins (PCN) Allergy (Verified 06/12/24 14:12) Rash adhesive Adverse Reaction (Verified 06/12/24 14:12) unknown alendronate sodium Adverse Reaction (Verified 06/12/24 14:12) GI Upset ciprofloxacin (From Cipro) Adverse Reaction (Verified 06/12/24 14:12) blurred vision latex Adverse Reaction (Verified 06/12/24 14:12) rash risedronate sodium (From Actonel) Adverse Reaction (Verified 06/12/24 14:12) GI Upset sulfamethoxazole (From Septra) Adverse Reaction (Verified 06/12/24 14:12) GI Upset trimethoprim (From Septra) Adverse Reaction (Verified 06/12/24 14:12) GI Upset venlafaxine (From Effexor) Adverse Reaction (Verified 06/12/24 14:12) Unknown Medications ???Medication ???Instructions ???Recorded ???Confirmed ???Type cholecalciferol (vitamin D3) 50 50 mcg PO DAILY 03/07/22 06/12/24 History mcg (2,000 unit) capsule (Vitamin D3) vit C 250 mg-vit E 90 mg-zinc 40 1 tab PO BID 03/07/22 06/12/24 History mg-copper 1 [id number] capsule (PreserVision AREDS-2) multivitamin (Daily Multi-Vitamin 1 tab PO DAILY 06/07/22 06/12/24 History tablet) Prolia 60 mg/mL subcutaneous 60 mg subcut [id number] #1 mL 07/28/23 06/12/24 Rx syringe (denosumab) peg 3350-electrolytes 236 240 ml PO Q10M #4,000 mL 06/12/24 06/12/24 Rx gram-22.74 gram-6.74 gram-5.86 gram solution (Golytely) Have you fallen in the past year?: Yes Nurse's Note: No complaints or symptoms at this time. She has been advised by former physician to repeat colonoscopy annually d/t polyp they were unable to remove. This is the reason for her visit today. FORMERLY [facility], [facility]1983 Medical History Osteoporosis Wears hearing aid Wears glasses Post-menopausal Depression Anxiety Alcohol use Arthritis Back pain Non-smoker Shortness of breath on exertion Leg cramps History of edema History of stress test Cardiology follow-up encounter Hypertension Hemorrhoids Cataracts, both eyes Surgical History Hx of colonoscopy History of tonsillectomy History of open reduction and internal fixation (ORIF) procedure History of cataract surgery Family History Brother CAD (coronary artery disease) stents, PPM Hypertension Father Heart disease Brother Hypertension Mother Colon cancer Social History Smoking Status: Never smoker alcohol intake: current alcohol intake frequency: a few times a week Alcohol type: wine substance use type: does not use caffeine: Yes Type: coffee what type of physical activity do you participate in: bicycling HPI HPI Chief Complaint: discuss c-scope Details: ELIDIA STEPHENS, is a 84 F who presents to the office today for Colon 05/30/2023 ([place]) tubular adenomas Hemorrhoids were found on perianal exam. A 6 mm polyp was found in the cecum. The polyp was sessile. The polyp was removed with a saline injection-lift technique using a hot snare. Resection and retrieval were complete. A 20 mm polyp was found in the proximal ascending colon. The polyp was sessile. Biopsies were taken with a cold forceps for histology. A 7 mm polyp was found in the proximal sigmoid colon. The polyp was sessile. The polyp was removed with a hot snare. Resection and retrieval were complete. Multiple diverticula were found in the sigmoid colon. COLON 10/13/2022 (Dr. Emi Constantino @ [facility])- - Tubular adenoma. - One 30 mm polyp in the mid ascending colon, removed piecemeal using a hot snare. Incomplete resection. Nonlifting sign. Re - Moderate diverticulosis in the sigmoid colon and in the descending colon. - The entire examined colon is normal on direct and retroflexion views. - she denies any weight loss - denies any pain or bleedi (more content not included)... Normal [facility] Urine Cultureon 05-17-2024 URC Mixed Gram Pos Gram Neg Org [place] Count 11,000-25,000 MIXC Mixed contaminants. Submit a new specimen if indicated. Normal [facility] Comment on above: Performed By: #### M 100.9110 ####[facility] [address] [place], [address] Urine cultureOrdered By: Mathew Whatley on 05-16-2024 Bacteria identified Cx Nom (U) Mixed Gram Pos & Gram Neg Org Abnormal [facility] Re-Evalution OTon 04-29-2024 Re-Evalution OT [facility] [place] [address] / REEVALUATION / MEDICARE RECERTIFICATION OCCUPATIONAL THERAPY MR#: [id number] Acct: [id number] Name: ELIDIA STEPHENS Rep #: [id number] : 1940 84 From: Gretchen MATTHEW/[place], CHT Referring Dr.: Dr. Juwan Sarabia MD Status: RE G RCR Insurance: [employer] Eval Date: SELF PAY INSURANCE Re-Evaluation Intro: Dr. Juwan Sarabia MD, It has been my pleasure to treat ELIDIA STEPHENS over the last 8 visits for left distal radius untra-articular fx. Please see the progress note below for an update on the occupational therapy plan of care! Subjective Subjective: pt arrives to session: pt arrives 11 weeks and 4 days out from ORIF of left distal radius fx. pt states she is doing more and will tell if she does a little to much. pt states she his having tingling in the tips of her thumb- IF- MF and RF. Objective Objective/Function: left RD 15* left UD 30* left wrist ROM 55/45* left thumb MP 50* left thumb IP 40* pt demo the ability to form a composite fist- some OA deformities causing some more stiffness at times but pt consistently getting PIP flexion of 90* pt can perform opposition to LF DPC pt demo with a increase in left psych nurse strength to 15# right is 40# left lateral pinch strength 6# pt demo with MP hyper ext due to OA deformity of left CMC pt is making great gains with her ROM and strength - pt is performing her ADLs and IADLs at VAMSHI level. Plan Plan Visits in this POC: pt to return to dr for re-eval Plan: pt to work on her strength and use with ADLs - nerve glide for median nerve. Goals Goals Patient Goals: Regain Mobility, Regain Strength, Decrease Pain, Use Hand/Wrist/Arm Normally Again and Resume Former Household Responsibilities (Cooking,Cleaning,Y cherise, etc.) Goal:Daily scar massage when approriate: Yes Goal:ROM equal to unaffected hand: Yes Goal:Supervisor Lathing/Pinch strength at least 75% of unaffected hand: Yes Goal:Full use of affected hand in daily activities including work: Yes Anticipated Interventions Anticipated Interventions Anticipated Interventions: A/AAROM/PROM, Strengthening, Edema Control, Scar Care, Triggerpoint Release, Modalities, Orthoses, Joint Protection/Energy Conservation, Ergonomic Education, Education re assistive Equipment, Education re Diagnosis, Caregiver Training and Home Program Re-Evaluation Ending Re-evaluation ending: Please do not hesitate to contact me at [phone] by phone or if you have questions or concerns regarding this new plan of care! Sincerely, Gretchen Pena, OTR/L, CHT 04/29/24 1526 CC: Dr. Emi Whatley MD; Dr. Juwan Sarabia MD MK Signed For Medicare only, by signing this I certify the plan of care. _ Physicians Signature Date Normal [facility] Laboratory - Chemistry and C hemistry - challengeOrdered By: Emi Whatley on 07-26-2023 Cobalamin (Vitamin B12) [Mass/Vol] 564 pg/mL 211-911 [facility] Absolute lymphocyte countOrd ered By: Emi Whatley on 05-31-2023 Lymphocytes Auto (Unsp spec) [#/Vol] 2.14 10*3/uL 0.83-4.51 [facility] Basophil percentageOrdered B y: Emi Whatley on 05-31-2023 Basophils/100 WBC (Bld) 0.5 % 0-1 [facility] Bilirubin [Mass/Vol] 0.40 mg/dL 0.20-1.00 [facility] Comment on above: For patients on eltr ombopag therapy, use of Dimension [place] TBIL is not recommended. Chloride [Moles/Vol] 108 mmol/L 98-107 [facility] Cholesterol [Mass/Vol] 199 mg/dL <200 [facility] Comment on above: <200 mg/dL Desirable 200-240 mg/dL Borderline >240 mg/dL High Risk Eosinophils/100 WBC (Bld) 1.2 % 0-5 [facility] Glucose [Mass/Vol] 169 mg/dL 74-106 [facility] Comment on above: Fasting Glucose resu lt greater than or equal to 126 mg/dL suggests DIABETES MELLITUS per A.D.A. criteria. Neutrophils (Bld) [#/Vol] 5.5 10*3/uL 2.0-7.7 [facility] Neutrophils/100 WBC (Bld) 65.9 % 47-70 [facility] Potassium [Moles/Vol] 3.7 mmol/L 3.5-5.1 [facility] Protein [Mass/Vol] 6.7 g/dL 6.4-8.2 [facility] Sodium [Moles/Vol] 140 mmol/L 136-145 [facility] Triglyceride [Mass/Vol] 79 mg/dL <199 [facility] Comment on above: The drugs N-Acetylcy steine and Metamizole may falsely depress this assay.Serum Triglycerides Reference Interval Normal <150 mg/dL Borderline high 150 - 199 mg/dL High 200 - 499 mg/dL Very High > or = 500 mg/dL WBC (Bld) [#/Vol] 8.4 10*3/uL 4.4-11.0 [facility] Blood erythrocytes count (nu mber/volume)Ordered By: Emi Whatley on 05-31-2023 RBC (Bld) [#/Vol] 3.92 10*6/uL 4.2-5.4 [facility] Blood hemoglobin measurement (mass/volume)Ordered By: Emi Whatley on 05-31-2023 Hemoglobin (Bld) [Mass/Vol] 11.8 g/dL 12.0-15.0 [facility] Blood lymphocytes/100 leukoc ytesOrdered By: Emi Whatley on 05-31-2023 Lymphocytes/100 WBC (Bld) 25.5 % 19-41 [facility] Blood monocytes/100 leukocyt esOrdered By: Emi Whatley on 05-31-2023 Monocytes/100 WBC (Bld) 6.7 % 0-10 [facility] Blood platelet mean volumeOr dered By: Emi Whatley on 05-31-2023 Platelet mean volume (Bld) [Entitic vol] 10.5 fL 6.2-12.0 [facility] Determination of erythrocyte mean corpuscular volume (MCV)Ordered By: Emi Whatley on 05-31-2023 MCV (RBC) [Entitic vol] 95.7 fL 81-99 [facility] Hematocrit Auto (Bld) [Volum e fraction]Ordered By: Emi Whatley on 05-31-2023 Hematocrit (Bld) [Volume fraction] 37.5 % 37-47 [facility] Laboratory - Chemistry and C hemistry - challengeOrdered By: Emi Whatley on 05-31-2023 ALP [Catalytic activity/Vol] 42 U/L 45-117 [facility] ALT [Catalytic activity/Vol] 24 U/L 13-56 [facility] CO2 [Moles/Vol] 24.0 mmol/L 21.0-32.0 [facility] Globulin (S) [Mass/Vol] 3.2 g/dL 2.2-4.2 [facility] Magnesium [Mass/Vol] 2.3 mg/dL 1.6-2.6 [facility] Urea nitrogen/Creatinine [Mass ratio] 27.5 mg/mg 10-20 [facility] Laboratory - Hematology and Cell countsOrdered By: Emi Whatley on 05-31-2023 Erythrocyte distribution width (RBC) [Entitic vol] 46.1 fL 35.1-43.9 [facility] Erythrocyte distribution width (RBC) [Ratio] 13.2 % 11.6-14.6 [facility] Immature granulocytes/100 WBC (Bld) 0.200 % 0.0-0.9 [facility] Comment on above: IG% - Immature Granu locytes (promyelocytes, myelocytes and metamyelocytes) > 1% indicates that a LEFT SHIFT is Present. MCH (RBC) [Entitic mass] 30.1 pg 27.0-32.0 [facility] Nucleated RBC/100 WBC (Bld) [Ratio] 0 % 0-5 [facility] MCHC Auto (RBC) [Mass/Vol]Or dered By: Emi Whatley on 05-31-2023 MCHC (RBC) [Mass/Vol] 31.5 g/dL 32-36 [facility] No Panel InformationOrdered By: Emi Whatley on 05-31-2023 Estimated GFR (MDRD) Amer 67 mL/min >60 [facility] Comment on above: GFR Calc Estimated GFR (MDRD) Non-Af Amer 55 mL/min >60 [facility] Comment on above: Non- GFR Calc Thyroid Stimulating Hormone (TSH) 1.25 uIU/mL 0.358-3.74 [facility] Vitamin D 25-Hydroxy 63.4 ng/mL [facility] Comment on above: Vitamin D 25(OH) Sta tus Range Deficiency <20 ng/mL (50nmol/L) Insufficiency 20 - 30 ng/mL (50 - 75 nmol/L) Sufficiency 30 - 100 ng/mL (75 - 250 nmol/L) Toxicity >100 ng/mL (>250 nmol/L) Platelets bldOrdered By: Mathew Whatley on 05-31-2023 Platelets (Bld) [#/Vol] 223 10*3/uL 150-450 [facility] Serum or plasma albumin katherine urement (mass/volume)Ordered By: Emi Whatley on 05-31-2023 Albumin [Mass/Vol] 3.5 g/dL 3.2-5.0 [facility] Serum or plasma albumin/glob ulin mass ratioOrdered By: Emi Whatley on 05-31-2023 Albumin/Globulin [Mass ratio] 1.1 {ratio} 0.9-2.4 [facility] Serum or plasma calcium katherine urement (mass/volume)Ordered By: Emi Whatley on 05-31-2023 Calcium [Mass/Vol] 8.3 mg/dL 8.5-10.1 [facility] Serum or plasma cholesterol in HDL measurement (mass/volume)Ordered By: Emi Whatley on 05-31-2023 Cholesterol in HDL [Mass/Vol] 80 mg/dL >40 [facility] Comment on above: The drugs N-Acetylcy steine and Metamizole may falsely depress this assay. Reference Range HDL <40 mg/dL Low HDL Cholesterol HDL >or= 60 mg/dL High HDL Cholesterol Serum or plasma cholesterol in VLDL measurement (mass/volume)Ordered By: Emi Whatley on 05-31-2023 Cholesterol in VLDL [Mass/Vol] 16 mg/dL 5-40 [facility] Serum or plasma creatinine m easurement (mass/volume)Ordered By: Emi Whatley on 05-31-2023 Creatinine [Mass/Vol] 1.02 mg/dL 0.55-1.02 [facility] Comment on above: The validity of the calculated GFR & GFRAA in patients over 70 years has not been determined. Clinical correlation is essential. Serum or plasma low density lipoprotein (LDL) cholesterol measurement (mass/volume)Ordered By: Emi Whatley on 05-31-2023 Cholesterol in LDL [Mass/Vol] 103 mg/dL 0-130 [facility] Serum or plasma urea nitroge n measurement (mass/volume)Ordered By: Emi Whatley on 05-31-2023 Urea nitrogen [Mass/Vol] 28 mg/dL 7-18 [facility] Thin prep Papanicolaou smear with manual screeningOrdered By: Emi Whatley on 05-31-2023 Thin prep Papanicolaou smear with manual screening 28 U/L 15-37 [facility] Thin prep Papanicolaou smear with manual screening 8 5-15 [facility] Whole blood hemoglobin A1c/t otal hemoglobin ratio (mass fraction)Ordered By: Emi Whatley on 05-31-2023 HbA1c (Bld) [Mass fraction] 5.2 % 3.8-5.6 [facility] Comment on above: Normal < 5.7 % Predi abetic 5.7 - 6.4 % Diabetic >or= 6.5 % Please note range changes. Absolute lymphocyte countOrd ered By: Emi Whatley on 11-01-2022 Lymphocytes Auto (Unsp spec) [#/Vol] 1.62 10*3/uL 0.83-4.51 [facility] Basophil percentageOrdered B y: Emi Whatley on 11-01-2022 Basophil percentage 0 SEEN /hpf 0-5 [facility] Basophils/100 WBC (Bld) 1.5 % 0-1 [facility] Bilirubin [Mass/Vol] 0.40 mg/dL 0.20-1.00 [facility] Comment on above: For patients on eltr ombopag therapy, use of Dimension [place] TBIL is not recommended. Chloride [Moles/Vol] 110 mmol/L 98-107 [facility] Eosinophils/100 WBC (Bld) 2.4 % 0-5 [facility] Glucose [Mass/Vol] 70 mg/dL 74-106 [facility] Neutrophils (Bld) [#/Vol] 3.0 10*3/uL 2.0-7.7 [facility] Neutrophils/100 WBC (Bld) 55.8 % 47-70 [facility] Potassium [Moles/Vol] 4.1 mmol/L 3.5-5.1 [facility] Protein [Mass/Vol] 6.9 g/dL 6.4-8.2 [facility] Sodium [Moles/Vol] 141 mmol/L 136-145 [facility] WBC (Bld) [#/Vol] 5.4 10*3/uL 4.4-11.0 [facility] Bilirubin Test strip Ql (U)O rdered By: Emi Whatley on 11-01-2022 Bilirubin Ql (U) Negative Negative [facility] Blood erythrocytes count (nu mber/volume)Ordered By: Emi Whatley on 11-01-2022 RBC (Bld) [#/Vol] 4.12 10*6/uL 4.2-5.4 [facility] Blood hemoglobin measurement (mass/volume)Ordered By: Emi Whatley on 11-01-2022 Hemoglobin (Bld) [Mass/Vol] 12.4 g/dL 12.0-15.0 [facility] Blood lymphocytes/100 leukoc ytesOrdered By: Emi Whatley on 11-01-2022 Lymphocytes/100 WBC (Bld) 30.1 % 19-41 [facility] Blood monocytes/100 leukocyt esOrdered By: Emi Whatley on 11-01-2022 Monocytes/100 WBC (Bld) 10.0 % 0-10 [facility] Blood platelet mean volumeOr dered By: Emi Whatley on 11-01-2022 Platelet mean volume (Bld) [Entitic vol] 10.4 fL 6.2-12.0 [facility] Determination of erythrocyte mean corpuscular volume (MCV)Ordered By: Emi Whatley on 11-01-2022 MCV (RBC) [Entitic vol] 96.1 fL 81-99 [facility] Hematocrit Auto (Bld) [Volum e fraction]Ordered By: Emi Whatley on 11-01-2022 Hematocrit (Bld) [Volume fraction] 39.6 % 37-47 [facility] Ketones Test strip Ql (U)Ord ered By: Emi Whatley on 11-01-2022 Ketones Ql (U) Negative Negative [facility] Laboratory - Chemistry and C hemistry - challengeOrdered By: Emi Whatley on 11-01-2022 ALP [Catalytic activity/Vol] 44 U/L 45-117 [facility] ALT [Catalytic activity/Vol] 18 U/L 13-56 [facility] CO2 [Moles/Vol] 25.0 mmol/L 21.0-32.0 [facility] Globulin (S) [Mass/Vol] 3.2 g/dL 2.2-4.2 [facility] Urea nitrogen/Creatinine [Mass ratio] 25.2 mg/mg 10-20 [facility] Laboratory - Hematology and Cell countsOrdered By: Emi Whatley on 11-01-2022 Erythrocyte distribution width (RBC) [Entitic vol] 47.5 fL 35.1-43.9 [facility] Erythrocyte distribution width (RBC) [Ratio] 13.2 % 11.6-14.6 [facility] Immature granulocytes/100 WBC (Bld) 0.200 % 0.0-0.9 [facility] Comment on above: IG% - Immature Granu locytes (promyelocytes, myelocytes and metamyelocytes) > 1% indicates that a LEFT SHIFT is Present. MCH (RBC) [Entitic mass] 30.1 pg 27.0-32.0 [facility] Nucleated RBC/100 WBC (Bld) [Ratio] 0 % 0-5 [facility] MCHC Auto (RBC) [Mass/Vol]Or dered By: Emi Whatley on 11-01-2022 MCHC (RBC) [Mass/Vol] 31.3 g/dL 32-36 [facility] Mucus LM Ql (Urine sed)Order ed By: Emi Whatley on 11-01-2022 Mucus Ql (Urine sed) 0 SEEN /hpf [facility] Nitrite Test strip Ql (U)Ord ered By: Emi Whatley on 11-01-2022 Nitrite Ql (U) Negative Negative [facility] No Panel InformationOrdered By: Emi Whatley on 11-01-2022 Estimated GFR (MDRD) Amer 84 mL/min >60 [facility] Comment on above: GFR Calc Estimated GFR (MDRD) Non-Af Amer 69 mL/min >60 [facility] Comment on above: Non- GFR Calc Thyroid Stimulating Hormone (TSH) 1.96 uIU/mL 0.358-3.74 [facility] Vitamin D 25-Hydroxy 58.6 ng/mL [facility] Comment on above: Vitamin D 25(OH) Sta tus Range Deficiency <20 ng/mL (50nmol/L) Insufficiency 20 - 30 ng/mL (50 - 75 nmol/L) Sufficiency 30 - 100 ng/mL (75 - 250 nmol/L) Toxicity >100 ng/mL (>250 nmol/L) Platelets bldOrdered By: Mathew Whatley on 11-01-2022 Platelets (Bld) [#/Vol] 278 10*3/uL 150-450 [facility] Protein Test strip Ql (U)Ord ered By: Emi Whatley on 11-01-2022 Protein Ql (U) Negative Negative [facility] Serum or plasma albumin katherine urement (mass/volume)Ordered By: Emi Whatley on 11-01-2022 Albumin [Mass/Vol] 3.7 g/dL 3.2-5.0 [facility] Serum or plasma albumin/glob ulin mass ratioOrdered By: Emi Whatley on 11-01-2022 Albumin/Globulin [Mass ratio] 1.2 {ratio} 0.9-2.4 [facility] Serum or plasma calcium kahterine urement (mass/volume)Ordered By: Emi Whatley on 11-01-2022 Calcium [Mass/Vol] 8.9 mg/dL 8.5-10.1 [facility] Serum or plasma creatinine m easurement (mass/volume)Ordered By: Emi Whatley on 11-01-2022 Creatinine [Mass/Vol] 0.83 mg/dL 0.55-1.02 [facility] Comment on above: The validity of the calculated GFR & GFRAA in patients over 70 years has not been determined. Clinical correlation is essential. Serum or plasma urea nitroge n measurement (mass/volume)Ordered By: Emi Whatley on 11-01-2022 Urea nitrogen [Mass/Vol] 21 mg/dL 7-18 [facility] Squamous epithelial cells de tection in urine sediment by light microscopyOrdered By: Emi Whatley on 11-01-2022 Epithelial cells.squamous LM Ql (Urine sed) 0 SEEN /hpf 5-10 [facility] Thin prep Papanicolaou smear with manual screeningOrdered By: Emi Whatley on 11-01-2022 Thin prep Papanicolaou smear with manual screening 22 U/L 15-37 [facility] Thin prep Papanicolaou smear with manual screening 6 5-15 [facility] Urine blood detectionOrdered By: Emi Whatley on 11-01-2022 RBC Ql (U) 10 /ul Negative [facility] RBC Ql (U) 0 SEEN /hpf 0-5 [facility] Urine clarityOrdered By: Mathew Whatley on 11-01-2022 Clarity (U) Clear Clear [facility] Urine color determinationOrd ered By: Emi Whatley on 11-01-2022 Color (U) Yellow Yellow [facility] Urine glucose detectionOrder ed By: Emi Whatley on 11-01-2022 Glucose Ql (U) Normal mg/dl Normal [facility] Urine leukocyte esterase det ection by dipstickOrdered By: Emi Whatley on 11-01-2022 Leukocyte esterase Test strip Ql (U) Negative Negative [facility] Urine pHOrdered By: Emi pope on 11-01-2022 pH (U) 6.0 [pH] 5.0 - 8.0 [facility] Urine sediment bacteria coun t by microscopy (number/high power field)Ordered By: Emi Whatley on 11-01-2022 Bacteria LM.HPF (Urine sed) [#/Area] 0 /[HPF] None Seen [facility] Urine specific gravity measu rementOrdered By: Emi Whatley on 11-01-2022 Specific gravity (U) [Rel density] 1.010 1.002-1.030 [facility] Urobilinogen Auto test strip Ql (U)Ordered By: Emi Whatley on 11-01-2022 Urobilinogen Ql (U) Normal mg/dl Normal [facility] Absolute lymphocyte countOrd ered By: Dr. Whatley on 08-26-2022 Lymphocytes Auto (Unsp spec) [#/Vol] 1.50 10*3/uL 0.83-4.51 [facility] Basophil percentageOrdered B y: Dr. Whatley on 08-26-2022 Basophil percentage 0 SEEN /hpf 0-5 [facility] Basophils/100 WBC (Bld) 0.3 % 0-1 [facility] Bilirubin [Mass/Vol] 0.40 mg/dL 0.20-1.00 [facility] Comment on above: For patients on eltr ombopag therapy, use of Dimension [place] TBIL is not recommended. Chloride [Moles/Vol] 107 mmol/L 98-107 [facility] Cholesterol [Mass/Vol] 228 mg/dL <200 [facility] Comment on above: <200 mg/dL Desirable 200-240 mg/dL Borderline >240 mg/dL High Risk Eosinophils/100 WBC (Bld) 1.7 % 0-5 [facility] Glucose [Mass/Vol] 85 mg/dL 74-106 [facility] Neutrophils (Bld) [#/Vol] 4.3 10*3/uL 2.0-7.7 [facility] Neutrophils/100 WBC (Bld) 66.4 % 47-70 [facility] Potassium [Moles/Vol] 4.2 mmol/L 3.5-5.1 [facility] Protein [Mass/Vol] 7.0 g/dL 6.4-8.2 [facility] Sodium [Moles/Vol] 139 mmol/L 136-145 [facility] Triglyceride [Mass/Vol] 66 mg/dL <199 [facility] Comment on above: The drugs N-Acetylcy steine and Metamizole may falsely depress this assay.Serum Triglycerides Reference Interval Normal <150 mg/dL Borderline high 150 - 199 mg/dL High 200 - 499 mg/dL Very High > or = 500 mg/dL WBC (Bld) [#/Vol] 6.4 10*3/uL 4.4-11.0 [facility] Bilirubin Test strip Ql (U)O rdered By: Dr. Whatley on 08-26-2022 Bilirubin Ql (U) Negative Negative [facility] Blood erythrocytes count (nu mber/volume)Ordered By: Dr. Whatley on 08-26-2022 RBC (Bld) [#/Vol] 4.18 10*6/uL 4.2-5.4 [facility] Blood hemoglobin measurement (mass/volume)Ordered By: Dr. Whatley on 08-26-2022 Hemoglobin (Bld) [Mass/Vol] 12.8 g/dL 12.0-15.0 [facility] Blood lymphocytes/100 leukoc ytesOrdered By: Dr. Whatley on 08-26-2022 Lymphocytes/100 WBC (Bld) 23.3 % 19-41 [facility] Blood monocytes/100 leukocyt esOrdered By: Dr. Whatley on 08-26-2022 Monocytes/100 WBC (Bld) 8.1 % 0-10 [facility] Blood platelet mean volumeOr dered By: Dr. Whatley on 08-26-2022 Platelet mean volume (Bld) [Entitic vol] 10.5 fL 6.2-12.0 [facility] Determination of erythrocyte mean corpuscular volume (MCV)Ordered By: Dr. Whatley on 08-26-2022 MCV (RBC) [Entitic vol] 95.2 fL 81-99 [facility] Hematocrit Auto (Bld) [Volum e fraction]Ordered By: Dr. Whatley on 08-26-2022 Hematocrit (Bld) [Volume fraction] 39.8 % 37-47 [facility] Ketones Test strip Ql (U)Ord ered By: Dr. Whatley on 08-26-2022 Ketones Ql (U) Negative Negative [facility] Laboratory - Chemistry and C hemistry - challengeOrdered By: Dr. Whatley on 08-26-2022 ALP [Catalytic activity/Vol] 75 U/L 45-117 [facility] ALT [Catalytic activity/Vol] 20 U/L 13-56 [facility] CO2 [Moles/Vol] 27.0 mmol/L 21.0-32.0 [facility] Globulin (S) [Mass/Vol] 3.2 g/dL 2.2-4.2 [facility] Urea nitrogen/Creatinine [Mass ratio] 30.2 mg/mg 10-20 [facility] Laboratory - Hematology and Cell countsOrdered By: Dr. Whatley on 08-26-2022 Erythrocyte distribution width (RBC) [Entitic vol] 47.3 fL 35.1-43.9 [facility] Erythrocyte distribution width (RBC) [Ratio] 13.4 % 11.6-14.6 [facility] Immature granulocytes/100 WBC (Bld) 0.200 % 0.0-0.9 [facility] Comment on above: IG% - Immature Granu locytes (promyelocytes, myelocytes and metamyelocytes) > 1% indicates that a LEFT SHIFT is Present. MCH (RBC) [Entitic mass] 30.6 pg 27.0-32.0 [facility] Nucleated RBC/100 WBC (Bld) [Ratio] 0 % 0-5 [facility] MCHC Auto (RBC) [Mass/Vol]Or dered By: Dr. Whatley on 08-26-2022 MCHC (RBC) [Mass/Vol] 32.2 g/dL 32-36 [facility] Mucus LM Ql (Urine sed)Order ed By: Dr. Whatley on 08-26-2022 Mucus Ql (Urine sed) 0 SEEN /hpf [facility] Nitrite Test strip Ql (U)Ord ered By: Dr. Whatley on 08-26-2022 Nitrite Ql (U) Negative Negative [facility] No Panel InformationOrdered By: Dr. Whatley on 08-26-2022 Estimated GFR (MDRD) Amer 93 mL/min >60 [facility] Comment on above: GFR Calc Estimated GFR (MDRD) Non-Af Amer 77 mL/min >60 [facility] Comment on above: Non- GFR Calc Vitamin D 25-Hydroxy 57.6 ng/mL [facility] Comment on above: Vitamin D 25(OH) Sta tus Range Deficiency <20 ng/mL (50nmol/L) Insufficiency 20 - 30 ng/mL (50 - 75 nmol/L) Sufficiency 30 - 100 ng/mL (75 - 250 nmol/L) Toxicity >100 ng/mL (>250 nmol/L) Platelets bldOrdered By: Dr. Whatley on 08-26-2022 Platelets (Bld) [#/Vol] 223 10*3/uL 150-450 [facility] Protein Test strip Ql (U)Ord ered By: Dr. Whatley on 08-26-2022 Protein Ql (U) Negative Negative [facility] Serum or plasma albumin katherine urement (mass/volume)Ordered By: Dr. Whatley on 08-26-2022 Albumin [Mass/Vol] 3.8 g/dL 3.2-5.0 [facility] Serum or plasma albumin/glob ulin mass ratioOrdered By: Dr. Whatley on 08-26-2022 Albumin/Globulin [Mass ratio] 1.2 {ratio} 0.9-2.4 [facility] Serum or plasma calcium katherine urement (mass/volume)Ordered By: Dr. Whatley on 08-26-2022 Calcium [Mass/Vol] 8.8 mg/dL 8.5-10.1 [facility] Serum or plasma cholesterol in HDL measurement (mass/volume)Ordered By: Dr. Whatley on 08-26-2022 Cholesterol in HDL [Mass/Vol] 82 mg/dL >40 [facility] Comment on above: The drugs N-Acetylcy steine and Metamizole may falsely depress this assay. Reference Range HDL <40 mg/dL Low HDL Cholesterol HDL >or= 60 mg/dL High HDL Cholesterol Serum or plasma cholesterol in VLDL measurement (mass/volume)Ordered By: Dr. Whatley on 08-26-2022 Cholesterol in VLDL [Mass/Vol] 13 mg/dL 5-40 [facility] Serum or plasma creatinine m easurement (mass/volume)Ordered By: Dr. Whatley on 08-26-2022 Creatinine [Mass/Vol] 0.76 mg/dL 0.55-1.02 [facility] Comment on above: The validity of the calculated GFR & GFRAA in patients over 70 years has not been determined. Clinical correlation is essential. Serum or plasma low density lipoprotein (LDL) cholesterol measurement (mass/volume)Ordered By: Dr. Whatley on 08-26-2022 Cholesterol in LDL [Mass/Vol] 133 mg/dL 0-130 [facility] Serum or plasma urea nitroge n measurement (mass/volume)Ordered By: Dr. Whatley on 08-26-2022 Urea nitrogen [Mass/Vol] 23 mg/dL 7-18 [facility] Squamous epithelial cells de tection in urine sediment by light microscopyOrdered By: Dr. Whatley on 08-26-2022 Epithelial cells.squamous LM Ql (Urine sed) 0 SEEN /hpf 5-10 [facility] Thin prep Papanicolaou smear with manual screeningOrdered By: Dr. Whatley on 08-26-2022 Thin prep Papanicolaou smear with manual screening 19 U/L 15-37 [facility] Thin prep Papanicolaou smear with manual screening 5 5-15 [facility] Urine blood detectionOrdered By: Dr. Whatley on 08-26-2022 RBC Ql (U) Negative Negative [facility] RBC Ql (U) 0 SEEN /hpf 0-5 [facility] Urine clarityOrdered By: Dr. Whatley on 08-26-2022 Clarity (U) Clear Clear [facility] Urine color determinationOrd ered By: Dr. Whatley on 08-26-2022 Color (U) Yellow Yellow [facility] Urine glucose detectionOrder ed By: Dr. Whatley on 08-26-2022 Glucose Ql (U) Normal mg/dl Normal [facility] Urine leukocyte esterase det ection by dipstickOrdered By: Dr. Whatley on 08-26-2022 Leukocyte esterase Test strip Ql (U) Negative Negative [facility] Urine pHOrdered By: Dr. Gama mcconnell on 08-26-2022 pH (U) 6.0 [pH] 5.0 - 8.0 [facility] Urine sediment bacteria coun t by microscopy (number/high power field)Ordered By: Dr. Whatley on 08-26-2022 Bacteria LM.HPF (Urine sed) [#/Area] 0 /[HPF] None Seen [facility] Urine specific gravity measu rementOrdered By: Dr. Whatley on 08-26-2022 Specific gravity (U) [Rel density] 1.010 1.002-1.030 [facility] Urobilinogen Auto test strip Ql (U)Ordered By: Dr. Whatley on 08-26-2022 Urobilinogen Ql (U) Normal mg/dl Normal [facility] Absolute lymphocyte countOrd ered By: Dr. Whatley on 05-24-2022 Lymphocytes Auto (Unsp spec) [#/Vol] 1.85 10*3/uL 0.83-4.51 [facility] Basophil percentageOrdered B y: Dr. Whatley on 05-24-2022 Basophil percentage 0-5 SEEN /hpf 0-5 [facility] Basophils/100 WBC (Bld) 1.2 % 0-1 [facility] Bilirubin [Mass/Vol] 0.40 mg/dL 0.20-1.00 [facility] Comment on above: For patients on eltr ombopag therapy, use of Dimension [place] TBIL is not recommended. Chloride [Moles/Vol] 104 mmol/L 98-107 [facility] Cholesterol [Mass/Vol] 245 mg/dL <200 [facility] Comment on above: <200 mg/dL Desirable 200-240 mg/dL Borderline >240 mg/dL High Risk Eosinophils/100 WBC (Bld) 2.0 % 0-5 [facility] Glucose [Mass/Vol] 98 mg/dL 74-106 [facility] Neutrophils (Bld) [#/Vol] 3.3 10*3/uL 2.0-7.7 [facility] Neutrophils/100 WBC (Bld) 55.6 % 47-70 [facility] Potassium [Moles/Vol] 4.1 mmol/L 3.5-5.1 [facility] Protein [Mass/Vol] 6.9 g/dL 6.4-8.2 [facility] Sodium [Moles/Vol] 139 mmol/L 136-145 [facility] Triglyceride [Mass/Vol] 79 mg/dL <199 [facility] Comment on above: The drugs N-Acetylcy steine and Metamizole may falsely depress this assay.Serum Triglycerides Reference Interval Normal <150 mg/dL Borderline high 150 - 199 mg/dL High 200 - 499 mg/dL Very High > or = 500 mg/dL WBC (Bld) [#/Vol] 5.9 10*3/uL 4.4-11.0 [facility] Bilirubin Test strip Ql (U)O rdered By: Dr. Whatley on 05-24-2022 Bilirubin Ql (U) Negative Negative [facility] Blood erythrocytes count (nu mber/volume)Ordered By: Dr. Whatley on 05-24-2022 RBC (Bld) [#/Vol] 4.15 10*6/uL 4.2-5.4 [facility] Blood hemoglobin measurement (mass/volume)Ordered By: Dr. Whatley on 05-24-2022 Hemoglobin (Bld) [Mass/Vol] 12.9 g/dL 12.0-15.0 [facility] Blood lymphocytes/100 leukoc ytesOrdered By: Dr. Whatley on 05-24-2022 Lymphocytes/100 WBC (Bld) 31.6 % 19-41 [facility] Blood monocytes/100 leukocyt esOrdered By: Dr. Whatley on 05-24-2022 Monocytes/100 WBC (Bld) 9.4 % 0-10 [facility] Blood platelet mean volumeOr dered By: Dr. Whatley on 05-24-2022 Platelet mean volume (Bld) [Entitic vol] 10.4 fL 6.2-12.0 [facility] Determination of erythrocyte mean corpuscular volume (MCV)Ordered By: Dr. Whatley on 05-24-2022 MCV (RBC) [Entitic vol] 95.2 fL 81-99 [facility] Hematocrit Auto (Bld) [Volum e fraction]Ordered By: Dr. Whatley on 05-24-2022 Hematocrit (Bld) [Volume fraction] 39.5 % 37-47 [facility] Ketones Test strip Ql (U)Ord ered By: Dr. Whatley on 05-24-2022 Ketones Ql (U) Negative Negative [facility] Laboratory - Chemistry and C hemistry - challengeOrdered By: Dr. Whatley on 05-24-2022 ALP [Catalytic activity/Vol] 72 U/L 45-117 [facility] ALT [Catalytic activity/Vol] 24 U/L 13-56 [facility] CO2 [Moles/Vol] 28.0 mmol/L 21.0-32.0 [facility] Globulin (S) [Mass/Vol] 3.1 g/dL 2.2-4.2 [facility] Urea nitrogen/Creatinine [Mass ratio] 26.3 mg/mg 10-20 [facility] Laboratory - Hematology and Cell countsOrdered By: Dr. Whatley on 05-24-2022 Erythrocyte distribution width (RBC) [Entitic vol] 46.1 fL 35.1-43.9 [facility] Erythrocyte distribution width (RBC) [Ratio] 13.2 % 11.6-14.6 [facility] Immature granulocytes/100 WBC (Bld) 0.200 % 0.0-0.9 [facility] Comment on above: IG% - Immature Granu locytes (promyelocytes, myelocytes and metamyelocytes) > 1% indicates that a LEFT SHIFT is Present. MCH (RBC) [Entitic mass] 31.1 pg 27.0-32.0 [facility] Nucleated RBC/100 WBC (Bld) [Ratio] 0 % 0-5 [facility] MCHC Auto (RBC) [Mass/Vol]Or dered By: Dr. Whatley on 05-24-2022 MCHC (RBC) [Mass/Vol] 32.7 g/dL 32-36 [facility] Mucus LM Ql (Urine sed)Order ed By: Dr. Whatley on 05-24-2022 Mucus Ql (Urine sed) 0 SEEN /hpf [facility] Nitrite Test strip Ql (U)Ord ered By: Dr. Whatley on 05-24-2022 Nitrite Ql (U) Negative Negative [facility] No Panel InformationOrdered By: Dr. Whatley on 05-24-2022 Estimated GFR (MDRD) Amer 76 mL/min >60 [facility] Comment on above: GFR Calc Estimated GFR (MDRD) Non-Af Amer 63 mL/min >60 [facility] Comment on above: Non- GFR Calc Thyroid Stimulating Hormone (TSH) 1.84 uIU/mL 0.358-3.74 [facility] Vitamin D 25-Hydroxy 61.0 ng/mL [facility] Comment on above: Vitamin D 25(OH) Sta tus Range Deficiency <20 ng/mL (50nmol/L) Insufficiency 20 - 30 ng/mL (50 - 75 nmol/L) Sufficiency 30 - 100 ng/mL (75 - 250 nmol/L) Toxicity >100 ng/mL (>250 nmol/L) Platelets bldOrdered By: Dr. Whatley on 05-24-2022 Platelets (Bld) [#/Vol] 248 10*3/uL 150-450 [facility] Protein Test strip Ql (U)Ord ered By: Dr. Whatley on 05-24-2022 Protein Ql (U) 15 mg/dl Negative [facility] Serum or plasma albumin katherine urement (mass/volume)Ordered By: Dr. Whatley on 05-24-2022 Albumin [Mass/Vol] 3.8 g/dL 3.2-5.0 [facility] Serum or plasma albumin/glob ulin mass ratioOrdered By: Dr. Whatley on 05-24-2022 Albumin/Globulin [Mass ratio] 1.2 {ratio} 0.9-2.4 [facility] Serum or plasma calcium katherine urement (mass/volume)Ordered By: Dr. Whatley on 05-24-2022 Calcium [Mass/Vol] 9.0 mg/dL 8.5-10.1 [facility] Serum or plasma cholesterol in HDL measurement (mass/volume)Ordered By: Dr. Whatley on 05-24-2022 Cholesterol in HDL [Mass/Vol] 93 mg/dL >40 [facility] Comment on above: The drugs N-Acetylcy steine and Metamizole may falsely depress this assay. Reference Range HDL <40 mg/dL Low HDL Cholesterol HDL >or= 60 mg/dL High HDL Cholesterol Serum or plasma cholesterol in VLDL measurement (mass/volume)Ordered By: Dr. Whatley on 05-24-2022 Cholesterol in VLDL [Mass/Vol] 16 mg/dL 5-40 [facility] Serum or plasma creatinine m easurement (mass/volume)Ordered By: Dr. Whatley on 05-24-2022 Creatinine [Mass/Vol] 0.91 mg/dL 0.55-1.02 [facility] Comment on above: The validity of the calculated GFR & GFRAA in patients over 70 years has not been determined. Clinical correlation is essential. Serum or plasma low density lipoprotein (LDL) cholesterol measurement (mass/volume)Ordered By: Dr. Whatley on 05-24-2022 Cholesterol in LDL [Mass/Vol] 136 mg/dL 0-130 [facility] Serum or plasma urea nitroge n measurement (mass/volume)Ordered By: Dr. Whatley on 05-24-2022 Urea nitrogen [Mass/Vol] 24 mg/dL 7-18 [facility] Squamous epithelial cells de tection in urine sediment by light microscopyOrdered By: Dr. Whatley on 05-24-2022 Epithelial cells.squamous LM Ql (Urine sed) 0-5 SEEN /hpf 5-10 [facility] Thin prep Papanicolaou smear with manual screeningOrdered By: Dr. Whatley on 05-24-2022 Thin prep Papanicolaou smear with manual screening 20 U/L 15-37 [facility] Thin prep Papanicolaou smear with manual screening 7 5-15 [facility] Urine blood detectionOrdered By: Dr. Whatley on 05-24-2022 RBC Ql (U) Negative Negative [facility] RBC Ql (U) 0 SEEN /hpf 0-5 [facility] Urine clarityOrdered By: Dr. Whatley on 05-24-2022 Clarity (U) Sl. Cloudy Clear [facility] Urine color determinationOrd ered By: Dr. Whatley on 05-24-2022 Color (U) Yellow Yellow [facility] Urine glucose detectionOrder ed By: Dr. Whatley on 05-24-2022 Glucose Ql (U) Normal mg/dl Normal [facility] Urine leukocyte esterase det ection by dipstickOrdered By: Dr. Whatley on 05-24-2022 Leukocyte esterase Test strip Ql (U) 25 /ul Negative [facility] Urine pHOrdered By: Dr. Gama mcconnell on 05-24-2022 pH (U) 5.0 [pH] 5.0 - 8.0 [facility] Urine sediment bacteria coun t by microscopy (number/high power field)Ordered By: Dr. Whatley on 05-24-2022 Bacteria LM.HPF (Urine sed) [#/Area] 0 /[HPF] None Seen [facility] Urine specific gravity measu rementOrdered By: Dr. Whatley on 05-24-2022 Specific gravity (U) [Rel density] 1.015 1.002-1.030 [facility] Urobilinogen Auto test strip Ql (U)Ordered By: Dr. Whatley on 05-24-2022 Urobilinogen Ql (U) Normal mg/dl Normal [facility] Basophil percentageon 2021 Bilirubin [Mass/Vol] 0.50 mg/dL 0.20-1.00 [facility] Work Phone: Comment on above: For patients on eltr ombopag therapy, use of Dimension [place] TBIL is not recommended. Chloride [Moles/Vol] 108 mmol/L 98-107 [facility] Work Phone: Glucose [Mass/Vol] 89 mg/dL 74-106 [facility] Work Phone: Potassium [Moles/Vol] 3.6 mmol/L 3.5-5.1 [facility] Work Phone: Protein [Mass/Vol] 7.1 g/dL 6.4-8.2 [facility] Work Phone: Sodium [Moles/Vol] 141 mmol/L 136-145 [facility] Work Phone: Laboratory - Chemistry and C hemistry - challengeon 11-06-2021 ALP [Catalytic activity/Vol] 70 U/L 45-117 [facility] Work Phone: ALT [Catalytic activity/Vol] 18 U/L 13-56 [facility] Work Phone: CO2 [Moles/Vol] 27.0 mmol/L 21.0-32.0 [facility] Work Phone: Cobalamin (Vitamin B12) [Mass/Vol] 674 pg/mL 211-911 [facility] Work Phone: Globulin (S) [Mass/Vol] 3.4 g/dL 2.2-4.2 [facility] Work Phone: Urea nitrogen/Creatinine [Mass ratio] 22.6 mg/mg 10-20 [facility] Work Phone: No Panel Informationon 11-06 Estimated GFR (MDRD) Amer 79 mL/min >60 [facility] Work Phone: Comment on above: GFR Calc Estimated GFR (MDRD) Non-Af Amer 65 mL/min >60 [facility] Work Phone: Comment on above: Non- GFR Calc Serum or plasma albumin katherine urement (mass/volume)on 11-06-2021 Albumin [Mass/Vol] 3.7 g/dL 3.2-5.0 [facility] Work Phone: Serum or plasma albumin/glob ulin mass ratioon 11-06-2021 Albumin/Globulin [Mass ratio] 1.1 {ratio} 0.9-2.4 [facility] Work Phone: Serum or plasma calcium katherine urement (mass/volume)on 11-06-2021 Calcium [Mass/Vol] 9.2 mg/dL 8.5-10.1 [facility] Work Phone: Serum or plasma creatinine m easurement (mass/volume)on 11-06-2021 Creatinine [Mass/Vol] 0.88 mg/dL 0.55-1.02 [facility] Work Phone: Comment on above: The validity of the calculated GFR & GFRAA in patients over 70 years has not been determined. Clinical correlation is essential. Serum or plasma urea nitroge n measurement (mass/volume)on 11-06-2021 Urea nitrogen [Mass/Vol] 20 mg/dL 12-06 [facility] Work Phone: Thin prep Papanicolaou smear with manual screeningon 11-06-2021 Thin prep Papanicolaou smear with manual screening 19 U/L 15-37 [facility] Work Phone: Thin prep Papanicolaou smear with manual screening 6 5-15 [facility] Work Phone: Whole blood hemoglobin A1c/t otal hemoglobin ratio (mass fraction)on 11-06-2021 HbA1c (Bld) [Mass fraction] 5.4 % 3.8-5.6 [facility] Work Phone: Comment on above: Normal < 5.7 % Predi abetic 5.7 - 6.4 % Diabetic >or= 6.5 % Please note range changes. Clinical Lists Update: Prelo ad Extendedon 05-11-2020 Tobacco smoking status NHIS Tobacco smoking status [facility] Work Phone: Clinical Summary: HMSPatient IDon 05-11-2020 SOP Korina Gonzalez [facility] Work Phone: Office Visit: New - visi t with practice, Rm: 7on 05-11-2020 NEGATED: Highlighted rowxray history of the left humerus on 05/09/2020 at [facility] Work Phone: Office Visit: 5 year colonos copyon 01-30-2017 Documentation of current medications (procedure) Done Invalid Interpretation Code [facility] Work Phone: Fall risk assessment No Invalid Interpretation Code [facility] [employer] Work Phone: Tobacco use [facility] Never smoker Invalid Interpretation Code [facility] [employer] Work Phone: Office Visit: 5 year colonos copyon 01-01-2012 Colonoscopy (procedure) Colonoscopy (procedure) Invalid Interpretation Code [facility] Work Phone: Culture, urine Bacteria identified Cx Nom (U) Mixed Gram Pos & Gram Neg Org [facility] Work Phone: Vital Signs Date Time Vital Sign Value Performing Clinician Facility 02-28-2025 11:03-0400 Body height 152.[address] Emi Whatley MD Work Phone: [facility] 02-28-2025 11:03-0400 Body mass index (BMI) [Ratio] 25.9 kg/m2 Dr. Emi Whatley MD Work Phone: [facility] 02-28-2025 11:03-0400 Body weight 60.[address] Emi Whatley MD Work Phone: [facility] 10-29-2024 13:00-0400 Diastolic blood pressure 72 mm[Hg] Yung Golias PT Work Phone: [facility] 10-29-2024 13:00-0400 Heart rate 91 /min Yung Golias PT Work Phone: [facility] 10-29-2024 13:00-0400 Systolic blood pressure 170 mm[Hg] Yung Golias PT Work Phone: [facility] 09-17-2024 10:52-0400 Body height 152.[address] Emi Whatley MD Work Phone: [facility] 09-17-2024 10:52-0400 Body mass index (BMI) [Ratio] 26.2 kg/m2 Dr. Emi Whatley MD Work Phone: [facility] 09-17-2024 10:52-0400 Body weight 60.[address] Emi Whatley MD Work Phone: [facility] 09-17-2024 10:52-0400 Diastolic blood pressure 75 mm[Hg] Dr. Emi Whatley MD Work Phone: [facility] 09-17-2024 10:52-0400 Heart rate 73 /min Dr. Emi Whatley MD Work Phone: [facility] 09-17-2024 10:52-0400 Respiratory rate 16 /min Dr. Emi Whatley MD Work Phone: [facility] 09-17-2024 10:52-0400 SaO2% (BldA) [Mass fraction] 97 % Dr. Emi Whatley MD Work Phone: [facility] 09-17-2024 10:52-0400 Systolic blood pressure 145 mm[Hg] Dr. Emi Whatley MD Work Phone: [facility] 09-10-2024 13:23-0400 Body mass index (BMI) [Ratio] 25.9 kg/m2 Dr. Emi Whatley MD Work Phone: [facility] 09-10-2024 13:23-0400 Body weight 60.[address] Emi Whatley MD Work Phone: [facility] 09-10-2024 13:23-0400 Diastolic blood pressure 72 mm[Hg] Dr. Emi Whatley MD Work Phone: [facility] 09-10-2024 13:23-0400 Heart rate 78 /min Dr. Emi Whatley MD Work Phone: [facility] 09-10-2024 13:23-0400 SaO2% (BldA) [Mass fraction] 99 % Dr. Emi Whatley MD Work Phone: [facility] 09-10-2024 13:23-0400 Systolic blood pressure 139 mm[Hg] Dr. Emi Whatley MD Work Phone: 4(174)794-222265 [address] 08-21-2024 09:55-0400 Body temperature 98.6 [degF] Dr. Emi Whatley MD Work Phone: 6(206)331-917576 [place] [address] 08-21-2024 09:55-0400 Diastolic blood pressure 66 mm[Hg] Dr. Emi Whatley MD Work Phone: 0(931)300-427276 [place] [address] 08-21-2024 09:55-0400 Heart rate 77 /min Dr. Emi Whatley MD Work Phone: 6(275)431-338176 [place] [address] 08-21-2024 09:55-0400 Respiratory rate 16 /min Dr. Emi Whatley MD Work Phone: [facility] 08-21-2024 09:55-0400 SaO2% (BldA) [Mass fraction] 98 % Dr. Emi Whatley MD Work Phone: 4(901)559-881276 [place] [address] 08-21-2024 09:55-0400 Systolic blood pressure 123 mm[Hg] Dr. Emi Whatley MD Work Phone: 6(132)226-847276 [place] [address] 08-21-2024 07:50-0400 Body height 152.[address] Emi Whatley MD Work Phone: 9(297)492-343087 [place] [address] 08-21-2024 07:50-0400 Body mass index (BMI) [Ratio] 25.4 kg/m2 Dr. Emi Whatley MD Work Phone: 9(882)216-100776 [place] [address] 08-21-2024 07:50-0400 Body weight [address] Emi Whatley MD Work Phone: [facility] 06-12-2024 14:17-0500 Body height 152.[address] Emi Whatley MD Work Phone: [facility] 06-12-2024 14:17-0500 Body mass index (BMI) [Ratio] 26.4 kg/m2 Dr. Emi Whatley MD Work Phone: [facility] 06-12-2024 14:17-0500 Body weight 61.[address] Emi Whatley MD Work Phone: [facility] 06-12-2024 14:17-0500 Diastolic blood pressure 81 mm[Hg] Dr. Emi Whatley MD Work Phone: [facility] 06-12-2024 14:17-0500 Heart rate 68 /min Dr. Emi Whatley MD Work Phone: [facility] 06-12-2024 14:17-0500 Respiratory rate 16 /min Dr. Emi Whatley MD Work Phone: [facility] 06-12-2024 14:17-0500 SaO2% (BldA) [Mass fraction] 98 % Dr. Emi Whatley MD Work Phone: [facility] 06-12-2024 14:17-0500 Systolic blood pressure 169 mm[Hg] Dr. Emi Whatley MD Work Phone: [facility] 09-24-2023 15:35-0400 Body mass index (BMI) [Ratio] 26.13 kg/m2 Ariel Beal APRN.STEWARD RACETRACK Work Phone: [facility] 09-24-2023 15:35-0400 Body temperature 98.91 [degF] Ariel Beal APRN.[employer]ARD R[employer]ETRACK Work Phone: [facility] 09-24-2023 15:35-0400 Body weight 60.7 kg Ariel Beal APRN.[employer]ARD [employer] Work Phone: [facility] 09-24-2023 15:35-0400 Diastolic blood pressure 84 mm[Hg] Ariel [facility] TIMBER SIZER OPERATOR.[employer]EWARD RACETRACK Work Phone: [facility] 09-24-2023 15:35-0400 Heart rate 83 /min [facility] TIMBER SIZER OPERATOR.STEWARD RACETRACK Work Phone: [facility] 09-24-2023 15:35-0400 Respiratory rate 18 /min [facility] TIMBER SIZER OPERATOR.STEWARD RACETRACK Work Phone: [facility] 09-24-2023 15:35-0400 SaO2% (BldA) [Mass fraction] 95 % [facility] TIMBER SIZER OPERATOR.STEWARD RACETRACK Work Phone: [facility] 09-24-2023 15:35-0400 Systolic blood pressure 136 mm[Hg] [facility] TIMBER SIZER OPERATOR.STEWARD RACETRACK Work Phone: [facility] 05-30-2023 09:21-0500 Diastolic blood pressure 72 mm[Hg] Dr. Emi Whatley Work Phone: [facility] 05-30-2023 09:21-0500 Heart rate 79 /min Dr. Emi Whatley Work Phone: [facility] 05-30-2023 09:21-0500 Systolic blood pressure 128 mm[Hg] Dr. Emi Whatley Work Phone: [facility] 05-30-2023 07:27-0500 Body temperature 98.3 [degF] Dr. Emi Whatley Work Phone: [facility] 05-30-2023 07:27-0500 Respiratory rate 16 /min Dr. Emi Whatley Work Phone: [facility] 05-30-2023 07:27-0500 SaO2% (BldA) [Mass fraction] 100 % Dr. Emi Whatley Work Phone: [facility] 05-30-2023 05:56-0500 Body height 152.[address] Emi Whatley Work Phone: [facility] 05-30-2023 05:56-0500 Body mass index (BMI) [Ratio] 25.4 kg/m2 Dr. Emi Whatley Work Phone: [facility] 05-30-2023 05:56-0500 Body weight 59.[address] Emi Whatley Work Phone: [facility] 04-20-2023 13:09-0500 Body mass index (BMI) [Ratio] 26 kg/m2 Dr. Emi Whatley Work Phone: [facility] 04-20-2023 13:09-0500 Body weight 60.[address] Emi Whatley Work Phone: 3(357)797-224776 [place] [address] 04-20-2023 13:09-0500 Diastolic blood pressure 76 mm[Hg] Dr. Emi Whatley Work Phone: 2(288)887-119576 [place] [address] 04-20-2023 13:09-0500 Respiratory rate 16 /min Dr. Emi Whatley Work Phone: [facility] 04-20-2023 13:09-0500 Systolic blood pressure 138 mm[Hg] Dr. Emi Whatley Work Phone: 2(906)661-505676 [place] [address] 02-13-2023 12:37-0400 Body height 152.[address] Emi Whatley Work Phone: [facility] 02-13-2023 12:37-0400 Body temperature 97.4 [degF] Dr. Emi Whatley Work Phone: [facility] 02-13-2023 12:37-0400 Diastolic blood pressure 59 mm[Hg] Dr. Emi Whatley Work Phone: [facility] 02-13-2023 12:37-0400 Heart rate 65 /min Dr. Emi Whatley Work Phone: [facility] 02-13-2023 12:37-0400 Respiratory rate 16 /min Dr. Emi Whatley Work Phone: [facility] 02-13-2023 12:37-0400 Systolic blood pressure 173 mm[Hg] Dr. Emi Whatley Work Phone: [facility] 08-15-2022 13:06-0400 Body height 152.[address] Emi Whatley Work Phone: [facility] 08-15-2022 13:06-0400 Body mass index (BMI) [Ratio] 26.2 kg/m2 Dr. Emi Whatley Work Phone: [facility] 08-15-2022 13:06-0400 Body temperature 96.9 [degF] Dr. Emi Whatley Work Phone: [facility] 08-15-2022 13:06-0400 Body weight 60.[address] Emi Whatley Work Phone: [facility] 08-15-2022 13:06-0400 Diastolic blood pressure 69 mm[Hg] Dr. Emi Whatley Work Phone: [facility] 08-15-2022 13:06-0400 Heart rate 65 /min Dr. Emi Whatley Work Phone: [facility] 08-15-2022 13:06-0400 Respiratory rate 15 /min Dr. Emi Whatley Work Phone: [facility] 08-15-2022 13:06-0400 SaO2% (BldA) [Mass fraction] 100 % Dr. Emi Whatley Work Phone: [facility] 08-15-2022 13:06-0400 Systolic blood pressure 147 mm[Hg] Dr. Emi Whatley Work Phone: [facility] 07-25-2022 13:59-0500 Body temperature 97.4 [degF] Dr. Emi Whatley Work Phone: [facility] 07-25-2022 13:59-0500 Diastolic blood pressure 76 mm[Hg] Dr. Emi Whatley Work Phone: [facility] 07-25-2022 13:59-0500 Heart rate 70 /min Dr. Emi Whatley Work Phone: [facility] 07-25-2022 13:59-0500 Respiratory rate 17 /min Dr. Emi Whatley Work Phone: [facility] 07-25-2022 13:59-0500 SaO2% (BldA) [Mass fraction] 99 % Dr. Emi Whatley Work Phone: [facility] 07-25-2022 13:59-0500 Systolic blood pressure 145 mm[Hg] Dr. Emi Whatley Work Phone: [facility] 06-24-2022 16:14-0500 Body height 152.[address] Emi Whatley Work Phone: [facility] 06-14-2022 14:32-0500 Body mass index (BMI) [Ratio] 26.4 kg/m2 Dr. Emi Whatley Work Phone: [facility] 06-14-2022 14:32-0500 Body weight 61.[address] Emi Whatley Work Phone: [facility] 06-14-2022 14:32-0500 Diastolic blood pressure 88 mm[Hg] Dr. Emi Whatley Work Phone: [facility] 06-14-2022 14:32-0500 Respiratory rate 16 /min Dr. Emi Whatley Work Phone: [facility] 06-14-2022 14:32-0500 Systolic blood pressure 164 mm[Hg] Dr. Emi Whatley Work Phone: [facility] 06-07-2022 08:57-0500 Body height 152.[address] Emi Whatley Work Phone: [facility] 06-07-2022 08:57-0500 Body mass index (BMI) [Ratio] 26.2 kg/m2 Dr. Emi Whatley Work Phone: [facility] 06-07-2022 08:57-0500 Body temperature 97 [degF] Dr. Emi Whatley Work Phone: [facility] 06-07-2022 08:57-0500 Body weight 60.[address] Emi Whatley Work Phone: [facility] 06-07-2022 08:57-0500 Diastolic blood pressure 68 mm[Hg] Dr. Emi Whately Work Phone: [facility] 06-07-2022 08:57-0500 Heart rate 69 /min Dr. Emi Whatley Work Phone: [facility] 06-07-2022 08:57-0500 Respiratory rate 18 /min Dr. Emi Whatley Work Phone: [facility] 06-07-2022 08:57-0500 SaO2% (BldA) [Mass fraction] 98 % Dr. Emi Whatley Work Phone: [facility] 06-07-2022 08:57-0500 Systolic blood pressure 140 mm[Hg] Dr. Emi Whatley Work Phone: [facility] 04-26-2022 16:44-0500 Body height 152.4 cm Jamaal Katz MD Work Phone: [facility] 04-26-2022 16:44-0500 Body temperature 97.59 [degF] Jamaal Katz MD Work Phone: [facility] 04-26-2022 16:44-0500 Body weight 60.78 kg Jamaal Katz MD Work Phone: [facility] 04-26-2022 16:44-0500 Diastolic blood pressure 70 mm[Hg] Jamaal Katz MD Work Phone: [facility] 04-26-2022 16:44-0500 Heart rate 78 /min Jamaal Katz MD Work Phone: [facility] 04-26-2022 16:44-0500 SaO2% (BldA) [Mass fraction] 98 % Jamaal Katz MD Work Phone: [facility] 04-26-2022 16:44-0500 Systolic blood pressure 130 mm[Hg] Jamaal Katz MD Work Phone: [facility] 03-15-2022 14:13-0400 Body mass index (BMI) [Ratio] 26.4 kg/m2 Dr. Emi Whatley Work Phone: [facility] 03-15-2022 14:13-0400 Body temperature 97.4 [degF] Dr. Emi Whatley Work Phone: [facility] 03-15-2022 14:13-0400 Body weight 61.[address] Emi Whatley Work Phone: [facility] 03-15-2022 14:13-0400 Diastolic blood pressure 78 mm[Hg] Dr. Emi Whatley Work Phone: [facility] 03-15-2022 14:13-0400 Heart rate 79 /min Dr. Emi Whatley Work Phone: [facility] 03-15-2022 14:13-0400 Respiratory rate 17 /min Dr. Emi Whatley Work Phone: [facility] 03-15-2022 14:13-0400 SaO2% (BldA) [Mass fraction] 98 % Dr. Emi Whatley Work Phone: [facility] 03-15-2022 14:13-0400 Systolic blood pressure 138 mm[Hg] Dr. Emi Whatley Work Phone: [facility] 03-08-2022 07:44-0400 Body temperature 97.7 [degF] Dr. Emi Whatley Work Phone: [facility] 03-08-2022 07:44-0400 Diastolic blood pressure 93 mm[Hg] Dr. Emi Whatley Work Phone: [facility] 03-08-2022 07:44-0400 Heart rate 87 /min Dr. Emi Whatley Work Phone: [facility] 03-08-2022 07:44-0400 Respiratory rate 16 /min Dr. Emi Whatley Work Phone: [facility] 03-08-2022 07:44-0400 SaO2% (BldA) [Mass fraction] 98 % Dr. Emi Whatley Work Phone: [facility] 03-08-2022 07:44-0400 Systolic blood pressure 133 mm[Hg] Dr. Emi Whatley Work Phone: [facility] 03-08-2022 06:41-0400 Body height 152.[address] Emi Whatley Work Phone: [facility] Work Phone: 03-08-2022 06:41-0400 Body mass index (BMI) [Ratio] 25.9 kg/m2 Dr. Emi Whatley Work Phone: [facility] 03-08-2022 06:41-0400 Body weight 60.[address] Emi Whatley Work Phone: [facility] 02-17-2022 08:46-0400 Body mass index (BMI) [Ratio] 26.2 kg/m2 Dr. Emi Whatley Work Phone: [facility] 02-17-2022 08:46-0400 Body temperature 97.8 [degF] Dr. Emi Whatley Work Phone: [facility] 02-17-2022 08:46-0400 Body weight 60.[address] Emi Whatley Work Phone: [facility] 02-17-2022 08:46-0400 Diastolic blood pressure 84 mm[Hg] Dr. Emi Whatley Work Phone: [facility] 02-17-2022 08:46-0400 Heart rate 78 /min Dr. Emi Whatley Work Phone: [facility] 02-17-2022 08:46-0400 Respiratory rate 16 /min Dr. Emi Whatley Work Phone: [facility] 02-17-2022 08:46-0400 SaO2% (BldA) [Mass fraction] 98 % Dr. Emi Whatley Work Phone: [facility] 02-17-2022 08:46-0400 Systolic blood pressure 127 mm[Hg] Dr. Emi Whatley Work Phone: [facility] 02-03-2022 10:32-0400 Body height 154.[address] Emi Whatley Work Phone: [facility] Work Phone: 01-30-2017 09:42-0400 BMI (Body Mass Index) 26.3 kg/m2 Christophe Lees MD [facility] Work Phone: 01-30-2017 09:42-0400 Body Temperature 97.9 [degF] Christophe Lees MD [facility] Work Phone: 01-30-2017 09:42-0400 BP Diastolic 85 mm[Hg] Christophe Lees MD [facility] Work Phone: 01-30-2017 09:42-0400 BP Systolic 157 mm[Hg] Christophe Lees MD [facility] Work Phone: 01-30-2017 09:42-0400 Height 157.48 cm Christophe Lees MD [facility] Work Phone: 01-30-2017 09:42-0400 Pulse (Heart Rate) 61 /min Christophe Lees MD [facility] Work Phone: 01-30-2017 09:42-0400 Respiratory Rate 20 /min Christophe Lees MD [facility] Work Phone: 01-30-2017 09:42-0400 Weight 65.23 kg Christophe Lees MD [facility] Work Phone: NEGATED: Highlighted [id number] 11:30-0500 BMI (Body Mass Index) 26.55 kg/m2 Kobi Dove LPN [facility] Work Phone: NEGATED: Highlighted [id number] 11:30-0500 Body weight 63.5 kg Kobi Dove CUSTOMER QUALITY ENGINEER [facility] Work Phone: NEGATED: Highlighted [id number] 11:30-0500 Body weight 64 kg Kobi Dove CUSTOMER QUALITY ENGINEER [facility] Work Phone: NEGATED: Highlighted [id number] 11:30-0500 Height 154.94 cm Kobi Dove CUSTOMER QUALITY ENGINEER [facility] Work Phone: NEGATED: Highlighted [id number] 11:30-0500 Height 155 cm Kobi Dove CUSTOMER QUALITY ENGINEER [facility] Work Phone: Encounters Encounter Date Encounter Type Care Provider Facility Start: 04-16-2025 ambulatory Emi Whatley Facilit y:[facility] Start: 03-13-2025 End: 03-13-2025 ambulatory Elfego Giovanni Facility:[facility] Start: 02-28-2025 End: 02-28-[address] Saurabh Payne MD -[facility] Work Phone: Start: 02-28-2025 End: 02-28-[address] Emi Whatley MD Work Phone: [facility] Start: 01-09-2025 End: 01-09-[address] Emi Whatley MD Work Phone: -[facility] Start: 01-09-2025 End: 01-09-[address] Jeovanny Swain MD -[facility] Work Phone: Start: 01-09-2025 End: 01-09-2025 ambulatory Jeovanny Swain Facility:[facility] Start: 12-05-2024 End: 12-05-2024 ambulatory Yung Roach PT Work Phone: [facility] Comment on above: Cervicalgia (Primary Dx) Start: 11-26-2024 End: 11-26-2024 ambulatory Gina Gurrola NUCLEAR CONTROL ROOM OPERATOR Work Phone: [facility] Comment on above: Cervicalgia (Primary Dx) Start: 11-21-2024 End: 11-21-2024 ambulatory Gina Gurrola NUCLEAR CONTROL ROOM OPERATOR Work Phone: [facility] Comment on above: Cervicalgia (Primary Dx) Start: 11-19-2024 End: 11-20-2024 ambulatory Yung Golias PT Work Phone: [facility] Comment on above: Cervicalgia (Primary Dx) Start: 11-15-2024 End: 11-15-2024 ambulatory Yung Golias PT Work Phone: [facility] Comment on above: Cervicalgia (Primary Dx) Start: 11-12-2024 End: 11-12-2024 ambulatory Yung Golias PT Work Phone: [facility] Comment on above: Cervicalgia (Primary Dx) Start: 11-12-2024 ambulatory Emi Whatley Facilit y:[facility] Start: 11-08-2024 End: 11-11-2024 Telephone encounter Yung Golias PT Work Phone: [facility] Comment on above: Patient Update Start: 11-08-2024 End: 11-08-2024 ambulatory Yung Golias PT Work Phone: [facility] Comment on above: Cervicalgia (Primary Dx) Start: 11-06-2024 End: 11-06-2024 ambulatory Yung Golias PT Work Phone: [facility] Comment on above: Cervicalgia (Primary Dx) Start: 10-29-2024 End: 10-29-2024 ambulatory Yung Golias PT Work Phone: [facility] Comment on above: Cervicalgia (Primary Dx) Start: 10-02-2024 End: 10-02-[address] Emi Whatley MD Work Phone: [facility] Work Phone: Start: 10-02-2024 End: 10-02-2024 Patient encounter procedure Cain Ratliff METALLOGRAPHY TEACHER-C -[facility] [place] Work Phone: Start: 10-02-2024 End: 10-02-2024 ambulatory Emi Whatley Facility:[facility] Start: 09-17-2024 End: 09-17-2024 Patient encounter procedure Gema Archuleta METALLOGRAPHY TEACHER-C -[facility] Work Phone: Start: 09-17-2024 End: 09-17-2024 ambulatory Emi Whatley Facility:[facility] Start: 09-10-2024 End: 09-10-[address] Elfego Davila MD -[facility] Work Phone: Start: 09-10-2024 End: 09-10-2024 ambulatory Emi Whatley Facility:[facility] Start: 08-21-2024 Non-patient / Non-visit Hussein Frazier nd DO -[facility] Start: 08-21-2024 End: 08-21-2024 Admission to same day surgery center Hussein Dawson DO -Endoscopy Work Phone: Start: 08-21-2024 End: 08-21-[address] Emi Whatley MD Work Phone: [facility] Work Phone: Start: 08-06-2024 End: 08-06-[address] Emi Whatley MD Work Phone: [facility] Work Phone: Start: 08-06-2024 End: 08-06-[address] Milagros Little MD -Laboratory, [facility] Work Phone: Start: 08-06-2024 End: 08-06-2024 ambulatory Emi Whatley Facility:[facility] Start: 06-25-2024 End: 06-25-[address] Emi Whatley MD -Laboratory, [facility] Start: 06-25-2024 End: 06-25-2024 ambulatory Emi Whatley Facility:[facility] Start: 06-12-2024 End: 06-12-2024 Patient encounter procedure Gema MARTIN -[facility] Work Phone: Start: 06-12-2024 End: 06-12-2024 ambulatory Emi Whatley Facility:[facility] Start: 05-16-2024 End: 05-16-[address] Emi Whatley MD -Laboratory, [facility] Work Phone: Start: 05-16-2024 End: 05-16-2024 ambulatory Emi Whatley Facility:[facility] Start: 04-29-2024 End: 04-29-[address] Emi Whatley MD Work Phone: [facility] Work Phone: Start: 04-29-2024 End: 04-29-[address] Juwan Sarabia MD -Occupational Therapy Work Phone: Start: 09-25-2023 Telephone encounter Ariel shen APRN.STEWARD RACETRACK Work Phone: [facility] Comment on above: Results Start: 09-24-2023 End: 09-24-2023 Office outpatient visit 15 minutes Ariel Beal APRN.STEWARD RACETRACK Work Phone: [facility] Comment on above: Viral illness (Prima ry Dx) Start: 07-26-2023 End: 07-26-[address] Emi Whatley Work Phone: [facility] Work Phone: Start: 07-26-2023 End: 07-26-[address] Emi Whatley Work Phone: [facility]atory, [place] Work Phone: Start: 05-31-2023 End: 05-31-[address] Emi Whatley Work Phone: [facility] Work Phone: Start: 05-31-2023 End: 05-31-[address] Emi Whatley Work Phone: [facility] Start: 05-30-2023 Non-patient / Non-visit Dr. Yazmin Whatley Work Phone: [facility] Start: 05-30-2023 End: 05-30-2023 Admission to same day surgery center Dr. Emi Whatley Work Phone: [facility]-Endoscopy Work Phone: Start: 05-30-2023 End: 05-30-[address] Emi Whatley Work Phone: [facility] Work Phone: Start: 04-20-2023 End: 04-20-[address] Emi Whatley Work Phone: [facility] Work Phone: Start: 02-13-2023 End: 02-13-[address] Emi Whatley Work Phone: [facility] Work Phone: Start: 02-13-2023 End: 02-13-[address] Emi Whatley Work Phone: [facility]Medical Out Work Phone: Start: 11-10-2022 End: 11-10-[address] Emi Whatley Work Phone: [facility] Work Phone: Start: 11-08-2022 End: 11-08-[address] Emi Whatley Work Phone: [facility]-Outpatient Bone Densitometry Work Phone: Start: 11-01-2022 End: 11-01-[address] Emi Whatley Work Phone: [facility] Start: 10-10-2022 Telephone encounter Emi Constantino MD Work Phone: Gastroenterology Comment on above: Patient Question (Pr ep ); Medication Problem Start: 09-01-[address] Emi Whatley Work Phone: [facility]-Laboratory, Specimen Start: 08-26-2022 End: 08-26-[address] Emi Whatley Work Phone: [facility] Work Phone: Start: 08-26-2022 End: 08-26-[address] Emi Whatley Work Phone: [facility] Start: 08-15-2022 End: 08-15-[address] Emi Whatley Work Phone: [facility] Work Phone: Start: 08-15-2022 End: 08-15-[address] Emi Whatley Work Phone: [facility] Start: 08-08-2022 End: 08-08-2022 ambulatory Emi Constantino MD Work Phone: Gastroenterology Comment on above: Personal history of colonic polyps (Primary Dx); Adenomatous polyp of ascending colon Start: 08-08-2022 End: 08-08-2022 Telemedicine consultation with patient Emi Constantino MD Work Phone: [facility] Start: 07-26-2022 Telephone encounter Emi Constantino MD Work Phone: Gastroenterology Comment on above: Consult Start: 07-25-2022 End: 07-25-[address] Emi Whatley Work Phone: [facility] Start: 06-24-2022 End: 06-24-[address] Emi Whatley Work Phone: [facility] Work Phone: Start: 06-24-2022 End: 06-24-[address] Emi Whatley Work Phone: [facility] Start: 06-14-2022 End: 06-14-[address] Emi Whatley Work Phone: [facility] Start: 06-07-2022 End: 06-07-[address] Emi Whatley Work Phone: [facility] Start: 05-24-2022 End: 05-24-[address] Emi Whatley Work Phone: [facility] Work Phone: Start: 05-24-2022 End: 05-24-[address] Emi Whatley Work Phone: [facility] Start: 05-06-2022 Telephone encounter Jamaal Katz MD Work Phone: Ambulatory Surgery Comment on above: Patient Question Start: 04-26-2022 End: 04-26-2022 Patient encounter procedure Jamaal Katz MD Work Phone: General Surgery Comment on above: Personal history of colonic polyps (Primary Dx); Family history of malignant neoplasm of gastrointestinal tract Start: 03-15-2022 End: 03-15-[address] Emi Whatley Work Phone: [facility] Start: 03-08-2022 Non-patient / Non-visit Dr. Yazmin Whatley Work Phone: [facility] Start: 03-08-2022 End: 03-08-2022 Admission to same day surgery center Dr. Emi Whatley Work Phone: [facility]-Endoscopy Start: 03-08-2022 End: 03-08-[address] Emi Whatley Work Phone: [facility] Work Phone: Start: 02-17-2022 End: 02-17-[address] Emi Whatley Work Phone: [facility] Start: 02-03-2022 End: 02-03-[address] Emi Whatley Work Phone: [facility] Work Phone: Start: 02-03-2022 End: 02-03-[address] Emi Whatley Work Phone: [facility]-Outpatient Bone Densitometry Start: 01-03-2022 Non-patient / Non-visit Dr. Yazmin Whatley Work Phone: [facility] Start: 01-03-2022 End: 01-03-[address] Emi Whatley Work Phone: [facility]-Pulmonary Services/Neurology Start: 11-06-2021 End: 11-06-2021 Patient encounter procedure [facility]Laboratory Start: 11-04-2021 End: 11-04-2021 Patient encounter procedure [facility]Out[facility] Imaging Start: 07-12-2021 End: 07-12-2021 Patient encounter procedure [facility], Specimen Start: 05-11-2020 End: 05-11-2020 Patient encounter procedure Louie Oviedo MD Work Phone: [facility] Work Phone: Procedures Date Procedure Procedure Detail Performing Clinician Start: 02-28-2025 X-ray of cervical spine Dr. Emi Whatley MD Work Phone: Start: 01-09-2025 MRI of cervical spine Naima Whatley MD Work Phone: Start: 10-02-2024 X-ray of cervical spine Dr. Emi Whatley MD Work Phone: Start: 08-21-[address] Emi james MD Work Phone: Start: 08-06-[address] Emi Whatley MD Work Phone: Start: 06-25-[address] Emi Whatley MD Work Phone: Start: 06-25-2024 Measurement of renal function Dr. Emi Whatley MD Work Phone: Comment on above: GFR Calc Start: 06-25-2024 Vitamin D, 25-hydrox y measurement Dr. Emi Whatley MD Work Phone: Comment on above: Vitamin D 25(OH) Sta tus Range Deficiency <20 ng/mL (50nmol/L) Insufficiency 20 - 30 ng/mL (50 - 75 nmol/L) Sufficiency 30 - 100 ng/mL (75 - 250 nmol/L) Toxicity >100 ng/mL (>250 nmol/L) Start: 05-16-[address] Emi Whatley MD Work Phone: Start: 07-26-2023 X-ray of cervical spine Dr. Emi Whatley Work Phone: Start: 05-30-[address] Emi james Work Phone: Start: 11-08-2022 Screening mammography Naima Whatley Work Phone: Start: 06-24-2022 Computed tomography of abdomen and pelvis with contrast Dr. Emi Whatley Work Phone: Start: 03-08-[address] Emi james Work Phone: Start: 02-03-2022 Dual energy X-ray absorptiometry Dr. Emi Whatley Work Phone: Start: 11-04-2021 Screening mammography Start: 05-11-2020 End: 05-11-2020 Blood pressure screening not performed - reason not given Louie Oviedo MD Work Phone: Start: 05-11-2020 End: 05-11-2020 BMI outside of normal parameters - no follow-up plan/reason not given Louie Oviedo MD Work Phone: Start: 05-11-2020 End: 05-11-2020 Doc fx & test/txmnt for op Louie arnett MD Work Phone: Start: 05-11-2020 End: 05-11-2020 Documentation of current medications Louie Oviedo MD Work Phone: Start: 05-11-2020 End: 05-11-2020 Pain assessment documented as positive - follow-up documented Louie Oviedo MD Work Phone: Start: 05-11-2020 End: 05-11-2020 Tobacco non-user Louie Oviedo MD Work Phone: Urine culture NEGATED: Highlighted rowStart: 05-11-2020 End: 05-11-2020 Documentation of current medications Kobi Dove LPN Plan of Treatment Date Care Activity Detail Author Start: 11-05-2029 Urine microalbumin profile DTaP,Tdap,Td Vaccine (2 - Td or Tdap) [facility] Start: 03-13-2025 End: 03-13-2025 Patient encounter procedure [facility] Work Phone: Start: 01-20-2025 Influenza vaccination Influenza Vacc ine (#1) [facility] Start: 12-05-2024 End: 12-05-2024 ambulatory 12/05/2024 10:45 AM EDT OT/PT/Speech Visit [facility] [address] [place] [address] Yung Roach, PT [address] [place] [address] Neck Pain [facility] Comment on above: Neck Pain Start: 11-26-2024 End: 11-26-2024 ambulatory 11/26/2024 3:30 PM EDT OT/PT/Speech Visit [facility] [address] [place] [address] Gina Gurrola, NUCLEAR CONTROL ROOM OPERATOR [address] [place] [address] Neck Pain [facility] Comment on above: Neck Pain Start: 11-21-2024 End: 11-21-2024 ambulatory 11/21/2024 10:15 AM EDT OT/PT/Speech Visit [facility] [address] [place] [address] Gina Gurrola, NUCLEAR CONTROL ROOM OPERATOR [address] [place] [address] Neck Pain [facility] Comment on above: Neck Pain Start: 11-19-2024 End: 11-19-2024 ambulatory 11/19/2024 3:30 PM EDT OT/PT/Speech Visit [facility] [address] [place] [address] Golias, Yung, PT [address] [place] [address] Neck Pain [facility] Comment on above: Neck Pain Start: 11-15-2024 End: 11-15-2024 ambulatory 11/15/2024 1:00 PM EDT OT/PT/Speech Visit [facility] [address] [place] [address] Golias, Yung, PT [address] [place] [address] Neck Pain [facility] Comment on above: Neck Pain Start: 11-12-2024 End: 11-12-2024 ambulatory 11/12/2024 3:30 PM EDT OT/PT/Speech Visit [facility] [address] [place] [address] Golias, Yung, PT [address] [place] [address] Neck Pain [facility] Comment on above: Neck Pain Start: 11-08-2024 End: 11-08-2024 ambulatory 11/08/2024 1:00 PM EDT OT/PT/Speech Visit [facility] [address] [place] [address] Yung Roach, PT [address] [place] [address] Neck Pain [facility] Comment on above: Neck Pain Start: 11-06-2024 End: 11-06-2024 ambulatory 11/06/2024 10:00 AM EDT OT/PT/Speech Visit [facility] [address] [place] [address] Yung Roach, PT [address] [place] [address] Neck Pain [facility] Comment on above: Neck Pain Start: 08-21-2024 Colonoscopy w/biopsy single/multiple COLONOSCOPY AND BIOPSY [facility] Start: 08-21-2024 Colsc flx w/rmvl of tumor polyp lesion snare tq COLONOSCOPY W/LESION REMOVAL [facility] Start: 08-21-2024 Patient discharge [facility] Start: 05-22-2024 Advance Directive Discussion Advance Directive Discussion [facility] Start: 05-22-2024 Medicare Advantage Annual Wellness Visit Medicare Advantage Annual Wellness Visit [facility] Start: 01-21-2024 Covid-19 Vaccine () Covid-19 Vaccine () [facility] Start: 09-24-2023 End: 10-08-2023 COVID & INFLUENZA A/B & RSV NAAT, ROUTINE [facility] Work Phone: Comment on above: Expected: 09/24/2023 , Expires: 10/08/2023 Start: 07-21-2023 Covid-19 Vaccine () Covid-19 Vaccine () [facility] Start: 05-30-2023 Colonoscopy w/biopsy single/multiple COLONOSCOPY AND BIOPSY [facility] Start: 01-09-2024 Colsc flx w/rmvl of tumor polyp lesion snare tq COLONOSCOPY W/LESION REMOVAL [facility] Start: 05-30-2023 Colsc flx with directed submucosal njx any sbst COLONOSCOPY SUBMUCOUS NJX [facility] Start: 05-30-2023 Patient discharge [facility] Start: 05-22-2023 Advance Directive Discussion Advance Directive Discussion [facility] Start: 05-22-2023 Behavioral Health Screening Behavioral Health Screening [facility] Start: 01-20-2023 Influenza vaccination Influenza Vacc ine (#1) [facility] Start: 09-01-2022 [facility] Start: 07-25-2022 Patient referral [facility] Work Phone: Start: 07-19-2022 Covid-19 Vaccine (7 - Moderna series) Covid-19 Vaccine (7 - Moderna series) [facility] Start: 05-22-2022 ADVANCE DIRECTIVE DISCUSSION ADVANCE DIRECTIVE DISCUSSION [facility] Start: 05-22-2022 [facility] Start: 03-08-2022 Colonoscopy w/biopsy single/multiple COLONOSCOPY AND BIOPSY [facility] Start: 03-08-2022 Patient discharge [facility] Start: 11-06-2021 Thiamine measurement [facility] Work Phone: Start: 05-22-2021 ADVANCE DIRECTIVE DISCUSSION ADVANCE DIRECTIVE DISCUSSION [facility] Start: 05-22-2021 [facility]MENT [facility] Start: 05-11-2020 End: 05-11-2020 Appointment Appointment [facility] Work Phone: Start: 01-30-2017 End: 01-30-2017 Colonoscopy flx dx w/collj spec when pfrmd Colonoscopy [facility] Work Phone: Start: 01-30-2017 End: 01-30-2017 Appointment [facility]ointment [facility] Work Phone: Start: 01-30-2017 End: 01-30-2017 Diagnostic colonoscopy [facility]oscopy [facility] Work Phone: Start: 2015 RSV Vaccine (1 - 1-dose 75+ series) RSV Vaccine (1 - 1-dose 75+ series) [facility] Start: 2005 BONE DENSITY BONE DENSITY [facility] Start: 2005 Bone Density Screening Bone Density Screening [facility] Start: 2005 Pneumococcal Vaccine : 65+ (1 - PCV) Pneumococcal Vaccine: 65+ (1 - PCV) [facility] Start: 2005 PNEUMOCOCCAL: 65+ (1 - PCV) PNEUMOCOCCAL: 65+ (1 - PCV) [facility] Start: 2005 Screening for osteoporosis Bone Density Screening [facility] Start: 2000 RSV Vaccine (1 - 1-dose 60+ series) RSV Vaccine (1 - 1-dose 60+ series) [facility] Start: 1990 SHINGRIX VACCINE (1 of 2) SHINGRIX VACCINE (1 of 2) [facility] Start: 1985 DIABET[facility]CREEN [facility] Start: 1985 Diabetes Screening Diabetes Screenin g [facility] Start: 1959 Urine microalbumin profile [facility] Start: 1958 Anxiety Screening Anxiety Screening [facility] Start: 1958 Depression Screening Depression Scre ening [facility] Bacteria identified in Urine by Culture Urine Culture [facility] Work Phone: Colonoscopy [facility] End: 08-09-2023 Colonoscopy COLONOSCOPY (THERAPEUTIC) Endoscopy Routine Personal history of colonic polyps 1 Occurrences starting 08/08/2022 until 08/09/2023 [facility] Work Phone: Comment on above: 1 Occurrences starti ng 08/08/2022 until 08/09/2023 Patient referral [facility] Work Phone: Thiamine measurement [facility] Work Phone: Vitamin D, 25-hydrox y measurement [facility] Immunizations Immunization Date Immunization Notes Care Provider Nirav cisneros 04-12-2024 influenza virus vaccine, unspecified formulation Ynug Roach PT Work Phone: [facility] 03-16-2022 influenza virus vaccine, unspecified formulation Emi Constantino MD Work Phone: [facility] 07-16-2020 Covid (Moderna) [facility] 06-18-2020 Covid (Moderna) [facility] Payers Date Payer Category Payer Self-pay [id number] 2018 Medicare (Managed Care) MARGIE Jose [employer] [facility] [id number] 2018 Unknown [id number] 2015 Medicare [id number] Medicare [id number] Unknown [id number] Unknown [id number] [id number]. 2.462 Unknown [id number]. 2.462 Unknown [id number]. 2.462 Unknown [id number]. 2.462 Unknown [id number] [id number]. 2.462 Unknown [id number] [id number]. 2.462 Unknown [id number]. 2.462 Unknown [id number] [id number]. 2.462 Unknown [id number] [id number]. 2.462 Unknown [id number] [id number]. 2.462 Unknown [id number]. 2.462 Unknown [id number] [id number]. 2.462 Unknown [id number] [id number]. 2.462 Unknown [id number] [id number]. 2.462 Unknown [id number]. 2.462 Social History Date Type Detail Facility Start: 03-17-2021 End: 05-26-2023 Assertion Unknown if ever smoked [facility] Work Phone: Start: 04-29-2019 Non-smoker [facility] Start: 1940 Sex Assigned At Female [facility] Start: 02-28-2024 End: 09-17-2024 Tobacco smoking status NHIS Never smoked tobacco [facility] Work Phone: Start: 04-26-2022 End: 09-24-2023 Alcohol intake Current drinker of alcohol (finding) [facility] Start: 1940 Sex Assigned At Not on file [facility] Start: 10-13-2022 End: 10-29-2024 History of Social function [facility] Start: 10-13-2022 End: 10-29-2024 Tobacco use panel [facility] National Score (1-100), lower number is lower risk 67 [facility] Start: 07-30-2024 End: 04-02-2025 Sex Female (finding) [facility] NEGATED: Highlighted row [facility] NEGATED: Highlighted row Not [facility] Goals Date Patient Goal Desired Activity /State Mental Status Date Assessment Result Facility 08-21-2024 Cognitive function Voice/Name;Touch/Shaki ng [facility] Work Phone: 05-30-2023 Cognitive function Level Of Cons ciousness Follows Commands;Drowsy [facility] Work Phone: 05-30-2023 Cognitive function Voice/Name [facility] Work Phone: 02-13-2023 Cognitive function Voice/Name [facility] Work Phone: 08-15-2022 Cognitive function Awake;Alert;A ppropriate;Follow s Commands [facility] Work Phone: 03-08-2022 Cognitive function Voice/Name [facility] Work Phone: Clinical Notes 04-26-2022 to 02-28-2025 Yung Roach, PT - 12/05/2024 11:30 AM EDGina Patel, NUCLEAR CONTROL ROOM OPERATOR - 11/26/2024 3:55 PM Adela Thorne, PT - 11/26/2024 3:31 PM Yung Hu, PT - 11/21/2024 10:16 AM EDT Note Date & Type Note Facility 02-28-2025 Progress note [facility] 02-28-2025 Radiology Diagnostic study note [facility] Imaging Services [address] [place] [address] Cerv Spine 2 or 3 Views MR#: [id number] Acct: [id number] Name: ELIDIA STEPHENS Rep #: [id number] : [id number] F [id number] From: Fany Garrett MD PCP: Dr. Emi Whatley MD Status: DE P AMB Study:Cerv Spine 2 or 3 Views Date of Exam: 02/28/25 Exam# [id number] Ordering Dr: Stanislav Sy tlyn PA EXAM: XR Cervical Spine, 2 or 3 Views CLINICAL INDICATION: NECK PAIN TECHNIQUE: Frontal and lateral views of the cervical spine. COMPARISON: No relevant prior studies available. FINDINGS: VERTEBRAE: Mild reversal of cervical spine lordosis. Degenerative facet arthropathy throughout the cervical spine. Normal alignment. No acute fracture. No acute fracture or significant dynamic instability. DISC SPACES: Degenerative disc disease throughout the cervical spine. SOFT TISSUES: Unremarkable. RAD/Cerv Spine 2 or 3 Views IMPRESSION: 1. No acute fracture. 2. No acute fracture or significant dynamic instability. 3. Degenerative changes of the cervical spine as described. Reading Location: [facility] CC: SKYLAR Cruz; Dr. Emi Whatley MD ~ Radiology Special Procedure Tech: Signed [facility] 12-05-2024 History of Present illness Narrative Images from the original note were not included. Episode Visit Count: 9 Therapist That Will Accept/Oversee The Plan Of Care: Yung Roach PT Start of Care Date: 10/29/24 Onset Date: 08/29/24 Plan of Care Certification Date: 10/29/24 Next Certification Due Date: 12/10/24 Patient Identified by Name and Date of : Yes REHABILITATION AND SPORTS THERAPY PHYSICAL THERAPY DISCONTINUANCE OF CARE PLAN OF CARE UPDATE: Assessment: Elidia Stephens is discontinued from Physical Therapy services due to maximal benefit. and Patient/Clinician mutual decision to discontinue current plan of care.. Patient was seen for 9 visits from Start of Care Date: 10/29/24 to 12/05/2024 and treatment included: Therapeutic exercise, Manual therapy, Self-group home management, and Patient/Family/Caregiver Education. Updated: 12/05/24 Goals for Episode of Care: established 10/29/24 Patient reported outcome of pain Interference will decrease T -score by a minimum of 5 points. - Not MET Independent in a Home Exercise Program. - MET Patient will decrease pain rating by 2 points to meet minimal clinical important difference for numeric pain rating scale. - Partially MET Restore pain free cervical ROM to WFL to allow for improved turning of her head and sleeping. - Not MET Sleep throughout the night without pain/symptoms. - Not MET Patient will be able to tolerate bending and laundry chores without increased symptoms. - Not MET Patient Goals: alleviate pain - Not MET SUBJECTIVE: Pt reports that overall, her symptoms are slightly better but she continues with intermittent pain and functional limitations. She reports that her pain is intermittently less but still come and go without explanation. She reports compliance with HEP 1x day. She reports that the quality of her sleep is improved but she still has some nights where pain interferes with her sleep. She denies any improvements in her ability to complete bending tasks or laundry chores. She reports continued difficulty with turning her head. She reports that the manual therapy treatments in PT did not improve her symptoms. Pain: Pain Pain Level: (-09/28 currently) Pain Location: Neck - Left Description: Dull, Aching Frequency: Intermittent Post Treatment Pain Post Treatment Pain Level: No Change Post Treatment Pain Location: Neck - Left PROMIS Scales 12/05/2024 11/06/2024 10/29/2024 Higher is Better Phys Func - T Score 34 (moderate dysfunction) 41 (mild dysfunction) Phys Func - Percentile 5 18 Self-Eff Symptom - T Score 44 (Average) 44 (Average) Self-Eff Symptom - Percentile 27 27 Proxy-reported 10/29/2024 Lower is Better Pain Interference - T Score 61 (moderate) Pain Interference - Percentile 14 Proxy-reported T-scores: mean of general population = 50. 5 points is clinically meaningfully difference Percentiles provide an indication of how the patient's score ranks in relation to the general population. Higher percentile rankings indicate better function/quality of life. 50th percentile is the average of the general population and indicates half of respondents had a worse score. OBJECTIVE MEASURES WITH LEVEL OF FUNCTION: Cervical Spine ROM Cervical ROM : Measurement AROM Cervical Flexion AROM (degrees) : 48 Degrees Cervical Extension AROM (degrees) : 11 Degrees Cervical Side-Bend Right AROM (degrees): 18 Degrees Cervical Side-Bend Left AROM (degrees) : 15 Degrees Cervical Rotation Right AROM (degrees) : 35 Degrees Cervical Rotation Left AROM (degrees) : 43 Degrees UE and Cervical Strength Cervical Strength: No change in postural strength TREATMENT: Therapeutic Exercise: 1: AROM of cervical spine x10 for flexion, extension, B SBing and B rotation in pain-free range. 2: HEP was reviewed in detail and continuation encouraged to tolerance. Proper intensity was emphasized. She was also advised to back off or stop if pain increases. 3: Re-assessment results were reviewed with patient in detail and she was encouraged to follow up with PCP's office and continue HEP to tolerance. Skilled Intervention: Patient was educated in proper exercise technique and purpose for exercises. Skilled judgment was used in selection of appropriate interventions. Correct performance of therapeutic exercises was facilitated with verbal, visual, and tactile cuing. Patient education as noted. Billing Therapeutic Exercise Treatment Minutes: 30 Skilled Treatment Time Minutes (timed and untimed codes): 30 Total Session Time (minutes): 30 Session Start Time : 1050 Session Stop Time : 1120 Yung Roach PT documented in this encounter [facility] 12-05-2024 Note HNO ID: [id number] Author: YUNG ROACH PT Service: ? Author Type: Physical Therapist Type: Progress Notes Filed: 12/05/2024 11:31 Note Text: Episode Visit Count: 9 Therapist That Will Accept/Oversee The Plan Of Care: Yung Roach PT Start of Care Date: 10/29/24 Onset Date: 08/29/24 Plan of Care Certification Date: 10/29/24 Next Certification Due Date: 12/10/24 Patient Identified by Name and Date of : Yes REHABILITATION AND SPORTS THERAPY PHYSICAL THERAPY DISCONTINUANCE OF CARE PLAN OF CARE UPDATE: Assessment: Elidia Stephens is discontinued from Physical Therapy services due to maximal benefit. and Patient/Clinician mutual decision to discontinue current plan of care.. Patient was seen for 9 visits from Start of Care Date: 10/29/24 to 12/05/2024 and treatment included: Therapeutic exercise, Manual therapy, Self-group home management, and Patient/Family/Caregiver Education. Updated: 12/05/24 Goals for Episode of Care: established 10/29/24 Patient reported outcome of pain Interference will decrease T -score by a minimum of 5 points. - Not MET Independent in a Home Exercise Program. - MET Patient will decrease pain rating by 2 points to meet minimal clinical important difference for numeric pain rating scale. - Partially MET Restore pain free cervical ROM to WFL to allow for improved turning of her head and sleeping. - Not MET Sleep throughout the night without pain/symptoms. - Not MET Patient will be able to tolerate bending and laundry chores without increased symptoms. - Not MET Patient Goals: alleviate pain - Not MET SUBJECTIVE: Pt reports that overall, her symptoms are slightly better but she continues with intermittent pain and functional limitations. She reports that her pain is intermittently less but still come and go without explanation. She reports compliance with HEP 1x day. She reports that the quality of her sleep is improved but she still has some nights where pain interferes with her sleep. She denies any improvements in her ability to complete bending tasks or laundry chores. She reports continued difficulty with turning her head. She reports that the manual therapy treatments in PT did not improve her symptoms. Pain: Pain Pain Level: (-09/28 currently) Pain Location: Neck - Left Description: Dull, Aching Frequency: Intermittent Post Treatment Pain Post Treatment Pain Level: No Change Post Treatment Pain Location: Neck - Left PROMIS Scales 12/05/2024 11/06/2024 10/29/2024 Higher is Better Phys Func - T Score 34 (moderate dysfunction) 41 (mild dysfunction) Phys Func - Percentile 5 18 Self-Eff Symptom - T Score 44 (Average) 44 (Average) Self-Eff Symptom - Percentile 27 27 Proxy-reported 10/29/2024 Lower is Better Pain Interference - T Score 61 (moderate) Pain Interference - Percentile 14 Proxy-reported T-scores: mean of general population = 50. 5 points is clinically meaningfully difference Percentiles provide an indication of how the patient's score ranks in relation to the general population. Higher percentile rankings indicate better function/quality of life. 50th percentile is the average of the general population and indicates half of respondents had a worse score. OBJECTIVE MEASURES WITH LEVEL OF FUNCTION: Cervical Spine ROM Cervical ROM : Measurement AROM Cervical Flexion AROM (degrees) : 48 Degrees Cervical Extension AROM (degrees) : 11 Degrees Cervical Side-Bend Right AROM (degrees): 18 Degrees Cervical Side-Bend Left AROM (degrees) : 15 Degrees Cervical Rotation Right AROM (degrees) : 35 Degrees Cervical Rotation Left AROM (degrees) : 43 Degrees UE and Cervical Strength Cervical Strength: No change in postural strength TREATMENT: Therapeutic Exercise: 1: AROM of cervical spine x10 for flexion, extension, B SBing and B rotation in pain-free range. 2: HEP was reviewed in detail and continuation encouraged to tolerance. Proper intensity was emphasized. She was also advised to back off or stop if pain increases. 3: Re-assessment results were reviewed with patient in detail and she was encouraged to follow up with PCP's office and continue HEP to tolerance. Skilled Intervention: Patient was educated in proper exercise technique and purpose for exercises. Skilled judgment was used in selection of appropriate interventions. Correct performance of therapeutic exercises was facilitated with verbal, visual, and tactile cuing. Patient education as noted. Billing Therapeutic Exercise Treatment Minutes: 30 Skilled Treatment Time Minutes (timed and untimed codes): 30 Total Session Time (minutes): 30 Session Start Time : 1050 Session Stop Time : 1120 Yung Roach PT [facility] 11-26-2024 History of Present illness Narrative Program_ID:[id number] Access Code: [email or web address] URL: [email or web address] Date: 11-26-2024 Prepared By: Yung Roach Program Notes Exercises - Seated Cervical Rotation AROM - 2 x daily - 7 x weekly - 2 sets - 10 reps - Seated Cervical Extension AROM - 2 x daily - 7 x weekly - 2 sets - 10 reps - Seated Cervical Flexion AROM - 2 x daily - 7 x weekly - 2 sets - 10 reps - Seated Cervical Sidebending AROM - 2 x daily - 7 x weekly - 2 sets - 10 reps - Seated Upper Trapezius Stretch - 3 x daily - 7 x weekly - sets - 3 reps - Gentle Levator Scapulae Stretch - 3 x daily - 7 x weekly - sets - 3 reps - Seated Scapular Retraction - 3 x daily - 7 x weekly - 2 sets - 10 reps - Seated Assisted Cervical Rotation with Towel - 2 x daily - 7 x weekly - 2 sets - 5-10 reps - Seated Assisted Cervical Rotation with Towel - 2 x daily - 7 x weekly - 2 sets - 5-10 reps Episode Visit Count: 8 Therapist That Will Accept/Oversee The Plan Of Care: Yung Roach PT Start of Care Date: 10/29/24 Onset Date: 08/29/24 Plan of Care Certification Date: 10/29/24 Next Certification Due Date: 12/10/24 Patient Identified by Name and Date of : Yes REHABILITATION AND SPORTS THERAPY PHYSICAL THERAPY TREATMENT NOTE ASSESSMENT: Elidia Deffenbaugh tolerated the session with fatigue, decreased symptoms, and expected muscle soreness. She demonstrated improvements in tightness of L UT after manaul therapy. The patient will continue to benefit from ongoing skilled physical therapy to progress toward set goals. PLAN FOR NEXT VISIT: SUBJECTIVE: Pt reports that she still has some discomfort in her neck. Monday she felt good and only had a little stiff neck, on Monday when she woke up her neck was stiff and achy. Pt states to Monday she did not do any of her exercises due to traveling. Pain: Pain Pain Level: 0 Pain Location: Neck - Left Description: Aching Frequency: Intermittent Post Treatment Pain Post Treatment Pain Location: Neck - Left OBJECTIVE MEASURES WITH LEVEL OF FUNCTION: Limitation with cervical snag to the R TREATMENT: Therapeutic Exercise: 1: *Cervical SNAGS with towel 2x5 B 2: seated L UT stretch 3x30 seconds. 3: seated L levator scapulae stretch 3x30 seconds 4: seated scapular retraction with PiTB 2x10 Skilled Intervention: Patient was educated in proper exercise technique and purpose for exercises. Reviewed and educated patient on additions/changes for home exercise program as above (*). Skilled judgment was used in selection of appropriate interventions. Provided written instruction for home exercise program to facilitate proper performance and compliance. Correct performance of therapeutic exercises was facilitated with verbal and visual cuing. Manual Therapy: Soft Tissue Mobilization: STM with intermittent trigger point release to L UT x 10 mintues Skilled Intervention: Manual skills to improve joint mobility, ROM, and decrease pain. Utilized anatomy knowledge of the clinician, and assessment of patient's response to intervention. Billing Therapeutic Exercise Treatment Minutes: 32 Manual TherapyTreatment Minutes: 10 Skilled Treatment Time Minutes (timed and untimed codes): 42 Total Session Time (minutes): 42 Session Start Time : 1530 Session Stop Time : 1612 LEONID Quiñonez PT documented in this encounter [facility] 11-26-2024 Note HNO ID: [id number] Author: ADELA MIKE PT Service: ? Author Type: Physical Therapist Type: Progress Notes Filed: 11/26/2024 16:29 Note Text: Episode Visit Count: 8 Therapist That Will Accept/Oversee The Plan Of Care: Yung Roach PT Start of Care Date: 10/29/24 Onset Date: 08/29/24 Plan of Care Certification Date: 10/29/24 Next Certification Due Date: 12/10/24 Patient Identified by Name and Date of : Yes REHABILITATION AND SPORTS THERAPY PHYSICAL THERAPY TREATMENT NOTE ASSESSMENT: Elidia Stephens tolerated the session with fatigue, decreased symptoms, and expected muscle soreness. She demonstrated improvements in tightness of L UT after manaul therapy. The patient will continue to benefit from ongoing skilled physical therapy to progress toward set goals. PLAN FOR NEXT VISIT: SUBJECTIVE: Pt reports that she still has some discomfort in her neck. Monday she felt good and only had a little stiff neck, on Monday when she woke up her neck was stiff and achy. Pt states to Monday she did not do any of her exercises due to traveling. Pain: Pain Pain Level: 0 Pain Location: Neck - Left Description: Aching Frequency: Intermittent Post Treatment Pain Post Treatment Pain Location: Neck - Left OBJECTIVE MEASURES WITH LEVEL OF FUNCTION: Limitation with cervical snag to the R TREATMENT: Therapeutic Exercise: 1: *Cervical SNAGS with towel 2x5 B 2: seated L UT stretch 3x30 seconds. 3: seated L levator scapulae stretch 3x30 seconds 4: seated scapular retraction with PiTB 2x10 Skilled Intervention: Patient was educated in proper exercise technique and purpose for exercises. Reviewed and educated patient on additions/changes for home exercise program as above (*). Skilled judgment was used in selection of appropriate interventions. Provided written instruction for home exercise program to facilitate proper performance and compliance. Correct performance of therapeutic exercises was facilitated with verbal and visual cuing. Manual Therapy: Soft Tissue Mobilization: STM with intermittent trigger point release to L UT x 10 mintues Skilled Intervention: Manual skills to improve joint mobility, ROM, and decrease pain. Utilized anatomy knowledge of the clinician, and assessment of patient's response to intervention. Billing Therapeutic Exercise Treatment Minutes: 32 Manual TherapyTreatment Minutes: 10 Skilled Treatment Time Minutes (timed and untimed codes): 42 Total Session Time (minutes): 42 Session Start Time : 1530 Session Stop Time : 1612 LEONID Quiñonez, PT [facility] 11-21-2024 Note HNO ID: [id number] Author: YUNG ROACH PT Service: ? Author Type: Physical Therapist Type: Progress Notes Filed: 11/21/2024 12:30 Note Text: Episode Visit Count: 7 Therapist That Will Accept/Oversee The Plan Of Care: Yung Roach PT Start of Care Date: 10/29/24 Onset Date: 08/29/24 Plan of Care Certification Date: 10/29/24 Next Certification Due Date: 12/10/24 Patient Identified by Name and Date of : Yes REHABILITATION AND SPORTS THERAPY PHYSICAL THERAPY TREATMENT NOTE ASSESSMENT: Elidia Stephens tolerated the session with fatigue, decreased symptoms, and expected muscle soreness. She demonstrated improvements in cervical mobility after STM. The patient will continue to benefit from ongoing skilled physical therapy to progress toward set goals. PLAN FOR NEXT VISIT: Consider cervical SNAGS for rotation SUBJECTIVE: Pt reports that her neck is not feeling good today, woke up with pain on top of her head during the middle of the night. Pt states that she has not done many exercises, has tried stretching but it is not cooperating. [place] good yesterday. Pt states that she went to chair yoga yesterday and then exercised last night. Pain: Pain Pain Level: 5 (it's there but I can handle it) Pain Location: Neck - Left Frequency: Intermittent Post Treatment Pain Post Treatment Pain Level: Better Post Treatment Pain Location: Neck - Left OBJECTIVE MEASURES WITH LEVEL OF FUNCTION: TREATMENT: Therapeutic Exercise: 1: seated L UT stretch 3x30 seconds. 2: seated L levator scapulae stretch 3x30 seconds 3: seated scapular retraction 2x10 Skilled Intervention: Patient was educated in proper exercise technique and purpose for exercises. Skilled judgment was used in selection of appropriate interventions. Correct performance of therapeutic exercises was facilitated with verbal and visual cuing. Manual Therapy: Soft Tissue Mobilization: STM over L UT and cervical paraspinals. Stretching of L UT. PROM cervical rotation and sidebending. Skilled Intervention: Manual skills to improve joint mobility, ROM, and decrease pain. Utilized anatomy knowledge of the clinician, and assessment of patient's response to intervention. Self-Fdc Management: 1: Education and use of images explaining pain referral patterns 2: Education and handout given for DN possibility Skilled Intervention: Skilled judgment in the selection of proper modification for activity of daily living/home management based on clinical presentation, deficits, and needs. Reviewed patient specific diagnosis in relation to activities of daily living/home management. Activity progression based on professional judgement. Billing Therapeutic Exercise Treatment Minutes: 17 Manual TherapyTreatment Minutes: 15 Self-Care/Home Management Treatment Minutes: 10 Skilled Treatment Time Minutes (timed and untimed codes): 42 Total Session Time (minutes): 42 Session Start Time : 1015 Session Stop Time : 1057 Gina Gurrola, NUCLEAR CONTROL ROOM OPERATOR Yung Roach PT [facility] 11-21-2024 History of Present illness Narrative Episode Visit Count: 7 Therapist That Will Accept/Oversee The Plan Of Care: Yung Roach PT Start of Care Date: 10/29/24 Onset Date: 08/29/24 Plan of Care Certification Date: 10/29/24 Next Certification Due Date: 12/10/24 Patient Identified by Name and Date of : Yes REHABILITATION AND SPORTS THERAPY PHYSICAL THERAPY TREATMENT NOTE ASSESSMENT: Elidia Stephens tolerated the session with fatigue, decreased symptoms, and expected muscle soreness. She demonstrated improvements in cervical mobility after STM. The patient will continue to benefit from ongoing skilled physical therapy to progress toward set goals. PLAN FOR NEXT VISIT: Consider cervical SNAGS for rotation SUBJECTIVE: Pt reports that her neck is not feeling good today, woke up with pain on top of her head during the middle of the night. Pt states that she has not done many exercises, has tried stretching but it is not cooperating. [place] good yesterday. Pt states that she went to chair yoga yesterday and then exercised last night. Pain: Pain Pain Level: 5 (it's there but I can handle it) Pain Location: Neck - Left Frequency: Intermittent Post Treatment Pain Post Treatment Pain Level: Better Post Treatment Pain Location: Neck - Left OBJECTIVE MEASURES WITH LEVEL OF FUNCTION: TREATMENT: Therapeutic Exercise: 1: seated L UT stretch 3x30 seconds. 2: seated L levator scapulae stretch 3x30 seconds 3: seated scapular retraction 2x10 Skilled Intervention: Patient was educated in proper exercise technique and purpose for exercises. Skilled judgment was used in selection of appropriate interventions. Correct performance of therapeutic exercises was facilitated with verbal and visual cuing. Manual Therapy: Soft Tissue Mobilization: STM over L UT and cervical paraspinals. Stretching of L UT. PROM cervical rotation and sidebending. Skilled Intervention: Manual skills to improve joint mobility, ROM, and decrease pain. Utilized anatomy knowledge of the clinician, and assessment of patient's response to intervention. Self-Fdc Management: 1: Education and use of images explaining pain referral patterns 2: Education and handout given for DN possibility Skilled Intervention: Skilled judgment in the selection of proper modification for activity of daily living/home management based on clinical presentation, deficits, and needs. Reviewed patient specific diagnosis in relation to activities of daily living/home management. Activity progression based on professional judgement. Billing Therapeutic Exercise Treatment Minutes: 17 Manual TherapyTreatment Minutes: 15 Self-Care/Home Management Treatment Minutes: 10 Skilled Treatment Time Minutes (timed and untimed codes): 42 Total Session Time (minutes): 42 Session Start Time : 1015 Session Stop Time : 1057 LEONID Quiñonez PT documented in this encounter [facility] 11-19-2024 Note HNO ID: [id number] Author: YUNG ROACH PT Service: ? Author Type: Physical Therapist Type: Progress Notes Filed: 11/19/2024 18:18 Note Text: Episode Visit Count: 6 Therapist That Will Accept/Oversee The Plan Of Care: Yung Roach PT Start of Care Date: 10/29/24 Onset Date: 08/29/24 Plan of Care Certification Date: 10/29/24 Next Certification Due Date: 12/10/24 Patient Identified by Name and Date of : Yes REHABILITATION AND SPORTS THERAPY PHYSICAL THERAPY TREATMENT NOTE ASSESSMENT: Elidia Stephens tolerated the session with no issues. She demonstrated difficulty with persistent symptoms, limited ROM, poor posture and limited exercise tolerance. The patient will continue to benefit from ongoing skilled physical therapy to progress toward set goals. PLAN FOR NEXT VISIT: Review, correct and progress HEP to tolerance. Focus on pain-free ROM, soft tissue mobilization and eventually postural strengthening as tolerated. Include postural correction and gentle manual therapy prn. Re-evaluate SUBJECTIVE: Pt reports that overall she is better but still symptomatic. She reports compliance with HEP. She continues to report pain with certain end range movements. She feels that the manual therapy last session was good. Pain: Pain Pain Level: 0 (no pain but it aches) Pain Location: Neck - Left Description: Aching Frequency: Intermittent Post Treatment Pain Post Treatment Pain Level: No Change Post Treatment Pain Location: Neck - Left Post Treatment Symptoms: Pt did not report any change in symptoms after session today. OBJECTIVE MEASURES WITH LEVEL OF FUNCTION: TREATMENT: Therapeutic Exercise: 1: HEP was reviewed, corrected and she was repeatedly advised that she should not complete HEP to the point of pain. She was advised to back off if pain increases and to stop completely if she cannot complete without pain. She was encouraged to continue with HEP to tolerance. 2: AROM of cervical spine x10 for flexion, extension, B SBing and B rotation in pain-free range. 3: seated L UT stretch 3x30 seconds. 4: seated L levator scapulae stretch 3x30 seconds 5: seated scapular retraction 2x10 6: postural correction reviewed and encouraged, especially when completing HEP. She was also encouraged to relax and stop holding her neck stiff and guarded. 7: seated scapular retraction with pink t-band 2x10 8: corner pectoral stretch 3x30 seconds 9: Pt was advised to contact her PCP about her medication questions and about any concerns she has about her headache and persistent symptoms. Skilled Intervention: Patient was educated in proper exercise technique and purpose for exercises. Skilled judgment was used in selection of appropriate interventions. Correct performance of therapeutic exercises was facilitated with verbal and visual cuing. Patient education as noted. Manual Therapy: Soft Tissue Mobilization: More gentle soft tissue mobilization to B cervical spine musculature x10 minutes with pt supine and wedge under her head. Techniques utilized included massage, muscle bending, gentle trigger point release and gentle sub occipital release. Pt feedback was sought throughout. Skilled Intervention: Manual skills to improve joint mobility, ROM, and decrease pain. Utilized anatomy knowledge of the clinician, and assessment of patient's response to intervention. Billing Therapeutic Exercise Treatment Minutes: 37 Manual TherapyTreatment Minutes: 10 Skilled Treatment Time Minutes (timed and untimed codes): 47 Total Session Time (minutes): 47 Session Start Time : 1538 Session Stop Time : 1625 Yung Roach PT [facility] 11-19-2024 History of Present illness Narrative Episode Visit Count: 6 Therapist That Will Accept/Oversee The Plan Of Care: Yung Roach PT Start of Care Date: 10/29/24 Onset Date: 08/29/24 Plan of Care Certification Date: 10/29/24 Next Certification Due Date: 12/10/24 Patient Identified by Name and Date of : Yes REHABILITATION AND SPORTS THERAPY PHYSICAL THERAPY TREATMENT NOTE ASSESSMENT: Elidia Stephens tolerated the session with no issues. She demonstrated difficulty with persistent symptoms, limited ROM, poor posture and limited exercise tolerance. The patient will continue to benefit from ongoing skilled physical therapy to progress toward set goals. PLAN FOR NEXT VISIT: Review, correct and progress HEP to tolerance. Focus on pain-free ROM, soft tissue mobilization and eventually postural strengthening as tolerated. Include postural correction and gentle manual therapy prn. Re-evaluate SUBJECTIVE: Pt reports that overall she is better but still symptomatic. She reports compliance with HEP. She continues to report pain with certain end range movements. She feels that the manual therapy last session was good. Pain: Pain Pain Level: 0 (no pain but it aches) Pain Location: Neck - Left Description: Aching Frequency: Intermittent Post Treatment Pain Post Treatment Pain Level: No Change Post Treatment Pain Location: Neck - Left Post Treatment Symptoms: Pt did not report any change in symptoms after session today. OBJECTIVE MEASURES WITH LEVEL OF FUNCTION: TREATMENT: Therapeutic Exercise: 1: HEP was reviewed, corrected and she was repeatedly advised that she should not complete HEP to the point of pain. She was advised to back off if pain increases and to stop completely if she cannot complete without pain. She was encouraged to continue with HEP to tolerance. 2: AROM of cervical spine x10 for flexion, extension, B SBing and B rotation in pain-free range. 3: seated L UT stretch 3x30 seconds. 4: seated L levator scapulae stretch 3x30 seconds 5: seated scapular retraction 2x10 6: postural correction reviewed and encouraged, especially when completing HEP. She was also encouraged to relax and stop holding her neck stiff and guarded. 7: seated scapular retraction with pink t-band 2x10 8: corner pectoral stretch 3x30 seconds 9: Pt was advised to contact her PCP about her medication questions and about any concerns she has about her headache and persistent symptoms. Skilled Intervention: Patient was educated in proper exercise technique and purpose for exercises. Skilled judgment was used in selection of appropriate interventions. Correct performance of therapeutic exercises was facilitated with verbal and visual cuing. Patient education as noted. Manual Therapy: Soft Tissue Mobilization: More gentle soft tissue mobilization to B cervical spine musculature x10 minutes with pt supine and wedge under her head. Techniques utilized included massage, muscle bending, gentle trigger point release and gentle sub occipital release. Pt feedback was sought throughout. Skilled Intervention: Manual skills to improve joint mobility, ROM, and decrease pain. Utilized anatomy knowledge of the clinician, and assessment of patient's response to intervention. Billing Therapeutic Exercise Treatment Minutes: 37 Manual TherapyTreatment Minutes: 10 Skilled Treatment Time Minutes (timed and untimed codes): 47 Total Session Time (minutes): 47 Session Start Time : 1538 Session Stop Time : 1625 Yung Roach PT documented in this encounter [facility] 11-15-2024 Note HNO ID: [id number] Author: YUNG ROACH PT Service: ? Author Type: Physical Therapist Type: Progress Notes Filed: 11/15/2024 13:50 Note Text: Episode Visit Count: 5 Therapist That Will Accept/Oversee The Plan Of Care: Yung Roach PT Start of Care Date: 10/29/24 Onset Date: 08/29/24 Plan of Care Certification Date: 10/29/24 Next Certification Due Date: 12/10/24 Patient Identified by Name and Date of : Yes REHABILITATION AND SPORTS THERAPY PHYSICAL THERAPY TREATMENT NOTE ASSESSMENT: Elidia Stephens tolerated the session with fatigue, decreased symptoms, and expected muscle soreness. She demonstrated improvements in posture, pain, rigidity and exercise tolerance. The patient will continue to benefit from ongoing skilled physical therapy to progress toward set goals. PLAN FOR NEXT VISIT: Review, correct and progress HEP to tolerance. Focus on pain-free ROM, soft tissue mobilization and eventually postural strengthening as tolerated. Include postural correction and gentle manual therapy prn. SUBJECTIVE: Pt reports that overall her symptoms are better today than last session. She reports that her pain is decreased currently. In general she feels like she is getting better. She reports increased postural awareness and that she is working on this. She feels that the intensity with manual therapy was better last session and not more painful. She reports compliance with HEP 3x day. Pain: Pain Pain Level: (3-4/10) Pain Location: Neck - Left Description: Aching Frequency: Intermittent Post Treatment Pain Post Treatment Pain Level: Better Post Treatment Pain Location: Neck - Left Post Treatment Symptoms: After therex, pt felt that her pain was better with a slight decrease. After manual therapy, she reported that she felt additionally better. OBJECTIVE MEASURES WITH LEVEL OF FUNCTION: Posture / Alignment Posture: (better) TREATMENT: Therapeutic Exercise: 1: HEP was reviewed, corrected and she was repeatedly advised that she should not complete HEP to the point of pain. She was advised to back off if pain increases and to stop completely if she cannot complete without pain. She was encouraged to continue with HEP to tolerance. 2: AROM of cervical spine x10 for flexion, extension, B SBing and B rotation in pain-free range. 3: seated L UT stretch 3x30 seconds. 4: seated L levator scapulae stretch 3x30 seconds 5: seated scapular retraction 2x10 6: postural correction reviewed and encouraged, especially when completing HEP. She was also encouraged to relax and stop holding her neck stiff and guarded. 7: seated scapular retraction with pink t-band 2x10 8: scapular retraction with GH ER 2x10 9: corner pectoral stretch 3x30 seconds Skilled Intervention: Patient was educated in proper exercise technique and purpose for exercises. Skilled judgment was used in selection of appropriate interventions. Correct performance of therapeutic exercises was facilitated with verbal, visual, and tactile cuing. Patient education as noted. Manual Therapy: Soft Tissue Mobilization: More gentle soft tissue mobilization to B cervical spine musculature x12 minutes with pt supine and wedge under her head. Techniques utilized included massage, muscle bending, gentle trigger point release and gentle sub occipital release. Pt feedback was sought throughout. Skilled Intervention: Manual skills to improve joint mobility, ROM, and decrease pain. Utilized anatomy knowledge of the clinician, and assessment of patient's response to intervention. Billing Therapeutic Exercise Treatment Minutes: 31 Manual TherapyTreatment Minutes: 12 Skilled Treatment Time Minutes (timed and untimed codes): 43 Total Session Time (minutes): 43 Session Start Time : 1304 Session Stop Time : 1347 Yung Roach PT [facility] 11-15-2024 History of Present illness Narrative Episode Visit Count: 5 Therapist That Will Accept/Oversee The Plan Of Care: Yung Roach PT Start of Care Date: 10/29/24 Onset Date: 08/29/24 Plan of Care Certification Date: 10/29/24 Next Certification Due Date: 12/10/24 Patient Identified by Name and Date of : Yes REHABILITATION AND SPORTS THERAPY PHYSICAL THERAPY TREATMENT NOTE ASSESSMENT: Elidia Stephens tolerated the session with fatigue, decreased symptoms, and expected muscle soreness. She demonstrated improvements in posture, pain, rigidity and exercise tolerance. The patient will continue to benefit from ongoing skilled physical therapy to progress toward set goals. PLAN FOR NEXT VISIT: Review, correct and progress HEP to tolerance. Focus on pain-free ROM, soft tissue mobilization and eventually postural strengthening as tolerated. Include postural correction and gentle manual therapy prn. SUBJECTIVE: Pt reports that overall her symptoms are better today than last session. She reports that her pain is decreased currently. In general she feels like she is getting better. She reports increased postural awareness and that she is working on this. She feels that the intensity with manual therapy was better last session and not more painful. She reports compliance with HEP 3x day. Pain: Pain Pain Level: (3-08/29) Pain Location: Neck - Left Description: Aching Frequency: Intermittent Post Treatment Pain Post Treatment Pain Level: Better Post Treatment Pain Location: Neck - Left Post Treatment Symptoms: After therex, pt felt that her pain was better with a slight decrease. After manual therapy, she reported that she felt additionally better. OBJECTIVE MEASURES WITH LEVEL OF FUNCTION: Posture / Alignment Posture: (better) TREATMENT: Therapeutic Exercise: 1: HEP was reviewed, corrected and she was repeatedly advised that she should not complete HEP to the point of pain. She was advised to back off if pain increases and to stop completely if she cannot complete without pain. She was encouraged to continue with HEP to tolerance. 2: AROM of cervical spine x10 for flexion, extension, B SBing and B rotation in pain-free range. 3: seated L UT stretch 3x30 seconds. 4: seated L levator scapulae stretch 3x30 seconds 5: seated scapular retraction 2x10 6: postural correction reviewed and encouraged, especially when completing HEP. She was also encouraged to relax and stop holding her neck stiff and guarded. 7: seated scapular retraction with pink t-band 2x10 8: scapular retraction with GH ER 2x10 9: corner pectoral stretch 3x30 seconds Skilled Intervention: Patient was educated in proper exercise technique and purpose for exercises. Skilled judgment was used in selection of appropriate interventions. Correct performance of therapeutic exercises was facilitated with verbal, visual, and tactile cuing. Patient education as noted. Manual Therapy: Soft Tissue Mobilization: More gentle soft tissue mobilization to B cervical spine musculature x12 minutes with pt supine and wedge under her head. Techniques utilized included massage, muscle bending, gentle trigger point release and gentle sub occipital release. Pt feedback was sought throughout. Skilled Intervention: Manual skills to improve joint mobility, ROM, and decrease pain. Utilized anatomy knowledge of the clinician, and assessment of patient's response to intervention. Billing Therapeutic Exercise Treatment Minutes: 31 Manual TherapyTreatment Minutes: 12 Skilled Treatment Time Minutes (timed and untimed codes): 43 Total Session Time (minutes): 43 Session Start Time : 1304 Session Stop Time : 1347 Yung Roach PT documented in this encounter [facility] 11-12-2024 Note HNO ID: [id number] Author: YUNG ROACH PT Service: ? Author Type: Physical Therapist Type: Progress Notes Filed: 11/12/2024 16:44 Note Text: Episode Visit Count: 4 Therapist That Will Accept/Oversee The Plan Of Care: Yung Roach PT Start of Care Date: 10/29/24 Onset Date: 08/29/24 Plan of Care Certification Date: 10/29/24 Next Certification Due Date: 12/10/24 Patient Identified by Name and Date of : Yes REHABILITATION AND SPORTS THERAPY PHYSICAL THERAPY TREATMENT NOTE ASSESSMENT: Elidia Stephens tolerated the session with no issues. She demonstrated difficulty with persistent pain and stiffness in her neck, especially this morning. The patient will continue to benefit from ongoing skilled physical therapy to progress toward set goals. PLAN FOR NEXT VISIT: Review, correct and progress HEP to tolerance. Focus on pain-free ROM, soft tissue mobilization and eventually postural strengthening as tolerated. Include postural correction and gentle manual therapy prn. SUBJECTIVE: Pt feels that she was making progress and getting better but this morning she woke up with increased neck pain and stiffness without explanation. She does report that all of her joints were painful, stiff and tight this morning. This has eased currently. She reports that she did not do her HEP this morning when her pain was increased. Overall she reports compliance with HEP but not consistently when pain was increased this morning. She feels that manual therapy was too aggressive last session. Pain: Pain Pain Level: 6 Pain Location: Neck - Left Description: Sore Frequency: Intermittent Post Treatment Pain Post Treatment Pain Level: No Change Post Treatment Symptoms: After therex pt reported feeling better and after manual therapy pt did not report any changes in symptoms. OBJECTIVE MEASURES WITH LEVEL OF FUNCTION: TREATMENT: Therapeutic Exercise: 1: HEP was reviewed, corrected and she was repeatedly advised that she should not complete HEP to the point of pain. She was advised to back off if pain increases and to stop completely if she cannot complete without pain. She was encouraged to continue with HEP to tolerance. She was advised that noises are not a concern but painful noises should be avoided. 2: AROM of cervical spine 2x10 for flexion, extension, B SBing and B rotation in pain-free range. 3: seated L UT stretch 3x30 seconds. 4: seated L levator scapulae stretch 3x30 seconds 5: seated scapular retraction 2x10 6: postural correction reviewed and encouraged, especially when completing HEP. She was also encouraged to relax and stop holding her neck stiff and guarded. Skilled Intervention: Patient was educated in proper exercise technique and purpose for exercises. Skilled judgment was used in selection of appropriate interventions. Correct performance of therapeutic exercises was facilitated with verbal and visual cuing. Patient education as noted. Manual Therapy: Soft Tissue Mobilization: More gentle soft tissue mobilization to B cervical spine musculature x10 minutes with pt supine and wedge under her head. Techniques utilized included massage, muscle bending, gentle trigger point release and gentle sub occipital release. Pt feedback was sought throughout. Skilled Intervention: Manual skills to improve joint mobility, ROM, and decrease pain. Utilized anatomy knowledge of the clinician, and assessment of patient's response to intervention. Billing Therapeutic Exercise Treatment Minutes: 32 Manual TherapyTreatment Minutes: 10 Skilled Treatment Time Minutes (timed and untimed codes): 42 Total Session Time (minutes): 42 Session Start Time : 1540 Session Stop Time : 1622 Yung Roach PT [facility] 11-12-2024 History of Present illness Narrative Episode Visit Count: 4 Therapist That Will Accept/Oversee The Plan Of Care: Yung Roach PT Start of Care Date: 10/29/24 Onset Date: 08/29/24 Plan of Care Certification Date: 10/29/24 Next Certification Due Date: 12/10/24 Patient Identified by Name and Date of : Yes REHABILITATION AND SPORTS THERAPY PHYSICAL THERAPY TREATMENT NOTE ASSESSMENT: Elidia Stephens tolerated the session with no issues. She demonstrated difficulty with persistent pain and stiffness in her neck, especially this morning. The patient will continue to benefit from ongoing skilled physical therapy to progress toward set goals. PLAN FOR NEXT VISIT: Review, correct and progress HEP to tolerance. Focus on pain-free ROM, soft tissue mobilization and eventually postural strengthening as tolerated. Include postural correction and gentle manual therapy prn. SUBJECTIVE: Pt feels that she was making progress and getting better but this morning she woke up with increased neck pain and stiffness without explanation. She does report that all of her joints were painful, stiff and tight this morning. This has eased currently. She reports that she did not do her HEP this morning when her pain was increased. Overall she reports compliance with HEP but not consistently when pain was increased this morning. She feels that manual therapy was too aggressive last session. Pain: Pain Pain Level: 6 Pain Location: Neck - Left Description: Sore Frequency: Intermittent Post Treatment Pain Post Treatment Pain Level: No Change Post Treatment Symptoms: After therex pt reported feeling better and after manual therapy pt did not report any changes in symptoms. OBJECTIVE MEASURES WITH LEVEL OF FUNCTION: TREATMENT: Therapeutic Exercise: 1: HEP was reviewed, corrected and she was repeatedly advised that she should not complete HEP to the point of pain. She was advised to back off if pain increases and to stop completely if she cannot complete without pain. She was encouraged to continue with HEP to tolerance. She was advised that noises are not a concern but painful noises should be avoided. 2: AROM of cervical spine 2x10 for flexion, extension, B SBing and B rotation in pain-free range. 3: seated L UT stretch 3x30 seconds. 4: seated L levator scapulae stretch 3x30 seconds 5: seated scapular retraction 2x10 6: postural correction reviewed and encouraged, especially when completing HEP. She was also encouraged to relax and stop holding her neck stiff and guarded. Skilled Intervention: Patient was educated in proper exercise technique and purpose for exercises. Skilled judgment was used in selection of appropriate interventions. Correct performance of therapeutic exercises was facilitated with verbal and visual cuing. Patient education as noted. Manual Therapy: Soft Tissue Mobilization: More gentle soft tissue mobilization to B cervical spine musculature x10 minutes with pt supine and wedge under her head. Techniques utilized included massage, muscle bending, gentle trigger point release and gentle sub occipital release. Pt feedback was sought throughout. Skilled Intervention: Manual skills to improve joint mobility, ROM, and decrease pain. Utilized anatomy knowledge of the clinician, and assessment of patient's response to intervention. Billing Therapeutic Exercise Treatment Minutes: 32 Manual TherapyTreatment Minutes: 10 Skilled Treatment Time Minutes (timed and untimed codes): 42 Total Session Time (minutes): 42 Session Start Time : 1540 Session Stop Time : 1622 Yung Roach PT documented in this encounter [facility] 11-08-2024 Telephone encounter Note Patient calling in wanting to let you know she was very appreciative of her session today and appreciative of you and the work you do. She felt she did not express her gratitude enough at her appointment today. Aj Bedolla November 08, 2024 3:02 PM [facility] 11-08-2024 Miscellaneous Notes Patient calling in wanting to let you know she was very appreciative of her session today and appreciative of you and the work you do. She felt she did not express her gratitude enough at her appointment today. Aj Bedolla November 08, 2024 3:02 PM documented in this encounter [facility] 11-08-2024 Note HNO ID: [id number] Author: YUNG ROACH PT Service: ? Author Type: Physical Therapist Type: Progress Notes Filed: 11/08/2024 13:56 Note Text: Episode Visit Count: 3 Therapist That Will Accept/Oversee The Plan Of Care: Yung Roach PT Start of Care Date: 10/29/24 Onset Date: 08/29/24 Plan of Care Certification Date: 10/29/24 Next Certification Due Date: 12/10/24 Patient Identified by Name and Date of : Yes REHABILITATION AND SPORTS THERAPY PHYSICAL THERAPY TREATMENT NOTE ASSESSMENT: Elidia Stephens tolerated the session with decreased symptoms. She demonstrated improvements in pain and postural awareness. The patient will continue to benefit from ongoing skilled physical therapy to progress toward set goals. PLAN FOR NEXT VISIT: Review, correct and progress HEP to tolerance. Focus on pain-free ROM, soft tissue mobilization and eventually postural strengthening as tolerated. Include postural correction and gentle manual therapy prn. SUBJECTIVE: Pt reports that overall she was feeling poor this morning in general without explanation. She reports that she has been compliant with HEP 2x day and that HEP does not cause increased pain. She feels that her overall condition may be improving with increasing ROM. She feels that the manual therapy done last session was helpful. Pt and her report that she is working on her posture. Pain: Pain Pain Level: 5 Pain Location: Neck - Left Description: Aching Frequency: Intermittent Post Treatment Pain Post Treatment Pain Level: 0 Post Treatment Pain Description: (better) Post Treatment Symptoms: After session today, pt reported feeling better and she denied any noticeable pain. (0/10) OBJECTIVE MEASURES WITH LEVEL OF FUNCTION: Cervical Spine ROM Cervical ROM : Measurement AROM Cervical Flexion AROM (degrees) : 51 Degrees Cervical Extension AROM (degrees) : 22 Degrees Cervical Side-Bend Right AROM (degrees): 30 Degrees Cervical Side-Bend Left AROM (degrees) : 15 Degrees Cervical Rotation Right AROM (degrees) : 70 Degrees Cervical Rotation Left AROM (degrees) : 45 Degrees TREATMENT: Therapeutic Exercise: 1: HEP was reviewed, corrected and she was repeatedly advised that she should not complete HEP to the point of pain. She was advised to back off if pain increases and to stop completely if she cannot complete without pain. She was encouraged to continue with HEP to tolerance. She was advised that noises are not a concern but painful noises should be avoided. 2: AROM of cervical spine 2x10 for flexion, extension, B SBing and B rotation in pain-free range. 3: seated L UT stretch 3x30 seconds. 4: seated L levator scapulae stretch 3x30 seconds 5: seated scapular retraction 2x10 6: postural correction reviewed and encouraged, especially when completing HEP. She was also encouraged to relax and stop holding her neck stiff and guarded. Skilled Intervention: Patient was educated in proper exercise technique and purpose for exercises. Skilled judgment was used in selection of appropriate interventions. Correct performance of therapeutic exercises was facilitated with verbal, visual, and tactile cuing. Patient education as noted. Manual Therapy: Soft Tissue Mobilization: Gentle soft tissue mobilization to B cervical spine musculature x13 minutes with pt supine and wedge under her head. Techniques utilized included massage, muscle bending, gentle trigger point release and gentle sub occipital release. pt feedback was sought throughout. Skilled Intervention: Manual skills to improve joint mobility, ROM, and decrease pain. Utilized anatomy knowledge of the clinician, and assessment of patient's response to intervention. Billing Therapeutic Exercise Treatment Minutes: 33 Manual TherapyTreatment Minutes: 13 Skilled Treatment Time Minutes (timed and untimed codes): 46 Total Session Time (minutes): 46 Session Start Time : 1303 Session Stop Time : 1349 Yung Roach PT [facility] 11-08-2024 History of Present illness Narrative Episode Visit Count: 3 Therapist That Will Accept/Oversee The Plan Of Care: Yung Roach PT Start of Care Date: 10/29/24 Onset Date: 08/29/24 Plan of Care Certification Date: 10/29/24 Next Certification Due Date: 12/10/24 Patient Identified by Name and Date of : Yes REHABILITATION AND SPORTS THERAPY PHYSICAL THERAPY TREATMENT NOTE ASSESSMENT: Elidia Stephens tolerated the session with decreased symptoms. She demonstrated improvements in pain and postural awareness. The patient will continue to benefit from ongoing skilled physical therapy to progress toward set goals. PLAN FOR NEXT VISIT: Review, correct and progress HEP to tolerance. Focus on pain-free ROM, soft tissue mobilization and eventually postural strengthening as tolerated. Include postural correction and gentle manual therapy prn. SUBJECTIVE: Pt reports that overall she was feeling poor this morning in general without explanation. She reports that she has been compliant with HEP 2x day and that HEP does not cause increased pain. She feels that her overall condition may be improving with increasing ROM. She feels that the manual therapy done last session was helpful. Pt and her report that she is working on her posture. Pain: Pain Pain Level: 5 Pain Location: Neck - Left Description: Aching Frequency: Intermittent Post Treatment Pain Post Treatment Pain Level: 0 Post Treatment Pain Description: (better) Post Treatment Symptoms: After session today, pt reported feeling better and she denied any noticeable pain. (0/10) OBJECTIVE MEASURES WITH LEVEL OF FUNCTION: Cervical Spine ROM Cervical ROM : Measurement AROM Cervical Flexion AROM (degrees) : 51 Degrees Cervical Extension AROM (degrees) : 22 Degrees Cervical Side-Bend Right AROM (degrees): 30 Degrees Cervical Side-Bend Left AROM (degrees) : 15 Degrees Cervical Rotation Right AROM (degrees) : 70 Degrees Cervical Rotation Left AROM (degrees) : 45 Degrees TREATMENT: Therapeutic Exercise: 1: HEP was reviewed, corrected and she was repeatedly advised that she should not complete HEP to the point of pain. She was advised to back off if pain increases and to stop completely if she cannot complete without pain. She was encouraged to continue with HEP to tolerance. She was advised that noises are not a concern but painful noises should be avoided. 2: AROM of cervical spine 2x10 for flexion, extension, B SBing and B rotation in pain-free range. 3: seated L UT stretch 3x30 seconds. 4: seated L levator scapulae stretch 3x30 seconds 5: seated scapular retraction 2x10 6: postural correction reviewed and encouraged, especially when completing HEP. She was also encouraged to relax and stop holding her neck stiff and guarded. Skilled Intervention: Patient was educated in proper exercise technique and purpose for exercises. Skilled judgment was used in selection of appropriate interventions. Correct performance of therapeutic exercises was facilitated with verbal, visual, and tactile cuing. Patient education as noted. Manual Therapy: Soft Tissue Mobilization: Gentle soft tissue mobilization to B cervical spine musculature x13 minutes with pt supine and wedge under her head. Techniques utilized included massage, muscle bending, gentle trigger point release and gentle sub occipital release. pt feedback was sought throughout. Skilled Intervention: Manual skills to improve joint mobility, ROM, and decrease pain. Utilized anatomy knowledge of the clinician, and assessment of patient's response to intervention. Billing Therapeutic Exercise Treatment Minutes: 33 Manual TherapyTreatment Minutes: 13 Skilled Treatment Time Minutes (timed and untimed codes): 46 Total Session Time (minutes): 46 Session Start Time : 1303 Session Stop Time : 1349 Yung Roach PT documented in this encounter [facility] 11-06-2024 Note HNO ID: [id number] Author: YUNG ROACH PT Service: ? Author Type: Physical Therapist Type: Progress Notes Filed: 11/06/2024 10:53 Note Text: Episode Visit Count: 2 Therapist That Will Accept/Oversee The Plan Of Care: Yung Roach PT Start of Care Date: 10/29/24 Onset Date: 08/29/24 Plan of Care Certification Date: 10/29/24 Next Certification Due Date: 12/10/24 Patient Identified by Name and Date of : Yes REHABILITATION AND SPORTS THERAPY PHYSICAL THERAPY TREATMENT NOTE ASSESSMENT: Elidia Stephens tolerated the session with decreased symptoms. She demonstrated improvements in pain slightly and pt feels that her ROM is improving slightly as well. The patient will continue to benefit from ongoing skilled physical therapy to progress toward set goals. PLAN FOR NEXT VISIT: Review, correct and progress HEP to tolerance. Focus on pain-free ROM, soft tissue mobilization and eventually postural strengthening as tolerated. Include postural correction and gentle manual therapy prn. SUBJECTIVE: Pt reports that overall she is feeling better. She feels that she is making progress in regards to her HEP with slight improvement in ROM. She states, it is not cracking as much. She reports compliance with HEP 2x day most days. She reports that she is still having neck pain and limited ROM. She reports that the pain is no longer constant but functional activities aggravate her pain. Pain: Pain Pain Level: 0 Pain Location: Neck - Left Description: (no pain to start today.) Frequency: Intermittent Post Treatment Pain Post Treatment Pain Level: Better Post Treatment Symptoms: After session today, pt felt that the manual therapy was helpful. She stated that she definitely felt different but different good. OBJECTIVE MEASURES WITH LEVEL OF FUNCTION: Spine Observations R Cervical Spine Palpation Tenderness: Upper trapezius, Levator scapulae L Cervical Spine Palpation Tenderness: Upper trapezius, Levator scapulae TREATMENT: Therapeutic Exercise: 1: HEP was reviewed, corrected and she was repeatedly advised that she should not complete HEP to the point of pain. She was advised to back off if pain increases and to stop completely if she cannot complete without pain. She was encouraged to continue with HEP to tolerance. 2: AROM of cervical spine 2x10 for flexion, extension, B SBing and B rotation in pain-free range. 3: seated L UT stretch 3x30 seconds. 4: *seated L levator scapulae stretch 3x30 seconds 5: *seated scapular retraction 2x10 6: postural correction reviewed and encouraged, especially when completing HEP Skilled Intervention: Patient was educated in proper exercise technique and purpose for exercises. Reviewed and educated patient on additions/changes for home exercise program as above (*). Skilled judgment was used in selection of appropriate interventions. Provided written instruction for home exercise program to facilitate proper performance and compliance. Correct performance of therapeutic exercises was facilitated with verbal, visual, and tactile cuing. Patient education as noted. Manual Therapy: Soft Tissue Mobilization: Gentle soft tissue mobilization to B cervical spine musculature x10 minutes with pt supine and wedge under her head. Techniques utilized included massage, muscle bending, gentle trigger point release and gentle sub occipital release. pt feedback was sought throughout. Skilled Intervention: Manual skills to improve joint mobility, ROM, and decrease pain. Utilized anatomy knowledge of the clinician, and assessment of patient's response to intervention. Billing Therapeutic Exercise Treatment Minutes: 35 Manual TherapyTreatment Minutes: 10 Skilled Treatment Time Minutes (timed and untimed codes): 45 Total Session Time (minutes): 45 Session Start Time : 1005 Session Stop Time : 1050 Yung Roach PT [facility] 11-06-2024 History of Present illness Narrative Episode Visit Count: 2 Therapist That Will Accept/Oversee The Plan Of Care: Yung Roach PT Start of Care Date: 10/29/24 Onset Date: 08/29/24 Plan of Care Certification Date: 10/29/24 Next Certification Due Date: 12/10/24 Patient Identified by Name and Date of : Yes REHABILITATION AND SPORTS THERAPY PHYSICAL THERAPY TREATMENT NOTE ASSESSMENT: Elidia Stephens tolerated the session with decreased symptoms. She demonstrated improvements in pain slightly and pt feels that her ROM is improving slightly as well. The patient will continue to benefit from ongoing skilled physical therapy to progress toward set goals. PLAN FOR NEXT VISIT: Review, correct and progress HEP to tolerance. Focus on pain-free ROM, soft tissue mobilization and eventually postural strengthening as tolerated. Include postural correction and gentle manual therapy prn. SUBJECTIVE: Pt reports that overall she is feeling better. She feels that she is making progress in regards to her HEP with slight improvement in ROM. She states, it is not cracking as much. She reports compliance with HEP 2x day most days. She reports that she is still having neck pain and limited ROM. She reports that the pain is no longer constant but functional activities aggravate her pain. Pain: Pain Pain Level: 0 Pain Location: Neck - Left Description: (no pain to start today.) Frequency: Intermittent Post Treatment Pain Post Treatment Pain Level: Better Post Treatment Symptoms: After session today, pt felt that the manual therapy was helpful. She stated that she definitely felt different but different good. OBJECTIVE MEASURES WITH LEVEL OF FUNCTION: Spine Observations R Cervical Spine Palpation Tenderness: Upper trapezius, Levator scapulae L Cervical Spine Palpation Tenderness: Upper trapezius, Levator scapulae TREATMENT: Therapeutic Exercise: 1: HEP was reviewed, corrected and she was repeatedly advised that she should not complete HEP to the point of pain. She was advised to back off if pain increases and to stop completely if she cannot complete without pain. She was encouraged to continue with HEP to tolerance. 2: AROM of cervical spine 2x10 for flexion, extension, B SBing and B rotation in pain-free range. 3: seated L UT stretch 3x30 seconds. 4: *seated L levator scapulae stretch 3x30 seconds 5: *seated scapular retraction 2x10 6: postural correction reviewed and encouraged, especially when completing HEP Skilled Intervention: Patient was educated in proper exercise technique and purpose for exercises. Reviewed and educated patient on additions/changes for home exercise program as above (*). Skilled judgment was used in selection of appropriate interventions. Provided written instruction for home exercise program to facilitate proper performance and compliance. Correct performance of therapeutic exercises was facilitated with verbal, visual, and tactile cuing. Patient education as noted. Manual Therapy: Soft Tissue Mobilization: Gentle soft tissue mobilization to B cervical spine musculature x10 minutes with pt supine and wedge under her head. Techniques utilized included massage, muscle bending, gentle trigger point release and gentle sub occipital release. pt feedback was sought throughout. Skilled Intervention: Manual skills to improve joint mobility, ROM, and decrease pain. Utilized anatomy knowledge of the clinician, and assessment of patient's response to intervention. Billing Therapeutic Exercise Treatment Minutes: 35 Manual TherapyTreatment Minutes: 10 Skilled Treatment Time Minutes (timed and untimed codes): 45 Total Session Time (minutes): 45 Session Start Time : 1005 Session Stop Time : 1050 Yung Roach PT Program_ID:[id number] Access Code: [email or web address] URL: [email or web address] Date: 11-06-2024 Prepared By: Yung Roach Program Notes Exercises - Seated Cervical Rotation AROM - 2 x daily - 7 x weekly - 2 sets - 10 reps - Seated Cervical Extension AROM - 2 x daily - 7 x weekly - 2 sets - 10 reps - Seated Cervical Flexion AROM - 2 x daily - 7 x weekly - 2 sets - 10 reps - Seated Cervical Sidebending AROM - 2 x daily - 7 x weekly - 2 sets - 10 reps - Seated Upper Trapezius Stretch - 3 x daily - 7 x weekly - sets - 3 reps - Gentle Levator Scapulae Stretch - 3 x daily - 7 x weekly - sets - 3 reps - Seated Scapular Retraction - 3 x daily - 7 x weekly - 2 sets - 10 reps documented in this encounter [facility] 10-29-2024 Note HNO ID: [id number] Author: YUNG ROACH PT Service: ? Author Type: Physical Therapist Type: Progress Notes Filed: 10/29/2024 23:56 Note Text: Episode Visit Count: 1 Therapist That Will Accept/Oversee The Plan Of Care: Yung Roach PT Start of Care Date: 10/29/24 Onset Date: 08/29/24 Plan of Care Certification Date: 10/29/24 Next Certification Due Date: 12/10/24 Patient Identified by Name and Date of : Yes REHABILITATION AND SPORTS THERAPY PHYSICAL THERAPY EVALUATION PLAN OF CARE: Assessment: Elidia Stephens presents with chief complaint of left sided neck pain that interferes with bending, twisting, sleeping (doing laundry, turning her head) . The patient presents with impairments in ADL's, independence in exercise, overall function, posture, range of motion, strength, and tissue tenderness. PROMIS? (Patient-Reported Outcomes Measurement Information System) scores were reviewed and identified as a rehabilitation concern. Prognosis for therapy is Good due to: current objective clinical presentation, good support system/ coping skills, good overall health status. The patient will benefit from skilled therapy services to meet the goals established for this plan of care as noted below. Goals for Episode of Care: established 10/29/24 Patient reported outcome of pain Interference will decrease T -score by a minimum of 5 points. Independent in a Home Exercise Program. Patient will decrease pain rating by 2 points to meet minimal clinical important difference for numeric pain rating scale. Restore pain free cervical ROM to WFL to allow for improved turning of her head and sleeping. Sleep throughout the night without pain/symptoms. Patient will be able to tolerate bending and laundry chores without increased symptoms. Patient Goals: alleviate pain Time Frame for Goals and Treatment : 12/10/24 Planned Interventions, Frequency, and Duration: Current Frequency: 2x/week Duration: 6 weeks Total Number of Visits Planned: 12 Planned Treatment Interventions: Therapeutic exercise (51497), Neuromuscular re-education (86411), Manual therapy (38265), Therapeutic activities (98666), Self-group home management (11137), Patient/Family/Caregiver Education, Body Mechanics Training PLAN FOR NEXT VISIT: Review, correct and progress HEP to tolerance. Focus on pain-free ROM, soft tissue mobilization and eventually postural strengthening as tolerated. Include postural correction and gentle manual therapy prn. Patient demonstrates good understanding of plan of care and treatment. The above goals and plan of care were discussed and agreed upon by patient/family. SUBJECTIVE: Pt reports constant pain in L side of her neck and head that varies in intensity. She denies any mechanism of injury. She reports that bending over and movements of her head can sometimes aggravate her symptoms. She denies any radicular L UE symptoms but does report crepitus in her neck with movement. Patient Goals: alleviate pain Functional Limitations: bending, twisting, sleeping (doing laundry, turning her head) Prior Level of Function: Independent without limitations Relevant History Right or Left Handed: Right Employment: Retired Home Environment Patient Lives With: Spouse Intake Information: Prescription present Previous Treatment: Pain meds , Muscle relaxer , Steroids (tylenol) Red Flags Vertebral Fracture Red Flags: Female, Age >70 Vertebral Fracture Clinical Reasoning: Proceed with caution due to the above (1-2) risk factors Cancer Clinical Reasoning: No identified risk factors. Infection Clinical Reasoning: No identified risk factors. Cervical Arterial Dysfunction Clinical Reasoning: No identified risk factors Red Flags - Cervical Cancer Clinical Reasoning: No identified risk factors. Infection Clinical Reasoning: No identified risk factors. Cervical Arterial Dysfunction Clinical Reasoning: No identified risk factors Spine History Symptoms Location at Onset: Neck Symptoms Since Onset: Unchanging (prednisone helped temporarily) Pain is Worse Always: Bending, Turning Pain is Better Sometimes: (medication, heat) Previous Episodes: No Sleeping Position: Side lying right Sleep Affected by Pain: Pain awakens, Pain keeps from falling asleep Pain: Pain Pain Level: 7 Pain Location: Neck - Left Description: Aching, Stabbing Frequency: Continuous (constant but varies in intensity) Post Treatment Pain Post Treatment Pain Level: No Change Post Treatment Symptoms: Pt reported feeling encouraged and positive but she denied any change in her pain level. PROMIS Scales 10/29/2024 Higher is Better Self-Eff Symptom - T Score 44 (Average) Self-Eff Symptom - Percentile 27 Proxy-reported 10/29/2024 Lower is Better Pain Interference - T Score 61 (moderate) Pain Interference - Percentile 14 Proxy-reported T-scores: mean of general population = 50. 5 points is clin (more content not included)... [facility] 10-29-2024 History of Present illness Narrative Images from the original note were not included. Episode Visit Count: 1 Therapist That Will Accept/Oversee The Plan Of Care: Yung Roach PT Start of Care Date: 10/29/24 Onset Date: 08/29/24 Plan of Care Certification Date: 10/29/24 Next Certification Due Date: 12/10/24 Patient Identified by Name and Date of : Yes REHABILITATION AND SPORTS THERAPY PHYSICAL THERAPY EVALUATION PLAN OF CARE: Assessment: Elidia Stephens presents with chief complaint of left sided neck pain that interferes with bending, twisting, sleeping (doing laundry, turning her head) . The patient presents with impairments in ADL's, independence in exercise, overall function, posture, range of motion, strength, and tissue tenderness. PROMIS (Patient-Reported Outcomes Measurement Information System) scores were reviewed and identified as a rehabilitation concern. Prognosis for therapy is Good due to: current objective clinical presentation, good support system/ coping skills, good overall health status. The patient will benefit from skilled therapy services to meet the goals established for this plan of care as noted below. Goals for Episode of Care: established 10/29/24 Patient reported outcome of pain Interference will decrease T -score by a minimum of 5 points. Independent in a Home Exercise Program. Patient will decrease pain rating by 2 points to meet minimal clinical important difference for numeric pain rating scale. Restore pain free cervical ROM to WFL to allow for improved turning of her head and sleeping. Sleep throughout the night without pain/symptoms. Patient will be able to tolerate bending and laundry chores without increased symptoms. Patient Goals: alleviate pain Time Frame for Goals and Treatment : 12/10/24 Planned Interventions, Frequency, and Duration: Current Frequency: 2x/week Duration: 6 weeks Total Number of Visits Planned: 12 Planned Treatment Interventions: Therapeutic exercise (61290), Neuromuscular re-education (86687), Manual therapy (94472), Therapeutic activities (68825), Self-group home management (56779), Patient/Family/Caregiver Education, Body Mechanics Training PLAN FOR NEXT VISIT: Review, correct and progress HEP to tolerance. Focus on pain-free ROM, soft tissue mobilization and eventually postural strengthening as tolerated. Include postural correction and gentle manual therapy prn. Patient demonstrates good understanding of plan of care and treatment. The above goals and plan of care were discussed and agreed upon by patient/family. SUBJECTIVE: Pt reports constant pain in L side of her neck and head that varies in intensity. She denies any mechanism of injury. She reports that bending over and movements of her head can sometimes aggravate her symptoms. She denies any radicular L UE symptoms but does report crepitus in her neck with movement. Patient Goals: alleviate pain Functional Limitations: bending, twisting, sleeping (doing laundry, turning her head) Prior Level of Function: Independent without limitations Relevant History Right or Left Handed: Right Employment: Retired Home Environment Patient Lives With: Spouse Intake Information: Prescription present Previous Treatment: Pain meds , Muscle relaxer , Steroids (tylenol) Red Flags Vertebral Fracture Red Flags: Female, Age >70 Vertebral Fracture Clinical Reasoning: Proceed with caution due to the above (1-2) risk factors Cancer Clinical Reasoning: No identified risk factors. Infection Clinical Reasoning: No identified risk factors. Cervical Arterial Dysfunction Clinical Reasoning: No identified risk factors Red Flags - Cervical Cancer Clinical Reasoning: No identified risk factors. Infection Clinical Reasoning: No identified risk factors. Cervical Arterial Dysfunction Clinical Reasoning: No identified risk factors Spine History Symptoms Location at Onset: Neck Symptoms Since Onset: Unchanging (prednisone helped temporarily) Pain is Worse Always: Bending, Turning Pain is Better Sometimes: (medication, heat) Previous Episodes: No Sleeping Position: Side lying right Sleep Affected by Pain: Pain awakens, Pain keeps from falling asleep Pain: Pain Pain Level: 7 Pain Location: Neck - Left Description: Aching, Stabbing Frequency: Continuous (constant but varies in intensity) Post Treatment Pain Post Treatment Pain Level: No Change Post Treatment Symptoms: Pt reported feeling encouraged and positive but she denied any change in her pain level. PROMIS Scales 10/29/2024 Higher is Better Self-Eff Symptom - T Score 44 (Average) Self-Eff Symptom - Percentile 27 Proxy-reported 10/29/2024 Lower is Better Pain Interference - T Score 61 (moderate) Pain Interference - Percentile 14 Proxy-reported T-scores: mean of general population = 50. 5 points is clinically meaningfully difference Percentiles provide an indication of how the patient's score ranks in relation to the general population. Higher percentile rankings indicate better function/quality of life. 50th percentile is the average of the general population and indicates half of respondents had a worse score. OBJECTIVE MEASURES WITH LEVEL OF FUNCTION: Reflexes - Upper Extremity R Brachioradialis : Normal R Biceps: Normal L Brachioradialis : Normal L Biceps: Normal Spine Observations R Cervical Spine Palpation Tenderness: Upper trapezius L Cervical Spine Palpation Tenderness: Upper trapezius, Levator scapulae (L>R) Sensation - Cervical Spine Cervical Spine Sensation: Grossly Intact Cervical Spine ROM Cervical ROM : Measurement AROM Cervical Flexion AROM (degrees) : 37 Degrees Cervical Extension AROM (degrees) : 40 Degrees Cervical Side-Bend Right AROM (degrees): 20 Degrees Cervical Side-Bend Left AROM (degrees) : 25 Degrees Cervical Rotation Right AROM (degrees) : 75 Degrees Cervical Rotation Left AROM (degrees) : 59 Degrees UE and Cervical Strength Strength Tested: Cervical Cervical Strength: Pt's postural deficits, degenerative changes and functional difficulties all indicate that she will benefit from increased core and postural strength. Vitals BP: 170/72 Pulse: 91 Education: Education Learning Preferences: Demonstration, Explanation, Performance, Printed Materials Barriers: None Learning/educational needs: Home exercise program, Plan of Care, Posture, Body Mechanics Education Provided: Yes, see treatment interventions for education provided Education Provided To: Patient Education Mode/Type: Demonstration, Explanation/Discussion, Literature/Printed Materials, Performance Response to Education/Teach Back: States/Identifies, Return Demonstration, Requires Review/Additional Education TREATMENT: PT Treatment Interventions: Therapeutic Exercise Evaluation Therapeutic Exercise: 1: Pt was educated on the anatomy of cervical spine, likely etiology of symptoms and rationale for proposed treatment plan. Pictures were used to clarify education in regards to anatomy. She was repeatedly advised that she should stop any exercise that causes increased pain. Pt was educated on postural correction and its importance was emphasized. 2: *AROM of cervical spine 2x10 for flexion, extension, B SBing and B rotation in pain-free range. 3: *seated L UT stretch 3x30 seconds. Skilled Intervention: Patient was educated in proper exercise technique and purpose for exercises. Reviewed and educated patient on additions/changes for home exercise program as above (*). Skilled judgment was used in selection of appropriate interventions. Provided written instruction for home exercise program to facilitate proper performance and compliance. Correct performance of therapeutic exercises was facilitated with verbal, visual, and tactile cuing. Patient education as noted. Billing * Evaluation Low Complexity: 1 Unit Therapeutic Exercise Treatment Minutes: 20 Skilled Treatment Time Minutes (timed and untimed codes): 40 Total Session Time (minutes): 40 Session Start Time : 1320 Session Stop Time : 1400 Yung Roach PT Program_ID:[id number] Access Code: [email or web address] URL: [email or web address] Date: 10-29-2024 Prepared By: Yung Roach Program Notes Exercises - Seated Cervical Rotation AROM - 2 x daily - 7 x weekly - 2 sets - 10 reps - Seated Cervical Extension AROM - 2 x daily - 7 x weekly - 2 sets - 10 reps - Seated Cervical Flexion AROM - 2 x daily - 7 x weekly - 2 sets - 10 reps - Seated Cervical Sidebending AROM - 2 x daily - 7 x weekly - 2 sets - 10 reps - Seated Upper Trapezius Stretch - 3 x daily - 7 x weekly - sets - 3 reps documented in this encounter [facility] 10-06-2024 Radiology Diagnostic study note [facility] Imaging Services [address] [place] [id number] Cerv Spine 4 or 5 Views MR#: [id number] Acct: [id number] Name: ELIDIA STEPHENS Rep #: [id number] : 1940 F 84 From: David Fischer DO PCP: Dr. Emi Whatley MD Status: RE G CLI Study:Cerv Spine 4 or 5 Views Date of Exam: 10/02/24 Exam# [id number] Ordering Dr: Cain Ratliff NP, NP-Lisa PROCEDURE: CERV SPINE 4 OR 5 VIEWS 10/02/2024 REASON FOR EXAM: CERVICALGIA TECHNIQUE: 5 views of the cervical spine. COMPARISON: Cervical spine radiograph from 07/26/2023. FINDINGS: There is mild chronic loss of the cervical vertebral body heights. There is straightening of the cervical lordosis. There is levoscoliosis of the cervical spine. Advanced multilevel degenerative changes are present with disc space narrowing and endplate spurring. No acute fracture or subluxation is present. There is mild anterolisthesis of C7-T1 on a chronic basis. Prevertebral soft tissues are unremarkable. Multilevel facet arthropathy is present. Multilevel neural foraminal narrowing is identified. Odontoid process is intact. Lateral masses align. There is diminished bone mineralization. RAD/Cerv Spine 4 or 5 Views IMPRESSION: 1. No acute osseous abnormality. 2. Multilevel advanced degenerative changes with neural foraminal narrowing. Ifclinical concern for radiculopathy, MRI is a more sensitive exam. 3. Levoscoliosis. Disclaimer: Reading Location: [facility] CC: Cain Ratliff; Dr. Emi Whatley MD ~ Radiology Special Procedure Tech: Signed [facility] 09-17-2024 Evaluation note Diagnosis Onset Date Resolution Personal history of colonic polyps acute September 17, 2024 10:31am [facility] Work Phone: 1(622) 315-810904-02-2025 Consult note [facility] Medical Records Department [address] [place] [address] Anesthesia Postop Eval II 08/21/24 0942 MR#: [id number] Acct: [id number] Name: ELIDIA STEPHENS Rep #:[id number] : 1940 84 From: Calvin Aviles MD PCP: Dr. Emi Whatley MD Status:SHASHI Portillo SDC Y Race: C Location: [place] [id number] Anesthesia Postop Eval I Sum Postop Eval Completion status Anesthesia document: Postop Eval 1 completed: Yes Anesthesia Postop Eval I Summary Anesthesia Postop Eval I Summary: Anesthesia Postop Eval I: Assessment Summary 3 Airway patent Yes 08/21/24 09:34 [email or web address] Spontaneous unlabored Yes 08/21/24 09:34 [email or web address] respirations Mental status Awake,Calm 08/21/24 09:34 [email or web address] nausea No 08/21/24 09:34 [email or web address] Vomiting No 08/21/24 09:34 [email or web address] Anesthesia Postop Eval I: Fluid Summary Crystalloid volume administer 60 08/21/24 09:34 [email or web address] (ml) Colloids volume administered ( ml) Blood Product volume administered (ml) Total IV fluid infused 60 08/21/24 09:34 [email or web address] Anesthesia Postop Eval I: Summary Notes Anesthesia Complication No 08/21/24 09:34 [email or web address] Anesthesia Complication Comment: Post-operative progress note Anesthesia: Postop Eval II Evaluation Mental status: Awake Pain Level: 0 nausea: No Vomiting: No 08/21/24 0942 > Date _ Calvin Aviles MD Cosigner Signature: Date CC: ~ Signed [facility]04-02-2025 Consult note Author Calvin Aviles [facility] Note Date/Time August 21, 2024 8:12 am [facility] Medical Records Department [address] [facility] [place] [address] Pre-Anesthesia Evaluation 08/21/24 0811 MR#: [id number] Acct: [id number] Name: ELIDIA STEPHENS Rep #:[id number] : 1940 84 From: Calvin Aviles MD PCP: Dr. Emi Whatley MD Status: G [facility] [place] Y Race: C Location: [place] [address] ASA Classification* ASA Classification ASA Classification: 2 Assessment & Plan Anesthesia* Anesthesia Assessment Anesthesia Assessment: Discussed sedation and/or anesthesia options, risks, benefits, and alternatives with patient/parents/legal guardian/POA. Questions invited. The patient/parents/legal guardian/POA seems to understand and agrees to proceedwith anesthesia plan. Reviewed the physical assessment, medical history, allergy history and patient home medications list prior to surgery/procedure/anesthetic and documented any changes. Performed airway and anesthesia risk assessments. Anesthesia Type Anesthesia Type: MAC Anesthesia Focused Assessment* Temperature: 97.7 F Pulse Rate: 79 Blood Pressure: 120/54 Respiratory Rate: 16 Pulse Ox: 100 Airway Assessment Mouth opens: >3 cm Mallampati Score: II Focused Labs Anesthesia Preop lab: CBC WBC 6.6 K/mm3 (4.4-11.0) 06/25/24 14:00 06/25/24 RBC 4.17 M/mm3 (4.2-5.4) L 06/25/24 14:06/25/24 Hgb 12.4 g/dL (12.0-15.0) 06/25/24 14:06/25/24 Hct 39.0 % (37-47) 06/25/24 14:06/25/24 Plt Count 218 K/mm3 (150-450) 06/25/24 14:06/25/24 CHEMISTRY Potassium 4.0 mmol/L (3.5-5.1) 06/25/24 14:00 06/25/24 Sodium 138 mmol/L (136-145) 06/25/24 14:06/25/24 Magnesium 2.4 mg/dL (1.6-2.6) 11/30/23 14:11/30/23 BUN 21 mg/dL (7-18) H 06/25/24 14:06/25/24 Creatinine 0.88 mg/dL (0.55-1.02) 06/25/24 14:06/25/24 Glucose 84 mg/dL (74-106) 06/25/24 14:06/25/24 TSH 1.51 uIU/mL (0.358-3.74) 11/30/23 14: COAG Pre-Assessment Diagnosis/Proposed Procedure Planned Operative Procedure(s): CSCOPE Anesthesia History 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 When Was Last Pacemaker Check QUESTION #4 FULL TEXT: You/Your Family Experience fever (hyperthermia) with Anesthesia Last Oral Intake Last Oral intake: Last Oral Intake NPO since 00:00 08/21/24 07:50 Meds taken in AM with sips of No 08/21/24 07:50 water? 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 Female Yes 08/16/24 09:41 HX of Motion Sickness No 08/16/24 09:41 HX of N/V After Surgery No 08/16/24 09:41 Non-Smoker Yes 08/16/24 09:41 Duration of Surgery greater No 08/16/24 09:41 than 60 minutes Number of Risk Factors 2 08/16/24 09:41 PONV Score Moderate Risk 08/16/24 09:41 Height & Weight Height & Weight: Anesthesia: Height & Weight Height 5 ft 08/21/24 07:50 Weight: 59 kg 08/21/24 07:50 Body Mass Index (BMI) 25.4 08/21/24 07:50 Respiratory Assessment Respiratory Assessment - aircraft engine mechanic supervisor: Respiratory Tract Infection Hx - aircraft engine mechanic supervisor Hx Respiratory Tract Infection No 08/16/24 09:41 STOP Sleep Apnea STOP Sleep Apnea - aircraft engine mechanic supervisor: STOP Sleep Apnea - aircraft engine mechanic supervisor Hx Hypertension Yes: CONTROLLED WITH MED 08/16/24 09:41 Hx Sleep Apnea No 08/16/24 09:41 CPAP BIPAP Do you snore loudly (louder No 08/16/24 09:41 than talking or can be heard Do you often feel tired/ No 08/16/24 09:41 fatigued/ sleepy during daytime? Has anyone observed you stop No 08/16/24 09:41 breathing during sleep? STOP Results Negative 08/16/24 09:41 QUESTION #5 FULL TEXT : Do you snore loudly (louder than talking or can be heard through closed doors)? 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 Specify any problems Hx of Preganancy in last 3 No 08/16/24 09:41 Months Nurse Filling Out Transfusion DSCHRIBER 08/16/24 09:41 & Questions: Date: 08/16/24 08/16/24 09:41 Time: 09:43 08/16/24 09:41 Patient unable to answer at this time (ie. 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: /Reproductive Hx- aircraft engine mechanic supervisor Hx Now No 08/16/24 09:41 Gestational Age (in weeks): EDC: Hx Hx Para Hx Section SAB No 08/16/24 09:41 PFSH Medical History Hx of fracture of wrist Osteoporosis Wears hearing aid Wears glasses Post-menopausal Depression Anxiety Arthritis Non-smoker Shortness of breath on exertion History of edema History of stress test Cardiology follow-up encounter Hypertension Hemorrhoids Home Medications ?Medication ?Instructions ?Recorded ?Last Taken ?Type cholecalciferol (vitamin D3) 50 50 mcg PO DAILY 03/07/22 History mcg (2,000 unit) capsule (Vitamin D3) vit C 250 mg-vit E 90 mg-zinc 40 1 tab PO BID 03/07/22 03/07/22 History mg-copper 1 [id number] capsule (PreserVision AREDS-2) Prolia 60 mg/mL subcutaneous 60 mg subcut [id number] #1 mL 07/28/23 Unknown Rx syringe (denosumab) amlodipine 2.5 mg tablet 2.5 mg PO QHS 06/12/24 Unkno wn History Allergy/AdvReac Type Severity Reaction Status Date / Time Penicillins (PCN) Allergy Rash Verified 08/16/24 09:39 adhesive AdvReac unknown Verified 08/16/24 09:39 alendronate sodium AdvReac GI Upset Verified 08/16/24 09:39 ciprofloxacin (From Cipro) AdvReac blurred Verified 08/16/24 09:39 vision latex AdvReac rash Verified 08/16/24 09:39 risedronate sodium (From AdvReac GI Upset Verified 08/16/24 09:39 Actonel) sulfamethoxazole (From AdvReac GI Upset Verified 08/16/24 09:39 Septra) trimethoprim (From Septra) AdvReac GI Upset Verified 08/16/24 09:39 venlafaxine (From Effexor) AdvReac Unknown Verified 08/16/24 09:39 Family History Brother CAD (coronary artery disease) stents, PPM Hypertension Father Heart disease Brother Hypertension Mother Colon cancer Surgical History Hx of colonoscopy History of tonsillectomy History of open reduction and internal fixation (ORIF) procedure History of cataract surgery Social History Smoking Status: Never smoker alcohol intake: current alcohol intake frequency: a few times a week Alcohol type: wine substance use type: does not use caffeine: Yes Type: coffee what type of physical activity do you participate in: bicycling Review of Systems (Anesthesia) ROS Narrative System reviewed and no additional complaints, except as documented. 08/21/24811 <Electronically signed by Calvin Aviles MD > Date _ Calvin Aviles MD Cosigner Signature: Date CC: ~ Signed [facility] Work Phone: 1(906) 364-150604-02-2025 History and physical note Author Hussein Dawson [facility] Note Date/Time August 21, 2024 7:46 am [facility] Medical Records Department [address] [place] [address] History & Physical Exam 08/21/24 0744 MR#: [id number] Acct: [id number] Name: ELIDIA STEPHENS Rep #:[id number] : 1940 84 From: Hussein Dawson DO PCP: Dr. Emi Whatley MD Status:[facility] Location: [place] [address] HPI - General General Date of Admission: 08/21/24 Date of Service: 08/21/24 Chief Complaint: surveillance colonoscopy HPI Narrative ELIDIA STEPHENS, is a 84 F who presents for a colonoscopy Colon 05/30/2023 ([facility]) tubular adenomas Hemorrhoids were found on perianal exam. A 6 mm polyp was found in the cecum. The polyp was sessile. The polyp was removed with a saline injection-lift technique using a hot snare. Resection and retrieval were complete. A 20 mm polyp was found in the proximal ascending colon. The polyp was sessile. Biopsies were taken with a cold forceps for histology. A 7 mm polyp was found in the proximal sigmoid colon. The polyp was sessile. The polyp was removed with a hot snare. Resection and retrieval were complete. Multiple diverticula were found in the sigmoid colon. COLON 10/13/2022 (Dr. Emi Constantino @ [facility])- - Tubular adenoma. - One 30 mm polyp in the mid ascending colon, removed piecemeal using a hot snare. Incomplete resection. Nonlifting sign. Re - Moderate diverticulosis in the sigmoid colon and in the descending colon. - The entire examined colon is normal on direct and retroflexion views. - she denies any weight loss - denies any pain or bleeding - denies any change in bowel habits - Miralax and prune juice almost daily - denies any heart or lung disease - denies any N/V - denies any GERD - remains active - still drives - fell and broke her wrist this past January - tripped over the curb [facility], [facility] Medical History Hx of fracture of wrist Osteoporosis Wears hearing aid Wears glasses Post-menopausal Depression Anxiety Arthritis Non-smoker Shortness of breath on exertion History of edema History of stress test Cardiology follow-up encounter Hypertension Hemorrhoids Home Medications ?Medication ?Instructions ?Recorded ?Last Taken ?Type cholecalciferol (vitamin D3) 50 50 mcg PO DAILY 03/07/22 History mcg (2,000 unit) capsule (Vitamin D3) vit C 250 mg-vit E 90 mg-zinc 40 1 tab PO BID 03/07/22 03/07/22 History mg-copper 1 jz-qcivak-[id number] capsule (PreserVision AREDS-2) Prolia 60 mg/mL subcutaneous 60 mg subcut [id number] #1 mL 07/28/23 Unknown Rx syringe (denosumab) amlodipine 2.5 mg tablet 2.5 mg PO QHS 06/12/24 Unkno wn History Allergy/AdvReac Type Severity Reaction Status Date / Time Penicillins (PCN) Allergy Rash Verified 08/16/24 09:39 adhesive AdvReac unknown Verified 08/16/24 09:39 alendronate sodium AdvReac GI Upset Verified 08/16/24 09:39 ciprofloxacin (From Cipro) AdvReac blurred Verified 08/16/24 09:39 vision latex AdvReac rash Verified 08/16/24 09:39 risedronate sodium (From AdvReac GI Upset Verified 08/16/24 09:39 Actonel) sulfamethoxazole (From AdvReac GI Upset Verified 08/16/24 09:39 Septra) trimethoprim (From Septra) AdvReac GI Upset Verified 08/16/24 09:39 venlafaxine (From Effexor) AdvReac Unknown Verified 08/16/24 09:39 Family History Brother CAD (coronary artery disease) stents, PPM Hypertension Father Heart disease Brother Hypertension Mother Colon cancer Surgical History Hx of colonoscopy History of tonsillectomy History of open reduction and internal fixation (ORIF) procedure History of cataract surgery Social History Smoking Status: Never smoker alcohol intake: current alcohol intake frequency: a few times a week Alcohol type: wine substance use type: does not use caffeine: Yes Type: coffee what type of physical activity do you participate in: bicycling ROS Constitutional Constitutional: Denies fatigue, fever(s), poor appetite, weight gain or weight loss Gastrointestinal Gastrointestinal: Denies belching, bloating, change in bowel habits, change in stool character, chewing difficulty, coffee ground emesis, constipation, cramping, diarrhea, dyspepsia, dysphagia, early satiety, excessive flatus, fecalincontinence, heartburn, hematemesis, hematochezia, hemorrhoids, loose stools, melena, nausea, odynophagia, rectal bleeding, tenesmus, vomiting or weight changes Physical Exam Const alert, oriented x3, no apparent distress and healthy appearing General Appearance: cooperative GI normal to inspection, nondistended, normoactive bowel sounds, soft to palpation,non-tender and non-distended Percussion: normal to percussion Rectal Exam: deferred Assessment & Plan Assessment/Plan (1) Personal history of colonic polyps: PLAN: Assessment and Plan Assessment and Plan (1) Personal history of colonic polyps: Status: Acute (2) Family history of colon cancer in mother: Status: Acute Medications: New peg 3350-electrolytes 236-22.74-6.74 -5.86 gram (Golytely) take as directed for split dose bowel prep 240 mL PO Q10M 4,000 mL 0RF Plan 84y/o female presents for consultation with a personal history of colon polyps. Colonoscopy was last performed by Dr. Lees May 2023 and revealed adenomas (20mm). She also has a history of adenomas in 2022 (30mm), 2021, and 2016. Her family history is significant for mother with colon cancer at 61y/o. She remainsin good health and active. I have scheduled her for a colonoscopy. 08/21/24 0746 <Electronically signed by Hussein Dawson DO> Cosigner Signature (if applicable): CC: Dr. Emi Whatley MD; Hussein Dawson DO~ Signed [facility] Work Phone: 1(851) 845-404504-02-2025 Consult note [facility] Medical Records Department [address] [place] [address] Anesthesia Postop Eval I 08/21/24 0933 MR#: [id number] Acct: [id number] Name: ELIDIA STEPHENS Rep #:[id number] : 1940 84 From: Ronnell Brown PCP: Dr. Emi Whatley MD Status:[facility] Y Race: C Location: [place] [address] Anesthesia: Postop Eval I Current Vital Signs Temperature: 97 F Pulse Rate: 67 Blood Pressure: 103/62 Respiratory Rate: 16 Pulse Ox: 100 Oxygen Delivery Method: Room Air Assessment Airway patent: Yes Spontaneous unlabored respirations: Yes Mental status: Awake and Calm nausea: No Vomiting: No Anesthesia Complication: No Fluid Hydration Crystalloid volume administer (ml): 60 Total IV fluid infused: 60 Progress Note Anesthesia document: Postop Eval 1 completed: Yes 08/21/24 0934 > Date _ Ronnell Vora Signature: Date CC: ~ Signed [facility]04-02-2025 Procedure note [facility] Medical Records Department [address] [place] [address] Colonoscopy Report MR#: [id number] Acct: [id number] Name: ELIDIA STEPHENS Rep #:[id number] : 1940 84 From: Hussein Dawson DO PCP: Dr. Emi Whatley MD Status:[facility] Patient Name: Elidia Stephens Procedure Date: 08/21/2024 8:37 AM Date of : 1940 Age: 84 Procedure: Colonoscopy Indications: High risk colon cancer surveillance: Personal history of colonic polyps Providers: DO Conchita Michelle MD: Emi Whatley Medicines: Monitored Anesthesia Care Patient Profile: This is an 84 year old female. Refer to note in patient chart for documentation of history and physical. Last Colonoscopy: 1 year ago. Complications: No immediate complications. Procedure: Pre-Anesthesia Assessment: - Prior to the procedure, a History and Physical was performed, and patient medications and allergies were reviewed. The patient is competent. The risks and benefits of the procedure and the sedation options and risks were discussed with the patient. All questions were answered and informed consent was obtained. Patient identification and proposed procedure were verified by the physician in the pre-procedure area. Mental Status Examination: alert and oriented. Airway Examination: normal oropharyngeal airway and neck mobility. Respiratory Examination: clear to auscultation. CV Examination: normal. ASA Grade Assessment: II - A patient with mild systemic disease. After reviewing the risks and benefits, the patient was deemed in satisfactory condition to undergo the procedure. The anesthesia plan was to use monitored anesthesia care (MAC). Immediately prior to administration of medications, the patient was re-assessed for adequacy to receive sedatives. The heart rate, respiratory rate, oxygen saturations, blood pressure, adequacy of pulmonary ventilation, and response to care were monitored throughout the procedure. The physical status of the patient was re-assessed after the procedure. After I obtained informed consent, the scope was passed under direct vision. Throughout the procedure, the patient's blood pressure, pulse, and oxygen saturations were monitored continuously. The Colonoscope was introduced through the anus and advanced to the cecum, identified by appendiceal orifice and ileocecal valve. The colonoscopy was performed without difficulty. The patient tolerated the procedure well. The quality of the bowel preparation was adequate. The ileocecal valve, appendiceal orifice, and rectum were photographed. Scope In: 8:48:50 AM Scope Withdrawal Time 0 hours 15 minutes 10 seconds Scope Out: 9:22:46 AM Total Procedure Duration Time 0 hours 33 minutes 56 seconds Findings: The perianal and digital rectal examinations were normal. Multiple small and large-mouthed diverticula were found in the recto-sigmoid colon, sigmoid colon, descending colon and hepatic flexure. Two sessile polyps were found in the sigmoid colon and hepatic flexure. The polyps were 6 mm in size. These polyps were removed with a jumbo cold forceps. Resection and retrieval were complete. Verification of patient identification for the specimen was done. Estimated blood loss was minimal. Three sessile polyps were found in the ascending colon and cecum. The polyps were 1 to 2 mm in size. These polyps were removed with a hot snare. Resection and retrieval were complete. Verification of patient identification for the specimen was done. Estimated blood loss was minimal. The exam was otherwise without abnormality on direct and retroflexion views. Impression: - Diverticulosis in the recto-sigmoid colon, in the sigmoid colon, in the descending colon and at the hepatic flexure. - Two 6 mm polyps in the sigmoid colon and at the hepatic flexure, removed with a jumbo cold forceps. Resected and retrieved. - Three 1 to 2 mm polyps in the ascending colon and in the cecum, removed with a hot snare. Resected and retrieved. - The examination was otherwise normal on direct and retroflexion views. Recommendation: - Discharge patient to home. - Resume previous diet. - Continue present medications. - Await pathology results. - Repeat colonoscopy. Procedure Code(s): --- Professional --- 77113, Colonoscopy, flexible; with removal of tumor(s), polyp(s), or other lesion(s) by snare technique 51254, 59, Colonoscopy, flexible; with biopsy, single or multiple CPT copyright 2021 [employer]. All rights reserved. The codes documented in this report are preliminary and upon trimmer buffing wheel review may be revised to meet current compliance requirements. Hussein Dawson DO 08/21/2024 9:28:49 AM This report has been signed electronically. Number of Addenda: 0 Note Initiated On: 08/21/2024 8:37 AM 08/21/24 0929 Date _ Hussein West Signature: Date (if indicated) CC: Dr. Emi Whatley MD; Hussein Dawson DO ~ Date Dictated: 08/21/24836 Date Transcribed: Radiology Special Procedure Tech: RF Signed [facility]04-02-2025 Procedure note [facility] Medical Records Department [address] [place] [address] Operative Report - CC Letter MR#: [id number] Acct: [id number] Name: ELIDIA STEPHENS Rep #:[id number] : 1940 84 From: Hussein Dwason DO PCP: Dr. Emi Whatley MD Status:RE G SDC 08/21/2024 Emi Whatley [address] [place] [address] Re : Colonoscopy procedure for Elidia Stephens Dear Dr. Whatley This procedure was performed on Wednesday, August 21, 2024. My impressions and recommendations are as follows: Impressions : - Diverticulosis in the recto-sigmoid colon, in the sigmoid colon, in the descending colon and at the hepatic flexure. - Two 6 mm polyps in the sigmoid colon and at the hepatic flexure, removed with a jumbo cold forceps. Resected and retrieved. - Three 1 to 2 mm polyps in the ascending colon and in the cecum, removed with a hot snare. Resected and retrieved. - The examination was otherwise normal on direct and retroflexion views. Recommendations : - Discharge patient to home. - Resume previous diet. - Continue present medications. - Await pathology results. - Repeat colonoscopy. My findings are described in the full procedure note, which is enclosed. If I can be of further assistance, please feel free to contact me at . Sincerely, Hussein Dawson DO 08/21/2024 9:28:49 AM This report has been signed electronically. 08/21/24928 Date _ Hussein Dawson DO Cosigner Signature: Date (if indicated) CC: Dr. Emi Whatley MD; Hussein Dawson, ~ Date Dictated: 08/21/24836 Date Transcribed: Radiology Special Procedure Tech: KAYLAH Signed [facility]04-02-2025 Consult note [facility] Medical Records Department [address] [place] [address] Pre-Anesthesia Evaluation 08/21/24810 MR#: [id number] Acct: [id number] Name: ELIDIA STEPHENS Rep #:[id number] : 1940 84 From: Calvin Aviles MD PCP: Dr. Emi Whatley MD Status: [facility] [place] Y Race: C Location: [place] [address] ASA Classification* ASA Classification ASA Classification: 2 Assessment & Plan Anesthesia* Anesthesia Assessment Anesthesia Assessment: Discussed sedation and/or anesthesia options, risks, benefits, and alternatives with patient/parents/legal guardian/POA. Questions invited. The patient/parents/legal guardian/POA seems to understand and agrees to proceedwith anesthesia plan. Reviewed the physical assessment, medical history, allergy history and patient home medications list prior to surgery/procedure/anesthetic and documented any changes. Performed airway and anesthesia risk assessments. Anesthesia Type Anesthesia Type: MAC Anesthesia Focused Assessment* Temperature: 97.7 F Pulse Rate: 79 Blood Pressure: 120/54 Respiratory Rate: 16 Pulse Ox: 100 Airway Assessment Mouth opens: >3 cm Mallampati Score: II Focused Labs Anesthesia Preop lab: CBC WBC 6.6 K/mm3 (4.4-11.0) 06/25/24 14:00 06/25/24 RBC 4.17 M/mm3 (4.2-5.4) L 06/25/24 14:06/25/24 Hgb 12.4 g/dL (12.0-15.0) 06/25/24 14:06/25/24 Hct 39.0 % (37-47) 06/25/24 14:06/25/24 Plt Count 218 K/mm3 (150-450) 06/25/24 14:06/25/24 CHEMISTRY Potassium 4.0 mmol/L (3.5-5.1) 06/25/24 14:00 06/25/24 Sodium 138 mmol/L (136-145) 06/25/24 14:00 06/25/24 Magnesium 2.4 mg/dL (1.6-2.6) 11/30/23 14:05 11/30/23 BUN 21 mg/dL (7-18) H 06/25/24 14:00 06/25/24 Creatinine 0.88 mg/dL (0.55-1.02) 06/25/24 14:00 06/25/24 Glucose 84 mg/dL (74-106) 06/25/24 14:00 06/25/24 TSH 1.51 uIU/mL (0.358-3.74) 11/30/23 14:05 COAG Pre-Assessment Diagnosis/Proposed Procedure Planned Operative Procedure(s): CSCOPE Anesthesia History 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 When Was Last Pacemaker Check QUESTION #4 FULL TEXT: You/Your Family Experience fever (hyperthermia) with Anesthesia Last Oral Intake Last Oral intake: Last Oral Intake NPO since 00:00 08/21/24 07:50 Meds taken in AM with sips of No 08/21/24 07:50 water? 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 Female Yes 08/16/24 09:41 HX of Motion Sickness No 08/16/24 09:41 HX of N/V After Surgery No 08/16/24 09:41 Non-Smoker Yes 08/16/24 09:41 Duration of Surgery greater No 08/16/24 09:41 than 60 minutes Number of Risk Factors 2 08/16/24 09:41 PONV Score Moderate Risk 08/16/24 09:41 Height & Weight Height & Weight: Anesthesia: Height & Weight Height 5 ft 08/21/24 07:50 Weight: 59 kg 08/21/24 07:50 Body Mass Index (BMI) 25.4 08/21/24 07:50 Respiratory Assessment Respiratory Assessment - aircraft engine mechanic supervisor: Respiratory Tract Infection Hx - aircraft engine mechanic supervisor Hx Respiratory Tract Infection No 08/16/24 09:41 STOP Sleep Apnea STOP Sleep Apnea - aircraft engine mechanic supervisor: STOP Sleep Apnea - aircraft engine mechanic supervisor Hx Hypertension Yes: CONTROLLED WITH MED 08/16/24 09:41 Hx Sleep Apnea No 08/16/24 09:41 CPAP BIPAP Do you snore loudly (louder No 08/16/24 09:41 than talking or can be heard Do you often feel tired/ No 08/16/24 09:41 fatigued/ sleepy during daytime? Has anyone observed you stop No 08/16/24 09:41 breathing during sleep? STOP Results Negative 08/16/24 09:41 QUESTION #5 FULL TEXT : Do you snore loudly (louder than talking or can be heard through closeddoors)? 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 Specify any problems Hx of Preganancy in last 3 No 08/16/24 09:41 Months Nurse Filling Out Transfusion DSCHRIBER 08/16/24 09:41 & Questions: Date: 08/16/24 08/16/24 09:41 Time: 09:43 08/16/24 09:41 Patient unable to answer at this time (ie. 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: /Reproductive Hx- aircraft engine mechanic supervisor Hx Now No 08/16/24 09:41 Gestational Age (in weeks): EDC: Hx Hx Para Hx Section SAB No 08/16/24 09:41 [facility]LY [facility], [facility] Medical History Hx of fracture of wrist Osteoporosis Wears hearing aid Wears glasses Post-menopausal Depression Anxiety Arthritis Non-smoker Shortness of breath on exertion History of edema History of stress test Cardiology follow-up encounter Hypertension Hemorrhoids Home Medications ?Medication ?Instructions ?Recorded ?Last Taken ?Type cholecalciferol (vitamin D3) 50 50 mcg PO DAILY 03/07/22 History mcg (2,000 unit) capsule (Vitamin D3) vit C 250 mg-vit E 90 mg-zinc 40 1 tab PO BID 03/07/22 03/07/22 History mg-copper 1 [id number]-jbxayz capsule (PreserVision AREDS-2) Prolia 60 mg/mL subcutaneous 60 mg subcut [id number] #1 mL 07/28/23 Unknown Rx syringe (denosumab) amlodipine 2.5 mg tablet 2.5 mg PO QHS 06/12/24 Unkno wn History Allergy/AdvReac Type Severity Reaction Status Date / Time Penicillins (PCN) Allergy Rash Verified 08/16/24 09:39 adhesive AdvReac unknown Verified 08/16/24 09:39 alendronate sodium AdvReac GI Upset Verified 08/16/24 09:39 ciprofloxacin (From Cipro) AdvReac blurred Verified 08/16/24 09:39 vision latex AdvReac rash Verified 08/16/24 09:39 risedronate sodium (From AdvReac GI Upset Verified 08/16/24 09:39 Actonel) sulfamethoxazole (From AdvReac GI Upset Verified 08/16/24 09:39 Septra) trimethoprim (From Septra) AdvReac GI Upset Verified 08/16/24 09:39 venlafaxine (From Effexor) AdvReac Unknown Verified 08/16/24 09:39 Family History Brother CAD (coronary artery disease) stents, PPM Hypertension Father Heart disease Brother Hypertension Mother Colon cancer Surgical History Hx of colonoscopy History of tonsillectomy History of open reduction and internal fixation (ORIF) procedure History of cataract surgery Social History Smoking Status: Never smoker alcohol intake: current alcohol intake frequency: a few times a week Alcohol type: wine substance use type: does not use caffeine: Yes Type: coffee what type of physical activity do you participate in: bicycling Review of Systems (Anesthesia) ROS Narrative System reviewed and no additional complaints, except as documented. 08/21/24 0812 > Date _ Calvin Aviles MD Cosigner Signature: Date CC: ~ Signed [facility]04-02-2025 History and physical note [facility] Medical Records Department [address] [place] [address] History & Physical Exam 08/21/24 0744 MR#: [id number] Acct: [id number] Name: ELIDIA STEPHENS Rep #:[id number] : 1940 84 From: Hussein Friend DO PCP: Dr. Emi Whatley MD Status:[facility] Location: [place] [address] HPI - General General Date of Admission: 08/21/24 Date of Service: 08/21/24 Chief Complaint: surveillance colonoscopy HPI Narrative ELIDIA STEPHENS, is a 84 F who presents for a colonoscopy Colon 05/30/2023 ([facility]) tubular adenomas Hemorrhoids were found on perianal exam. A 6 mm polyp was found in the cecum. The polyp was sessile. The polyp was removed with a saline injection-lift technique using a hot snare. Resection and retrieval were complete. A 20 mm polyp was found in the proximal ascending colon. The polyp was sessile. Biopsies were taken with a cold forceps for histology. A 7 mm polyp was found in the proximal sigmoid colon. The polyp was sessile. The polyp was removed with a hot snare. Resection and retrieval were complete. Multiple diverticula were found in the sigmoid colon. COLON 10/13/2022 (Dr. Emi Constantino @ [facility])- - Tubular adenoma. - One 30 mm polyp in the mid ascending colon, removed piecemeal using a hot snare. Incomplete resection. Nonlifting sign. Re - Moderate diverticulosis in the sigmoid colon and in the descending colon. - The entire examined colon is normal on direct and retroflexion views. - she denies any weight loss - denies any pain or bleeding - denies any change in bowel habits - Miralax and prune juice almost daily - denies any heart or lung disease - denies any N/V - denies any GERD - remains active - still drives - fell and broke her wrist this past January - tripped over the [employer] [facility] Medical History Hx of fracture of wrist Osteoporosis Wears hearing aid Wears glasses Post-menopausal Depression Anxiety Arthritis Non-smoker Shortness of breath on exertion History of edema History of stress test Cardiology follow-up encounter Hypertension Hemorrhoids Home Medications ?Medication ?Instructions ?Recorded ?Last Taken ?Type cholecalciferol (vitamin D3) 50 50 mcg PO DAILY 03/07/22 History mcg (2,000 unit) capsule (Vitamin D3) vit C 250 mg-vit E 90 mg-zinc 40 1 tab PO BID 03/07/22 03/07/22 History mg-copper 1 gp-[id number]-[id number] capsule (PreserVision AREDS-2) Prolia 60 mg/mL subcutaneous 60 mg subcut [id number] #1 mL 07/28/23 Unknown Rx syringe (denosumab) amlodipine 2.5 mg tablet 2.5 mg PO QHS 06/12/24 Unkno wn History Allergy/AdvReac Type Severity Reaction Status Date / Time Penicillins (PCN) Allergy Rash Verified 08/16/24 09:39 adhesive AdvReac unknown Verified 08/16/24 09:39 alendronate sodium AdvReac GI Upset Verified 08/16/24 09:39 ciprofloxacin (From Cipro) AdvReac blurred Verified 08/16/24 09:39 vision latex AdvReac rash Verified 08/16/24 09:39 risedronate sodium (From AdvReac GI Upset Verified 08/16/24 09:39 Actonel) sulfamethoxazole (From AdvReac GI Upset Verified 08/16/24 09:39 Septra) trimethoprim (From Septra) AdvReac GI Upset Verified 08/16/24 09:39 venlafaxine (From Effexor) AdvReac Unknown Verified 08/16/24 09:39 Family History Brother CAD (coronary artery disease) stents, PPM Hypertension Father Heart disease Brother Hypertension Mother Colon cancer Surgical History Hx of colonoscopy History of tonsillectomy History of open reduction and internal fixation (ORIF) procedure History of cataract surgery Social History Smoking Status: Never smoker alcohol intake: current alcohol intake frequency: a few times a week Alcohol type: wine substance use type: does not use caffeine: Yes Type: coffee what type of physical activity do you participate in: bicycling ROS Constitutional Constitutional: Denies fatigue, fever(s), poor appetite, weight gain or weight loss Gastrointestinal Gastrointestinal: Denies belching, bloating, change in bowel habits, change in stool character, chewing difficulty, coffee ground emesis, constipation, cramping, diarrhea, dyspepsia, dysphagia, earlysatiety, excessive flatus, fecalincontinence, heartburn, hematemesis, hematochezia, hemorrhoids, loose stools, melena, nausea, odynophagia, rectal bleeding, tenesmus, vomiting or weight changes Physical Exam Const alert, oriented x3, no apparent distress and healthy appearing General Appearance: cooperative GI normal to inspection, nondistended, normoactive bowel sounds, soft to palpation,non-tender and non-distended Percussion: normal to percussion Rectal Exam: deferred Assessment & Plan Assessment/Plan (1) Personal history of colonic polyps: PLAN: Assessment and Plan Assessment and Plan (1) Personal history of colonic polyps: Status: Acute (2) Family history of colon cancer in mother: Status: Acute Medications: New peg 3350-electrolytes 236-22.74-6.74 -5.86 gram (Golytely) take as directed for split dose bowel prep 240 mL PO Q10M 4,000 mL 0RF Plan 84y/o female presents for consultation with a personal history of colon polyps. Colonoscopy was last performed by Dr. Lees May 2023 and revealed adenomas (20mm). She also has a history of adenomas in 2022 (30mm), 2021, and 2016. Her family history is significant for mother with colon cancer at61y/o. She remainsin good health and active. I have scheduled her for a colonoscopy. 08/21/24 0746 Cosigner Signature (if applicable): CC: Dr. Emi Whatley MD; Hussein Dawson, ~ Signed [facility]04-02-2025 [facility] Medical Records Department [address] [place] [id number] History Physical Exam 08/21/24 0744 MR#: [id number] Acct: [id number] Name: ELIDIA STEPHENS Rep #: [id number] : 1940 84 From: Hussein Dawson DO PCP: Dr. Emi Whatley MD Status:[facility] Location: [place] [address] HPI - General General Date of Admission: 08/21/24 Date of Service: 08/21/24 Chief Complaint: surveillance colonoscopy HPI Narrative ELIDIA STEPHENS, is a 84 F who presents for a colonoscopy Colon 05/30/2023 ([facility]) tubular adenomas Hemorrhoids were found on perianal exam. A 6 mm polyp was found in the cecum. The polyp was sessile. The polyp was removed with a saline injection-lift technique using a hot snare. Resection and retrieval were complete. A 20 mm polyp was found in the proximal ascending colon. The polyp was sessile. Biopsies were taken with a cold forceps for histology. A 7 mm polyp was found in the proximal sigmoid colon. The polyp was sessile. The polyp was removed with a hot snare. Resection and retrieval were complete. Multiple diverticula were found in the sigmoid colon. COLON 10/13/2022 (Dr. Emi Constantino @ [facility])- - Tubular adenoma. - One 30 mm polyp in the mid ascending colon, removed piecemeal using a hot snare. Incomplete resection. Nonlifting sign. Re - Moderate diverticulosis in the sigmoid colon and in the descending colon. - The entire examined colon is normal on direct and retroflexion views. - she denies any weight loss - denies any pain or bleeding - denies any change in bowel habits - Miralax and prune juice almost daily - denies any heart or lung disease - denies any N/V - denies any GERD - remains active - still drives - fell and broke her wrist this past January - [facility], [facility] Medical History Hx of fracture of wrist Osteoporosis Wears hearing aid Wears glasses Post-menopausal Depression Anxiety Arthritis Non-smoker Shortness of breath on exertion History of edema History of stress test Cardiology follow-up encounter Hypertension Hemorrhoids Home Medications ???Medication ???Instructions ???Recorded ???Last Taken ???Type cholecalciferol (vitamin D3) 50 50 mcg PO DAILY 03/07/22 03/07/22 History mcg (2,000 unit) capsule (Vitamin D3) vit C 250 mg-vit E 90 mg-zinc 40 1 tab PO BID 03/07/22 03/07/22 His tory mg-copper 1 ra-mtluud-samexa capsule (PreserVision AREDS-2) Prolia 60 mg/mL subcutaneous 60 mg subcut [id number] #1 mL Unknown Rx syringe (denosumab) amlodipine 2.5 mg tablet 2.5 mg PO QHS 06/12/24 Unknown His tory Allergy/AdvReac Type Severity Reaction Status Date / Time Penicillins (PCN) Allergy Rash Verified 08/16/24 09:39 adhesive AdvReac unknown Verified 08/16/24 09:39 alendronate sodium AdvReac GI Upset Verified 08/16/24 09:39 ciprofloxacin (From Cipro) AdvReac blurred Verified 08/16/24 09:39 vision latex AdvReac rash Verified 08/16/24 09:39 risedronate sodium (From AdvReac GI Upset Verified 08/16/24 09:39 Actonel) sulfamethoxazole (From AdvReac GI Upset Verified 08/16/24 09:39 Septra) trimethoprim (From Septra) AdvReac GI Upset Verified 08/16/24 09:39 venlafaxine (From Effexor) AdvReac Unknown Verified 08/16/24 09:39 Family History Brother CAD (coronary artery disease) stents, PPM Hypertension Father Heart disease Brother Hypertension Mother Colon cancer Surgical History Hx of colonoscopy History of tonsillectomy History of open reduction and internal fixation (ORIF) procedure History of cataract surgery Social History Smoking Status: Never smoker alcohol intake: current alcohol intake frequency: a few times a week Alcohol type: wine substance use type: does not use caffeine: Yes Type: coffee what type of physical activity do you participate in: bicycling ROS Constitutional Constitutional: Denies fatigue, fever(s), poor appetite, weight gain or weight loss Gastrointestinal Gastrointestinal: Denies belching, bloating, change in bowel habits, change in stool character, chewing difficulty, coffee ground emesis, constipation, cramping, diarrhea, dyspepsia, dysphagia, early satiety, excessive flatus, fecal incontinence, heartburn, hematemesis, hematochezia, hemorrhoids, loose stools, melena, nausea, odynophagia, rectal bleeding, tenesmus, vomiting or weight changes Physical Exam Const alert, oriented x3, no apparent distress and healthy appearing General Appearance: cooperative GI normal to inspection, nondistended, normoactive bowel sounds, soft to palpation, no (more content not included)...[facility]01-22-2025 Evaluation note* Diagnosis Onset Date Resolution Status Admit Date Family history of colon canc er in mother acute June 12 1:58pm Personal history of colonic polyps acute June 12 1:58pm [facility] Work Phone: 1(560) 858-902901-22-2025 Evaluation note* Diagnosis Onset Date Resolution Status Admit Date Family history of colon canc er in mother acute Deanna 22nd, 20 25 1:58pm Personal history of colonic polyps acute June 12 1:58pm Personal history of colonic polyps acute August 21, 2024 7:26am [facility] Work Phone: 1(560) 835-379801-22-2025 Evaluation note* Diagnosis Onset Date Resolution Status Admit Date Family history of colon canc er in mother acute June 12 1:58pm Personal history of colonic polyps acute June 12 1:58pm Personal history of colonic polyps acute August 21, 2024 7:26am Osteoporosis chronic September 10, 2024 1:22pm Personal history of colonic polyps acute September 17, 2024 10:31am [facility] Work Phone: 1(791) 886-538005-06-2024 Telephone encounter Note* Telephone Encounter - Melony Arrington - 09/25/2023 8:08 AM EDT Talked to patient and she verbally understands her test were negative. Melony Arrington [facility]05-06-2024 Miscellaneous Notes* Telephone Encounter - Melony Arrington - 09/25/2023 8:08 AM EDT Talked to patient and she verbally understands her test were negative. Melony Arrington * Telephone Encounter - Ariel Beal APRN.CNP - 09/25/2023 7:14 AM EDT Please inform patient that COVID-19 influenza RSV test were negative. As discussed during visit suspicious this is a viral illness. You are most contagious during the first 3 to 5 days of this illness. Ariel Beal APRN.CNP [facility] Telephone encounter Note * Telephone Encounter - Ariel Beal APRN.CNP - 09/25/2023 7:14 AM EDT Please inform patient that COVID-19 influenza RSV test were negative. As discussed during visit suspicious this is a viral illness. You are most contagious during the first 3 to 5 days of this illness. Ariel Beal APRN.JUANY [facility]05-05-2024 Instructions* Patient Instructions* Ariel Beal APRN.CNP - 09/24/2023 3:37 PM EDT How to Manage Common Symptoms Associated with COVID for Adults Fever- Fever is a temperature over 100.4 F and can occur when the body is fighting an infection. Tohelp treat a fever: Drink plenty of fluids and stay well hydrated. Eat small amounts of easy to digest food. Rest. Your body needs rest to recover, but getting up and moving around the house frequently is a good idea. You should try to continue doing your normal daily activities (bathing, toileting, grooming, cooking), though you will probably feel tired, and need to rest often. Avoid any heavy activity or exercise, as this will increase your body temperature. Dress in light clothing and stay covered in a light sheet. Keep the room temperature cool. Take a slightly warm (not cold or cool) bath, or apply damp washcloths to the forehead and wrists. Cough- Cough is a common symptom associated with COVID and can be bothersome. To help treat a cough: Stay well hydrated. Try warm water or tea with lemon and/or honey to help soothe the cough. Use a humidifier to add moisture to the air. Try a product with menthol, like a cough drop or a rub for your chest such as Vicks, which can helpreduce cough. Try cough drops. Avoid smoking and other strong odors or perfumes. Try breathing exercises to keep your lungs open and clear. Take a big deep breath through your noseand hold for 5 seconds before slowly releasing. Repeat frequently, while you are awake. Congestion- Runny nose or nasal congestion can occur with COVID. Treatment can help relieve symptoms: Try OTC nasal saline spray, or nasal saline rinse to relieve mucus congestion. Nasal strips can help keep nasal passages open, to increase airflow. Elevating your head with an extra pillow in bed can help reduce congestion. Using a humidifier can increase moisture in the air, and make breathing easier. Sore Throat- Another common symptom with COVID, can be managed at home by: Stay well hydrated. Gargle with salt water - mix teaspoon salt with 1 cup of warm water and gargle. This helps to loosen mucus in the back of the throat and may reduce discomfort. Try ice chips, popsicles or lozenges to soothe the throat. Nausea/Vomiting/Diarrhea- These are common symptoms, and staying hydrated is most important. If you are nauseous or vomiting, start with small sips of water every 10-15 minutes and increase astolerated. You can try sucking an ice cube too. If tolerating, you can try pedialyte or Gatorade, or flat sprite or manny-john. Start slowly and increase as you are able to. Instead of meals, try smaller, more frequent snacks. Try eating bland foods like crackers, toast, rice, and applesauce. Avoid spicy, greasy or fried foods and dairy containing foods. Even if you aren't feeling hungry due to lack of smell or taste, it is important to try to take in some food when you are able. After drinking and eating, rest in an upright position for up to two hours as needed to help decrease nauseous feelings. Try closing your eyes, avoid moving and watching TV. Avoid strong odors that can make you feel more nauseated. When to seek emergency medical attention Look for emergency warning signs for COVID-19. If having any of these symptoms, seek emergency medical care immediately: Trouble breathing Persistent pain or pressure in the chest New confusion Inability to wake or stay awake Bluish lips or face *This list is not all possible symptoms. Please call your medical provider for any other symptoms that are severe or concerning to you. documented in this encounterG[facility] History of Present illness Narrative* Ariel Beal APRN.CNP - 09/24/2023 3:33 PM EDT Subjective HPI Nontoxic-appearing female presents urgent care chief complaint sore throat nasal congestion headache. Fatigue has been bothersome recently as well. Duration of symptom 1 day. Associated symptoms listed above. Most prominent symptom today sore throat headache. No known sick contacts. No recent OTC medication use. Did take Tylenol Cold and flu earlier this morning denies any fever body aches chillsproductive cough chest pain shortness of breath pleuritic pain hemoptysis nausea vomiting abdominalpain change in bowel or bladder habits. Past medical history prescription medication use and allergies reviewed. BP 136/84 Pulse 83 Temp 37.2 C (98.9 F) Resp 18 Wt 60.7 kg (133 lb 13.1 oz) SpO2 95% BMI 26.13 kg/m .Patient presents with: Sore Throat: Runny nose, GAUTAM x 1 day PAST MEDICAL HISTORY Diagnosis Date Benign neoplasm [...] Sigmoidoscopy, flexible TONSILLECTOMY PRIMARY/SECONDARY <AGE 12 Tonsillectomy ALLERGIES Latex and Penicillins MEDICATIONS vit C,L-Ns-uanmh-lutein-zeaxan (PRESERVISION AREDS-2) 250-90-40-1 mg amLODIPine (NORVASC) 5 [...] Drug use: Never Review of Systems Constitutional: Positive for malaise/fatigue. Negative for chills and fever. HENT: Positive for congestion and sore throat. Negative for ear discharge, ear pain and sinus pain. Eyes: Negative for blurred vision, pain, discharge and redness. Respiratory: Negative for cough, hemoptysis, sputum production, shortness of breath, wheezing and stridor. Cardiovascular: Negative for chest pain. Gastrointestinal: Negative for abdominal pain, diarrhea, nausea and vomiting. Musculoskeletal: Positive for myalgias. Skin: Negative for itching and rash. Neurological: Positive for headaches. Negative for dizziness. Objective Physical Exam Constitutional: General: She is not in acute distress. Appearance: She is not diaphoretic. HENT: Head: Normocephalic. Jaw: No trismus, tenderness, swelling or pain on movement. Nose: Congestion present. Mouth/Throat: Mouth: Mucous membranes are moist. Pharynx: Oropharynx is clear. Uvula midline. No pharyngeal swelling, oropharyngeal exudate, posterior oropharyngeal erythema or uvula swelling. Eyes: Conjunctiva/sclera: Conjunctivae normal. Pupils: Pupils are equal, round, and reactive to light. Cardiovascular: Rate and Rhythm: Normal rate and regular rhythm. Heart sounds: Normal heart sounds. Pulmonary: Effort: Pulmonary effort is normal. No tachypnea, accessory muscle usage or respiratory distress. Breath sounds: Normal breath sounds. No stridor. No wheezing, rhonchi or rales. Abdominal: General: There is no distension. Palpations: Abdomen is soft. Tenderness: There is no abdominal tenderness. There is no guarding or rebound. Musculoskeletal: Cervical back: Normal range of motion and neck supple. No edema, erythema, rigidity or tenderness. No pain with movement. Normal range of motion. Lymphadenopathy: Cervical: Cervical adenopathy present. Skin: General: Skin is warm and dry. Neurological: Mental Status: She is alert and oriented to person, place, and time. ASSESSMENT/PLAN: 1. Viral illness - ICD9: 079.99, ICD10: B34.9 - COVID & INFLUENZA A/B & RSV NAAT, ROUTINE Patient nontoxic-appearing. Day 1 of symptoms. Suspicious of viral etiology. Test for COVID-19 RSV and influenza. Red flags ER evaluation discussed. Patient was educated on supportive therapies. Patient will follow up with primary care provider as needed. Patient was instructed to immediately proceed to emergency room for any new, worsening, or symptoms lasting longer than anticipated. The patient's clinical presentation is otherwise unremarkable at this time. Based on exam and clinical finding, the patient is stable for discharge. Plan of care was discussed with patient. Patient verbalizes understanding and agrees to plan of care. This note was generated using [employer] software. It may contain errors in wording, punctuation, or spelling. Ariel Beal APRN.JUANY documented in this encounterG[facility]01-[facility] History and physical note Author Christophe Lees [facility] May 30, 2023 5:36am Note Date/Time May 30, 2023 5: 37am [facility] Medical Records Department [address] [place] [address] History & Physical Exam 05/30/23 0536 MR#: [id number] Acct: [id number] Name: ELIDIA STEPHENS Rep #:[id number] : 1940 83 From: Christophe Lees MD PCP: Dr. Emi Whatley MD Status:[facility] Location: [place] [address] History and Physical Date of Admission: 05/30/23 Visit Reasons: Yearly C-Scope Consult Chief Complaint: discuss c-scope Technician Automated Equipment Required: No Is patient in pain?: No Allergies Penicillins [PCN] Allergy (Verified 04/20/23 13:09) Rashadhesive Adverse Reaction (Verified 04/20/23 13:09) unknownalendronate sodium Adverse Reaction (Verified 04/20/23 13:09) GI Upsetciprofloxacin [From Cipro] Adverse Reaction (Verified 04/20/23 13:09) blurred visionlatex Adverse Reaction (Verified 04/20/23 13:09) rashrisedronate sodium [From Actonel] Adverse Reaction (Verified 04/20/23 13:09) GI Upsetsulfamethoxazole [From Septra] Adverse Reaction (Verified 04/20/23 13:09) GI Upsettrimethoprim [From Septra] Adverse Reaction (Verified 04/20/23 13:09) GI Upsetvenlafaxine [From Effexor] Adverse Reaction (Verified 04/20/23 13:09) Unknown Medications cholecalciferol (vitamin D3) 50 mcg (2,000 unit) capsule (Vitamin D3) 50 mcg PO DAILY 03/07/22 [History Confirmed 04/20/23] vit C 250 mg-vit E 90 mg-zinc 40 mg-copper 1 [id number]-jhkgfw-kbiooj capsule (PreserVision AREDS-2) 1 tab PO BID 03/07/22 [History Confirmed 04/20/23] Prolia 60 mg/mL subcutaneous syringe (denosumab) 60 mg subcut [id number] #1 mL 06/07/22 [Rx Confirmed 04/20/23] multivitamin (Daily Multi-Vitamin tablet) 1 tab PO DAILY 06/07/22 [History Confirmed 04/20/23] PFSH Medical History Alcohol use Anxiety Arthritis Back pain Cardiology follow-up encounter Cataracts, both eyes Depression Hemorrhoids History of edema History of stress test Hypertension Leg cramps Non-smoker Post-menopausal Shortness of breath on exertion Wears glasses Wears hearing aid Surgical History History of cataract surgery History of open reduction and internal fixation (ORIF) procedure History of tonsillectomy Hx of colonoscopy Family History Brother CAD (coronary artery disease) stents, PPM HypertensionFather Heart diseaseBrother HypertensionMother Colon cancer Social History Smoking Status: Never smoker alcohol intake: current alcohol intake frequency: a few times a week Alcohol type: wine substance use type: does not use caffeine: Yes Type: coffee what type of physical activity do you participate in: bicycling HPI HPI HPI: 83-year-old female. I have most recently seen her in November 10, 2022. This is inregards to an adenomatous polyp of the ascending colon. Previous colonoscopy was March 08, 2022. My extensive previous notes reflect the following. 82-year-old female. I have sent had several office appointments with her. Thishas been in regards to a adenomatous polyp of the ascending colon. I have spenta significant mount of office time in consultation and discussion. I had performed a colonoscopy for not March 08, 2022. She had a proximal ascending colon polyp that was sessile and broad at greater than 3 cm and I could not remove it. I sampled it. I did remove a mid transverse colon tubular adenoma. After several discussion she did allow me to refer her to Dr. Emi Constantino at [facility] gastroenterology. I received a very kind note from him on October 18, 2022. He performed a colonoscopy on her and assessed and identified the polyp in the ascending colon. An attempt was made to remove the polyp but it exhibited a nonlifting sign and despite multiple attempts and various techniquesof the center the polyp could not be removed. The resected specimens revealed tubular adenoma with no evidence of dysplasia. At this point he does not feel that it is malignant. He does not feel that it can be endoscopically resected. He feels the definitive treatment will require surgical resection. It is of note however that neither upon my biopsies nor upon his partial piecemeal resection was any dysplasia or malignancy identified Since her previous visit she says she has not had any acute health changes. No bright red blood per rectum or melena. No abdominal pain. She does present again today with her . No history of DVT My previous notes reflect the following 82-year-old female returns status post colonoscopy that I performed for her on March 08, 2022 because of a personal history of colon polyps and a family history of colon cancer in her mother.? At the time of the colonoscopy preparation the colon was felt to be only fair.? There were internal hemorrhoidsnoted.? There was felt to be at least a 32 mm diameter sessile polyp in the ascending colon.? I could not colonoscopically resect this.? Biopsies were obtained.? There was a 3 mm polyp in the mid transverse colon that was removed.?Diverticulosis noted of the sigmoid colon.? Fortunately pathology of both polypswere tubular adenomas.? The patient however has a family history of colon cancerin her mother. The patient has a family history of colon cancer in her mother who at age 61 from this..? Her previous colonoscopy was done 2016.? That was performed per myself February 21, 2017 and a diminutive sessile polyp of the splenic flexureidentified with sigmoid diverticulosis.? Hemorrhoids noted.? Pathology was consistent with a tubular adenoma.? It is of note that Dr. Levar Lewis gastroenterology had performed a previous colonoscopy January 17, 2012.? Moderately tortuous colon identified.? No polyps at that time At her previous appointment of March 15, 2022 we discussed the following ?We discussed the findings of the resected tubular adenoma of the transverse colon and the large flat seemingly benign polyp of the proximal ascending colon.? The patient enjoys good health for an 82-year-old.? Because of her good health and family history I propose for her a laparoscopic right hemicolectomy with a bilateral transverses abdominis plane block.? In detail I discussed the technique, benefit, risk, alternatives.? We would utilize an enhanced recovery protocol.? I would anticipate that she should have a good course with this.? Shehas significant bowel laxity which would facilitate the surgical procedure Today was a 30-minute [id number] consultation with the patient and her husbandand her daughter.? The patient states that she did seek a second opinion with Dr. Jamaal Katz.? According to the patient he suggested an option at [facility].? She does not want to go to [place]. She admits that she is also struggling with osteopenia and recommendations to start medication which she is now not in favor of To complicate her presentation she recently has had worsening constipation and right lower quadrant flank pain..? She has been placed on one half capful of MiraLAX daily in hopes that this might represent constipation It is of additional note that the patient had laboratory on May 24, 2022.? White blood cell count 5.9 with a hemoglobin 12.9 and hematocrit 39.5 the plate count 248,000.? BUN was 24 and creatinine 0.91.? Liver function test normal.? Cholesterol elevated to 245 with triglyceride of 79.? LDL was elevated at 136.? TSH normal at 1.84 82-year-old female who is enjoying a good quality of life presents to discuss the findings of her colonoscopy identifying a adenomatous polyp of the ascendingcolon that could not be completely resected endoscopically by Dr. Constantino at [facility]. Today's discussion was regarding treatment options. From Dr. Moran's note he made the impression that she would be recommended to have a laparoscopic right colectomy for complete removal. The patient however has been struggling over all of these interviews with the concept of really not wanting to have the surgical intervention if at all possible. We then discussed other treatment options. There is no laboratory or convenientscreening intact Trey that will allow me to decipher whether this area is or becomes malignant. We could offer the patient a follow-up colonoscopy at 1 yearbut I have asked her to consider how that would change her thought process. I am assuming that if the polyp remained benign at that time that she would not proceed with resection which would be in line with her current thinking. If however that the polyp were to demonstrate malignancy at 1 year then she offeredthat she might consider resection. I did caution the patient and family membersthat that type of approach is not what we usually take because in the interim ofconverting to a malignancy this area could then additionally spread to lymph nodes or further therefore compromising potential surgical options and treatment. I explained that I did not want to be at the bottom of benign thinning with 2 outs and be asked to hit a grand slam homerun. We further discussed the fact that her health currently is stable and that we could manage her conditions and keep the operative risk as low as possible. We discussed that if she were to present emergently that our ability to control risk factors becomes limited. She is aware that this standard of care would suggest that we proceed with a right colectomy. I am aware however that she is a G2 and is not desiring surgery at this time. Then 1 would question do we repeat a colonoscopy at 1 year for surveillance or do we cease any further colonoscopies knowing that the lesion cannot be removed endoscopically and that the patient would be preferringno surgical intervention for removal. These are additional thoughts that the patient will need to consider. We did discuss that I would want her to considerhypothetical situations in the future if the polyp was benign at 1 year versus if the polyp was malignant at 1 year how she would want to proceed. If she would then want to proceed with resection perhaps it would be wiser to do that sooner and electively. She has had an opportunity ask and have questions answered. At this point we have tentatively set up a return visit at 1 year for a colonoscopy. ROS General General: No weight change, appetite, fatigue, colon cancer, breast cancer or weakness HEENT HEENT: No difficulty swallowing, eye injury, eye surgery, swollen glands or hoarseness Endo Endocrine: No thyroid disease, diabetes mellitus, thyroid cancer, Hair loss, heat intolerance or cold intolerance Skin Skin: No rash or changing moles Breast Breast: No left breast lump, right breast lump, nipple discharge, breast pain, abnormal mammogram, abnormal US or breast enlargement Musc Musculoskeletal: No back problems, arthritis, rheumatoid arthritis, gout or joint pain Cardio Cardiovascular: Yes high blood pressure; No murmur, pacemaker, heart disease, atrial fibrillation, heart attack, heart stent, palpitations, shortness of breat with exertion or chest pain Psych Psychiatric: No depression, anxiety or hearing voices Resp Respiratory: No shortness of breath, No sleep apnea, No cough, No COPD, No asthma, No emphysema and No wheezing Gastro Gastrointestinal: No abdominal pain, No nausea or vomiting, No diarrhea, No constipation, No blood in stool, No acid reflux, No hemorrhoids, No ulcers, No gallbladder problem and No black,tarry stools Perico Hematologic: No blood thinners, No blood disorders, No bleeding, No anemia and No blood clots Neuro Neurologic: No system reviewed and no additional complaints, except as documented, No as per HPI, No abnormal gait, No abnormal hearing, No abnormal movements, No abnormal speech, No behavioral changes, No burning sensations, No confusion, No convulsions, No disequilibrium, No dizziness, No localized weakness, No frequent falls, No headache(s), No lack of coordination, No loss ofvision, No memory loss, No numbness, No other visual disturbances, No radicular pain, No restless legs, No sensory deficit, No syncope, No tingling, No tremor(s), No weakness and No other Exam Const General: cooperative, healthy appearing, comfortable and no acute distress Nutritional Appearance: average body habitus Other: Mildly hard of hearing. Patient forgot her hearing aids today. [facility] Head: normal to inspection Eyes General: appearance normal, both eyes and all related structures Resp Effort & Inspection: normal respiratory effort Auscultation: clear to auscultation bilaterally Cardio Rate: regular rate Rhythm: regular rhythm GI Palpation: soft and no hepatosplenomegaly Musc Cervical Spine: normal cervical lordosis Skin General: no rashes or lesions noted Neuro General: patient alert and patient awake Extrem Other: Mild nonpitting swelling bilateral extremities Psych Appearance: grossly normal Assessment and Plan Assessment and Plan (1) Adenomatous colon polyp: Status: Acute Qualifiers: Colon location: ascending Qualified Code(s): D12.2 - Benign neoplasm ofascending colon Plan: As noted in my review above I recommended the patient a surveillance colonoscopyfor the ascending colon polyp that could not be resected. She is aware that generous sampling of this in an attempt to help decipher whether there is been any conversion to malignancy will be pursued. She is aware that it is not anticipated that a resection will be possible as this could not be performed at [facility]. She has had an opportunity to ask and have questions answered. We will schedule procedure at her discretion. I appreciatethe ongoing opportunity of assisting with her surgical care. Copy: Dr Emi Lees M.D., F.A.C.S I have examined the patient and the H&P has been reviewed. There are no clinicalchanges since date of exam. Christophe Lees M.D., F.A.C.S. 05/30/23 0536 <Electronically signed by Christophe Lees MD> Cosigner Signature (if applicable): CC: Dr. Emi Whatley MD; Dr. Christophe Lees MD~ Signed [facility] Work Phone: [phone]) 508-719801-09-2024 Procedure [facility] 05-30-2023 Procedure [facility]05-23-2023 Instructions* Patient Instructions* Emi Constantino MD - 10/11/2022 4:17 PM EDT Images from the original note were not included. Bowel Preparation Instructions for: Golytely, Nulytely, Trilyte or Colyte (polyethylene glycol 3350and electrolytes) IF YOU DO NOT FOLLOW THESE [...] If you do not have a responsible yard truck driver (family member or friend) with you to take you home, your exam cannot be done with sedation and will be cancelled. Please bring a list of all of your current medications, including any Over-the Counter medications with you. Medications If you take insulin, diabetic medications or blood thinners such as Coumadin (warfarin), Plavix (clopidogrel), Ticlid (ticlopidine hydrochloride), Agrylin (anagrelide), Xarelto (Rivaroxaban), Pradaxa(Dabigatran), Eliquis (Apixaban), and Effient (Prasugrel). You MUST [...] at your local pharmacy or drugstore pharmacy. 04/2019 Bowel Preparation Instructions for: Golytely, Nulytely, Trilyte or Colyte (polyethylene glycol 3350and electrolytes) Three (3) Days Before Your Colonoscopy [...] If you do not have a responsible yard truck driver (family member or friend) withyou to take you home, your exam cannot be done with sedation and will be cancelled. Please bring a list of all of your current medications, including any Fpun-boq-Kmcdytc medications with you. Medications If you take insulin, diabetic medications or blood thinners such as Coumadin (warfarin), Plavix (clopidogrel), Ticlid (ticlopidine hydrochloride), Agrylin (anagrelide), Xarelto (Rivaroxaban), Pradaxa(Dabigatran), Eliquis (Apixaban), and Effient (Prasugrel). You MUST [...] every 15 minutes for a total of 2glasses. You may continue to drink clear liquids up to (three) 3 hours before your exam. 2 04/2019 [facility]23 Miscellaneous Notes* Telephone Encounter - Emi Constantino MD - 10/11/2022 4:17 PM EDT called in prescription for Golytely prep * Telephone Encounter - Margarita Bro - 10/10/2022 9:59 AM EDT Pt called in for her prep I see that nothing was ordered and gave her instructions for the over thecounter prep. She mentioned that she was sick afterwards on her last procedure and Dr. Constantino said she can do a different prep. She would like a call to discuss. Please review and advise Margarita Bro Brick Tester documented in this encounterGlen[facility]03-20-2023 Instructions* Patient Instructions* Shireen Chandler LPN - 08/08/2022 3:54 PM [...] If you do not have a responsible yard truck driver (family member or friend) withyou to take you home, your exam cannot be done with sedation and will be cancelled. Please bring a list of all of your current medications, including any Ergm-ecc-Ixspujy medications with you. Medications If you take insulin, diabetic medications or blood thinners such as Coumadin (warfarin), Plavix (clopidogrel), Ticlid (ticlopidine hydrochloride), Agrylin (anagrelide), Xarelto (Rivaroxaban), Pradaxa(Dabigatran), Eliquis (Apixaban), and Effient (Prasugrel). You MUST [...] every 15 minutes for a total of 2glasses. You may continue to drink clear liquids up to (three) 3 hours before your exam. 2 04/2019 documented in this encounterGlen[facility]03-20-2023 History of Present illness Narrative* Emi Constantino MD - 08/08/2022 3:30 PM EDT VIRTUAL VISIT PROGRESS NOTE This is a virtual visit using [employer] video visit. It required patient-provider interaction for themedical decision making as documented below. Elidia Stephens is a 82-year-old female who is [...] included preparing to see the patient and [id number] patient care Answers submitted by the patient [...] floating with oil: No documented in this encounterGlenbeigh Hospital03-07-2023 Miscellaneous Notes* Telephone Encounter - Margarita Bro - 07/26/2022 4:37 PM EST Received a referral for polyps requesting an appointment LIZBETH. Uploaded under scanned doc with today's date. Please review and advise Margarita Bro Brick Tester documented in this encounterGlenbeigh Hospital12-16-2022 Miscellaneous Notes* Telephone Encounter - Liudmila Burnett RN - 05/06/2022 10:07 AM EST Spoke with Lou. We have not heard from Dr. Gomez's office, but I do see where Dr. Katz forwarded her chart to Dr. Gomez for review. Liudmila Burnett RN * Telephone Encounter - Daphnie Desir LPN - 05/06/2022 9:09 AM EST Patient called requesting addition information if someone from general surgery called. Please advise. Daphnie Desir LPN documented in this encounterGlenbeigh Hospital12-06-2022 History of Present illness Narrative* Jamaal Katz MD - 04/26/2022 7:08 PM EST HISTORY AND PHYSICAL Elidia Stephens 1940 REFERRING PHYSICIAN: CHIEF COMPLAINT: Consult (2nd opinion on colonic polyps) HPI: The patient is a 82 year old female with a a finding of colon polyps. Patient had a family history of colon cancer with her mother. She was referred to Dr. Christophe Lees for colonoscopy due to a family history and personal history of colon polyps on April 08, 2022. At that time he needed thecolon prep was somewhat fair. He noted a 32 mm sessile polyp in the ascending colon that he felt hecould not resect and a smaller 3 mm [...] entered by the nurse and reviewed by me Nursing Notes: Ivory Reese RN 04/26/2022 4:47 [...] failure, other cardiac issues, denies claudication, denies coldfeet, denies peripheral arterial stent. Respiratory: The patient [...] back pain/injury, denies back problems, denies sciatica, deniesknee/foot trouble, denies arthritis, or denies gout. When was patient's last Mammogram screening? 2021 Last Colonoscopy: 03/08/2022 Ivory Reese RN PHYSICAL EXAMINATION: General: The patient is 82 year old female, well nourished, well hydrated in no acute distress. Thepatient is oriented to time, place, and person. VITALS: Blood pressure 130/70, pulse 78, temperature 36.4 C (97.6 F), height 152.4 cm (5'), weight 60.8 kg (134 lb), SpO2 98 %. HEENT: Normal cephalic, ataumatic, pupils are equally round, sclera are anicteric, mucous membranesare moist, oropharynx is clear. Neck has no [...] that the images be scanned into the [facility] system and will forward this note to Dr. Gomez see if he feels endoscopic mucosal resection would be anoption. Diagnoses: (Z86.010) Personal history of colonic polyps (primary encounter diagnosis) (Z80.0) Family history of malignant neoplasm of gastrointestinal tract Return to Clinic: The patient is instructed to follow-up with me after review of images by Dr. Gomez. Jamaal Katz MD documented in this encounterGlen[facility] Hospital12-06-2022 Nurse Note* Ivory Reese RN - 04/26/2022 4:43 PM EST REVIEW OF SYSTEMS: General: The patient denies [...] failure, other cardiac issues, denies claudication, denies coldfeet, denies peripheral arterial stent. Respiratory: The patient [...] back pain/injury, denies back problems, denies sciatica, deniesknee/foot trouble, denies arthritis, or denies gout. When was patient's last Mammogram screening? 2021 Last Colonoscopy: 03/08/2022 Ivory Reese RN [facility] Author Ronnell Brown [facility] Note Date/Time August 21, 2024 9:34 am [facility] Medical Records Department [address] [place] [address] Anesthesia Postop Eval I 08/21/24932 MR#: [id number] Acct: [id number] Name: ELIDIA STEPHENS Rep #:[id number] : 1940 84 From: Ronnell Brown PCP: Dr. Emi Whatley MD Status: G [facility] [place] Y Race: C Location: [place] [address] Anesthesia: Postop Eval I Current Vital Signs Temperature: 97 F Pulse Rate: 67 Blood Pressure: 103/62 Respiratory Rate: 16 Pulse Ox: 100 Oxygen Delivery Method: Room Air Assessment Airway patent: Yes Spontaneous unlabored respirations: Yes Mental status: Awake and Calm nausea: No Vomiting: No Anesthesia Complication: No Fluid Hydration Crystalloid volume administer (ml): 60 Total IV fluid infused: 60 Progress Note Anesthesia document: Postop Eval 1 completed: Yes 08/21/2434 <Electronically signed by Ronnell Brown > Date _ Ronnell Vora Signature: Date CC: ~ Signed [facility] Work Phone: Consult note Author Calvin Aviles [facility] Note Date/Time August 21, 2024 10:4 0am [facility] Medical Records Department [address] [place] [address] Anesthesia Postop Eval II 08/21/24941 MR#: [id number] Acct: [id number] Name: ELIDIA STEPHENS Rep #:[id number] : 1940 84 From: Calvin Aviles MD PCP: Dr. Emi Whatley MD Status:RE G SD Y Race: C Location: [place] [address] Anesthesia Postop Eval I Sum Postop Eval Completion status Anesthesia document: Postop Eval 1 completed: Yes Anesthesia Postop Eval I Summary Anesthesia Postop Eval I Summary: Anesthesia Postop Eval I: Assessment Summary 3 Airway patent Yes 08/21/24 09:34 [email or web address] Spontaneous unlabored Yes 08/21/24 09:34 [email or web address] respirations Mental status Awake,Calm 08/21/24 09:34 [email or web address] nausea No 08/21/24 09:34 [email or web address] Vomiting No 08/21/24 09:34 [email or web address] Anesthesia Postop Eval I: Fluid Summary Crystalloid volume administer 60 08/21/24 09:34 [email or web address] (ml) Colloids volume administered ( ml) Blood Product volume administered (ml) Total IV fluid infused 60 08/21/24 09:34 [email or web address] Anesthesia Postop Eval I: Summary Notes Anesthesia Complication No 08/21/24 09:34 [email or web address] Anesthesia Complication Comment: Post-operative progress note Anesthesia: Postop Eval II Evaluation Mental status: Awake Pain Level: 0 nausea: No Vomiting: No 08/21/24941 <Electronically signed by Calvin Aviles MD > Date _ Calvin Aviles MD Cosigner Signature: Date CC: ~ Signed [facility] Work Phone: Evaluation noteNo assessment information available [facility] Work Phone: Evaluation note* Diagnosis Onset Date Resolution Status Family history of colon cancer in mother acute Personal history of colonic polyps acute [facility] Work Phone: evaluation note* Diagnosis Personal history of colonic polyps- Primary Family history of malignant neoplasm of gastrointestinal tract documented in this encounter [facility] note* Diagnosis Onset Date Resolution Status Family history of colon cancer in mother acute Personal history of colonic polyps acute Adenomatous colon polyp acut e Osteoporosis noneactive [facility] Work Phone: evaluation note* Diagnosis Onset Date Resolution Status Adenomatous colon polyp acut e Osteoporosis noneactive Adenomatous colon polyp acut e Personal history of colonic polyps acute [facility] Work Phone: evaluation note* Diagnosis Personal history of colonic polyps- Primary Adenomatous polyp of ascending colon documented in this encounter [facility] note* Diagnosis Onset Date Resolution Status Osteoporosis noneactive Adenomatous colon polyp acut e Personal history of colonic polyps acute Adenomatous colon polyp acut e Family history of colon cancer in mother acute Personal history of colonic polyps acute [facility] Work Phone: evaluation note* Diagnosis Onset Date Resolution Status Adenomatous colon polyp acut e Family history of colon cancer in mother acute [facility] Work Phone: evaluation note* Diagnosis History of colon polyps- Primary Personal history of colonic polyps documented in this encounter [facility] note* Diagnosis Onset Date Resolution Status Adenomatous colon polyp acut e [facility] Work Phone: Evaluation note* Diagnosis Viral illness- Primary Unspecified viral infection, in conditions classified elsewhere and of unspecified site documented in this encounter [facility] note* Diagnosis Cervicalgia- [facility] Diagnosis Cervicalgia- Primary documented in this encounter [facility] note* Diagnosis Cervicalgia- Primary documented in this encounter [facility] note* Diagnosis Cervicalgia- Primary documented in this encounter [facility] note* Diagnosis Cervicalgia- Primary documented in this encounter [facility] note* Diagnosis Cervicalgia- Primary documented in this encounter [facility] note* Diagnosis Cervicalgia- Primary [facility] Diagnosis Cervicalgia- Primary [facility]* Diagnosis Onset Date Resolution Status Admit Date Cervical spinal cord compression acute February 28 10:54am Degenerative disc disease, cervical acute February 28 10:54am Low bone density acute February 28, 2025 10:54am Osteoporosis chronic February 11:18am [facility] Work Phone: Hospital Discharge instructionsAmbulatory Orders* Gastroenterology Location: None Selected [facility] Work Phone: Progress note Author Saurabh Payne [facility] Note Date/Time February 28, 2025 1 1:51am [facility] [address] [place] [address] [place] [address] OFFICE VISIT Date of Service: 02/28/25 MR#: [id number] Acct: [id number] Name: ELIDIA STEPHENS Rep #: [id number] : 1940 Provider: Dr. Anthony Payne MD Age/Sex: 84/F Location: [facility] [place].[facility] Status: Signed Intake Vital Signs 09/17/24 10:52 02/28/25 11:03 Height 5 ft 5 ft Weight: 133 lb BMI 25.9 Intake Visit Reasons: CERVICAL SPINE Chief Complaint: Cervicla spine pain Accompanied by: Is patient in pain?: Yes Pain scale (1-10): 7 Allergies Penicillins (PCN) Allergy (Verified 02/28/25 11:07) Rash adhesive Adverse Reaction (Verified 02/28/25 11:07) unknown alendronate sodium Adverse Reaction (Verified 02/28/25 11:07) GI Upset ciprofloxacin (From Cipro) Adverse Reaction (Verified 02/28/25 11:07) blurred vision latex Adverse Reaction (Verified 02/28/25 11:07) rash risedronate sodium (From Actonel) Adverse Reaction (Verified 02/28/25 11:07) GI Upset sulfamethoxazole (From Septra) Adverse Reaction (Verified 02/28/25 11:07) GI Upset trimethoprim (From Septra) Adverse Reaction (Verified 02/28/25 11:07) GI Upset venlafaxine (From Effexor) Adverse Reaction (Verified 02/28/25 11:07) Unknown Medications ?Medication ?Instructions ?Recorded ?Confirmed ?Type cholecalciferol (vitamin D3) 50 50 mcg PO DAILY 02/28/25 History mcg (2,000 unit) capsule (Vitamin D3) vit C 250 mg-vit E 90 mg-zinc 40 1 tab PO BID 03/07/22 02/28/25 History mg-copper 1 qs-vdwrgl-llhadk capsule (PreserVision AREDS-2) Prolia 60 mg/mL subcutaneous 60 mg subcut U2EEAFEF #1 mL 07/28/23 02/28/25 Rx syringe (denosumab) amlodipine 2.5 mg tablet 2.5 mg PO QHS 06/12/2402/28 History Have you fallen in the past year?: Yes PFSH Medical History (Updated 02/28/25 @ 11:43 by Norma Davila, AMAURI) Low bone density Degenerative disc disease, cervical Cervical spinal cord compression Hx of fracture of wrist Osteoporosis Wears hearing aid Wears glasses Post-menopausal Depression Anxiety Arthritis Non-smoker Shortness of breath on exertion History of edema History of stress test Cardiology follow-up encounter Hypertension Hemorrhoids Surgical History Hx of colonoscopy History of tonsillectomy History of open reduction and internal fixation (ORIF) procedure History of cataract surgery Family History Brother CAD (coronary artery disease) stents, PPM Hypertension Father Heart disease Brother Hypertension Mother Colon cancer Social History Smoking Status: Never smoker alcohol intake: current alcohol intake frequency: a few times a week Alcohol type: wine substance use type: does not use caffeine: Yes Type: coffee what type of physical activity do you participate in: bicycling HPI CERVICAL SPINE Details: This documentation accurately reflects the service provided and the decisions made by me, Dr. Saurabh Payne MD 02/28/25 1103. Part of today?s visit was documented by Angelo Ocampo MA and Norma Davila RN, acting as scribe. ELIDIA STEPHENS is a 84 year old F here today for cervical spine. Patient states that her pain is a 7 today. She states that the pain is going in the back of the neck. Patient states that she has pain in the left side of the neck. She reports limited ROM in her neck. Turning her head side to side is painful the left being the worse. She states that the pain come and goes. The pain is sharp, and throbbing. Patient states that this has been going on since October 2024. She states that the pain just came on one day insidious onset. Patient states that she didn't injure anything. 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 Patient states that she had an MRI done of her neck. She states that she saw Dr. Swain to go over the MRI results. Dr. Swain stated that she had spinal stenosis in her spine. Patient states that she hasn'brian any surgeries on her neck. She states that she hasn't injured anything. Patient states that when she is bending over, the pain gets worse. When she is reaching, the pain gets worse. Patient states that she has had an injection in her neck. She states that the injections that Dr. Swain gave her didn't help at all. Patient states that she did physical therapy at the [facility] in [place]. She states that she did 18 session of physical therapy. Patient states that the physical therapy didn't help. She states that the pain in her neck wasn't really that bad when she did the physical therapy. Patient states that she doesn't have any diabetes, or blood thinners. Patient states that she doesn't smoke, or do any drugs. She reports a few months ago she didn't feel sure footed a few months ago but this has since returned to normal. She states that she doesn't use a walker or a cane. She denies numbness in her hands. She is right handed. She has no dexterity issues. She can use a knife and fork at the same time and she has not noticed a change in her handwriting. The patient is an 84-year-old female presenting with neck pain and stiffness. The neck pain began with stiffness in October, which gradually worsened over time. The patient initially sought physical therapy, which did not significantly alleviate the symptoms. The patient reports that the neck pain is intermittent but can be severe at times, particularly when turning to the left. There is no associated pain radiating to the shoulder or arm, and no numbness or dexterity issues have been noted. The patient has a history of osteoporosis and is currently taking Prolia, prescribed by an tariff counsel. The patient has not had any recent surgeries and reports generally good health, with no major medical problems such as diabetes or heart disease. - Musculoskeletal: Reports neck pain and stiffness, particularly on left rotation. Denies pain radiating to shoulder or arm. - Neurological: Denies numbness, dexterity issues, or balance problems. - General: Reports good overall health. Denies diabetes, heart, or lung problems. Attestation: Documentation on this patient encounter was supported using ambient scribe technology/ voice AI technology. The patient consented to recording for the purpose of documenting the encounter. Provider reviewed content of the generatednote prior to signature. Ortho Exam General General: Yes no acute distress Neurologic: Yes alert and Yes oriented x3 Psychologic: Yes reasonable and appropriate Exam Narrative - Neurological: Normal psych nurse strength, symmetrical sensation in hands, normal reflexes. - Musculoskeletal: Limited range of motion in neck, particularly painful on leftrotation. - Balance: Good balance noted during testing with eyes closed and one leg raised. Neck shows bilateral paraspinal tenderness. Upper extremity shows 5 x 5 strength. Ira's negative. Romberg's is negative. Tandem gait shows only mild imbalance. No hyperreflexia lower extremities. Coding Level of Care Code Off vis,new,level 4 Diagnoses Cervical spinal cord compression G95.20 Degenerative disc disease, cervical M50.30 Low bone density M85.9 Time Spent (min) 45 Assessment and Plan Assessment and Plan (1) Cervical spinal cord compression: Status: Acute (2) Degenerative disc disease, cervical: Status: Acute (3) Low bone density: Status: Acute Orders: Orders Cerv Spine 2 or 3 Views Today M54.2 - Cervicalgia Plan Obtained and reviewed cervical x-rays today in the clinic. Independent interpretation of the x-rays was performed. - Imaging: X-rays show loss of disc height and low bone density in cervical spine. MRI shows spinal stenosis withoutinstability. Dynamic x-rays do not show any significant mobility at any of the cervical levels. Mild vacuum phenomenon is noticed in the lower cervical levelsbut no significant movement. 1. Cervical spondylosis - Non-surgical management with physical therapy and pain management is advised due to the patient's age and lack of instability. 2. Osteoporosis - Continue Prolia and monitor with DEXA scans as per tariff counsel's guidance. 3. Arthritis - Manage flare-ups with physical therapy and injections. - Continue physical therapy exercises to maintain neck mobility. - Follow up with tariff counsel for osteoporosis management and DEXA scans. - Consider pain management options such as injections if pain persists. Explained imaging findings in detail. I also reviewed pt's cervical spine MRI indetail. I do not recommend surgical intervention at this time as she is not myelopathic clinically, and also has advanced age which would be high surgical risk. At this time I recommend that she continue with non surgical options including PT and diagnostic injections with pain management. Follow up as neededor sooner if pain, swelling, numbness or associated symptoms, or concerns develop. All questions answered. Patient in agreement of plan. Clinical Quality Measures Falls Risk Screening/Assistive Devices Have you fallen in the past year?: Yes 02/28/25 [id number] <Electronically signed by Saurabh Payne MD> Date _ Saurabh Payne MD Cosigner Signature: Date (if applicable) CC: Dr. Emi Whatley MD; Dr. Jeovanny Swain MD ~ [facility] [employer] Work Phone: Reason for referral (narrative)* Outpatient Procedure (Routine) - Pending Review Specialty Diagnoses / Procedures Referred By Ava carbajal Referred To Contact [facility] Diagnoses Personal history of colonic polyps Procedures COLONOSCOPY (THERAPEUTIC) COLSC FLX W/RMVL OF TUMOR POLYP LESION SNARE TQ Emi Constantino MD [address] [place] [address] [facility] [address] [place] [id number] Referral ID Status Reason Start Date Expiration Date Visits Requested Visits Authorized [id number] Pending Review Auto-Generat ed Referral 08/08/2022 08/09/2023 1 1 [facility] for referral (narrative)No reason for referral information [facility]WOhio[facility] Work Phone: Chief Complaint Chief Complaint Description Start Date left shoulder pain Preliminary chief co mplaint data, not yet signed by the author as of Advance Directives No Advanced Directives Records Found Advance Directive Response Recorded Date/ Time Living Will Yes April 29 7:53pm Power of Wire Roller Yes April 29, 2019 7:53pm Advance Directive Response Recorded Date/ Time Name of Medical Power of Wire Roller SPOUSE March 07, 2022 10:34am Living Will Yes March 07 10:34am Power of Wire Roller Yes March 07, 2022 10:34am Advance Directive Response Recorded Date/ Time Name of Medical Power of Wire Roller SPOUSE March 07, 2022 9:34am Living Will Yes March 07 9:34am Power of Wire Roller Yes March 07, 2022 9:34am Advance Directive Response Recorded Date/ Time Name of Medical Power of Wire Roller SPOUSE March 07, 2022 9:34am Living Will Yes June 24 4:14pm Power of Wire Roller Yes June 24, 2022 4:14pm Advance Directive Response Recorded Date/ Time Living Will Yes June 24 5:14pm Power of Wire Roller Yes June 24, 2022 5:14pm Advance Directive Response Recorded Date/ Time Name of Medical Power of Wire Roller May 26, 2023 11:08am Living Will Yes May 26 11:08am Power of Wire Roller Yes May 26 11:08am Advance Directive Response Recorded Date/ Time Name of Medical Power of Wire Roller May 26, 2023 12:08pm Living Will Yes May 26 12:08pm Power of Wire Roller Yes May 26 12:08pm Advance Directive Response Recorded Date/ Time Living Will Yes February 27 10:56am Power of Wire Roller Yes October 9th, 2 024 10:56am Advance Directive Response Recorded Date/ Time Living Will Yes February 27 10:56am Do you have a Healthcare Power of Wire Roller? Yes February 28, 2024 10:56am Advance Directive Response Recorded Date/ Time Living Will Yes August 16, 2024 9:41am Do you have a Healthcare Power of Wire Roller? Yes August 16, 2024 9:41am Name of Medical Power of Wire Roller SPOUSE August 16, 2024 9:41am Living Will Yes February 27 10:56am Do you have a Healthcare Power of Wire Roller? Yes February 28, 2024 10:56am Advance Directive Response Recorded Date/ Time Living Will Yes February 27 10:56am Do you have a Healthcare Power of Wire Roller? Yes February 28, 2024 10:56am Living Will Yes August 16, 2024 9:41am Do you have a Healthcare Power of Wire Roller? Yes August 16, 2024 9:41am Name of Medical Power of Wire Roller SPOUSE August 16, 2024 9:41am Assessments There may be information available, but it has not been provided by the sender. Review of System There may be information available, but it has not been provided by the sender. Family History No Family History Records Found Relationship Condition Age at Onset Recorded Date/T fortino brother Coronary artery disease Unknown father Cardiac disease Unknown Relationship Condition Age at Onset Recorded Date/T fortino brother Coronary artery disease Unknown Hypertension Unknown father Cardiac disease Unknown brother Hypertension Unknown mother Malignant neoplasm of colon Unknown History of Present Illness There may be information available, but it has not been provided by the sender. Chief Complaint and Reason for Visit Chief Complaint SCREENING Chief Complaint SCREENING TARSAL TUNNEL SYNDROME TARSAL TUNNEL SYNDROME OSTEO Chief Complaint TARSAL TUNNEL SYNDRO ME TARSAL TUNNEL SYNDROME OSTEO COLONOSCOPY Reason for Visit Family history of co [place] cancer in mother Personal history of colonic polyps Chief Complaint COLONOSCOPY SCOPE 03/08 DISCUSS BIOPSY EORDER Osteoporosis Reason for Visit Family history of co [place] cancer in mother Personal history of colonic polyps Adenomatous colon polyp Osteoporosis Chief Complaint SCOPE 03/08 DISCUSS BIOPSY EORDER Osteoporosis Discuss Surg Recom 03/15/22 RLQ ABD PAIN Reason for Visit Adenomatous colon po lyp Osteoporosis Adenomatous colon polyp Personal history of colonic polyps Chief Complaint EORDER Osteoporosis Discuss Surg Recom 03/15/22 RLQ ABD PAIN Discuss colectomy surgery Reason for Visit Osteoporosis Adenomatous colon polyp Personal history of colonic polyps Adenomatous colon polyp Family history of colon cancer in mother Personal history of colonic polyps Chief Complaint EORDER Osteoporosis Discuss Surg Recom 03/15/22 RLQ ABD PAIN Discuss colectomy surgery PROLIA Reason for Visit Osteoporosis Adenomatous colon polyp Personal history of colonic polyps Adenomatous colon polyp Family history of colon cancer in mother Personal history of colonic polyps Chief Complaint SCREENING/OSTEO Discuss options/colectomy PROLIA Reason for Visit Adenomatous colon po lyp Family history of colon cancer in mother Chief Complaint PROLIA Yearly C-Scope Consult Reason for Visit Adenomatous colon po lyp Chief Complaint Yearly C-Scope Consu lt EORDER FOR LAB AND XRAY Reason for Visit Adenomatous colon po lyp Chief Complaint Admit Date LEFT WRIST FRACTURE/RX HERE April 3:00pm Pre Colon, Annual check June 12 1:58pm Reason for Visit Admit Date Family history of colon cancer in mother June 12, 2024 1:58pm Personal history of colonic polyps Natali 2024 1:58pm Reason for Visit Admit Date Family history of colon cancer in mother June 12, 2024 1:58pm Personal history of colonic polyps Mayua 2024 1:58pm Personal history of colonic polyps August 21, 2024 7:26am Chief Complaint Admit Date Pre Colon, Annual check June 12 1:58pm 2 Y FU - Prolia B&B September 10, 2024 1:2 2pm Test Result September 17, 2024 10: 31am EORDER-neck soft tissue October 02, 2024 4 :22pm Reason for Visit Admit Date Family history of colon cancer in mother June 12, 2024 1:58pm Personal history of colonic polyps Natali 2024 1:58pm Personal history of colonic polyps August 21, 2024 7:26am Osteoporosis September 10, 2024 1:2 2pm Personal history of colonic polyps September 17, 2024 10:31am Chief Complaint Admit Date Test Result September 17, 2024 10: 31am EORDER-neck soft tissue October 02, 2024 4 :22pm Spondylosis without myelopathy or radicu lopathy, c January 09, 2025 10:56am Reason for Visit Admit Date Personal history of colonic polyps September 17, 2024 10:31am Chief Complaint Admit Date Spondylosis without myelopathy or radicu lopathy, c January 09, 2025 10:56am CERVICAL SPINE February 28, 2025 1 0:54am Room 5 February 28, 2025 1 1:19am Prolia - B&B March 13, 2025 1 1:18am Reason for Visit Admit Date Cervical spinal cord compression February 28, 2025 10:54am Degenerative disc disease, cervical Octo 2024 10:54am Low bone density February 28, 2025 1 0:54am Osteoporosis March 13, 2025 1 1:18am Summary Purpose Additional Source Comments Reason for Visit (unrecogniz ed section and content) Reason Comments Physical Therapy PT Discharge Specialty Diagnoses / Procedures Referred By Ava carbajal Referred To Contact Physical Therapy / PHYSICAL THERAPY Diagnoses Neck Pain Procedures PHYSICAL THERAPY EVALUATION HIGH COMPLEX 45 MINS NEW RS PT SPINE Self Yung Roach, PT [address] [place] [address] Phone: tel: fax: Referral ID Status Reason Start Date Expiration Date V isits Requested Visits Authorized [id number] Authorized 05/22/2024 05/21/2025 20 20 Reason For Visit Description Start Date New - 1st visit with practice Preliminary reason f or visit data, not yet signed by the author as of left shoulder pain Reason Comments Consult 2nd opinion on colon ic polyps Reason Comments Patient Question Reason Comments Consult Reason Comments Colon Polyps Reason Comments Patient Question Prep Medication Problem Reason Comments Sore Throat Runny nose, GAUTAM x 1 d ay Reason Comments Results Reason Comments PT Eval Physical Therapy Reason Comments Physical Therapy Specialty Diagnoses / Procedures Referred By Ava carbajal Referred To Contact Physical Therapy / PHYSICAL THERAPY Diagnoses Neck Pain Procedures PHYSICAL THERAPY EVALUATION HIGH COMPLEX 45 MINS NEW RS PT SPINE Self Yung Roach, PT [address] [place] [address] Phone: tel: fax: Reason Comments Patient Update Goals (unrecognized section and content) Goals may be documented in a n alternate sectionGoals may be documented in an alternate sectionGoals may be documented in an alternate sectionGoals may be documented in an alternate sectionGoals may be documented in an alternate sectionGoals may be documented in an alternate sectionGoals may be documented in an alternate sectionGoals may be documented in an alternate sectionGoals may be documented in an alternate sectionGoals may be documented in an alternate sectionGoals may be documented in an alternate sectionGoals may be documented in an alternate section Source Comments (unrecognize d section and content) In the event this informatio n is protected by the Federal Confidentiality of Alcohol and Drug Abuse Patient Records regulations: The Federal rules restrict any use of the information to criminally investigate or prosecute any alcohol or drug abuse patient.[facility] Hospital[facility] the event this information is protected by the Federal Confidentiality of Alcohol and Drug Abuse Patient Records regulations: The Federal rules restrict any use of the information to criminally investigate or prosecute any alcohol or drug abuse patient.[facility] HospitalIn the event this information is protected by the Federal Confidentiality of Alcohol and Drug Abuse Patient Records regulations: The Federal rules restrict any use of the information to criminally investigate or prosecute any alcohol or drug abuse patient.[facility] HospitalIn the event this information is protected by the Federal Confidentiality of Alcohol and Drug Abuse Patient Records regulations: The Federal rules restrict any use of the information to criminally investigate or prosecute any alcohol or drug abuse patient.[facility] the event this information is protected by the Federal Confidentiality of Alcohol and Drug Abuse Patient Records regulations: The Federal rules restrict any use of the information to criminally investigate or prosecute any alcohol or drug abuse patient.[facility] HospitalIn the event this information is protected by the Federal Confidentiality of Alcohol and Drug Abuse Patient Records regulations: The Federal rules restrict any use of the information to criminally investigate or prosecute any alcohol or drug abuse patient.[facility] HospitalIn the event this information is protected by the Federal Confidentiality of Alcohol and Drug Abuse Patient Records regulations: The Federal rules restrict any use of the information to criminally investigate or prosecute any alcohol or drug abuse patient.[facility] the event this information is protected by the Federal Confidentiality of Alcohol and Drug Abuse Patient Records regulations: The Federal rules restrict any use of the information to criminally investigate or prosecute any alcohol or drug abuse patient.[facility] HospitalIn the event this information is protected by the Federal Confidentiality of Alcohol and Drug Abuse Patient Records regulations: The Federal rules restrict any use of the information to criminally investigate or prosecute any alcohol or drug abuse patient.[facility] HospitalIn the event this information is protected by the Federal Confidentiality of Alcohol and Drug Abuse Patient Records regulations: The Federal rules restrict any use of the information to criminally investigate or prosecute any alcohol or drug abuse patient.[facility] HospitalIn the event this information is protected by the Federal Confidentiality of Alcohol and Drug Abuse Patient Records regulations: The Federal rules restrict any use of the information to criminally investigate or prosecute any alcohol or drug abuse patient.[facility] HospitalIn the event this information is protected by the Federal Confidentiality of Alcohol and Drug Abuse Patient Records regulations: The Federal rules restrict any use of the information to criminally investigate or prosecute any alcohol or drug abuse patient.[facility] HospitalIn the event this information is protected by the Federal Confidentiality of Alcohol and Drug Abuse Patient Records regulations: The Federal rules restrict any use of the information to criminally investigate or prosecute any alcohol or drug abuse patient.[facility] HospitalIn the event this information is protected by the Federal Confidentiality of Alcohol and Drug Abuse Patient Records regulations: The Federal rules restrict any use of the information to criminally investigate or prosecute any alcohol or drug abuse patient.[facility] HospitalIn the event this information is protected by the Federal Confidentiality of Alcohol and Drug Abuse Patient Records regulations: The Federal rules restrict any use of the information to criminally investigate or prosecute any alcohol or drug abuse patient.[facility] HospitalIn the event this information is protected by the Federal Confidentiality of Alcohol and Drug Abuse Patient Records regulations: The Federal rules restrict any use of the information to criminally investigate or prosecute any alcohol or drug abuse patient.[facility] HospitalIn the event this information is protected by the Federal Confidentiality of Alcohol and Drug Abuse Patient Records regulations: The Federal rules restrict any use of the information to criminally investigate or prosecute any alcohol or drug abuse patient.[facility] Care Teams (unrecognized sec tion and content) Bush Regenerator Relationship Specialty Start Date End Date Emi Whatley [address] [facility] [address] [place] [address] PCP - General Family Medicine 04/26/22 Bush Regenerator Relationship Specialty Start Date End Date Emi Whatley [address] [facility] [address] [place] [address] PCP - General Family Medicine 04/26/22 Team Status: Active Member Role Status Dates Dr. Emi Whatley MD Family Provider Active Dr. Emi Whatley MD Primary Care Provider Active Team Status: Inactive Member Role Status Dates Dr. Emi Whatley MD Primary Care Provider, Referr ing Provider Active Dr. Christophe Lees MD Attending Provider Active Team Status: Active Member Role Status Dates Dr. Emi Whatley MD Primary Care Provider, Referr ing Provider Active Dr. Christophe Lees MD Attending Provider, Other Prov ider Active Team Status: Inactive Member Role Status Dates Dr. Emi Whatley MD Primary Care Provider, Referr ing Provider Active Dr. Elfego Davila MD Attending Provider Active Team Status: Inactive Member Role Status Dates Dr. Emi Whatley MD Primary Care Pr ovider, Attending Provider, Referring Provider Active Team Status: Inactive Member Role Status Dates Dr. Emi Whatley MD Primary Care Provider Active Dr. Christophe Lees MD Attending Provider, Referring Provider Active Bush Regenerator Relationship Specialty Start Date End Date Emi Whatley [address] [facility] [address] [place], [place] [address] PCP - General Family Medicine 04/26/22 Bush Regenerator Relationship Specialty Start Date End Date Emi Whatley [address] [facility] [address] [place] [address] PCP - General Family Medicine 04/26/22 Team Status: Inactive Member Role Status Dates Dr. Emi Whatley MD Primary Care Provider Active Dr. Elfego Davila MD Attending Provider, Referring Provi renetta Active Team Status: Active Member Role Status Dates Dr. Emi Whatley MD Primary Care Provider, Attend ing Provider Active Team Status: Inactive Member Role Status Dates Dr. Emi Whatley MD Primary Care Provider Active Dr. Sagar Dangelo MD Attending Provider, Referring Pr ovider Active Team Status: Inactive Member Role Status Dates Dr. Emi Whatley MD Primary Care Provider, Attend ing Provider Active Bush Regenerator Relationship Specialty Start Date End Date Emi Whatley MD [address] [facility] [address] [place], [place] [id number] PCP - General Family Medicine 04/26/22 Bush Regenerator Relationship Specialty Start Date End Date Emi Whatley MD [address] [facility] [address] [place], [place] [address] PCP - General Family Medicine 04/26/22 Bush Regenerator Relationship Specialty Start Date End Date Emi Whatley MD [address] [place] [address] PCP - General Family Medicine 04/26/22 Team Status: Inactive Member Role Status Dates Dr. Emi Whatley MD Primary Care Provider Active Start: April 29, 2024 End: April 29, 2024 Dr. Juwan Sarabia MD Attending Provider Active Start: April 29, 2024 End: April 29, 2024 Dr. Juwan Sarabia MD Referring Provider Active Start: April 29, 2024 End: April 29, 2024 Team Status: Inactive Member Role Status Dates Dr. Emi Whatley MD Primary Care Provider Active Start: May 16, 2024 End: May 16, 2024 Dr. Emi Whatley MD Attending Provider Active Start: May 16, 2024 End: May 16, 2024 Dr. Emi Whatley MD Referring Provider Active Start: May 16, 2024 End: May 16, 2024 Team Status: Inactive Member Role Status Dates Dr. Emi Whatley MD Primary Care Provider Active Start: June 12, 2024 End: June 12, 2024 Dr. Emi Whatley MD Referring Provider Active Start: June 12, 2024 End: June 12, 2024 VERONICA Rausch Attending Provider Active Start: June 12, 2024 End: June 12, 2024 Team Status: Inactive Member Role Status Dates Dr. Emi Whatley MD Primary Care Provider Active Start: June 25, 2024 End: June 25, 2024 Dr. Emi Whatley MD Attending Provider Active Start: June 25, 2024 End: June 25, 2024 Dr. Emi Whatley MD Referring Provider Active Start: June 25, 2024 End: June 25, 2024 Team Status: Active Member Role Status Dates Dr. Emi Whatley MD Primary Care Provider Active Team Status: Inactive Member Role Status Dates Dr. Emi Whatley MD Primary Care Provider Active Start: August 06, 2024 End: August 06, 2024 Dr. Milagros Little MD Attending Provider Active Start: August 06, 2024 End: August 06, 2024 Dr. Milagros Little MD Referring Provider Active Start: August 06, 2024 End: August 06, 2024 Team Status: Inactive Member Role Status Dates Dr. Emi Whatley MD Primary Care Provider Active Start: August 21, 2024 End: August 21, 2024 Dr. Emi Whatley MD Referring Provider Active Start: August 21, 2024 End: August 21, 2024 Dr. Hussein Dawson DO Attending Provider Active Start: August 21, 2024 End: August 21, 2024 Team Status: Active Member Role Status Dates Dr. Emi Whatley MD Primary Care Provider Active Start: August 21, 2024 Dr. Emi Whatley MD Referring Provider Active Start: August 21, 2024 Dr. Hussein Dawson DO Attending Provider Active Start: August 21, 2024 Dr. Hussein Dawson DO Other Provider Active St art: August 21, 2024 Team Status: Inactive Member Role Status Dates Dr. Emi Whatley MD Primary Care Provider Active Start: September 10, 2024 End: September 10, 2024 Dr. Emi Whatley MD Referring Provider Active Start: September 10, 2024 End: September 10, 2024 Dr. Elfego Davila MD Attending Provider Active Sta rt: September 10, 2024 End: September 10, 2024 Team Status: Inactive Member Role Status Dates Dr. Emi Whatley MD Primary Care Provider Active Start: September 17, 2024 End: September 17, 2024 Dr. Emi Whatley MD Referring Provider Active Start: September 17, 2024 End: September 17, 2024 VERONICA Rausch Attending Provider Active Start: September 17, 2024 End: September 17, 2024 Team Status: Inactive Member Role Status Dates Dr. Emi Whatley MD Primary Care Provider Active Start: October 02, 2024 End: October 02, 2024 Cain Ratliff METALLOGRAPHY TEACHER METALLOGRAPHY TEACHER-C Attending Provider Active Start: October 02, 2024 End: October 02, 2024 Cain McMorrow METALLOGRAPHY TEACHER, METALLOGRAPHY TEACHER-C Referring Provider Active Start: October 02, 2024 End: October 02, 2024 Bush Regenerator Relationship Specialty Start Date End Date Emi Whatley MD [address] [place] [address] PCP - General Family Medicine 04/26/22 Bush Regenerator Relationship Specialty Start Date End Date Emi Whatley MD [address] [place] [address] PCP - General Family Medicine 04/26/22 Bush Regenerator Relationship Specialty Start Date End Date Emi Whatley MD [address] [place] [address] PCP - General Family Medicine 04/26/22 Bush Regenerator Relationship Specialty Start Date End Date Emi Whatley MD [address] [place] [address] PCP - General Family Medicine 04/26/22 Bush Regenerator Relationship Specialty Start Date End Date Emi Whatley MD [address] [place] [address] PCP - General Family Medicine 04/26/22 Bush Regenerator Relationship Specialty Start Date End Date Emi Whatley MD [address] [place] [address] PCP - General Family Medicine 04/26/22 Bush Regenerator Relationship Specialty Start Date End Date Emi Whatley MD [address] [place] [address] PCP - General Family Medicine 04/26/22 Bush Regenerator Relationship Specialty Start Date End Date Emi Whatley MD [address] [place] [address] PCP - General Family Medicine 04/26/22 Team Status: Active Member Role/Relationship Status Dates Dr. Emi Whatley MD Primary Care Provider Active Team Status: Inactive Member Role/Relationship Status Dates Dr. Emi Whatley MD Primary Care Provider Active Start: September 17, 2024 End: September 17, 2024 Dr. Emi Whatley MD Referring Provider Active Start: September 17, 2024 End: September 17, 2024 Gema Archuleta NP-C Attending Provider Active Start: September 17, 2024 End: September 17, 2024 Team Status: Inactive Member Role/Relationship Status Dates Dr. Emi Whatley MD Primary Care Provider Active Start: October 02, 2024 End: October 02, 2024 Cain Ratliff METALLOGRAPHY TEACHER, METALLOGRAPHY TEACHER-C Attending Provider Active Start: October 02, 2024 End: October 02, 2024 Cain Ratliff NP, METALLOGRAPHY TEACHER-C Referring Provider Active Start: October 02, 2024 End: October 02, 2024 Team Status: Inactive Member Role/Relationship Status Dates Dr. Emi Whatley MD Primary Care Provider Active Start: January 09, 2025 End: January 09, 2025 Dr. Jeovanny Swain MD Attending Provider Active Start: January 09, 2025 End: January 09, 2025 Dr. Jeovanny Swain MD Referring Provider Active Start: January 09, 2025 End: January 09, 2025 Team Status: Active Member Role/Relationship Status Dates Dr. Emi Whatley MD Primary care physician Active Team Status: Inactive Member Role/Relationship Status Dates Dr. Emi Whatley MD Primary care physician Active Start: January 09, 2025 End: January 09, 2025 Dr. Jeovanny Swain MD Attending physician Active Start: January 09, 2025 End: January 09, 2025 Dr. Jeovanny Swain MD Referring Provider Active Start: January 09, 2025 End: January 09, 2025 Team Status: Inactive Member Role/Relationship Status Dates Dr. Emi Whatley MD Primary care physician Active Start: February 28, 2025 End: February 28, 2025 Dr. Emi Whatley MD Referring Provider Active Start: February 28, 2025 End: February 28, 2025 Dr. Saurabh Payne MD Attending physician Active Start: February 28, 2025 End: February 28, 2025 Team Status: Inactive Member Role/Relationship Status Dates Dr. Emi Whatley MD Primary care physician Active Start: February 28, 2025 End: February 28, 2025 Dr. Castillo Cueva MD Attending physician Active Start: February 28, 2025 End: February 28, 2025 Team Status: Inactive Member Role/Relationship Status Dates Dr. Emi Whatley MD Primary care physician Active Start: March 13, 2025 End: March 13, 2025 Dr. Emi Whatley MD Referring Provider Active Start: March 13, 2025 End: March 13, 2025 Dr. Elfego Davila MD Attending physician Active St art: March 13, 2025 End: March 13, 2025 INFORMATION SOURCE (unrecogn ized section and content) DATE CREATED AUTHOR 12/09/2024 [facility] DATE CREATED AUTHOR AUTHOR'S ORGANIZ ATION 04/03/2025 [facility] FOR RECORDS PERTAINING TO PATIENTS WHO ARE [...] BE BASED ON THE PRIMARY CLINICAL RECORDS. [employer] provides no warranty or guarantee of the accuracy or completeness of information in this document.
== END | disposition home or self-care (01) ==
LOC: OPBD 12:30
PROVIDERS: PCP Family Medicine; Referring Provider Family Medicine; Visit Provider Family Medicine
DX: Z78.0 Asymptomatic menopausal state (principal)
CPT/HCPCS: 77080